=== PATIENT | male | born 1945 | race Caucasian/White ===

== ENCOUNTER 2016-09-04 10:24 | Day surgery (SDC) | payer MEDICARE, BC ==
[2016-08-31 15:05] VITALS: BMI 23.7
[~2016-09-04 10:24] MED LIST: DEXAMETHASONE SOD PHOSPHATE 10 MG/ML 1 ML VIAL IV ONE; HEPARIN SODIUM,PORCINE 5,000 UNIT/ML 1 ML VIAL SQ ONE; LIDOCAINE 1% 20 ML VIAL (10MG/ML) FOR IV START INTRADERMA PRN; MIDAZOLAM 2 MG/2 ML VIAL IV PRN; ONDANSETRON 4 MG/2 ML VIAL IVP ONE; SCOPOLAMINE 1.5MG/72HR PATCH TRANSDERM ONE; ceFAZolin 2 GM in SODIUM CHLORIDE 0.9% 100 ML IVPB ONE
[2016-09-04] MEDS: LACTATED RINGERS 1,000 ML IV SCH ×2 (10:44→11:05)
[2016-09-04 10:54] VITALS: TEMP 98
--- NOTE | 2016-09-04 11:26 | P.GSHP ---
History of Present Illness H&P Date: 09/04/16 Chief Complaint: Bilateral inguinal hernia This is a 70-year-old male who presents today for laparoscopic robotic system repair of bilateral inguinal hernias. 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 Right carotid endarterectomy, left knee arthroscopy, sinus surgery, clint shoulder rotator cuff. heel spur rt foot Past Anesthesia/Blood Transfusion Reactions: Motion Sickness Additional Past Anesthesia/Blood Transfusion Reaction / Comment(s): . Past Psychological History: Anxiety Additional Psychological History / Comment(s): . Smoking Status: Former smoker Past Alcohol Use History: Rare Additional Past Alcohol Use History / Comment(s): STARTED SMOKING AT AGE 19 QUIT SMOKING AT AGE 21 Past Drug Use History: None Reported - Past Family History Brother(s) Family Medical History: Cancer Additional Family Medical History / Comment(s): prostate Mother Family Medical History: No Reported History Father Family Medical History: No Reported History Additional Family Medical History / Comment(s): Father of possible an internal bleed. Medications and Allergies Home Medications Medication Instructions Recorded Confirmed Type Atorvastatin [Lipitor] 40 mg PO HS 10/18/14 08/31/16 History Lisinopril [Prinivil] 20 mg PO [facility] 10/18/14 08/31/16 History Escitalopram [Lexapro] 10 mg PO HS 12/13/14 08/31/16 History Aspirin [Adult Low Dose Aspirin EC] 162 mg PO HS 08/31/16 08/31/16 History Allergies Allergy/AdvReac Type Severity Reaction Status Date / Time influenza virus vaccine, AdvReac "very ill Verified 08/31/16 14:52 specific after injection" sulfamethoxazole AdvReac Rash/Hives Verified 08/31/16 14:52 [From Bactrim] trimethoprim [From Bactrim] AdvReac Rash/Hives Verified 08/31/16 14:52 Surgical - Exam Vital Signs Temp Pulse Resp BP Pulse Ox 98 F 87 16 156/89 96 09/04/16 10:53 09/04/16 10:53 09/04/16 10:53 09/04/16 10:53 09/04/16 10:53 - General well developed, no distress - Eyes PERRL - ENT normal pinna - Neck no masses - Respiratory normal expansion - Cardiovascular Rhythm: regular - Abdomen Abdomen: soft, non tender Hernia: inguinal (Bilateral inguinal hernias with left side being greater than right side) Assessment and Plan Plan: Bilateral inguinal hernia. We'll perform laparoscopic robotic-assisted repair.
[2016-09-04] MEDS ORDERED: GLYCOPYRROLATE 0.2 MG/ML 2 ML VIAL ONE (11:34)
[2016-09-04] MEDS ORDERED: HYDROmorphone (PF) 1 MG/ML ONE (11:34)
[2016-09-04] MEDS ORDERED: SUCCINYLCHOLINE CHLORIDE 100 MG/5 ML SYR IV ONE (11:34)
[2016-09-04] MEDS ORDERED: ROCURONIUM BROMIDE 10 MG/ML 10 ML VIAL IV ONE (11:34)
[2016-09-04] MEDS ORDERED: MIDAZOLAM 2 MG/2 ML VIAL ONE (11:34)
[2016-09-04] MEDS ORDERED: ePHEDrine 50 MG/ML 1 ML AMP ONE (11:34)
[2016-09-04] MEDS ORDERED: LIDOCAINE 1% INJ 10MG/ML (20 ML MDV) ONE (11:34)
[2016-09-04] MEDS ORDERED: PROPOFOL 10 MG/ML 20 ML VIAL IV ONE (11:34)
[2016-09-04] MEDS ORDERED: fentaNYL (PF) 50 MCG/ML 2 ML AMP ONE (11:34)
[2016-09-04] MEDS ORDERED: NEOSTIGMINE 1 MG/ML 10 ML VIAL ONE (11:34)
[2016-09-04] MEDS ORDERED: BUPIVACAIN-EPI 0.25%-1:200,000 30 ML VIAL SQ ONE (11:59)
--- NOTE | 2016-09-04 12:51 | P.OP ---
Date of Procedure: 09/04/16 Preoperative Diagnosis: Bilateral inguinal hernia Postoperative Diagnosis: Bilateral hernia Procedure(s) Performed: Laparoscopic robotic-assisted repair of bilateral hernia Anesthesia: JERICHO Surgeon: Billy Mullen Estimated Blood Loss (ml): 5 Pathology: none sent Condition: stable Disposition: PACU Description of Procedure: he patient's placed on the operating table in the supine position. The patient received general anesthesia. The patient's abdomen was prepped and draped in usual sterile fashion. The skin was anesthetized 1% local Xylocaine at the incision sites. Using an 11 blade a skin incision was made at the umbilicus. The fascia was grasped with a Kaleb and then the peritoneal cavity was entered with the Veress needle. Position of the Veress needle was confirmed with a positive drop test. After adequate insufflation a 5 mm trocar was placed into the peritoneal cavity. The Laparoscope was placed the peritoneal cavity. And a robotic 8 mm trocar was placed in the right lateral position and then another 8 mm robotic trochars placed in the left lateral position. The original 5 mm trocar was exchanged for a 12 mm trocar. The patient was placed in reverse Trendelenburg and then the patient was docked to the robot. Next the peritoneum over top of the the right hernia was incised and then using blunt and sharp dissection and electrocautery the hernia sac was dissected free from the floor of the inguinal canal. The hernia sac was completely reduced into the peritoneal cavity. And then using the Pro supervisor cell maintenance mesh the hernia was repaired. The peritoneum was then sutured with 20V lock suture. Next the peritoneum over top of the the left hernia was incised and then using blunt and sharp dissection and electrocautery the hernia sac was dissected free from the floor of the inguinal canal. The hernia sac was completely reduced into the peritoneal cavity. And then using the Pro supervisor cell maintenance mesh the hernia was repaired. The peritoneum was then sutured with 20V lock suture The patient was then undocked the robot. The needle was withdrawn from the peritoneal cavity. The umbilical trocar site was closed with 0 Ethibond suture. The skin was closed interrupted 3-0 Monocryl suture. Dermabond dressing was applied. Patient was sent to recovery in stable condition.
[2016-09-04] MEDS: HYDROmorphone 1 MG/ML 1 ML SYRINGE IVP PRN ×2 (13:18→13:48)
[2016-09-04] MEDS ORDERED: KETOROLAC 30 MG/ML 1 ML VIAL IVP ONE (13:23)
[2016-09-04] MEDS ORDERED: LACTATED RINGERS 1,000 ML IV ONE (15:40)
[2016-09-04] MEDS ORDERED: HYDROcodone/APAP 7.5-325MG 1 EACH TAB PO ONE (18:02)
[2016-09-04 19:34] VITALS: PULSE 96
[2016-09-04 19:35] VITALS: BP 114/76; RESP 20
== END 2016-09-04 19:30 | disposition home or self-care (01) ==
LOC: OR 10:24
PROVIDERS: ATTEND Surgery
DX: K40.20 Bilateral inguinal hernia, without obstruction or gangrene, not specified as recurrent (principal); Z86.73 Personal history of transient ischemic attack (TIA), and cerebral infarction without residual deficits; K21.9 Gastro-esophageal reflux disease without esophagitis; I10 Essential (primary) hypertension; E78.5 Hyperlipidemia, unspecified; Z87.891 Personal history of nicotine dependence; F41.9 Anxiety disorder, unspecified; Z79.82 Long term (current) use of aspirin; Z79.899 Other long term (current) drug therapy; Z88.2 Allergy status to sulfonamides; Z88.7 Allergy status to serum and vaccine
CPT/HCPCS: 49650; C1781; J2250; J1644; J1100; J2710; J0690; J2405; J2001; J3010; J1885; J1170; J0330; J2704

== ENCOUNTER 2016-09-23 17:09 | Emergency (ER) | payer MEDICARE, BC ==
[2016-09-23 17:16] VITALS: TEMP 97.4
[2016-09-23] MEDS ORDERED: RX INFO: IV CONTRAST WAS GIVEN 1 EACH MISC MISCELLANE PRN (17:49)
[2016-09-23] MEDS ORDERED: SODIUM CHLORIDE 0.9% 500 ML IV ONE (17:49)
--- NOTE | 2016-09-23 17:49 | ED ---
General Adult HPI - General Chief complaint: Recheck/Abnormal Lab/Rx Stated complaint: post op pain Source: patient Mode of arrival: ambulatory Limitations: no limitations - History of Present Illness Initial comments: Patient is a 70-year-old male who presents for evaluation for right lower pelvic pain after having bilateral robot assisted hernia repair on 09/04/2016. Past medical history as below. Patients surgeon is Dr. Mullen. Patient was actually evaluated by his surgeon this past Saturday and provided follow-up instructions if his pain worsens. Patient describes the pain as a dull/ burning type of ache. It fluctuates in intensity. It is worse with movement. Better with rest. No radiation of pain. He had a normal bowel movement yesterday. He does state though that he had some straining and also sneezed which may have exacerbated his pain. He did have some burning with urination. A urine sample was obtained by his primary care physician but he received no phone call to know if it was a urinary tract infection. He states that there is some fullness by his right testicle. Tolerating diet. He denies fever, chills , headache, changes of vision, URI symptoms, shortness of breath, cough, chest pain, nausea, vomiting, diarrhea - Related Data Home Medications Medication Instructions Recorded Confirmed Atorvastatin [Lipitor] 40 mg PO HS 10/18/14 09/23/16 Lisinopril [Prinivil] 20 mg PO QAM 10/18/14 09/23/16 Escitalopram [Lexapro] 10 mg PO HS 12/13/14 09/23/16 Aspirin [Adult Low Dose Aspirin EC] 162 mg PO HS 08/31/16 09/23/16 HYDROcodone/APAP 7.5-325MG [[place] 1 tab PO Q4H PRN 09/23/16 09/23/16 7.5] Ibuprofen [Motrin] 400 mg PO Q6HR PRN 09/23/16 09/23/16 Allergies Allergy/AdvReac Type Severity Reaction Status Date / Time influenza virus vaccine, AdvReac "very ill Verified 09/23/16 18:07 specific after injection" sulfamethoxazole AdvReac Rash/Hives Verified 09/23/16 18:07 [From Bactrim] trimethoprim [From Bactrim] AdvReac Rash/Hives Verified 09/23/16 18:07 Review of Systems ROS Statement: Those systems with pertinent positive or pertinent negative responses have been documented in the HPI. ROS Other: All systems not noted in ROS Statement are negative. 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 Right carotid endarterectomy, left knee arthroscopy, sinus surgery, clint shoulder rotator cuff. heel spur rt foot Past Anesthesia/Blood Transfusion Reactions: Motion Sickness Additional Past Anesthesia/Blood Transfusion Reaction / Comment(s): . Past Psychological History: Anxiety Additional Psychological History / Comment(s): . Smoking Status: Former smoker Past Alcohol Use History: Rare Additional Past Alcohol Use History / Comment(s): STARTED SMOKING AT AGE 19 QUIT SMOKING AT AGE 21 Past Drug Use History: None Reported - Past Family History Brother(s) Family Medical History: Cancer Additional Family Medical History / Comment(s): prostate Mother Family Medical History: No Reported History Father Family Medical History: No Reported History Additional Family Medical History / Comment(s): Father of possible an internal bleed. General Exam Limitations: no limitations General appearance: alert, in no apparent distress, other (Appears comfortable resting in the stretcher) Head exam: Present: atraumatic, normocephalic, normal inspection Eye exam: Present: normal appearance, PERRL, EOMI. Absent: scleral icterus, conjunctival injection, periorbital swelling ENT exam: Present: normal exam, mucous membranes moist Neck exam: Present: normal inspection. Absent: tenderness, meningismus, lymphadenopathy Respiratory exam: Present: normal lung sounds bilaterally. Absent: respiratory distress, wheezes, rales, rhonchi, stridor Cardiovascular Exam: Present: regular rate, normal rhythm, normal heart sounds. Absent: systolic murmur, diastolic murmur, rubs, gallop, clicks GI/Abdominal exam: Present: soft, normal bowel sounds, other (Abdomen is soft. Nontender. No high-pitched bowel sounds. No peritoneal signs. Surgical incisions appear C/D/I without surrounding signs of cellulitis/wound infection.) . Absent: distended, tenderness, guarding, rebound, rigid exam: Present: scrotal swelling, circumcision, other (Pain with palpation in the right inguinal area. There is a fullness to the right side of the scrotum. Tenderness to palpation of the right testicle. Positive cremasteric reflex bilaterally. No urethral discharge. The right testicle appears more elevated compared to the left.). Absent: testicular tenderness, urethral discharge, vertical testicular lie External exam: Absent: erythema, lesions Extremities exam: Present: normal inspection, full ROM, normal capillary refill. Absent: tenderness, pedal edema, joint swelling, calf tenderness Back exam: Present: normal inspection Neurological exam: Present: alert, oriented X3, CN II-XII intact Psychiatric exam: Present: normal affect, normal mood Skin exam: Present: warm, dry, intact, normal color. Absent: rash Course Vital Signs 09/23/16 09/23/16 17:12 21:45 Temperature 97.4 F L Pulse Rate 74 62 Respiratory 17 16 Rate Blood Pressure 127/74 118/63 O2 Sat by Pulse 98 97 Oximetry Medical Decision Making - Medical Decision Making Patient presents for evaluation for pain to the right inguinal area radiating down to the right testicle. There is some fullness to the right scrotum. Tender to the touch. Minimal pain with palpation of the testicles b/l. Normal lie. Will order basic labs, UA, CT abd/pelvis with IV contrast. Pt deferred pain medications at this time. 1944: Laboratory studies as below. Largely unremarkable. Patient continues to be in some pain. Again refusing pain medications. He went for CT. Awaiting for the final read. I again reexamined the patient. His right testicle is now tender to the touch. More tender with palpation of the right inguinal area. He has a positive cremasteric reflex. No concern for testicular torsion at this time but will order an US of the scrotum.. -I discussed the case with radiology to confirm that there is no suspicion for herniation of bowel into the scrotum. He feels that this is more consistent with postoperative air versus bowel. 2154: Reviewed ultrasound. Patient has a hydrocele on the right and a small varicocele on the left. Good blood flow to the testicles bilaterally. Placed a page to Dr. Mullen to give update as he recently hard surgical procedure. Staff left message. Discussed with the patient. We'll need follow-up with urology. They stated that they're going to be driving to [place] tomorrow. Discussed that there is still able to go to [place] but recommended close observation. He has pain medications at home which she can take. Recommended follow-up with urology in the next 1-2 days. Discussed signs and symptoms on when to return to the emergency department for further evaluation. Especially if his pain worsens or if he if he notices any changes in the characteristic of his pain. Comfortable going home. Will follow-up with urology/primary care physician. - Lab Data Result diagrams: 09/23/16 18:20 09/23/16 18:20 Lab Results 09/23/16 09/23/16 09/23/16 Range/Units 18:20 18:20 18:20 WBC 6.6 (3.8-10.6) k/uL RBC 4.81 (4.30-5.90) m/uL Hgb 14.5 (13.0-17.5) gm/dL Hct 43.3 (39.0-53.0) % MCV 90.2 (80.0-100.0) fL MCH 30.2 (25.0-35.0) pg MCHC 33.4 (31.0-37.0) g/dL RDW 12.6 (11.5-15.5) % Plt Count 243 (150-450) k/uL Neutrophils % 65 % Lymphocytes % 21 % Monocytes % 7 % Eosinophils % 2 % Basophils % 1 % Neutrophils # 4.3 (1.3-7.7) k/uL Lymphocytes # 1.4 (1.0-4.8) k/uL Monocytes # 0.5 (0-1.0) k/uL Eosinophils # 0.1 (0-0.7) k/uL Basophils # 0.1 (0-0.2) k/uL Sodium 141 (137-145) mmol/L Potassium 4.2 (3.5-5.1) mmol/L Chloride 106 (98-107) mmol/L Carbon Dioxide 23 (22-30) mmol/L Anion Gap 12 mmol/L BUN 15 (9-20) mg/dL Creatinine 1.00 (0.66-1.25) mg/dL Est GFR (MDRD) Af Amer >60 (>60 ml/min/1.73 sqM) Est GFR (MDRD) Non-Af >60 (>60 ml/min/1.73 sqM) Glucose 89 (74-99) mg/dL Plasma Lactic Acid Hans 0.8 (0.7-2.0) mmol/L Calcium 9.9 (8.4-10.2) mg/dL Total Bilirubin 1.8 H (0.2-1.3) mg/dL AST 32 (17-59) U/L ALT 46 (21-72) U/L Alkaline Phosphatase 65 (38-126) U/L Total Protein 7.1 (6.3-8.2) g/dL Albumin 4.6 (3.5-5.0) g/dL Urine Color Urine Appearance (Clear) Urine pH (5.0-8.0) Ur Specific [place] (1.001-1.035) Urine Protein (Negative) Urine Glucose (UA) (Negative) Urine Ketones (Negative) Urine Blood (Negative) Urine Nitrate (Negative) Urine Bilirubin (Negative) Urine Urobilinogen (<2.0) mg/dL Ur Leukocyte Esterase (Negative) 09/23/16 Range/Units 18:55 WBC (3.8-10.6) k/uL RBC (4.30-5.90) m/uL Hgb (13.0-17.5) gm/dL Hct (39.0-53.0) % MCV (80.0-100.0) fL MCH (25.0-35.0) pg MCHC (31.0-37.0) g/dL RDW (11.5-15.5) % Plt Count (150-450) k/uL Neutrophils % % Lymphocytes % % Monocytes % % Eosinophils % % Basophils % % Neutrophils # (1.3-7.7) k/uL Lymphocytes # (1.0-4.8) k/uL Monocytes # (0-1.0) k/uL Eosinophils # (0-0.7) k/uL Basophils # (0-0.2) k/uL Sodium (137-145) mmol/L Potassium (3.5-5.1) mmol/L Chloride (98-107) mmol/L Carbon Dioxide (22-30) mmol/L Anion Gap mmol/L BUN (9-20) mg/dL Creatinine (0.66-1.25) mg/dL Est GFR (MDRD) Af Amer (>60 ml/min/1.73 sqM) Est GFR (MDRD) Non-Af (>60 ml/min/1.73 sqM) Glucose (74-99) mg/dL Plasma Lactic Acid Hans (0.7-2.0) mmol/L Calcium (8.4-10.2) mg/dL Total Bilirubin (0.2-1.3) mg/dL AST (17-59) U/L ALT (21-72) U/L Alkaline Phosphatase (38-126) U/L Total Protein (6.3-8.2) g/dL Albumin (3.5-5.0) g/dL Urine Color Light Yellow Urine Appearance Clear (Clear) Urine pH 5.5 (5.0-8.0) Ur Specific [place] 1.004 (1.001-1.035) Urine Protein Negative (Negative) Urine Glucose (UA) Negative (Negative) Urine Ketones Trace H (Negative) Urine Blood Negative (Negative) Urine Nitrate Negative (Negative) Urine Bilirubin Negative (Negative) Urine Urobilinogen <2.0 (<2.0) mg/dL Ur Leukocyte Esterase Negative (Negative) Disposition Clinical Impression: Varicocele, Hydrocele Disposition: HOME SELF-CARE Condition: Good Instructions: Hydrocele (ED), Varicocele (ED) Referrals: Ron Zamarripa DO [Primary Care Provider] - 1-2 days Kapil Rodrigues MD [STAFF PHYSICIAN] - 1-2 days
[2016-09-23 18:44] LABS: Basophils # (A) 0.1 k/uL (0-0.2); Basophils % (A) 1 %; CH 31.3; CHCM 34.8; Eosinophils # (A) 0.1 k/uL (0-0.7); Eosinophils % (A) 2 %; HCT 43.3 % (39.0-53.0); HDW 2.61; HGB 14.5 gm/dL (13.0-17.5); Luc # (Auto) 0.23; Luc % (Auto) 4; Lymphocytes # (A) 1.4 k/uL (1.0-4.8); Lymphocytes % (A) 21 %; MCH 30.2 pg (25.0-35.0); MCHC 33.4 g/dL (31.0-37.0); MCV 90.2 fL (80.0-100.0); Mean Platelet Volume 6.5; Monocytes # (A) 0.5 k/uL (0-1.0); Monocytes % (A) 7 %; Neutrophils # (A) 4.3 k/uL (1.3-7.7); Neutrophils % (A) 65 %; RBC 4.81 m/uL (4.30-5.90); RDW 12.6 % (11.5-15.5); WBC 6.6 k/uL (3.8-10.6); WBC (Perox) 6.49
[2016-09-23 18:53] LABS: ALT 46 U/L (21-72); AST 32 U/L (17-59); Alkaline Phosphatase 65 U/L (38-126); Anion Gap 12 mmol/L; Blood Urea Nitrogen 15 mg/dL (9-20); Calcium 9.9 mg/dL (8.4-10.2); Carbon Dioxide 23 mmol/L (22-30); Chloride 106 mmol/L (98-107); Glucose 89 mg/dL (74-99); Non-African American GFR(MDRD) >60 (>60 ml/min/1.73 sqM); Potassium 4.2 mmol/L (3.5-5.1); Sodium 141 mmol/L (137-145); Total Bilirubin 1.8 mg/dL (0.2-1.3); Total Protein 7.1 g/dL (6.3-8.2)
[2016-09-23 19:20] LABS: Appearance,Urine Clear (Clear); Bilirubin,Urine Negative (Negative); Glucose,Urine (UA) Negative (Negative); Ketones,Urine Trace (Negative); Leukocyte Esterase,Urine Negative (Negative); Nitrite,Urine Negative (Negative); PH, Urine 5.5 (5.0-8.0); Protein,Urine Negative (Negative); Specific Gravity,Urine 1.004 (1.001-1.035); UA Billing (MACRO vs. MICRO) CHEM; Urobilinogen,Urine <2.0 mg/dL (<2.0)
--- NOTE | 2016-09-23 19:47 | CT ---
EXAMINATION TYPE: CT abdomen pelvis w con DATE OF EXAM: 09/23/2016 7:26 PM COMPARISON: September 12, 2015 HISTORY: Patient complains of RLQ pain x1 week post bilateral pelvic hernia repair [address] DLP: 670.4 mGycm CONTRAST: CT scan of the abdomen and pelvis is performed without Oral Contrast and with IV Contrast, patient in jected with 100 mL of Omnipaque 300. FINDINGS: LUNG BASES-: No visible nodule. No infiltrate. LIVER/GB: No calcified gallstones. No space occupying hepatic lesion. Biliary tree is of normal ca liber. PANCREAS: No inflammation. No distinct mass. SPLEEN: No splenic enlargement. No lesion seen. ADRENALS: No nodule. No thickening. KIDNEYS/BLADDER: No hydronephrosis. 2 cm lower pole cyst right kidney. 9 mm nonobstructing calculu s mid pole left kidney. Urinary bladder grossly unremarkable. BOWEL: Visualization of the appendix. Postoperative changes within the bilateral inguinal regions wit h stranding seen and a tiny amount of fluid identified bilaterally measuring 2.3 cm maximal dimension right inguinal region and 1.8 cm maximal dimension on the left. Amount of air is seen within the ing uinal canals bilaterally. Normal bowel caliber. Thinning of the distal esophagus with hiatal herni a noted. GENITAL ORGANS: No gross abnormality. LYMPH NODES: No greater than 1cm abdominal or pelvic lymph nodes are appreciated. AORTA: No significant abnormality. OSSEOUS STRUCTURES: No significant abnormality is seen. OTHER: No significant additional abnormality is seen. IMPRESSION: 1. Small amounts of postoperative fluid and stranding within the bilateral inguinal regions and lower abdomen compatible with recent herniorrhaphy. No definite infected collections identified. 2. Findings which may reflect esophagitis with small hiatal hernia.
--- NOTE | 2016-09-23 21:09 | US ---
EXAMINATION TYPE: US scrotum with doppler. Grayscale and color Doppler Duplex imaging performed of t he scrotum. DATE OF EXAM: 09/23/2016 8:42 PM COMPARISON: NONE CLINICAL HISTORY: Pain. rt teste pain EXAM MEASUREMENTS: TESTICLES: Right Testicle: 3.8 x 2.9 x 2.1 cm Left Testicle: 3.5 x 2.5 x 1.9 cm EPIDIDYMIS HEAD: Right Epididymis: 0.8 x 1.0 x 0.7 cm Left Epididymis: 0.9 x 1.0 x 0.8 cm TECHNOLOGIST IMPRESSION: Doppler performed to assess for testicular vascularity; good bilateral color flow and waveforms are s een. There is no evidence of testicular torsion. Presence of hydroceles: right Presence of varicoceles: left- Valsalva performed. IMPRESSION: Small right-sided hydrocele. Otherwise unremarkable study.
[2016-09-23 21:46] VITALS: BP 118/63; PULSE 62; RESP 16
== END 2016-09-23 22:06 | disposition home or self-care (01) ==
LOC: EC 17:09
DX: N43.3 Hydrocele, unspecified (principal); I86.1 Scrotal varices; R30.0 Dysuria; I10 Essential (primary) hypertension; M19.90 Unspecified osteoarthritis, unspecified site; F41.9 Anxiety disorder, unspecified; Z87.891 Personal history of nicotine dependence; Z86.73 Personal history of transient ischemic attack (TIA), and cerebral infarction without residual deficits; Z79.82 Long term (current) use of aspirin; Z79.899 Other long term (current) drug therapy; Z88.1 Allergy status to other antibiotic agents; Z88.2 Allergy status to sulfonamides; Z88.7 Allergy status to serum and vaccine
CPT/HCPCS: 36415; 80053; 83605; 85025; 81003; 93975; 76870; 74177; 99284; Q9967

== ENCOUNTER 2016-11-29 06:59 | Day surgery (SDC) | payer MEDICARE, BC ==
[2016-11-27 09:45] VITALS: BMI 23.7
[~2016-11-29 06:59] MED LIST changes: -DEXAMETHASONE SOD PHOSPHATE 10 MG/ML 1 ML VIAL IV ONE; -HEPARIN SODIUM,PORCINE 5,000 UNIT/ML 1 ML VIAL SQ ONE; +LACTATED RINGERS 1,000 ML IV SCH; -LIDOCAINE 1% 20 ML VIAL (10MG/ML) FOR IV START INTRADERMA PRN; -MIDAZOLAM 2 MG/2 ML VIAL IV PRN; -ONDANSETRON 4 MG/2 ML VIAL IVP ONE; -SCOPOLAMINE 1.5MG/72HR PATCH TRANSDERM ONE; -ceFAZolin 2 GM in SODIUM CHLORIDE 0.9% 100 ML IVPB ONE
[2016-11-29 07:16] VITALS: TEMP 98
[2016-11-29] MEDS ORDERED: LACTATED RINGERS 1,000 ML IV ONE (07:18)
[2016-11-29] MEDS ORDERED: PROPOFOL 10 MG/ML 20 ML VIAL IV ONE (07:56)
[2016-11-29] MEDS ORDERED: fentaNYL (PF) 50 MCG/ML 2 ML AMP ONE (07:56)
[2016-11-29] MEDS ORDERED: MIDAZOLAM 2 MG/2 ML VIAL ONE (07:56)
--- NOTE | 2016-11-29 08:04 | P.GSHP ---
History of Present Illness H&P Date: 11/29/16 Chief Complaint: Constipation, abdominal pain This is a 70-year-old male from Dr. Ron Pedersen. Patient rents today for colonoscopy. He's had issues constipation and abdominal pain is a dull pain is crampy and mainly left lower quadrant. 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 RECENT ABD PAIN AND PROBLEMS WITH HAVING BOWEL MOVEMENTS POST HERNIA SURGERY History of Any Multi-Drug Resistant Organisms: None Reported Past Surgical History: Appendectomy, Cholecystectomy, Heart Catheterization, Hernia Repair, Orthopedic Surgery Additional Past Surgical History / Comment(s): Laparoscopic migue fundoplasty extensive lysis of adhesions. Right carotid endarterectomy, left knee arthroscopy, sinus surgery, clint shoulder rotator cuff. heel spur rt foot Past Anesthesia/Blood Transfusion Reactions: Motion Sickness Additional Past Anesthesia/Blood Transfusion Reaction / Comment(s): . Past Psychological History: Anxiety Additional Psychological History / Comment(s): . Smoking Status: Former smoker Past Alcohol Use History: Rare Additional Past Alcohol Use History / Comment(s): STARTED SMOKING AT AGE 19 QUIT SMOKING AT AGE 21 Past Drug Use History: None Reported - Past Family History Brother(s) Family Medical History: Cancer Additional Family Medical History / Comment(s): prostate Mother Family Medical History: No Reported History Father Family Medical History: No Reported History Additional Family Medical History / Comment(s): Father of possible an internal bleed. Medications and Allergies Home Medications Medication Instructions Recorded Confirmed Type Atorvastatin [Lipitor] 40 mg PO HS 10/18/14 11/27/16 History Lisinopril [Prinivil] 20 mg PO QAM 10/18/14 11/27/16 History Escitalopram [Lexapro] 10 mg PO HS 12/13/14 11/27/16 History Aspirin [Adult Low Dose Aspirin EC] 162 mg PO HS 08/31/16 11/27/16 History HYDROcodone/APAP 7.5-325MG [[place] 1 tab PO Q4H PRN 09/23/16 11/27/16 History 7.5] Allergies Allergy/AdvReac Type Severity Reaction Status Date / Time influenza virus vaccine, AdvReac "very ill Verified 11/27/16 09:40 specific after injection" sulfamethoxazole AdvReac Rash/Hives Verified 11/27/16 09:40 [From Bactrim] trimethoprim [From Bactrim] AdvReac Rash/Hives Verified 11/27/16 09:40 Surgical - Exam Vital Signs Temp Pulse Resp BP Pulse Ox 98.0 F 81 18 119/79 95 11/29/16 07:14 11/29/16 07:14 11/29/16 07:14 11/29/16 07:14 11/29/16 07:14 - General well developed, no distress - Eyes PERRL - ENT normal pinna - Neck no masses - Respiratory normal expansion - Cardiovascular Rhythm: regular - Abdomen Abdomen: soft, non tender Assessment and Plan Plan: Constipation, left lower quadrant pain. We will perform colonoscopy.
--- NOTE | 2016-11-29 08:24 | P.OP ---
Date of Procedure: 11/29/16 Preoperative Diagnosis: Constipation Left lower quadrant pain Postoperative Diagnosis: Left colon polyp Mild diverticulosis Procedure(s) Performed: Colonoscopy Anesthesia: MAC Surgeon: Billy Mullen Pathology: other (Left colon polyp) Condition: stable Disposition: PACU Description of Procedure: The patient's placed on the endoscopy table in the lateral position. He received IV sedation. Digital rectal exam was performed which revealed no abnormalities. The prostate was symmetrical without nodules. The flexible colonoscope was then placed patient anus and passed throughout the entire colon. The ileocecal valve was visualized. The cecum, ascending and transverse colon appeared normal. In the descending and sigmoid colon is mild diverticulosis. In the left colon there was a polyp seen this was removed with the forcep. Scope was then brought back the rectum and this appeared normal. Scope was withdrawn for patient.
[2016-11-29 08:42] VITALS: BP 101/69; PULSE 71; RESP 18
== END 2016-11-29 08:59 | disposition home or self-care (01) ==
LOC: ORWHC2ENDO 06:59
PROVIDERS: ATTEND Surgery
DX: K63.5 Polyp of colon (principal); K57.30 Diverticulosis of large intestine without perforation or abscess without bleeding; Z87.891 Personal history of nicotine dependence; I10 Essential (primary) hypertension; E78.5 Hyperlipidemia, unspecified; Z86.73 Personal history of transient ischemic attack (TIA), and cerebral infarction without residual deficits; F32.9 Major depressive disorder, single episode, unspecified; M19.90 Unspecified osteoarthritis, unspecified site; F41.9 Anxiety disorder, unspecified; Z79.82 Long term (current) use of aspirin; Z79.899 Other long term (current) drug therapy; Z88.2 Allergy status to sulfonamides; Z88.7 Allergy status to serum and vaccine
CPT/HCPCS: 45380; J2250; J3010; J2704; 88305

== ENCOUNTER 2017-09-07 14:56 | Emergency (ER) | payer MEDICARE, BC ==
[2017-09-07 15:09] VITALS: BP 138/77; PULSE 76; RESP 20; TEMP 98.1
[2017-09-07] MEDS ORDERED: DIPH,PERTUS(ACELL)TETVAC-LF 0.5 ML VIAL IM ONE (15:18)
--- NOTE | 2017-09-07 15:47 | ED ---
Wound/Laceration HPI - General Chief Complaint: Wound/Laceration Stated Complaint: Finger laceration Time Seen by Provider: 09/07/17 15:11 Source: patient Mode of arrival: ambulatory Limitations: no limitations - History of Present Illness Initial Comments: 71-year-old male patient presents to the emergency department today for evaluation of laceration to the palmar surface of the left little finger. Patient states that approximate hour ago he was working on some metal when he cut his finger on a jagged edge. He states he did clean the finger however was having difficulty getting the bleeding to stop. He is unsure when his last tetanus vaccine was updated. He denies any numbness or tingling to the finger. Denies any difficulty with range of motion. States he takes a daily aspirin. Patient denies any headache, neck pain, back pain, chest pain, shortness of breath, dizziness, weakness, abdominal pain, nausea, vomiting, or difficulties with bowel movements or urination. - Related Data Home Medications Medication Instructions Recorded Confirmed Atorvastatin [Lipitor] 40 mg PO HS 10/18/14 11/27/16 Lisinopril [Prinivil] 20 mg PO QAM 10/18/14 11/27/16 Escitalopram [Lexapro] 10 mg PO HS 12/13/14 11/27/16 Aspirin [Adult Low Dose Aspirin EC] 162 mg PO HS 08/31/16 11/27/16 HYDROcodone/APAP 7.5-325MG [Hawley 1 tab PO Q4H PRN 09/23/16 11/27/16 7.5] Allergies Allergy/AdvReac Type Severity Reaction Status Date / Time influenza virus vaccine, AdvReac "very ill Verified 09/07/17 15:09 specific after injection" sulfamethoxazole AdvReac Rash/Hives Verified 09/07/17 15:09 [From Bactrim] trimethoprim [From Bactrim] AdvReac Rash/Hives Verified 09/07/17 15:09 Review of Systems ROS Statement: Those systems with pertinent positive or pertinent negative responses have been documented in the HPI. ROS Other: All systems not noted in ROS Statement are negative. 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 RECENT ABD PAIN AND PROBLEMS WITH HAVING BOWEL MOVEMENTS POST HERNIA SURGERY History of Any Multi-Drug Resistant Organisms: None Reported Past Surgical History: Appendectomy, Cholecystectomy, Heart Catheterization, Hernia Repair, Orthopedic Surgery Additional Past Surgical History / Comment(s): Laparoscopic migue fundoplasty extensive lysis of adhesions. Right carotid endarterectomy, left knee arthroscopy, sinus surgery, clint shoulder rotator cuff. heel spur rt foot Past Anesthesia/Blood Transfusion Reactions: Motion Sickness Additional Past Anesthesia/Blood Transfusion Reaction / Comment(s): . Past Psychological History: Anxiety Smoking Status: Former smoker Past Alcohol Use History: Rare Past Drug Use History: None Reported - Past Family History Brother(s) Family Medical History: Cancer Additional Family Medical History / Comment(s): prostate Mother Family Medical History: No Reported History Father Family Medical History: No Reported History Additional Family Medical History / Comment(s): Father of possible an internal bleed. General Exam Limitations: no limitations General appearance: alert, in no apparent distress, other (This is a well- developed, well-nourished adult male patient in no acute distress. Vital signs upon presentation were temperature 98.1F, pulse 76, respirations 20, blood pressure 138/77, pulse ox 99% on room air.) Respiratory exam: Present: normal lung sounds bilaterally. Absent: respiratory distress, wheezes, rales, rhonchi, stridor Cardiovascular Exam: Present: regular rate, normal rhythm, normal heart sounds. Absent: systolic murmur, diastolic murmur, rubs, gallop, clicks Extremities exam: Present: full ROM, normal capillary refill, other (2 cm laceration to the palmar surface of the distal left little finger, full range of motion, good strength against resistance. Bleeding controlled.). Absent: normal inspection, tenderness, pedal edema, joint swelling, calf tenderness Neurological exam: Present: alert, oriented X3, CN II-XII intact Psychiatric exam: Present: normal affect, normal mood Skin exam: Present: warm, dry, intact, normal color. Absent: rash Course Vital Signs 09/07/17 15:07 Temperature 98.1 F Pulse Rate 76 Respiratory 20 Rate Blood Pressure 138/77 O2 Sat by Pulse 99 Oximetry Procedures - Laceration Laceration #1 Consent Obtained: verbal consent Time Out Performed: Yes Indication: laceration Site: hand (Left Little finger) Size (cm): 2 Description: linear Depth: simple, single layer Anesthetic Used: lidocaine 1% Anesthesia Technique: local infiltration Amount (mls): 2 Pre-repair: irrigated extensively Type of Sutures: nylon Size of Sutures: 5-0 Number of Sutures: 5 Technique: simple, interrupted Patient Tolerated Procedure: well, no complications Medical Decision Making - Medical Decision Making 71-year-old male patient presents to the emergency department today for evaluation of laceration to the left little finger. Physical examination revealed a 2 cm laceration to the palmar surface of the distal little finger on the left hand. Patient was soaked in iodine solution. Wound was irrigated extensively, repaired as documented. Patient was given wound care instructions. Instructed to return in 7 days for suture removal. He is instructed to return here immediately for any new, worsening, or concerning symptoms. He verbalized understanding and agree with this plan. Disposition Clinical Impression: Laceration of left little finger Disposition: HOME SELF-CARE Condition: Good Instructions: Care For Your Stitches (ED), Finger Laceration (ED) Additional Instructions: Keep wound clean and dry. Do not submerge in water. Wash twice daily with warm water and antibacterial soap. Return here in 7 days to have her stitches removed. Monitor for signs or symptoms of infection including but not limited to redness, swelling, drainage of pus, fever, or chills. Follow up with her primary care physician for any further needs. Return here immediately for any new, worsening, or concerning symptoms. Referrals: Ron Zamarripa DO [Primary Care Provider] - 1-2 days Time of Disposition: 15:47
== END 2017-09-07 15:58 | disposition home or self-care (01) ==
LOC: EC 14:56
DX: S61.217A Laceration without foreign body of left little finger without damage to nail, initial encounter (principal); I10 Essential (primary) hypertension; F41.9 Anxiety disorder, unspecified; Z23 Encounter for immunization; Z86.73 Personal history of transient ischemic attack (TIA), and cerebral infarction without residual deficits; Z87.891 Personal history of nicotine dependence; Z98.890 Other specified postprocedural states; Z79.82 Long term (current) use of aspirin; Z79.899 Other long term (current) drug therapy; Z88.1 Allergy status to other antibiotic agents; Z88.2 Allergy status to sulfonamides; Z88.7 Allergy status to serum and vaccine; W26.8XXA Contact with other sharp object(s), not elsewhere classified, initial encounter; Y93.89 Activity, other specified; Y92.009 Unspecified place in unspecified non-institutional (private) residence as the place of occurrence of the external cause
CPT/HCPCS: 12001; 90471; 90715; 99282

== ENCOUNTER → 2017-11-12 | Outpatient (CLI) | payer MEDICARE, BC ==
[2017-11-12 18:49] LABS: Blood Urea Nitrogen 16 mg/dL (9-20)
--- NOTE | 2017-11-13 03:13 | CT ---
EXAMINATION TYPE: CT abdomen pelvis wo/w con DATE OF EXAM: 11/12/2017 COMPARISON: 09/23/2016 and 09/12/2015 HISTORY: 71-year-old male lower anterior abdominal pain, weight loss TECHNIQUE: Contiguous axial scanning of the abdomen and pelvis following administration of 100 ml Iso arianne 300 IV contrast. Delayed images through the kidneys and coronal/sagittal reconstructions perform ed. CT DLP: 1288.0 mGycm Automated exposure control for dose reduction was used. FINDINGS: Heart is normal size without pericardial effusion. Dependent atelectasis in the posterior lung bases without pleural effusion. Small hiatal hernia and some surgical changes at the GE junction, possible slipped Pastor wrap. No focal liver lesion or biliary ductal dilatation. Portal venous system is patent. Cholecystectomy c lips are present. Adrenal glands, spleen, and pancreas show no gross abnormality. Redemonstrated 1.6 cm cortical cyst lower pole right kidney, approximately 4 punctate 1 to 2 mm calcu li right kidney, and a larger 7 mm nonobstructive calculus left kidney. There is symmetric uptake and excretion of contrast from both kidneys. Mild to moderate atherosclerotic changes in the abdominal aorta and iliac arteries. There is a rightw ron directed saccular dilatation of the infrarenal abdominal aorta measuring up to 2.3 cm and a secon d fusiform dilatation of the distal abdominal aorta measuring 2.8 cm. This measured 2.5 cm on 09/12/19 16. No dilated small bowel, free fluid, or free air. Scattered nonenlarged and borderline sized mesenteric lymph nodes are present measuring up to 1 cm sh ort axis, coronal image 30. These seem to have been present on 09/23/2016 suggesting a chronic postinf lammatory etiology. Moderate stool burden. Appendix not discretely visualized. There is some strandy curvilinear density along the bilateral lower quadrants deep to the abdominal w all musculature suggesting prior hernia repair. There is a residual small fat-containing left indirec t inguinal hernia, refer to axial image 79 through 87. Some nodularity along the superior aspect of t he left-sided surgical material measures 1.2 cm and is less pronounced as compared to 09/23/2016 sugge sting some chronic nodular scarring. No abnormal fluid collection in the pelvis or pelvic lymphadenopathy. Prostate gland is enlarged abdifatah uring 5.3 cm with posterior compression to the bladder base. Mild circumferential bladder wall thicke julian likely chronic bladder wall hypertrophy. Bones: Degenerative spurring at the left SI joint and both hips. Bone island posterior left acetabulu m unchanged. Degenerative disc disease L5-S1 and facet arthropathy lower lumbar spine. IMPRESSION: 1. POSTSURGICAL CHANGES OF PRIOR BILATERAL INGUINAL HERNIA REPAIRS. THERE SEEMS TO BE A SMALL RESIDU AL FAT-CONTAINING INDIRECT INGUINAL HERNIA ON THE LEFT. 2. NODULARITY ALONG THE SUPERIOR MARGIN OF THE SURGICAL MATERIAL ALONG THE LEFT LOWER QUADRANT IS LES S PRONOUNCED COMPARED TO 09/23/2016 AND IS SUSPECTED TO REPRESENT CHRONIC NODULAR SCARRING. 3. SMALL HIATAL HERNIA AND SOME SURGICAL MATERIAL AT THE GE JUNCTION. POSSIBLE SLIPPED PASTOR WRAP. C ORRELATE WITH PATIENT'S SYMPTOMS. 4. BILATERAL NEPHROLITHIASIS, LARGEST MEASURING 7 MM ON THE LEFT. 5. A COUPLE DILATATION OF THE INFRARENAL ABDOMINAL AORTA. ALONG THE DISTAL ABDOMINAL AORTA, THERE IS FUSIFORM ECTASIA OF 2.8 CM, INCREASED FROM 2.5 CM ON 09/12/2015. NO DARLENE AAA. 6. PROSTATOMEGALY (5.3 CM WIDE) IMPRESSING ON TO THE POSTERIOR BLADDER BASE SUGGESTING BPH. CORRELATE WITH PATIENT'S SYMPTOMS.
== END | disposition home or self-care (01) ==
LOC: RADCTMAIN 18:12
PROVIDERS: ATTEND Family Medicine
DX: K44.9 Diaphragmatic hernia without obstruction or gangrene (principal); N20.0 Calculus of kidney; I77.811 Abdominal aortic ectasia; N40.0 Benign prostatic hyperplasia without lower urinary tract symptoms; Z98.890 Other specified postprocedural states
CPT/HCPCS: 82565; 84520; 74178; 36415; Q9967

== ENCOUNTER 2017-12-31 06:29 | Inpatient (IN) | payer MEDICARE, BC ==
[2017-12-31] MEDS ORDERED: SODIUM CHLORIDE 0.9% 1,000 ML IV STA (07:18)
[2017-12-31] MEDS ORDERED: methylPREDNISolone SOD SUCCI 125 MG/2 ML VIAL IV STA (07:18)
[2017-12-31] MEDS ORDERED: IPRATROPIUM-ALBUTEROL 3 ML NEB INHALATION STA (07:18)
--- NOTE | 2017-12-31 07:22 | ED ---
General Adult HPI - General Chief complaint: Shortness of Breath Stated complaint: Dyspnea Time Seen by Provider: 12/31/17 07:02 Source: patient, family, RN notes reviewed Mode of arrival: wheelchair Limitations: no limitations - History of Present Illness Initial comments: Patient is a pleasant 72-year-old male presenting to the emergency Department with complaints of cough and difficulty in breathing. Symptoms started a couple of weeks ago. Patient did see his doctor 1 week ago and was given antibiotics and he believes steroids. Patient did finish these however feels better. Patient had a temperature of 99.9 this morning. Patient has had cough. Patient has some discomfort right lateral lower chest that he is attributed to cough. Patient states that just started this morning and seems to be improving. Patient does not feel he needs pain medication for. No history of chronic lung problems. Patient does have a history of smoking for only for years approximately 50 years ago. - Related Data Home Medications Medication Instructions Recorded Confirmed Atorvastatin [Lipitor] 40 mg PO HS 10/18/14 12/31/17 Lisinopril [Prinivil] 20 mg PO QAM 10/18/14 12/31/17 Aspirin [Adult Low Dose Aspirin EC] 162 mg PO HS 08/31/16 12/31/17 Sennosides [Senna] 8.6 mg PO DAILY PRN 12/31/17 12/31/17 Allergies Allergy/AdvReac Type Severity Reaction Status Date / Time influenza virus vaccine, AdvReac "very ill Verified 12/31/17 07:40 specific after injection" sulfamethoxazole AdvReac Rash/Hives Verified 12/31/17 07:40 [From Bactrim] trimethoprim [From Bactrim] AdvReac Rash/Hives Verified 12/31/17 07:40 Review of Systems ROS Statement: Those systems with pertinent positive or pertinent negative responses have been documented in the HPI. ROS Other: All systems not noted in ROS Statement are negative. 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 RECENT ABD PAIN AND PROBLEMS WITH HAVING BOWEL MOVEMENTS POST HERNIA SURGERY History of Any Multi-Drug Resistant Organisms: None Reported Past Surgical History: Appendectomy, Cholecystectomy, Heart Catheterization, Hernia Repair, Orthopedic Surgery Additional Past Surgical History / Comment(s): Laparoscopic migue fundoplasty extensive lysis of adhesions. Right carotid endarterectomy, left knee arthroscopy, sinus surgery, clint shoulder rotator cuff. heel spur rt foot Past Anesthesia/Blood Transfusion Reactions: Motion Sickness Additional Past Anesthesia/Blood Transfusion Reaction / Comment(s): . Past Psychological History: Anxiety Smoking Status: Former smoker Past Alcohol Use History: Rare Past Drug Use History: None Reported - Past Family History Brother(s) Family Medical History: Cancer Additional Family Medical History / Comment(s): prostate Mother Family Medical History: No Reported History Father Family Medical History: No Reported History Additional Family Medical History / Comment(s): Father of possible an internal bleed. General Exam Limitations: no limitations General appearance: alert, in no apparent distress Head exam: Present: atraumatic Eye exam: Present: normal appearance, PERRL ENT exam: Present: normal oropharynx Neck exam: Present: normal inspection Respiratory exam: Present: wheezes, rhonchi, chest wall tenderness (Mild tenderness right lateral lower ribs) Cardiovascular Exam: Present: normal rhythm, tachycardia Expanded Peripheral pulses: 2+: Posterior Tibialis (R), Posterior Tibialis (L) GI/Abdominal exam: Present: soft. Absent: tenderness Extremities exam: Present: normal inspection. Absent: pedal edema, calf tenderness Back exam: Present: normal inspection Neurological exam: Present: alert Psychiatric exam: Present: normal affect, normal mood Skin exam: Present: normal color Course Vital Signs 12/31/17 12/31/17 12/31/17 06:33 07:57 08:09 Temperature 98.0 F Pulse Rate 116 H 79 81 Respiratory 25 H Rate Blood Pressure 135/83 O2 Sat by Pulse 96 Oximetry 12/31/17 08:12 Temperature 98.6 F Pulse Rate 89 Respiratory 20 Rate Blood Pressure 123/69 O2 Sat by Pulse 97 Oximetry - Reevaluation(s) Reevaluation #1: 12/31/17 08:22 Patient meet sepsis criteria diagnosed at 8:22 AM. Blood culture has been ordered. Lactic acid has been added. IV antibiotics will be started. EKG Findings - EKG Comments: EKG Findings:: Sinus tachycardia 101. W[place] 126. QRS 88. QT 358. QTC 464. Normal axis. Normal QRS. No acute ST change. Medical Decision Making - Medical Decision Making Patient reevaluated and is somewhat improved. Patient and updated on results and plan. Dr. Zamarripa has been paged for admission. - Lab Data Result diagrams: 12/31/17 06:53 12/31/17 06:53 Lab Results 12/31/17 12/31/17 12/31/17 Range/Units 06:53 06:53 06:53 WBC 19.5 H (3.8-10.6) k/uL RBC 4.93 (4.30-5.90) m/uL Hgb 15.0 (13.0-17.5) gm/dL Hct 44.3 (39.0-53.0) % MCV 89.7 (80.0-100.0) fL MCH 30.4 (25.0-35.0) pg MCHC 33.9 (31.0-37.0) g/dL RDW 12.8 (11.5-15.5) % Plt Count 297 (150-450) k/uL Neutrophils % 86 % Lymphocytes % 4 % Monocytes % 7 % Eosinophils % 1 % Basophils % 0 % Neutrophils # 16.9 H (1.3-7.7) k/uL Lymphocytes # 0.8 L (1.0-4.8) k/uL Monocytes # 1.4 H (0-1.0) k/uL Eosinophils # 0.2 (0-0.7) k/uL Basophils # 0.1 (0-0.2) k/uL PT (9.0-12.0) sec INR (<1.2) APTT (22.0-30.0) sec D-Dimer (<0.60) mg/L FEU Sodium 139 (137-145) mmol/L Potassium 4.4 (3.5-5.1) mmol/L Chloride 105 (98-107) mmol/L Carbon Dioxide 21 L (22-30) mmol/L Anion Gap 13 mmol/L BUN 23 H (9-20) mg/dL Creatinine 0.91 (0.66-1.25) mg/dL Est GFR (CKD-EPI)AfAm >90 (>60 ml/min/1.73 sqM) Est GFR (CKD-EPI)NonAf 85 (>60 ml/min/1.73 sqM) Glucose 121 H (74-99) mg/dL Calcium 9.7 (8.4-10.2) mg/dL Total Bilirubin 1.3 (0.2-1.3) mg/dL AST 42 (17-59) U/L ALT 70 (21-72) U/L Alkaline Phosphatase 76 (38-126) U/L Total Creatine Kinase 122 (55-170) U/L CK-MB (CK-2) 2.5 H* (0.0-2.4) ng/mL CK-MB (CK-2) Rel Index 2.0 Troponin I <0.012 (0.000-0.034) ng/mL Total Protein 6.5 (6.3-8.2) g/dL Albumin 4.2 (3.5-5.0) g/dL 12/31/17 Range/Units 06:53 WBC (3.8-10.6) k/uL RBC (4.30-5.90) m/uL Hgb (13.0-17.5) gm/dL Hct (39.0-53.0) % MCV (80.0-100.0) fL MCH (25.0-35.0) pg MCHC (31.0-37.0) g/dL RDW (11.5-15.5) % Plt Count (150-450) k/uL Neutrophils % % Lymphocytes % % Monocytes % % Eosinophils % % Basophils % % Neutrophils # (1.3-7.7) k/uL Lymphocytes # (1.0-4.8) k/uL Monocytes # (0-1.0) k/uL Eosinophils # (0-0.7) k/uL Basophils # (0-0.2) k/uL PT 10.1 (9.0-12.0) sec INR 1.0 (<1.2) APTT 21.6 L (22.0-30.0) sec D-Dimer 0.47 (<0.60) mg/L FEU Sodium (137-145) mmol/L Potassium (3.5-5.1) mmol/L Chloride (98-107) mmol/L Carbon Dioxide (22-30) mmol/L Anion Gap mmol/L BUN (9-20) mg/dL Creatinine (0.66-1.25) mg/dL Est GFR (CKD-EPI)AfAm (>60 ml/min/1.73 sqM) Est GFR (CKD-EPI)NonAf (>60 ml/min/1.73 sqM) Glucose (74-99) mg/dL Calcium (8.4-10.2) mg/dL Total Bilirubin (0.2-1.3) mg/dL AST (17-59) U/L ALT (21-72) U/L Alkaline Phosphatase (38-126) U/L Total Creatine Kinase (55-170) U/L CK-MB (CK-2) (0.0-2.4) ng/mL CK-MB (CK-2) Rel Index Troponin I (0.000-0.034) ng/mL Total Protein (6.3-8.2) g/dL Albumin (3.5-5.0) g/dL - Radiology Data Radiology results: image reviewed (Chest x-ray shows developing left periHilar/ infrahilar pneumonia.) Critical Care Time Critical Care Time: Yes Total Critical Care Time: 32 Disposition Clinical Impression: Pneumonia, Sepsis Disposition: ADMITTED IP TO THIS [facility] Condition: Serious Is patient prescribed a controlled substance at d/c from ED?: No Referrals: Ron Zamarripa DO [Primary Care Provider] - 1-2 days Decision Time: 08:22
[2017-12-31 07:32] LABS: Basophils # (A) 0.1 k/uL (0-0.2); Basophils % (A) 0 %; Eosinophils # (A) 0.2 k/uL (0-0.7); Eosinophils % (A) 1 %; HCT 44.3 % (39.0-53.0); Lymphocytes # (A) 0.8 k/uL (1.0-4.8); Lymphocytes % (A) 4 %; MCH 30.4 pg (25.0-35.0); MCHC 33.9 g/dL (31.0-37.0); MCV 89.7 fL (80.0-100.0); Mean Platelet Volume 6.6; Monocytes # (A) 1.4 k/uL (0-1.0); Monocytes % (A) 7 %; Neutrophils # (A) 16.9 k/uL (1.3-7.7); Neutrophils % (A) 86 %; Platelet Count 297 k/uL (150-450); RBC 4.93 m/uL (4.30-5.90); RDW 12.8 % (11.5-15.5); WBC 19.5 k/uL (3.8-10.6)
[2017-12-31 07:42] LABS: ALT 70 U/L (21-72); AST 42 U/L (17-59); Albumin 4.2 g/dL (3.5-5.0); Alkaline Phosphatase 76 U/L (38-126); Anion Gap 13 mmol/L; Blood Urea Nitrogen 23 mg/dL (9-20); Calcium 9.7 mg/dL (8.4-10.2); Carbon Dioxide 21 mmol/L (22-30); Chloride 105 mmol/L (98-107); Glucose 121 mg/dL (74-99); Potassium 4.4 mmol/L (3.5-5.1); Sodium 139 mmol/L (137-145); Total Bilirubin 1.3 mg/dL (0.2-1.3); Total Protein 6.5 g/dL (6.3-8.2)
--- NOTE | 2017-12-31 07:49 | XR ---
EXAMINATION TYPE: XR chest 2V DATE OF EXAM: 12/31/2017 COMPARISON: 01/10/2015 INDICATION: Difficulty breathing short of breath cough TECHNIQUE: Frontal and lateral views of the chest are obtained. FINDINGS: The heart size is normal. The pulmonary vasculature is normal. There is a left perihilar consolidation. Some subtle air bronchograms are present. Correlate for deve loping pneumonia. Remainder the lungs are clear.. IMPRESSION: 1. Developing left perihilar and infrahilar pneumonia. Follow-up is recommended.
[2017-12-31 07:51] LABS: D-Dimer 0.47 mg/L FEU (<0.60); Prothrombin Time 10.1 sec (9.0-12.0)
[2017-12-31 07:53] LABS: Creatine Kinase 122 U/L (55-170)
[2017-12-31 07:54] LABS: Partial Thromboplastin Time 21.6 sec (22.0-30.0)
[2017-12-31 08:06] LABS: Troponin I <0.012 ng/mL (0.000-0.034)
[2017-12-31 08:08] LABS: Creatine Kinase MB 2.5 ng/mL (0.0-2.4)
[2017-12-31] MEDS ORDERED: cefTRIAXone IN SWFI 1,000 MG/10 ML SYRINGE IVP STA (08:23)
[2017-12-31] MEDS ORDERED: IPRATROPIUM-ALBUTEROL 3 ML NEB INHALATION PRN (08:23)
[2017-12-31] MEDS ORDERED: AZITHROMYCIN 500 MG in SODIUM CHLORIDE 0.9% 250 ML IVPB STA (08:23)
[2017-12-31] MEDS ORDERED: PNEUMONIA PROTOCOL UTILIZED 1 EACH MISC PO PRN (08:23)
[2017-12-31] MEDS: SODIUM CHLORIDE 0.9% 1,000 ML IV SCH ×2 (09:48→17:33)
[2017-12-31] MEDS: IPRATROPIUM-ALBUTEROL 3 ML NEB INHALATION SCH ×3 (12:17→19:44)
[2017-12-31] MEDS ORDERED: SENNOSIDES 8.6 MG TAB PO PRN (14:52)
[2017-12-31] MEDS: ASPIRIN 81 MG PO SCH (20:18)
[2017-12-31] MEDS: ATORVASTATIN 40 MG TAB PO SCH (20:18)
[2018-01-01] MEDS: SODIUM CHLORIDE 0.9% 1,000 ML IV SCH ×3 (05:11→23:49)
[2018-01-01] MEDS: LISINOPRIL 20 MG TAB PO SCH (08:02)
[2018-01-01] MEDS: cefTRIAXone IN SWFI 1,000 MG/10 ML SYRINGE IVP SCH (08:03)
[2018-01-01] MEDS: AZITHROMYCIN 500 MG TAB PO SCH (08:03)
--- NOTE | 2018-01-01 08:33 | XR ---
EXAMINATION TYPE: XR chest 2V DATE OF EXAM: 01/01/2018 COMPARISON: 12/31/2017 HISTORY: Difficulty breathing TECHNIQUE: Frontal and lateral views of the chest are obtained. FINDINGS: There is improvement in degree of the left perihilar airspace disease in comparison to the prior. Trace platelike subsegmental left basilar atelectasis is noted. Remainder the lungs are clear . No pleural effusion or pneumothorax. Cardiomediastinal silhouette is within normal limits. Osseous structures are intact. IMPRESSION: Near resolution of the previously seen left perihilar opacity. Trace left basilar atelec tasis remains.
[2018-01-01] MEDS: IPRATROPIUM-ALBUTEROL 3 ML NEB INHALATION SCH ×4 (08:36→20:17)
[2018-01-01] MEDS: guaiFENesin-Coden 100-10MG/5ML 10 ML CUP PO PRN ×2 (09:51→21:19)
[2018-01-01] MEDS: guaiFENesin 600 MG TABLET.ER PO SCH ×2 (09:52→21:12)
[2018-01-01] MEDS: methylPREDNISolone SOD SUCCI 125 MG/2 ML VIAL IV SCH ×3 (09:52→23:45)
[2018-01-01 10:53] LABS: Basophils % (A) 0 %; Eosinophils # (A) 0.1 k/uL (0-0.7); Eosinophils % (A) 1 %; HCT 37.8 % (39.0-53.0); HGB 12.7 gm/dL (13.0-17.5); Lymphocytes % (A) 8 %; MCHC 33.7 g/dL (31.0-37.0); MCV 89.1 fL (80.0-100.0); Mean Platelet Volume 6.9; Monocytes # (A) 0.8 k/uL (0-1.0); Monocytes % (A) 6 %; Neutrophils # (A) 10.8 k/uL (1.3-7.7); Neutrophils % (A) 84 %; Platelet Count 276 k/uL (150-450); RBC 4.24 m/uL (4.30-5.90); RDW 13.2 % (11.5-15.5); WBC 12.9 k/uL (3.8-10.6)
[2018-01-01 11:03] LABS: ALT 49 U/L (21-72); AST 27 U/L (17-59); Albumin 3.3 g/dL (3.5-5.0); Alkaline Phosphatase 53 U/L (38-126); Anion Gap 9 mmol/L; Blood Urea Nitrogen 18 mg/dL (9-20); Calcium 8.9 mg/dL (8.4-10.2); Carbon Dioxide 24 mmol/L (22-30); Chloride 108 mmol/L (98-107); Glucose 144 mg/dL (74-99); Potassium 3.7 mmol/L (3.5-5.1); Sodium 141 mmol/L (137-145); Total Bilirubin 0.6 mg/dL (0.2-1.3); Total Protein 5.1 g/dL (6.3-8.2)
[2018-01-01 12:07] LABS: Glucose,Whole Blood 124 mg/dL (75-99)
[2018-01-01] MEDS: INSULIN ASPART 100 UNIT/ML 1 ML 10 ML VIAL SQ SCH ×3 (13:41→22:30)
--- NOTE | 2018-01-01 14:16 | P.CNPUL ---
History of Present Illness Consult date: 01/01/18 Requesting physician: Ron Zamarripa Reason for consult: dyspnea, cough, chest pain, pneumonia, abnormal CXR/CT Chief complaint: Dyspnea, chest congestion, coughing, fever, chills History of present illness: Marcos is a 72-year-old white male patient of Dr. Zamarripa who presented to the emergency department on 12/31/2017 complaints of worsening dyspnea, fever, chills, coughing and right-sided chest wall pain. A week ago on Saturday patient went to see Dr. Zamarripa in the office for her complaints of nasal congestion, clear nasal drainage, coughing, and anterior chest wall discomfort from persistent coughing spells. Patient was treated with antibiotics, presumably Zithromax, and a steroid taper, and was starting to feel better on Saturday and Saturday. However on Saturday he noted increased chest congestion, on Saturday he started having lightheadedness, is coughing spells intensified, he felt more winded with any exertion, started experiencing fever and chills. He is having persistent nasal congestion, his cough is mostly nonproductive. Patient is a remote smoker, he quit 50 years ago, smoked while in the [employer] for a period of about 3-4 years, less than a pack a day. 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 No other chronic lung problems, does not see a med asst, does not wear oxygen, and is not on any inhalers on a regular basis. Patient had a fever of 99.9F on presentation, chest x-ray completed in the emergency department showed developing left perihilar and infrahilar pneumonia. Patient was initiated on empiric antibiotics in the form of Zithromax and Rocephin, he was started on IV steroids, and nebulized treatments and we're seeing the patient in consultation to the community- acquired pneumonia. Review of Systems All systems: negative Constitutional: Denies chills, Denies fever Eyes: denies blurred vision, denies pain Ears, nose, mouth and throat: Reports nasal congestion, Reports nasal discharge , Reports post-nasal drip, Reports sinus pressure, Denies headache, Denies sore throat Cardiovascular: Reports dyspnea on exertion, Denies chest pain, Denies shortness of breath Respiratory: Reports dyspnea, Reports pain, Denies cough Gastrointestinal: Denies abdominal pain, Denies diarrhea, Denies nausea, Denies vomiting Musculoskeletal: Denies myalgias Integumentary: Denies pruritus, Denies rash Neurological: Denies numbness, Denies weakness Psychiatric: Denies anxiety, Denies depression Endocrine: Denies fatigue, Denies weight change Past Medical History Past Medical History: CVA/TIA, GERD/Reflux, Hyperlipidemia, Hypertension, Osteoarthritis (OA), Prostate Disorder Additional Past Medical History / Comment(s): 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 History of Any Multi-Drug Resistant Organisms: None Reported Past Surgical History: Appendectomy, Cholecystectomy, Heart Catheterization, Hernia Repair, Orthopedic Surgery Additional Past Surgical History / Comment(s): Laparoscopic pastor fundoplasty with extensive lysis of adhesions, bilateral inguinal hernia repairs, right carotid endarterectomy, left knee arthroscopy, sinus surgery, clint shoulder rotator cuff repairs, heel spur rt foot, EGD, colonoscopies/polypectomy, cystoscopy. Past Anesthesia/Blood Transfusion Reactions: Motion Sickness Additional Past Anesthesia/Blood Transfusion Reaction / Comment(s): . Smoking Status: Former smoker - Past Family History Brother(s) Family Medical History: Cancer Additional Family Medical History / Comment(s): prostate Mother Family Medical History: No Reported History Additional Family Medical History / Comment(s): Mother was healthy and lived to be 89yrs old. Father Family Medical History: Myocardial Infarction ([place]) Additional Family Medical History / Comment(s): Father had a [place] at the age of 60yrs and lived to be 80yrs old. Medications and Allergies Home Medications Medication Instructions Recorded Confirmed Type Atorvastatin [Lipitor] 40 mg PO HS 10/18/14 12/31/17 History Lisinopril [Prinivil] 20 mg PO QAM 10/18/14 12/31/17 History Aspirin [Adult Low Dose Aspirin EC] 162 mg PO HS 08/31/16 12/31/17 History Sennosides [Senna] 8.6 mg PO DAILY PRN 12/31/17 12/31/17 History Allergies Allergy/AdvReac Type Severity Reaction Status Date / Time influenza virus vaccine, AdvReac "very ill Verified 12/31/17 07:40 specific after injection" sulfamethoxazole AdvReac Rash/Hives Verified 12/31/17 07:40 [From Bactrim] trimethoprim [From Bactrim] AdvReac Rash/Hives Verified 12/31/17 07:40 Physical Exam Vitals: Vital Signs Temp Pulse Pulse Resp BP Pulse Ox 01/01/18 08:36 78 01/01/18 06:14 96.8 F L 78 16 114/56 98 12/31/17 23:00 97.0 F L 68 16 113/53 97 12/31/17 20:00 88 12/31/17 19:45 90 12/31/17 16:23 92 12/31/17 16:06 90 97 12/31/17 14:24 98.4 F 85 20 107/64 94 L 12/31/17 12:32 88 12/31/17 12:21 82 94 L Intake and Output 12/31/17 01/01/18 01/01/18 22:59 06:59 14:59 Other: # Voids 1 1 GENERAL EXAM: Alert, pleasant, 72-year-old white male, resting in bed, comfortable in no apparent distress. Patient is mildly short of breath with conversation, and is having intermittent dry coughing spells HEAD: Normocephalic/atraumatic. EYES: Normal reaction of pupils, equal size. Conjunctiva pink, sclera white. NOSE: Clear with pink turbinates. THROAT: No erythema or exudates. NECK: No masses, no JVD, no thyroid enlargement, no adenopathy. CHEST: No chest wall deformity. Symmetrical expansion. LUNGS: Lung sounds are diminished, with inspiratory crackles over left lower lobe CVS: Regular rate and rhythm, normal S1 and S2, no gallops, no murmurs, no rubs ABDOMEN: Soft, nontender. No hepatosplenomegaly, normal bowel sounds, no guarding or rigidity. EXTREMITIES: No clubbing, no edema, no cyanosis, 2+ pulses and upper and lower extremities. MUSCULOSKELETAL: Muscle strength and tone normal. SPINE: No scoliosis or deformity SKIN: No rashes CENTRAL NERVOUS SYSTEM: Alert and oriented -3. No focal deficits, tone is normal in all 4 extremities. PSYCHIATRIC: Alert and oriented -3. Appropriate affect. Intact judgment and insight. Results - Laboratory Findings CBC and BMP: 01/01/18 10:37 01/01/18 10:37 PT/INR, D-dimer PT 10.1 sec (9.0-12.0) 12/31/17 06:53 INR 1.0 (<1.2) 12/31/17 06:53 D-Dimer 0.47 mg/L FEU (<0.60) 12/31/17 06:53 Abnormal lab findings: Abnormal Labs 12/31/17 12/31/1718 06:53 06:53 06:53 WBC 19.5 H Neutrophils # 16.9 H Lymphocytes # 0.8 L Monocytes # 1.4 H APTT Carbon Dioxide 21 L BUN 23 H Glucose 121 H CK-MB (CK-2) 2.5 H* 12/31/17 06:53 WBC Neutrophils # Lymphocytes # Monocytes # APTT 21.6 L Carbon Dioxide BUN Glucose CK-MB (CK-2) - Diagnostic Findings Chest x-ray: report reviewed, image reviewed Additional studies: EKG reviewed Assessment and Plan Plan: Assessment: #1. Acute community acquired pneumonia, with failed outpatient treatment and the initial chest x-ray showed left perihilar and infrahilar consolidation, and there has been an overnight improvement of the left perihilar opacity. #2. Dyspnea, fever, coughing, right lower chest wall pain and leukocytosis due to the above #3. Remote smoking history, patient quit 50 years ago, and only smoked for 3-4 years while in the [employer] #4. Hypertension #5. History of CVA, with no residual deficits #6. GERD/reflux #7. Osteoarthritis #8. History of laparoscopic lysis of adhesions of extensive intra-abdominal adhesions, laparoscopic Pastor fundoplication Plan: Continue current antibiotic coverage, obtain sputum culture. Continue with IV steroids, nebulized bronchodilators, and cough syrup. Today's chest x-ray was reviewed and shows near resolution of the previously seen left perihilar opacity , and trace left basilar atelectasis. We will continue to follow I performed a history & physical examination of the patient and discussed their management with my nurse practitioner, Leticia Dumas. I reviewed the nurse practitioner's note and agree with the documented findings and plan of care. Lung sounds are diminished, with rales at the left posterior base. The findings and the impression was discussed with the patient. I attest to the documentation by the nurse practitioner. Time with Patient: Greater than 30
[2018-01-01 15:47] VITALS: BMI 23.7
[2018-01-01] MEDS: HEPARIN SODIUM,PORCINE 5,000 UNIT/ML 1 ML VIAL SQ SCH ×2 (15:48→22:33)
[2018-01-01 17:06] LABS: Glucose,Whole Blood 171 mg/dL (75-99)
[2018-01-01 17:35] LABS: Hemoglobin A1C 6.1 % (4.0-6.0)
[2018-01-01] MEDS: ATORVASTATIN 40 MG TAB PO SCH (21:11)
[2018-01-01] MEDS: ASPIRIN 81 MG PO SCH (21:12)
[2018-01-01 21:54] LABS: Glucose,Whole Blood 186 mg/dL (75-99)
[2018-01-02 07:20] LABS: Glucose,Whole Blood 135 mg/dL (75-99)
[2018-01-02] MEDS: cefTRIAXone IN SWFI 1,000 MG/10 ML SYRINGE IVP SCH (07:40)
[2018-01-02] MEDS: INSULIN ASPART 100 UNIT/ML 1 ML 10 ML VIAL SQ SCH ×4 (07:40→22:05)
[2018-01-02] MEDS: PANTOPRAZOLE 40 MG TABLET PO SCH (07:41)
[2018-01-02] MEDS: methylPREDNISolone SOD SUCCI 125 MG/2 ML VIAL IV SCH ×3 (07:41→23:44)
[2018-01-02] MEDS: HEPARIN SODIUM,PORCINE 5,000 UNIT/ML 1 ML VIAL SQ SCH ×2 (07:41→16:45)
[2018-01-02] MEDS: LISINOPRIL 20 MG TAB PO SCH (07:42)
[2018-01-02] MEDS: AZITHROMYCIN 500 MG TAB PO SCH (07:42)
[2018-01-02] MEDS: guaiFENesin 600 MG TABLET.ER PO SCH ×2 (07:42→21:02)
[2018-01-02] MEDS: IPRATROPIUM-ALBUTEROL 3 ML NEB INHALATION SCH ×4 (09:03→21:14)
[2018-01-02] MEDS: SYMBICORT 160-4.5 MCG INHALER INHALATION SCH ×2 (09:03→21:14)
[2018-01-02 09:34] LABS: Basophils % (A) 0 %; Eosinophils % (A) 0 %; HCT 40.1 % (39.0-53.0); HGB 13.5 gm/dL (13.0-17.5); Lymphocytes # (A) 0.5 k/uL (1.0-4.8); Lymphocytes % (A) 3 %; MCH 30.6 pg (25.0-35.0); MCHC 33.8 g/dL (31.0-37.0); MCV 90.7 fL (80.0-100.0); Mean Platelet Volume 6.6; Monocytes # (A) 0.5 k/uL (0-1.0); Monocytes % (A) 2 %; Neutrophils # (A) 20.5 k/uL (1.3-7.7); Neutrophils % (A) 95 %; Platelet Count 305 k/uL (150-450); RBC 4.42 m/uL (4.30-5.90); WBC 21.6 k/uL (3.8-10.6)
--- NOTE | 2018-01-02 09:34 | P.HPIM ---
History of Present Illness H&P Date: 01/01/18 Chief Complaint: Shortness of breath, cough 72-year-old male who presented to the emergency room with a chief complaint of shortness of breath and cough. The patient states he was seen by his primary care physician last week and was prescribed antibiotics and a steroid pack. The patient states he initially started feeling better, but last 12/27/2017, his symptoms started to get worse. He states he began having increased shortness of breath and persistent coughing. He denies sputum production. The patient denies chest pain or pressure. He does report a low- grade fever at home. Denies nausea or vomiting. Denies lightheadedness or dizziness. The patient has a history of CVA, GERD, hyperlipidemia, hypertension, osteoarthritis, and anxiety. He is a former cigarette smoker. The patient reports he started smoking in 1965 and quit in 1970. The patient has a surgical history of laparoscopic Mgiue fundoplication, bilateral inguinal hernia repairs, right carotid endarterectomy, and sinus surgery. Chest x-ray 12/31/2017: Developing left perihilar and infrahilar pneumonia Chest x-ray 01/01/2018: Near resolution of previously seen left perihilar pasty. Trace left basilar atelectasis remains. Laboratory data: WBC 19.5. Hemoglobin 15.0. Platelet count 297. Sodium 139. Potassium 4.4. BUN 23. Creatinine 0.91. Glucose 121. Lactic acid 1.1. D-dimer 0.47. Troponin: Negative 1 The patient was admitted to the hospital under the care of Dr. Zamarripa. 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 History of Any Multi-Drug Resistant Organisms: None Reported Past Surgical History: Appendectomy, Cholecystectomy, Heart Catheterization, Hernia Repair, Orthopedic Surgery Additional Past Surgical History / Comment(s): Laparoscopic migue fundoplasty with extensive lysis of adhesions, bilateral inguinal hernia repairs, right carotid endarterectomy, left knee arthroscopy, sinus surgery, clint shoulder rotator cuff repairs, heel spur rt foot, EGD, colonoscopies/polypectomy, cystoscopy. Past Anesthesia/Blood Transfusion Reactions: Motion Sickness Additional Past Anesthesia/Blood Transfusion Reaction / Comment(s): . Smoking Status: Former smoker - Past Family History Brother(s) Family Medical History: Cancer Additional Family Medical History / Comment(s): prostate Mother Family Medical History: No Reported History Additional Family Medical History / Comment(s): Mother was healthy and lived to be 89yrs old. Father Family Medical History: Myocardial Infarction ([place]) Additional Family Medical History / Comment(s): Father had a [place] at the age of 60yrs and lived to be 80yrs old. Medications and Allergies Home Medications Medication Instructions Recorded Confirmed Type Atorvastatin [Lipitor] 40 mg PO HS 10/18/14 12/31/17 History Lisinopril [Prinivil] 20 mg PO QAM 10/18/14 12/31/17 History Aspirin [Adult Low Dose Aspirin EC] 162 mg PO HS 08/31/16 12/31/17 History Sennosides [Senna] 8.6 mg PO DAILY PRN 12/31/17 12/31/17 History Allergies Allergy/AdvReac Type Severity Reaction Status Date / Time influenza virus vaccine, AdvReac "very ill Verified 12/31/17 07:40 specific after injection" sulfamethoxazole AdvReac Rash/Hives Verified 12/31/17 07:40 [From Bactrim] trimethoprim [From Bactrim] AdvReac Rash/Hives Verified 12/31/17 07:40 Physical Exam Vitals: Vital Signs Temp Pulse Pulse Resp BP Pulse Ox 01/01/18 08:36 78 01/01/18 06:14 96.8 F L 78 16 114/56 98 12/31/17 23:00 97.0 F L 68 16 113/53 97 12/31/17 20:00 88 12/31/17 19:45 90 12/31/17 16:23 92 12/31/17 16:06 90 97 12/31/17 14:24 98.4 F 85 20 107/64 94 L 12/31/17 12:32 88 12/31/17 12:21 82 94 L Intake and Output 12/31/17 01/01/18 01/01/18 22:59 06:59 14:59 Other: # Voids 1 1 GENERAL: This is a 72-year-old male in no apparent distress at the time of examination. Pleasant and cooperative. HEENT: Head is atraumatic, normocephalic. Pupils are equal, round, and reactive to light. Sclerae anicteric. Conjunctivae are clear. Mucus membranes of the mouth are moist. Neck is supple. RESPIRATORY: Lungs diminished throughout with mild expiratory wheezing noted. Frequent dry hacking cough noted during examination. No use of accessory muscles. Patient maintaining oxygen saturation greater than 92%. No chest wall tenderness is noted on palpation or with deep breathing. CARDIOVASCULAR: Regular rate and rhythm. S1 and S2 noted. No systolic or diastolic murmur auscultated. No JVD noted. No S3 or S4 noted. GASTROINTESTINAL: No distention noted. Abdomen soft and round. Normal active bowel sounds auscultated x 4 quadrants. No pain or tenderness noted upon palpation. INTEGUMENTARY: No cyanosis. No jaundice. No rashes noted. No cellulitis noted. EXTREMITIES: 2+ peripheral pulses. No evidence of peripheral edema. No calf tenderness noted. NEUROLOGIC: Cranial nerves II-XII intact. PSYCHIATRIC: Awake, alert, and oriented X 3. Appropriate affect. Intact judgement and insight. Results CBC & Chem 7: 01/01/18 10:37 01/01/18 10:37 Labs: Abnormal Lab Results - Last 24 Hours (Table) 01/01/18 01/01/18 Range/Units 10:37 10:37 WBC 12.9 H (3.8-10.6) k/uL RBC 4.24 L (4.30-5.90) m/uL Hgb 12.7 L (13.0-17.5) gm/dL Hct 37.8 L (39.0-53.0) % Neutrophils # 10.8 H (1.3-7.7) k/uL Chloride 108 H (98-107) mmol/L Glucose 144 H (74-99) mg/dL Total Protein 5.1 L (6.3-8.2) g/dL Albumin 3.3 L (3.5-5.0) g/dL Microbiology - Last 24 Hours (Table) 12/31/17 06:53 Blood Culture - Preliminary Blood No Growth after 24 hours Thrombosis Risk Factor Assmnt - Choose All That Apply Any of the Below Risk Factors Present?: Yes Each Factor Represents 1 point: Sepsis (< 1month), Serious lung disease incl. pneumonia (< 1month) Other Risk Factors: Yes Each Risk Factor Represents 2 Points: Age 61-74 years Other congenital or acquired thrombophilia - If yes, enter type in comment: No Thrombosis Risk Factor Assessment Total Risk Factor Score: 4 Thrombosis Risk Factor Assessment Level: Moderate Risk Assessment and Plan Plan: ASSESSMENT: Left lobe pneumonia, community acquired, present on admission, sputum culture pending Hypertension Hyperlipidemia History of CVA Osteoarthritis History of bilateral carotid endarterectomy Anxiety, unspecified Remote history of nicotine dependence PLAN: Consult pulmonary, Dr. Rock, to evaluate patient Continue antibiotics: Ceftriaxone and azithromycin Begin steroids: Solu-Medrol 60 mg IV every 8 hours Novolog sliding scale ACHS per steroid protocol Obtain sputum sample Incentive spirometer 10 times an hour while awake Robitussin with codeine for cough Home meds as appropriate Monitor labs GI prophylaxis: Protonix 40 mg PO Daily DVT prophylaxis: Heparin 5000 units subcu every 8 hours Monitor vital signs and address as appropriate Discharge planning: Patient to return home when stable Further recommendations pending patient's course Nurse practitioner note has been reviewed by physician. Signing provider agrees with the documented findings, assessment, and plan of care.
[2018-01-02 09:43] LABS: ALT 48 U/L (21-72); AST 34 U/L (17-59); Albumin 3.8 g/dL (3.5-5.0); Alkaline Phosphatase 57 U/L (38-126); Anion Gap 15 mmol/L; Blood Urea Nitrogen 18 mg/dL (9-20); Calcium 9.3 mg/dL (8.4-10.2); Carbon Dioxide 20 mmol/L (22-30); Chloride 107 mmol/L (98-107); Glucose 155 mg/dL (74-99); Potassium 4.6 mmol/L (3.5-5.1); Sodium 142 mmol/L (137-145); Total Bilirubin 0.8 mg/dL (0.2-1.3); Total Protein 5.8 g/dL (6.3-8.2)
[2018-01-02] MEDS: PSYLLIUM HUSK 100% 6 GM PACKET PO SCH (10:17)
[2018-01-02] MEDS: DOCUSATE 100 MG CAP PO SCH ×2 (10:17→21:02)
[2018-01-02] MEDS: SODIUM CHLORIDE 0.9% 1,000 ML IV SCH ×2 (10:18→21:07)
--- NOTE | 2018-01-02 10:56 | P.PN ---
Subjective Progress Note Date: 01/02/18 72-year-old male who presented to the emergency room with a chief complaint of shortness of breath and cough. The patient states he was seen by his primary care physician last week and was prescribed antibiotics and a steroid pack. The patient states he initially started feeling better, but last 12/27/2017, his symptoms started to get worse. He states he began having increased shortness of breath and persistent coughing. He denies sputum production. The patient denies chest pain or pressure. He does report a low- grade fever at home. Denies nausea or vomiting. Denies lightheadedness or dizziness. The patient has a history of CVA, GERD, hyperlipidemia, hypertension, osteoarthritis, and anxiety. He is a former cigarette smoker. The patient reports he started smoking in 1965 and quit in 1970. The patient has a surgical history of laparoscopic Pastor fundoplication, bilateral inguinal hernia repairs, right carotid endarterectomy, and sinus surgery. Chest x-ray 12/31/2017: Developing left perihilar and infrahilar pneumonia Chest x-ray 01/01/2018: Near resolution of previously seen left perihilar pasty. Trace left basilar atelectasis remains. Laboratory data: WBC 19.5. Hemoglobin 15.0. Platelet count 297. Sodium 139. Potassium 4.4. BUN 23. Creatinine 0.91. Glucose 121. Lactic acid 1.1. D-dimer 0.47. Troponin: Negative 1 The patient was admitted to the hospital under the care of Dr. Zamarripa. 01/02/2018 Patient seen and examined at the bedside in rounds Dr. Zamarripa. Patient is awake and alert. Patient states his shortness of breath has improved. He is currently on room air with oxygen saturations greater than 92%. He is afebrile. Blood pressure is stable with a last reading of 124/57. Patient continues to have frequent dry nonproductive cough, although significantly improved from yesterday. He has been receiving Robitussin with codeine. Pulmonary was consulted and evaluated patient yesterday. He remains on steroids 60 mg IV every 8 hours and nebulizer treatments. Patient is requesting stool softeners and states he has not had a bowel movement since Saturday and usually takes Metamucil daily at home. Patient denies any further concerns or complaints. Objective - Vital Signs Vital signs: Vital Signs Temp 96.5 F L 01/02/18 06:00 Pulse 78 01/02/18 09:14 Resp 20 01/02/18 06:00 BP 124/57 01/02/18 06:00 Pulse Ox 95 01/02/18 09:26 Intake & Output 01/01/18 01/02/18 01/02/18 18:59 06:59 18:59 Intake Total 800 2401 Balance 800 2401 Weight 79.379 kg Intake: IV 800 Sodium Chloride 0.9% 1, 800 000 ml @ 100 mls/hr IV . Q10H STA Rx#:[id number] Oral 2401 Other: # Voids 3 2 # Bowel Movements 0 - Constitutional Constitutional Comment(s): 72-year-old male General appearance: Present: cooperative, no acute distress - EENT Eyes: Present: EOMI, PERRLA ENT: Present: hearing grossly normal - Neck Neck: Present: normal ROM. Absent: rigidity, stridor - Respiratory Respiratory: bilateral: diminished, negative: rales, rhonchi, wheezing - Cardiovascular Rhythm: regular Heart sounds: normal: S1, S2 - Gastrointestinal General gastrointestinal: Present: normal bowel sounds, soft - Integumentary Integumentary: Present: normal. Absent: cellulitis, cyanotic, jaundiced - Neurologic Neurologic: Present: CNII-XII intact - Musculoskeletal Musculoskeletal: Present: strength equal bilaterally - Psychiatric Psychiatric: Present: A&O x's 3, appropriate affect, intact judgment & insight - Labs CBC & Chem 7: 01/02/18 09:08 01/02/18 09:08 Labs: Abnormal Lab Results - Last 24 Hours (Table) 01/01/18 01/01/18 01/01/18 Range/Units 10:37 10:37 10:37 WBC 12.9 H (3.8-10.6) k/uL RBC 4.24 L (4.30-5.90) m/uL Hgb 12.7 L (13.0-17.5) gm/dL Hct 37.8 L (39.0-53.0) % Neutrophils # 10.8 H (1.3-7.7) k/uL Lymphocytes # (1.0-4.8) k/uL Chloride 108 H (98-107) mmol/L Carbon Dioxide (22-30) mmol/L Glucose 144 H (74-99) mg/dL POC Glucose (mg/dL) (75-99) mg/dL Hemoglobin A1c 6.1 H (4.0-6.0) % Total Protein 5.1 L (6.3-8.2) g/dL Albumin 3.3 L (3.5-5.0) g/dL 01/01/18 01/01/18 01/01/18 Range/Units 11:54 16:50 21:39 WBC (3.8-10.6) k/uL RBC (4.30-5.90) m/uL Hgb (13.0-17.5) gm/dL Hct (39.0-53.0) % Neutrophils # (1.3-7.7) k/uL Lymphocytes # (1.0-4.8) k/uL Chloride (98-107) mmol/L Carbon Dioxide (22-30) mmol/L Glucose (74-99) mg/dL POC Glucose (mg/dL) 124 H 171 H 186 H (75-99) mg/dL Hemoglobin A1c (4.0-6.0) % Total Protein (6.3-8.2) g/dL Albumin (3.5-5.0) g/dL 01/02/18 01/02/18 01/02/18 Range/Units 07:17 09:08 09:08 WBC 21.6 H (3.8-10.6) k/uL RBC (4.30-5.90) m/uL Hgb (13.0-17.5) gm/dL Hct (39.0-53.0) % Neutrophils # 20.5 H (1.3-7.7) k/uL Lymphocytes # 0.5 L (1.0-4.8) k/uL Chloride (98-107) mmol/L Carbon Dioxide 20 L (22-30) mmol/L Glucose 155 H (74-99) mg/dL POC Glucose (mg/dL) 135 H (75-99) mg/dL Hemoglobin A1c (4.0-6.0) % Total Protein 5.8 L (6.3-8.2) g/dL Albumin (3.5-5.0) g/dL Microbiology - Last 24 Hours (Table) 12/31/17 06:53 Blood Culture - Preliminary Blood No Growth after 48 hours Assessment and Plan Plan: ASSESSMENT: Left lobe pneumonia, community acquired, present on admission, sputum culture pending Hypertension Hyperlipidemia History of CVA Osteoarthritis History of bilateral carotid endarterectomy Anxiety, unspecified Remote history of nicotine dependence PLAN: Pulmonary on consult. Appreciate recommendations and input Continue antibiotics: Ceftriaxone and azithromycin Continue IV steroids Novolog sliding scale ACHS per steroid protocol Obtain sputum sample Incentive spirometer 10 times an hour while awake Robitussin with codeine for cough Home meds as appropriate Monitor labs GI prophylaxis: Protonix 40 mg PO Daily DVT prophylaxis: Heparin 5000 units subcu every 8 hours Monitor vital signs and address as appropriate Discharge planning: Patient to return home when stable Further recommendations pending patient's course Nurse practitioner note has been reviewed by physician. Signing provider agrees with the documented findings, assessment, and plan of care.
--- NOTE | 2018-01-02 11:10 | P.PN ---
Subjective Progress Note Date: 01/02/18 Principal diagnosis: Acute community acquired pneumonia, with failed outpatient treatment Marcos is a 72-year-old white male patient of Dr. Zamarripa who presented to the emergency department on 12/31/2017 complaints of worsening dyspnea, fever, chills, coughing and right-sided chest wall pain. A week ago on Saturday patient went to see Dr. Zamarripa in the office for her complaints of nasal congestion, clear nasal drainage, coughing, and anterior chest wall discomfort from persistent coughing spells. Patient was treated with antibiotics, presumably Zithromax, and a steroid taper, and was starting to feel better on Saturday and Saturday. However on Saturday he noted increased chest congestion, on Saturday he started having lightheadedness, is coughing spells intensified, he felt more winded with any exertion, started experiencing fever and chills. He is having persistent nasal congestion, his cough is mostly nonproductive. Patient is a remote smoker, he quit 50 years ago, smoked while in the [employer] for a period of about 3-4 years, less than a pack a day. 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 No other chronic lung problems, does not see a packing machine inspector, does not wear oxygen, and is not on any inhalers on a regular basis. Patient had a fever of 99.9F on presentation, chest x-ray completed in the emergency department showed developing left perihilar and infrahilar pneumonia. Patient was initiated on empiric antibiotics in the form of Zithromax and Rocephin, he was started on IV steroids, and nebulized treatments and we're seeing the patient in consultation to the community- acquired pneumonia. On 01/02/2018 patient seen again in follow-up. Reports some improvement with dyspnea, however still having coughing spells. The right lower chest discomfort has improved, but patient is having anterior lower chest wall discomfort exacerbated by his coughing spells. Room air pulse ox is 95%, patient has been afebrile. Has not been able to produce any sputum for culture , blood cultures remain negative, patient is on empiric antibiotics with Rocephin and Zithromax. Today's labs were reviewed, and a CBC is up to 21.6, possibly related to IV steroids, CO2 is 20, renal profile is within normal limits, electrolytes are normal. Lung sounds reveal better air in entry bilaterally, with a few scattered rales the left lower base. Objective - Vital Signs Vital signs: Vital Signs Temp 96.5 F L 01/02/18 06:00 Pulse 78 01/02/18 09:14 Resp 20 01/02/18 06:00 BP 124/57 01/02/18 06:00 Pulse Ox 95 01/02/18 09:26 Intake & Output 01/01/18 01/02/18 01/02/18 18:59 06:59 18:59 Intake Total 800 2401 Balance 800 2401 Weight 79.379 kg Intake: IV 800 Sodium Chloride 0.9% 1, 800 000 ml @ 100 mls/hr IV . Q10H STA Rx#:[id number] Oral 2401 Other: # Voids 3 2 # Bowel Movements 0 - Exam GENERAL EXAM: Alert, pleasant, 72-year-old white male, resting in bed, comfortable in no apparent distress. Patient is mildly short of breath with conversation, and is having intermittent dry coughing spells HEAD: Normocephalic/atraumatic. EYES: Normal reaction of pupils, equal size. Conjunctiva pink, sclera white. NOSE: Clear with pink turbinates. THROAT: No erythema or exudates. NECK: No masses, no JVD, no thyroid enlargement, no adenopathy. CHEST: No chest wall deformity. Symmetrical expansion. LUNGS: Lung sounds are diminished, with inspiratory crackles over left lower lobe CVS: Regular rate and rhythm, normal S1 and S2, no gallops, no murmurs, no rubs ABDOMEN: Soft, nontender. No hepatosplenomegaly, normal bowel sounds, no guarding or rigidity. EXTREMITIES: No clubbing, no edema, no cyanosis, 2+ pulses and upper and lower extremities. MUSCULOSKELETAL: Muscle strength and tone normal. SPINE: No scoliosis or deformity SKIN: No rashes CENTRAL NERVOUS SYSTEM: Alert and oriented -3. No focal deficits, tone is normal in all 4 extremities. PSYCHIATRIC: Alert and oriented -3. Appropriate affect. Intact judgment and insight. - Labs CBC & Chem 7: 01/02/18 09:08 01/02/18 09:08 Labs: Abnormal Lab Results - Last 24 Hours (Table) 01/01/18 01/01/18 01/01/18 Range/Units 10:37 11:54 16:50 WBC (3.8-10.6) k/uL Neutrophils # (1.3-7.7) k/uL Lymphocytes # (1.0-4.8) k/uL Carbon Dioxide (22-30) mmol/L Glucose (74-99) mg/dL POC Glucose (mg/dL) 124 H 171 H (75-99) mg/dL Hemoglobin A1c 6.1 H (4.0-6.0) % Total Protein (6.3-8.2) g/dL 01/01/18 01/02/18 01/02/18 Range/Units 21:39 07:17 09:08 WBC 21.6 H (3.8-10.6) k/uL Neutrophils # 20.5 H (1.3-7.7) k/uL Lymphocytes # 0.5 L (1.0-4.8) k/uL Carbon Dioxide (22-30) mmol/L Glucose (74-99) mg/dL POC Glucose (mg/dL) 186 H 135 H (75-99) mg/dL Hemoglobin A1c (4.0-6.0) % Total Protein (6.3-8.2) g/dL 01/02/18 Range/Units 09:08 WBC (3.8-10.6) k/uL Neutrophils # (1.3-7.7) k/uL Lymphocytes # (1.0-4.8) k/uL Carbon Dioxide 20 L (22-30) mmol/L Glucose 155 H (74-99) mg/dL POC Glucose (mg/dL) (75-99) mg/dL Hemoglobin A1c (4.0-6.0) % Total Protein 5.8 L (6.3-8.2) g/dL Microbiology - Last 24 Hours (Table) 12/31/17 06:53 Blood Culture - Preliminary Blood No Growth after 48 hours Assessment and Plan Plan: Assessment: #1. Acute community acquired pneumonia, with failed outpatient treatment and the initial chest x-ray showed left perihilar and infrahilar consolidation, and there has been an overnight improvement of the left perihilar opacity. #2. Dyspnea, fever, coughing, right lower chest wall pain and leukocytosis due to the above #3. Remote smoking history, patient quit 50 years ago, and only smoked for 3-4 years while in the [employer] #4. Hypertension #5. History of CVA, with no residual deficits #6. GERD/reflux #7. Osteoarthritis #8. History of laparoscopic lysis of adhesions of extensive intra-abdominal adhesions, laparoscopic Pastor fundoplication Plan: Continue current antibiotic coverage, with Rocephin and Zithromax, continue IV steroids, nebulized bronchodilators. Slight improvement in patient's condition , we'll continue to follow. I performed a history & physical examination of the patient and discussed their management with my nurse practitioner, Leticia Dumas. I reviewed the nurse practitioner's note and agree with the documented findings and plan of care. Lung sounds are diminished, with rales at the left posterior base. The findings and the impression was discussed with the patient. I attest to the documentation by the nurse practitioner. Time with Patient: Less than 30
[2018-01-02 11:36] LABS: Glucose,Whole Blood 138 mg/dL (75-99)
[2018-01-02 16:33] LABS: Glucose,Whole Blood 141 mg/dL (75-99)
[2018-01-02] MEDS: ASPIRIN 81 MG PO SCH (21:03)
[2018-01-02] MEDS: ATORVASTATIN 40 MG TAB PO SCH (21:03)
[2018-01-02] MEDS: guaiFENesin-Coden 100-10MG/5ML 10 ML CUP PO PRN (21:06)
[2018-01-02 21:17] LABS: Glucose,Whole Blood 171 mg/dL (75-99)
[2018-01-03] MEDS: LACTATED RINGERS 1,000 ML IV SCH ×2 (00:14→23:23)
[2018-01-03] MEDS: HEPARIN SODIUM,PORCINE 5,000 UNIT/ML 1 ML VIAL SQ SCH ×4 (00:15→23:27)
[2018-01-03] MEDS: SODIUM CHLORIDE 0.9% 1,000 ML IV SCH ×2 (05:37→17:39)
[2018-01-03 07:23] LABS: Glucose,Whole Blood 128 mg/dL (75-99)
[2018-01-03] MEDS: INSULIN ASPART 100 UNIT/ML 1 ML 10 ML VIAL SQ SCH ×4 (07:30→20:39)
[2018-01-03] MEDS: DOCUSATE 100 MG CAP PO SCH ×2 (07:38→20:30)
[2018-01-03] MEDS: PANTOPRAZOLE 40 MG TABLET PO SCH (07:38)
[2018-01-03] MEDS: PSYLLIUM HUSK 100% 6 GM PACKET PO SCH ×2 (07:39→21:20)
[2018-01-03] MEDS: cefTRIAXone IN SWFI 1,000 MG/10 ML SYRINGE IVP SCH (07:39)
[2018-01-03] MEDS: methylPREDNISolone SOD SUCCI 125 MG/2 ML VIAL IV SCH ×3 (07:39→23:22)
[2018-01-03] MEDS: guaiFENesin 600 MG TABLET.ER PO SCH ×2 (07:39→20:30)
[2018-01-03] MEDS: LISINOPRIL 20 MG TAB PO SCH (07:40)
[2018-01-03] MEDS: AZITHROMYCIN 500 MG TAB PO SCH (07:40)
[2018-01-03] MEDS: SYMBICORT 160-4.5 MCG INHALER INHALATION SCH ×2 (08:15→20:04)
[2018-01-03] MEDS: IPRATROPIUM-ALBUTEROL 3 ML NEB INHALATION SCH ×4 (08:15→20:04)
[2018-01-03 08:38] LABS: Basophils % (A) 0 %; Eosinophils % (A) 0 %; HCT 39.7 % (39.0-53.0); HGB 13.4 gm/dL (13.0-17.5); Lymphocytes # (A) 0.7 k/uL (1.0-4.8); Lymphocytes % (A) 3 %; MCH 30.7 pg (25.0-35.0); MCHC 33.8 g/dL (31.0-37.0); MCV 90.7 fL (80.0-100.0); Mean Platelet Volume 6.5; Monocytes # (A) 0.5 k/uL (0-1.0); Monocytes % (A) 3 %; Neutrophils # (A) 19.3 k/uL (1.3-7.7); Neutrophils % (A) 94 %; Platelet Count 289 k/uL (150-450); RBC 4.38 m/uL (4.30-5.90); RDW 13.4 % (11.5-15.5); WBC 20.6 k/uL (3.8-10.6)
[2018-01-03 08:56] LABS: ALT 51 U/L (21-72); AST 28 U/L (17-59); Albumin 3.6 g/dL (3.5-5.0); Alkaline Phosphatase 58 U/L (38-126); Anion Gap 13 mmol/L; Blood Urea Nitrogen 22 mg/dL (9-20); Calcium 9.8 mg/dL (8.4-10.2); Carbon Dioxide 24 mmol/L (22-30); Chloride 105 mmol/L (98-107); Glucose 129 mg/dL (74-99); Potassium 4.4 mmol/L (3.5-5.1); Sodium 142 mmol/L (137-145); Total Bilirubin 0.6 mg/dL (0.2-1.3); Total Protein 5.7 g/dL (6.3-8.2)
--- NOTE | 2018-01-03 10:43 | P.PN ---
Subjective Progress Note Date: 01/03/18 Principal diagnosis: Acute community acquired pneumonia, with failed outpatient treatment Marcos is a 72-year-old white male patient of Dr. Zamarripa who presented to the emergency department on 12/31/2017 complaints of worsening dyspnea, fever, chills, coughing and right-sided chest wall pain. A week ago on Saturday patient went to see Dr. Zamarripa in the office for her complaints of nasal congestion, clear nasal drainage, coughing, and anterior chest wall discomfort from persistent coughing spells. Patient was treated with antibiotics, presumably Zithromax, and a steroid taper, and was starting to feel better on Saturday and Saturday. However on Saturday he noted increased chest congestion, on Saturday he started having lightheadedness, is coughing spells intensified, he felt more winded with any exertion, started experiencing fever and chills. He is having persistent nasal congestion, his cough is mostly nonproductive. Patient is a remote smoker, he quit 50 years ago, smoked while in the [employer] for a period of about 3-4 years, less than a pack a day. 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 No other chronic lung problems, does not see a inspector hairspring truing, does not wear oxygen, and is not on any inhalers on a regular basis. Patient had a fever of 99.9F on presentation, chest x-ray completed in the emergency department showed developing left perihilar and infrahilar pneumonia. Patient was initiated on empiric antibiotics in the form of Zithromax and Rocephin, he was started on IV steroids, and nebulized treatments and we're seeing the patient in consultation to the community- acquired pneumonia. On 01/02/2018 patient seen again in follow-up. Reports some improvement with dyspnea, however still having coughing spells. The right lower chest discomfort has improved, but patient is having anterior lower chest wall discomfort exacerbated by his coughing spells. Room air pulse ox is 95%, patient has been afebrile. Has not been able to produce any sputum for culture , blood cultures remain negative, patient is on empiric antibiotics with Rocephin and Zithromax. Today's labs were reviewed, and a CBC is up to 21.6, possibly related to IV steroids, CO2 is 20, renal profile is within normal limits, electrolytes are normal. Lung sounds reveal better air in entry bilaterally, with a few scattered rales the left lower base. On 01/02/2018 patient seen in follow-up. His condition is essentially the same , still has persistent cough and exertional dyspnea, with some slight improvement. No fever or chills, blood cultures are negative. Afebrile, on room air, pulse ox is 96%. Lung sounds are diminished, and deep breathing exacerbates patient's coughing spells. Cough is nonproductive. Patient is scheduled to undergo a bronchoscopy with BAL today at 12:[address] Esquivel Objective - Vital Signs Vital signs: Vital Signs Temp 97.4 F L 01/03/18 06:00 Pulse 89 01/03/18 08:25 Resp 20 01/03/18 06:00 BP 113/72 01/03/18 06:00 Pulse Ox 96 01/03/18 06:00 Intake & Output 01/02/18 01/03/18 01/03/18 18:59 06:59 18:59 Intake Total 600 200 Balance 600 200 Intake: Oral 600 200 Other: # Voids 2 1 # Bowel Movements 0 - Exam GENERAL EXAM: Alert, pleasant, 72-year-old white male, resting in bed, comfortable in no apparent distress. Patient is mildly short of breath with conversation, and is having intermittent dry coughing spells HEAD: Normocephalic/atraumatic. EYES: Normal reaction of pupils, equal size. Conjunctiva pink, sclera white. NOSE: Clear with pink turbinates. THROAT: No erythema or exudates. NECK: No masses, no JVD, no thyroid enlargement, no adenopathy. CHEST: No chest wall deformity. Symmetrical expansion. LUNGS: Lung sounds are diminished, with inspiratory crackles over left lower lobe CVS: Regular rate and rhythm, normal S1 and S2, no gallops, no murmurs, no rubs ABDOMEN: Soft, nontender. No hepatosplenomegaly, normal bowel sounds, no guarding or rigidity. EXTREMITIES: No clubbing, no edema, no cyanosis, 2+ pulses and upper and lower extremities. MUSCULOSKELETAL: Muscle strength and tone normal. SPINE: No scoliosis or deformity SKIN: No rashes CENTRAL NERVOUS SYSTEM: Alert and oriented -3. No focal deficits, tone is normal in all 4 extremities. PSYCHIATRIC: Alert and oriented -3. Appropriate affect. Intact judgment and insight. - Labs CBC & Chem 7: 01/03/18 08:07 01/03/18 08:07 Labs: Abnormal Lab Results - Last 24 Hours (Table) 01/02/18 01/02/18 01/02/18 Range/Units 11:24 16:30 21:13 WBC (3.8-10.6) k/uL Neutrophils # (1.3-7.7) k/uL Lymphocytes # (1.0-4.8) k/uL BUN (9-20) mg/dL Glucose (74-99) mg/dL POC Glucose (mg/dL) 138 H 141 H 171 H (75-99) mg/dL Total Protein (6.3-8.2) g/dL 01/03/18 01/03/18 01/03/18 Range/Units 07:20 08:07 08:07 WBC 20.6 H (3.8-10.6) k/uL Neutrophils # 19.3 H (1.3-7.7) k/uL Lymphocytes # 0.7 L (1.0-4.8) k/uL BUN 22 H (9-20) mg/dL Glucose 129 H (74-99) mg/dL POC Glucose (mg/dL) 128 H (75-99) mg/dL Total Protein 5.7 L (6.3-8.2) g/dL Microbiology - Last 24 Hours (Table) 12/31/17 06:53 Blood Culture - Preliminary Blood No Growth after 72 hours Assessment and Plan Plan: Assessment: #1. Acute community acquired pneumonia, with failed outpatient treatment and the initial chest x-ray showed left perihilar and infrahilar consolidation #2. Dyspnea, fever, coughing, right lower chest wall pain and leukocytosis due to the above #3. Remote smoking history, patient quit 50 years ago, and only smoked for 3-4 years while in the [employer] #4. Hypertension #5. History of CVA, with no residual deficits #6. GERD/reflux #7. Osteoarthritis #8. History of laparoscopic lysis of adhesions of extensive intra-abdominal adhesions, laparoscopic Pastor fundoplication Plan: Continue current antibiotic coverage, we'll proceed with bronchoscopy with BAL today by Dr. Esquivel at 12:30 pm. Continue medical treatment. I performed a history & physical examination of the patient and discussed their management with my nurse practitioner, Leticia Dumas. I reviewed the nurse practitioner's note and agree with the documented findings and plan of care. Lung sounds are diminished, with rales at the left posterior base. The findings and the impression was discussed with the patient. I attest to the documentation by the nurse practitioner. Time with Patient: Less than 30
[2018-01-03 11:34] LABS: Glucose,Whole Blood 149 mg/dL (75-99)
--- NOTE | 2018-01-03 12:30 | P.PN ---
Subjective Progress Note Date: 01/03/18 72-year-old male who presented to the emergency room with a chief complaint of shortness of breath and cough. The patient states he was seen by his primary care physician last week and was prescribed antibiotics and a steroid pack. The patient states he initially started feeling better, but last 12/27/2017, his symptoms started to get worse. He states he began having increased shortness of breath and persistent coughing. He denies sputum production. The patient denies chest pain or pressure. He does report a low- grade fever at home. Denies nausea or vomiting. Denies lightheadedness or dizziness. The patient has a history of CVA, GERD, hyperlipidemia, hypertension, osteoarthritis, and anxiety. He is a former cigarette smoker. The patient reports he started smoking in 1965 and quit in 1970. The patient has a surgical history of laparoscopic Pastor fundoplication, bilateral inguinal hernia repairs, right carotid endarterectomy, and sinus surgery. Chest x-ray 12/31/2017: Developing left perihilar and infrahilar pneumonia Chest x-ray 01/01/2018: Near resolution of previously seen left perihilar pasty. Trace left basilar atelectasis remains. Laboratory data: WBC 19.5. Hemoglobin 15.0. Platelet count 297. Sodium 139. Potassium 4.4. BUN 23. Creatinine 0.91. Glucose 121. Lactic acid 1.1. D-dimer 0.47. Troponin: Negative 1 The patient was admitted to the hospital under the care of Dr. Zamarripa. 01/02/2018 Patient seen and examined at the bedside in rounds Dr. Zamarripa. Patient is awake and alert. Patient states his shortness of breath has improved. He is currently on room air with oxygen saturations greater than 92%. He is afebrile. Blood pressure is stable with a last reading of 124/57. Patient continues to have frequent dry nonproductive cough, although significantly improved from yesterday. He has been receiving Robitussin with codeine. Pulmonary was consulted and evaluated patient yesterday. He remains on steroids 60 mg IV every 8 hours and nebulizer treatments. Patient is requesting stool softeners and states he has not had a bowel movement since Saturday and usually takes Metamucil daily at home. Patient denies any further concerns or complaints. 01/03/2018 Patient seen and examined at the bedside with Dr. Zamarripa. Patient is awake and alert. Patient states he did not sleep well last night. Patient extremely talkative this morning with rambling about various topics, which may be secondary to IV steroids. Patient states his breathing has improved some since yesterday. He continues to complain of frequent coughing. Blood cultures are negative at 72 hour srinivas. Patient is afebrile. He remains hemodynamically stable. Blood pressure 113/72. Patient is on room air with oxygen saturations greater than 92%. He is scheduled for bronchoscopy with BAL today with Dr. Rock Objective - Vital Signs Vital signs: Vital Signs Temp 97.4 F L 01/03/18 06:00 Pulse 90 01/03/18 11:56 Resp 20 01/03/18 06:00 BP 113/72 01/03/18 06:00 Pulse Ox 96 01/03/18 06:00 Intake & Output 01/02/18 01/03/18 01/03/18 18:59 06:59 18:59 Intake Total 600 200 Balance 600 200 Intake: Oral 600 200 Other: # Voids 2 1 # Bowel Movements 0 - Constitutional Constitutional Comment(s): 72-year-old male General appearance: Present: cooperative, no acute distress - EENT Eyes: Present: EOMI, PERRLA ENT: Present: hearing grossly normal - Neck Neck: Present: normal ROM - Respiratory Details: Frequent coughing noted. Nonproductive. Respiratory: bilateral: diminished - Cardiovascular Rhythm: regular Heart sounds: normal: S1, S2 Abnormal Heart Sounds: Absent: systolic murmur, diastolic murmur - Gastrointestinal General gastrointestinal: Present: normal bowel sounds, soft. Absent: distended , rigid - Integumentary Integumentary: Present: normal. Absent: cellulitis, cyanotic, flushed, jaundiced - Neurologic Neurologic: Present: CNII-XII intact - Musculoskeletal Musculoskeletal: Present: strength equal bilaterally - Psychiatric Psychiatric: Present: A&O x's 3 - Labs CBC & Chem 7: 01/03/18 08:07 01/03/18 08:07 Labs: Abnormal Lab Results - Last 24 Hours (Table) 01/02/18 01/02/18 01/03/18 Range/Units 16:30 21:13 07:20 WBC (3.8-10.6) k/uL Neutrophils # (1.3-7.7) k/uL Lymphocytes # (1.0-4.8) k/uL BUN (9-20) mg/dL Glucose (74-99) mg/dL POC Glucose (mg/dL) 141 H 171 H 128 H (75-99) mg/dL Total Protein (6.3-8.2) g/dL 01/03/18 01/03/18 01/03/18 Range/Units 08:07 08:07 11:31 WBC 20.6 H (3.8-10.6) k/uL Neutrophils # 19.3 H (1.3-7.7) k/uL Lymphocytes # 0.7 L (1.0-4.8) k/uL BUN 22 H (9-20) mg/dL Glucose 129 H (74-99) mg/dL POC Glucose (mg/dL) 149 H (75-99) mg/dL Total Protein 5.7 L (6.3-8.2) g/dL Microbiology - Last 24 Hours (Table) 12/31/17 06:53 Blood Culture - Preliminary Blood No Growth after 72 hours Assessment and Plan Plan: ASSESSMENT: Left lobe pneumonia, community acquired, present on admission, sputum culture pending Hypertension Hyperlipidemia History of CVA Osteoarthritis History of bilateral carotid endarterectomy Anxiety, unspecified Remote history of nicotine dependence PLAN: Pulmonary on consult. Appreciate recommendations and input Continue antibiotics: Ceftriaxone and azithromycin Continue IV steroids. Decrease to 40 mg every 8 hours secondary to insomnia and hyperactivity Novolog sliding scale ACHS per steroid protocol Incentive spirometer 10 times an hour while awake Robitussin with codeine for cough Home meds as appropriate Monitor labs GI prophylaxis: Protonix 40 mg PO Daily DVT prophylaxis: Heparin 5000 units subcu every 8 hours Monitor vital signs and address as appropriate Discharge planning: Patient to return home when stable Further recommendations pending patient's course Nurse practitioner note has been reviewed by physician. Signing provider agrees with the documented findings, assessment, and plan of care.
[2018-01-03] MEDS ORDERED: MIDAZOLAM 2 MG/2 ML VIAL ONE (12:44)
[2018-01-03] MEDS ORDERED: KETAMINE 10 MG/ML 20 ML VIAL ONE (12:44)
[2018-01-03] MEDS ORDERED: LIDOCAINE 1% INJ 10MG/ML (20 ML MDV) ONE (12:44)
[2018-01-03] MEDS ORDERED: PROPOFOL 10 MG/ML 20 ML VIAL IV ONE (12:44)
[2018-01-03] MEDS ORDERED: IV FLUID CONTINUATION 300 ML IV ONE (12:47)
[2018-01-03] MEDS ORDERED: LIDOCAINE 2% INJ 20 MG/ML INTRATRACH ONE (12:55)
[2018-01-03] MEDS: LEVOFLOXACIN 750MG-D5W PMX 750 MG in DEXTROSE/WATER 1 150ML.BAG IVPB SCH (13:52)
[2018-01-03] MEDS ORDERED: RX INFO: IV CONTRAST WAS GIVEN 1 EACH MISC MISCELLANE PRN (14:13)
[2018-01-03] MEDS: PIPERACILLIN-TAZOBACTAM 3.375 GM in DEXTROSE/WATER 1 50ML.BAG IVPB SCH ×2 (16:00→23:23)
[2018-01-03] MEDS ORDERED: methylPREDNISolone SOD SUCCI 40 MG/ML 1 ML VIAL IV SCH (16:00)
[2018-01-03 16:32] LABS: Appearance,BF Blood Tinged; Color,BF Colorless
--- NOTE | 2018-01-03 16:49 | CT ---
EXAMINATION TYPE: CT chest w con DATE OF EXAM: 01/03/2018 COMPARISON: NONE HISTORY: Cough CT DLP: 352.3 mGycm, Automated exposure control for dose reduction was used. CONTRAST: Performed injected with 100ml mL of Isovue M300. TECHNIQUE: Axial images were obtained at 5 mm thick sections. Reconstructed images are reviewed on [employer] computer in the coronal plane. FINDINGS: Portion of the thyroid visualized is normal. There is a 0.5 cm density within the right middle lobe may have a tiny calcification centrally. This most likely represents a small granuloma. Couple of small pneumatoceles are in the right middle lobe near the base. No enlarged mediastinal or hilar adenopathy is evident. A few shotty lymph nodes are present in the mediastinum. Tracheobronchial tree is visualized appears normal. The ascending aorta diameter at the level of the main pulmonary artery is 3.3 cm. The main pulmonary artery diameter at the bifurcation is 2.7 cm. Mild coronary artery calcification is present. Limited CT sections are obtained through the upper abdomen. Small hiatal hernia is present. The hepat ic flexure is anterior to the liver which can contribute to right upper quadrant pain. IMPRESSIONS: 1. 0.5 cm suspected granuloma right middle lobe. 2. No acute pulmonary process.
[2018-01-03 17:00] LABS: Glucose,Whole Blood 132 mg/dL (75-99)
--- NOTE | 2018-01-03 17:09 | PCN ---
PROCEDURE NOTE OPERATIVE REPORT: Bronchoscopy, random bronchial washings, brushings, and washings from the distal right mainstem bronchus and lingula. PREOPERATIVE DIAGNOSES: Left perihilar pneumonia and persistent cough. POSTOPERATIVE DIAGNOSES: Left perihilar pneumonia and persistent cough. ANESTHESIA: IV conscious sedation. PROCEDURE: The patient was placed in the supine position, he was prepared according to the bronchoscopy protocol. O2 was applied via nasal cannula. We monitored his O2 saturation continuously, blood pressure was monitored intermittently, and cardiac rhythm was continuously monitored. After adequate IV conscious sedation, I attempted to initiate my bronchoscopy via the nares, both nares were noted to be quite inflamed, and could not pass the bronchoscope through the left or the right naris. Then, a bite block was applied, and I was able to pass the bronchoscope down to the area of the oropharynx, visualized the vocal cords, and they were noted to be patent and normal. Lidocaine was applied over the vocal cords, and I was able to go down through the vocal cords to the trachea. Thorough examination was done on the right side, and there was significant purulent secretions noted in the trachea, significant purulent secretions noted in the right upper lobe, right middle lobe, right lower lobe and in the left mainstem bronchus and in the right mainstem bronchus. I was able to clear all the secretions from the different areas, these were suctioned. However, as I went down to evaluate the distal aspect of the left mainstem bronchus, and the lingula, there was a significantly inflamed mucosa, and was bleeding very easily. I could not adequately visualize the distal left mainstem bronchus or the lingula of the left upper lobe because the patient went on coughing continuously. Again, the mucosa was very friable, and was bleeding easily. However, I was able to take a separate sample from the left distal mainstem bronchus and from the lingula with a brush and with a lavage done in that area specifically. I could not visualize the area well to be able to do adequate biopsies. Procedure was well tolerated, no evidence of any immediate complications. The random washing was sent for cultures including routine cultures, fungal cultures and AFB as well as viral. The left sided specimen from the left mainstem bronchus and lingula was sent for cytology. Procedure again was tolerated. No evidence of any immediate complications. However, the patient is going to require repeat bronchoscopy down the line, I would strongly recommend having it done under general anesthesia. Could not fully visualize the area of the lingula and the left mainstem bronchus, I will be ordering a CT of the chest on this patient. MMODL / IJN: [id number] /
[2018-01-03 18:41] LABS: Nucleated Cells, Body Fluid 400 /uL; RBC, Body Fluid 2000 /uL
[2018-01-03 18:45] LABS: Mononuclear WBC,Body Fluid 7 %; Polynuclear WBC,Body Fluid 93 %; Total Cells Counted,Body Fluid 100
[2018-01-03 20:29] LABS: Glucose,Whole Blood 153 mg/dL (75-99)
[2018-01-03] MEDS: ASPIRIN 81 MG PO SCH (20:29)
[2018-01-03] MEDS: ATORVASTATIN 40 MG TAB PO SCH (20:29)
[2018-01-04] MEDS: SODIUM CHLORIDE 0.9% 1,000 ML IV SCH (06:10)
[2018-01-04 07:25] LABS: Glucose,Whole Blood 146 mg/dL (75-99)
[2018-01-04] MEDS: SYMBICORT 160-4.5 MCG INHALER INHALATION SCH ×2 (07:47→19:14)
[2018-01-04] MEDS: IPRATROPIUM-ALBUTEROL 3 ML NEB INHALATION SCH ×4 (07:47→19:13)
[2018-01-04] MEDS: methylPREDNISolone SOD SUCCI 125 MG/2 ML VIAL IV SCH ×3 (08:16→23:21)
[2018-01-04] MEDS: HEPARIN SODIUM,PORCINE 5,000 UNIT/ML 1 ML VIAL SQ SCH ×3 (08:16→23:21)
[2018-01-04] MEDS: INSULIN ASPART 100 UNIT/ML 1 ML 10 ML VIAL SQ SCH ×4 (08:16→21:11)
[2018-01-04] MEDS: PANTOPRAZOLE 40 MG TABLET PO SCH (08:16)
[2018-01-04] MEDS: DOCUSATE 100 MG CAP PO SCH ×2 (08:17→21:11)
[2018-01-04] MEDS: PSYLLIUM HUSK 100% 6 GM PACKET PO SCH (08:18)
[2018-01-04] MEDS: guaiFENesin 600 MG TABLET.ER PO SCH ×2 (08:18→21:11)
[2018-01-04] MEDS: PIPERACILLIN-TAZOBACTAM 3.375 GM in DEXTROSE/WATER 1 50ML.BAG IVPB SCH ×3 (09:16→23:21)
[2018-01-04] MEDS: guaiFENesin-Coden 100-10MG/5ML 10 ML CUP PO PRN ×2 (11:19→16:29)
[2018-01-04 12:36] LABS: Glucose,Whole Blood 133 mg/dL (75-99)
[2018-01-04] MEDS: LEVOFLOXACIN 750MG-D5W PMX 750 MG in DEXTROSE/WATER 1 150ML.BAG IVPB SCH (13:18)
--- NOTE | 2018-01-04 13:46 | P.PN ---
Subjective Progress Note Date: 01/04/18 Principal diagnosis: Acute community-acquired pneumonia, failed outpatient treatment Marcos is a 72-year-old white male patient of Dr. Zamarripa who presented to the emergency department on 12/31/2017 complaints of worsening dyspnea, fever, chills, coughing and right-sided chest wall pain. A week ago on Saturday patient went to see Dr. Zamarripa in the office for her complaints of nasal congestion, clear nasal drainage, coughing, and anterior chest wall discomfort from persistent coughing spells. Patient was treated with antibiotics, presumably Zithromax, and a steroid taper, and was starting to feel better on Saturday and Saturday. However on Saturday he noted increased chest congestion, on Saturday he started having lightheadedness, is coughing spells intensified, he felt more winded with any exertion, started experiencing fever and chills. He is having persistent nasal congestion, his cough is mostly nonproductive. Patient is a remote smoker, he quit 50 years ago, smoked while in the [employer] for a period of about 3-4 years, less than a pack a day. 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 No other chronic lung problems, does not see a high school librarian, does not wear oxygen, and is not on any inhalers on a regular basis. Patient had a fever of 99.9F on presentation, chest x-ray completed in the emergency department showed developing left perihilar and infrahilar pneumonia. Patient was initiated on empiric antibiotics in the form of Zithromax and Rocephin, he was started on IV steroids, and nebulized treatments and we're seeing the patient in consultation to the community- acquired pneumonia. On 01/02/2018 patient seen again in follow-up. Reports some improvement with dyspnea, however still having coughing spells. The right lower chest discomfort has improved, but patient is having anterior lower chest wall discomfort exacerbated by his coughing spells. Room air pulse ox is 95%, patient has been afebrile. Has not been able to produce any sputum for culture , blood cultures remain negative, patient is on empiric antibiotics with Rocephin and Zithromax. Today's labs were reviewed, and a CBC is up to 21.6, possibly related to IV steroids, CO2 is 20, renal profile is within normal limits, electrolytes are normal. Lung sounds reveal better air in entry bilaterally, with a few scattered rales the left lower base. On 01/03/2018 patient seen in follow-up. His condition is essentially the same , still has persistent cough and exertional dyspnea, with some slight improvement. No fever or chills, blood cultures are negative. Afebrile, on room air, pulse ox is 96%. Lung sounds are diminished, and deep breathing exacerbates patient's coughing spells. Cough is nonproductive. Patient is scheduled to undergo a bronchoscopy with BAL today at 12:[address] Esquivel. The patient is seen again today 01/04/2018 in follow-up on the regular medical floor. He is awake and alert in no acute distress. He did undergo bronchoscopy with BAL by Dr. Rock yesterday. Preliminary cultures are revealing no growth thus far. Computed tomography scan of the chest revealed a 0.5 cm suspected granuloma in the right middle lobe. Otherwise no acute pulmonary process. He is maintaining good O2 saturations in the mid 90s on room air. He is afebrile. Hemodynamically stable. Objective - Vital Signs Vital signs: Vital Signs Temp 97.5 F L 01/04/18 06:24 Pulse 88 01/04/18 12:03 Resp 20 01/04/18 06:24 BP 121/70 01/04/18 06:24 Pulse Ox 96 01/04/18 06:24 Intake & Output 01/03/18 01/04/18 01/04/18 18:59 06:59 18:59 Intake Total 200 Balance 200 Intake: IV 200 Other: Voiding Method Toilet # Voids 3 1 - Exam GENERAL EXAM: Alert, pleasant, 72-year-old white male, resting in bed, comfortable in no apparent distress. Patient is mildly short of breath with conversation, and is having intermittent dry coughing spells HEAD: Normocephalic/atraumatic. EYES: Normal reaction of pupils, equal size. Conjunctiva pink, sclera white. NOSE: Clear with pink turbinates. THROAT: No erythema or exudates. NECK: No masses, no JVD, no thyroid enlargement, no adenopathy. CHEST: No chest wall deformity. Symmetrical expansion. LUNGS: Lung sounds are diminished, CVS: Regular rate and rhythm, normal S1 and S2, no gallops, no murmurs, no rubs ABDOMEN: Soft, nontender. No hepatosplenomegaly, normal bowel sounds, no guarding or rigidity. EXTREMITIES: No clubbing, no edema, no cyanosis, 2+ pulses and upper and lower extremities. MUSCULOSKELETAL: Muscle strength and tone normal. SPINE: No scoliosis or deformity SKIN: No rashes CENTRAL NERVOUS SYSTEM: Alert and oriented -3. No focal deficits, tone is normal in all 4 extremities. PSYCHIATRIC: Alert and oriented -3. Appropriate affect. Intact judgment and insight. - Labs CBC & Chem 7: 01/03/18 08:07 01/03/18 08:07 Labs: Abnormal Lab Results - Last 24 Hours (Table) 01/03/18 01/03/18 01/04/18 Range/Units 16:57 20:28 07:20 POC Glucose (mg/dL) 132 H 153 H 146 H (75-99) mg/dL 01/04/18 Range/Units 12:29 POC Glucose (mg/dL) 133 H (75-99) mg/dL Microbiology - Last 24 Hours (Table) 12/31/17 06:53 Blood Culture - Preliminary Blood No Growth after 96 hours 01/03/18 13:05 Acid Fast Bacilli Smear - Final Bronchial Washings - Left Acid Fast Bacilli Culture - Preliminary 01/03/18 13:05 Gram Stain - Preliminary Bronchial Washings - Left Bronchial Washings Culture - Preliminary 01/03/18 13:05 Fungal Culture - Preliminary Bronchial Washings - Left Assessment and Plan Assessment: Assessment: #1. Acute community acquired pneumonia, with failed outpatient treatment and the initial chest x-ray showed left perihilar and infrahilar consolidation #2. Dyspnea, fever, coughing, right lower chest wall pain and leukocytosis due to the above. Recovered. #3. Remote smoking history, patient quit 50 years ago, and only smoked for 3-4 years while in the [employer] #4. Hypertension #5. History of CVA, with no residual deficits #6. GERD/reflux #7. Osteoarthritis #8. History of laparoscopic lysis of adhesions of extensive intra-abdominal adhesions, laparoscopic Pastor fundoplication Plan: The patient was seen and evaluated by Dr. Rock. Bronchoscopy performed yesterday. Cultures reveal no growth thus far. Computed tomography scan of the chest revealed a 0.5 cm granulated nodule with otherwise clear lungs. Upon discharge he'll complete course of antibiotics, complete prednisone taper, Symbicort and albuterol. I, the cosigning physician, performed a history & physical examination of the patient. Lungs sounds are clear. Maintaining good O2 saturations in the 90s on room air. I discussed the assessment and plan of care with my nurse practitioner, Brandi Mirza. I attest to the above note as dictated by her.
[2018-01-04 17:03] LABS: Glucose,Whole Blood 144 mg/dL (75-99)
--- NOTE | 2018-01-04 17:58 | PN ---
PROGRESS NOTE DATE OF SERVICE: 01/04/2018 I am covering for Dr. Zamarripa. This 72-year-old gentleman admitted with shortness of breath and cough, had possibly left lower pneumonia which is possibly community-acquired. The patient is on multiple antibiotics. The sputum cultures are pending at this time. Because of lack of improvement, Dr. Rock, performed bronchoscopy yesterday that showed friable mucosa and significant secretions. The patient also had a CT scan of the chest yesterday which showed a 0.5 cm granuloma of the right middle lobe and no acute pulmonary process noted. Patient closely monitored at this time. The patient is having continued cough. PAST MEDICAL HISTORY: Reviewed. REVIEW OF SYSTEM: CARDIOVASCULAR: No angina. RESPIRATORY: As mentioned earlier. GI: No nausea. : No dysuria. NERVOUS SYSTEM: No numbness or weakness. CURRENT MEDICATIONS: Reviewed and include: 1. DuoNeb q.i.d. and p.r.n. 2. Aspirin 162 mg q.h.s. 3. Lipitor 40 mg q.h.s. 4. Symbicort 160/4.5 two puffs b.i.d. 5. Colace 100 mg p.o. b.i.d. 6. Mucinex 600 mg p.o. b.i.d. 7. Robitussin. 8. Heparin 5000 subcu q.8h. 9. NovoLog. 10.Levaquin 750 q.24 hours. 11.Solu-Medrol 60 IV q.8h. 12.Protonix 40 mg daily. 13.Zosyn 3.375 IV q.8h. 14.Senokot 8.6 p.o. daily. PHYSICAL EXAM: Patient is alert, oriented x3. Pulse 90, blood pressure 101/60, respirations 16, temperature 98 degrees, pulse ox 91% on room air. HEENT: Conjunctivae normal. Oral mucosa moist. Neck is no jugular venous distention. No carotid bruit. No lymph node enlargement. CARDIOVASCULAR: S1, S2. No S3, no S4. RESPIRATORY: Breath sounds diminished in the bases. Bilateral scattered rhonchi and crackles. ABDOMEN: Soft, nontender. No mass palpable. LEGS: No edema, no swelling. NERVOUS SYSTEM: Higher function mentioned earlier. Moves all four limbs. No focal deficits. LYMPHATICS: No lymphadenopathy in the neck, axillae, groin. SKIN: No ulcer, rashes or bleeding. LAB STUDIES: At this time shows Accu-Cheks noted. ASSESSMENT: 1. Acute left lower pneumonia possibly community-acquired present on admission, status post bronchoscopy. 2. Hypertension. 3. Hyperlipidemia. 4. History of cerebrovascular accident. 5. Degenerative joint disease. 6. History of bilateral carotid endarterectomy. 7. Anxiety, unspecified. 8. Remote history of nicotine dependence. 9. Possible chronic obstructive pulmonary disease. RECOMMENDATIONS AND DISCUSSION: This 72-year-old gentleman who presented with multiple complex medical issues, will monitor the patient closely. Continue the current management and symptomatic treatment. Continue the bronchodilators. Otherwise, closely follow with Dr. Rock. Await culture report. Continue IV steroids. Guarded prognosis. Further recommendations to follow. MMODL / IJN: [id number] /
[2018-01-04 20:38] LABS: Glucose,Whole Blood 149 mg/dL (75-99)
[2018-01-04] MEDS: ATORVASTATIN 40 MG TAB PO SCH (21:11)
[2018-01-04] MEDS: ASPIRIN 81 MG PO SCH (21:11)
[2018-01-05] MEDS: guaiFENesin-Coden 100-10MG/5ML 10 ML CUP PO PRN ×3 (02:28→21:49)
[2018-01-05] MEDS: IPRATROPIUM-ALBUTEROL 3 ML NEB INHALATION SCH ×4 (07:16→19:46)
[2018-01-05] MEDS: SYMBICORT 160-4.5 MCG INHALER INHALATION SCH ×2 (07:16→19:46)
[2018-01-05 07:29] LABS: Glucose,Whole Blood 121 mg/dL (75-99)
[2018-01-05] MEDS: methylPREDNISolone SOD SUCCI 125 MG/2 ML VIAL IV SCH ×4 (08:12→23:37)
[2018-01-05] MEDS: PANTOPRAZOLE 40 MG TABLET PO SCH (08:12)
[2018-01-05] MEDS: DOCUSATE 100 MG CAP PO SCH ×2 (08:12→21:49)
[2018-01-05] MEDS: PIPERACILLIN-TAZOBACTAM 3.375 GM in DEXTROSE/WATER 1 50ML.BAG IVPB SCH ×2 (08:12→15:40)
[2018-01-05] MEDS: HEPARIN SODIUM,PORCINE 5,000 UNIT/ML 1 ML VIAL SQ SCH ×3 (08:12→23:35)
[2018-01-05] MEDS: PSYLLIUM HUSK 100% 6 GM PACKET PO SCH (08:13)
[2018-01-05] MEDS: guaiFENesin 600 MG TABLET.ER PO SCH ×2 (08:13→21:49)
[2018-01-05] MEDS: INSULIN ASPART 100 UNIT/ML 1 ML 10 ML VIAL SQ SCH ×4 (08:14→21:50)
[2018-01-05 11:53] LABS: Glucose,Whole Blood 148 mg/dL (75-99)
[2018-01-05] MEDS: LEVOFLOXACIN 750MG-D5W PMX 750 MG in DEXTROSE/WATER 1 150ML.BAG IVPB SCH (13:29)
--- NOTE | 2018-01-05 15:55 | P.PN ---
Subjective Progress Note Date: 01/05/18 Principal diagnosis: Acute community-acquired pneumonia and persistent cough Marcos is a 72-year-old white male patient of Dr. Zamarripa who presented to the emergency department on 12/31/2017 complaints of worsening dyspnea, fever, chills, coughing and right-sided chest wall pain. A week ago on Saturday patient went to see Dr. Zamarripa in the office for her complaints of nasal congestion, clear nasal drainage, coughing, and anterior chest wall discomfort from persistent coughing spells. Patient was treated with antibiotics, presumably Zithromax, and a steroid taper, and was starting to feel better on Saturday and Saturday. However on Saturday he noted increased chest congestion, on Saturday he started having lightheadedness, is coughing spells intensified, he felt more winded with any exertion, started experiencing fever and chills. He is having persistent nasal congestion, his cough is mostly nonproductive. Patient is a remote smoker, he quit 50 years ago, smoked while in the [employer] for a period of about 3-4 years, less than a pack a day. 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 in [place] several years ago. No other chronic lung problems, does not see a food aide, does not wear oxygen, and is not on any inhalers on a regular basis. Patient had a fever of 99.9F on presentation, chest x-ray completed in the emergency department showed developing left perihilar and infrahilar pneumonia. Patient was initiated on empiric antibiotics in the form of Zithromax and Rocephin, he was started on IV steroids, and nebulized treatments and we're seeing the patient in consultation to the community- acquired pneumonia. On 01/02/2018 patient seen again in follow-up. Reports some improvement with dyspnea, however still having coughing spells. The right lower chest discomfort has improved, but patient is having anterior lower chest wall discomfort exacerbated by his coughing spells. Room air pulse ox is 95%, patient has been afebrile. Has not been able to produce any sputum for culture , blood cultures remain negative, patient is on empiric antibiotics with Rocephin and Zithromax. Today's labs were reviewed, and a CBC is up to 21.6, possibly related to IV steroids, CO2 is 20, renal profile is within normal limits, electrolytes are normal. Lung sounds reveal better air in entry bilaterally, with a few scattered rales the left lower base. On 01/03/2018 patient seen in follow-up. His condition is essentially the same , still has persistent cough and exertional dyspnea, with some slight improvement. No fever or chills, blood cultures are negative. Afebrile, on room air, pulse ox is 96%. Lung sounds are diminished, and deep breathing exacerbates patient's coughing spells. Cough is nonproductive. Patient is scheduled to undergo a bronchoscopy with BAL today at 12:[address] Esquivel. The patient is seen again today 01/04/2018 in follow-up on the regular medical floor. He is awake and alert in no acute distress. He did undergo bronchoscopy with BAL by Dr. Rock yesterday. Preliminary cultures are revealing no growth thus far. Computed tomography scan of the chest revealed a 0.5 cm suspected granuloma in the right middle lobe. Otherwise no acute pulmonary process. He is maintaining good O2 saturations in the mid 90s on room air. He is afebrile. Hemodynamically stable. Reevaluated today on 01/05/2018, patient is feeling a bit better, bronchoalveolar lavage and brushings from the bronchoscopy are pending. Patient is again feeling better, breathing easier, but continues to have intermittent dry hacking cough. Treated with cough suppressants, remains on bronchodilators, and he remains on Solu-Medrol. The differential on the bronchoalveolar lavage fluid showed mostly 93% PMNs, suggestive of acute inflammatory process. Objective - Vital Signs Vital signs: Vital Signs Temp 98.0 F 01/05/18 15:00 Pulse 87 01/05/18 15:00 Resp 16 01/05/18 15:00 BP 126/65 01/05/18 15:00 Pulse Ox 94 L 01/05/18 15:00 Intake & Output 01/04/18 01/05/18 01/05/18 18:59 06:59 18:59 Other: Voiding Method Toilet # Voids 2 2 2 - Exam GENERAL EXAM: Alert, pleasant, 72-year-old white male, resting in bed, comfortable in no apparent distress. Patient is mildly short of breath with conversation, and is having intermittent dry coughing spells HEAD: Normocephalic/atraumatic. EYES: Normal reaction of pupils, equal size. Conjunctiva pink, sclera white. NOSE: Clear with pink turbinates. THROAT: No erythema or exudates. NECK: No masses, no JVD, no thyroid enlargement, no adenopathy. CHEST: No chest wall deformity. Symmetrical expansion. LUNGS: Lung sounds are diminished, CVS: Regular rate and rhythm, normal S1 and S2, no gallops, no murmurs, no rubs ABDOMEN: Soft, nontender. No hepatosplenomegaly, normal bowel sounds, no guarding or rigidity. EXTREMITIES: No clubbing, no edema, no cyanosis, 2+ pulses and upper and lower extremities. MUSCULOSKELETAL: Muscle strength and tone normal. SPINE: No scoliosis or deformity SKIN: No rashes CENTRAL NERVOUS SYSTEM: Alert and oriented -3. No focal deficits, tone is normal in all 4 extremities. PSYCHIATRIC: Alert and oriented -3. Appropriate affect. Intact judgment and insight. - Labs CBC & Chem 7: 01/03/18 08:07 01/03/18 08:07 Labs: Abnormal Lab Results - Last 24 Hours (Table) 01/04/18 01/04/18 01/05/18 Range/Units 17:00 20:36 07:27 POC Glucose (mg/dL) 144 H 149 H 121 H (75-99) mg/dL 01/05/18 Range/Units 11:49 POC Glucose (mg/dL) 148 H (75-99) mg/dL Microbiology - Last 24 Hours (Table) 01/03/18 13:05 Gram Stain - Final Bronchial Washings - Left Bronchial Washings Culture - Final 12/31/17 06:53 Blood Culture - Preliminary Blood No Growth after 120 hours Assessment and Plan Assessment: #1. Acute community acquired pneumonia, with failed outpatient treatment and the initial chest x-ray showed left perihilar and infrahilar consolidation #2. Dyspnea, fever, coughing, right lower chest wall pain and leukocytosis due to the above. Recovered. #3. Remote smoking history, patient quit 50 years ago, and only smoked for 3-4 years while in the [employer] #4. Hypertension #5. History of CVA, with no residual deficits #6. GERD/reflux #7. Osteoarthritis #8. History of laparoscopic lysis of adhesions of extensive intra-abdominal adhesions, laparoscopic Pastor fundoplication Recommendation: Continue antibiotics, increase the dose of Solu-Medrol, continue cough suppressant medications, review the results of the bronchoalveolar lavage and brushings consider discharge planning in the next 24- 48 hours. Follow-up on outpatient basis. Do not restart lisinopril. Time with Patient: Less than 30
--- NOTE | 2018-01-05 16:32 | PN ---
PROGRESS NOTE DATE OF SERVICE: 01/05/2018 I am covering for Dr. Zamarripa. This 72-year-old gentleman who was admitted with acute left lower pneumonia possibly community acquired, had a bronchoscopy. Patient still having cough. Cultures are pending at this time. Dr. Rock is following the patient closely. No fever, no chest pain. PHYSICAL EXAM: Alert and oriented x3. Pulse 87, blood pressure 126/64, respirations 16, temperature 98 degrees, pulse ox 94% on room air. HEENT: Conjunctivae normal. NECK: No jugular venous distention. CARDIOVASCULAR: S1, S2 muffled. RESPIRATION: Breath sounds diminished in the bases. A few scattered rhonchi. No crackles. ABDOMEN: Soft, nontender. No mass palpable. LEGS: No edema, no swelling. NERVOUS SYSTEM: Higher functions as mentioned earlier. Moves all four limbs. No focal deficits. LYMPHATICS: No lymphadenopathy in the neck, axillae, groin. LABS: At this time shows Accu-Cheks are noted. ASSESSMENT: 1. Acute left lobe pneumonia possibly community acquired, present on admission, status post bronchoscopy. 2. Hypertension. 3. Hyperlipidemia. 4. History of cerebrovascular accident. 5. Degenerative joint disease. 6. History of bilateral carotid endarterectomy. 7. Anxiety not otherwise specified. 8. Remote nicotine dependence. 9. Possible chronic obstructive pulmonary disease. RECOMMENDATIONS AND DISCUSSION: I recommend to continue current management, continue monitoring and continue with symptomatic treatment. Continue with bronchodilators. Continue with steroids. Continue with broad-spectrum IV antibiotics. Closely follow the bronchoscopy culture. Closely follow with Dr. Rock. Guarded prognosis because of multiple complex medical issues. Further recommendations to follow. MMODL / IJN: [id number] /
[2018-01-05 16:49] LABS: Glucose,Whole Blood 144 mg/dL (75-99)
[2018-01-05 17:37] LABS: Albumin 3.3 g/dL (3.5-5.0); Calcium 9.1 mg/dL (8.4-10.2); Potassium 3.9 mmol/L (3.5-5.1); Total Bilirubin 0.7 mg/dL (0.2-1.3); Total Protein 5.3 g/dL (6.3-8.2)
[2018-01-05 21:20] LABS: Glucose,Whole Blood 180 mg/dL (75-99)
[2018-01-05] MEDS: ASPIRIN 81 MG PO SCH (21:49)
[2018-01-05] MEDS: ATORVASTATIN 40 MG TAB PO SCH (21:49)
[2018-01-06] MEDS: PIPERACILLIN-TAZOBACTAM 3.375 GM in DEXTROSE/WATER 1 50ML.BAG IVPB SCH ×4 (00:27→23:49)
[2018-01-06] MEDS: methylPREDNISolone SOD SUCCI 125 MG/2 ML VIAL IV SCH ×4 (05:44→23:49)
[2018-01-06 07:12] LABS: Glucose,Whole Blood 144 mg/dL (75-99)
[2018-01-06] MEDS: SYMBICORT 160-4.5 MCG INHALER INHALATION SCH (07:41)
[2018-01-06] MEDS: IPRATROPIUM-ALBUTEROL 3 ML NEB INHALATION SCH ×4 (07:41→19:50)
[2018-01-06] MEDS: DOCUSATE 100 MG CAP PO SCH ×2 (07:51→20:38)
[2018-01-06] MEDS: INSULIN ASPART 100 UNIT/ML 1 ML 10 ML VIAL SQ SCH ×4 (07:51→21:51)
[2018-01-06] MEDS: PSYLLIUM HUSK 100% 6 GM PACKET PO SCH (07:51)
[2018-01-06] MEDS: guaiFENesin 600 MG TABLET.ER PO SCH ×2 (07:52→20:37)
[2018-01-06] MEDS: HEPARIN SODIUM,PORCINE 5,000 UNIT/ML 1 ML VIAL SQ SCH ×3 (07:52→23:11)
[2018-01-06] MEDS: PANTOPRAZOLE 40 MG TABLET PO SCH (07:52)
[2018-01-06 09:11] LABS: Basophils % (A) 0 %; Eosinophils % (A) 0 %; HCT 42.6 % (39.0-53.0); HGB 14.1 gm/dL (13.0-17.5); Lymphocytes # (A) 0.4 k/uL (1.0-4.8); Lymphocytes % (A) 3 %; MCH 30.4 pg (25.0-35.0); Mean Platelet Volume 6.6; Monocytes # (A) 0.4 k/uL (0-1.0); Monocytes % (A) 3 %; Neutrophils # (A) 13.9 k/uL (1.3-7.7); Neutrophils % (A) 94 %; Platelet Count 237 k/uL (150-450); RBC 4.63 m/uL (4.30-5.90); RDW 13.2 % (11.5-15.5); WBC 14.7 k/uL (3.8-10.6)
[2018-01-06 09:35] LABS: Glucose,Whole Blood 213 mg/dL (75-99)
--- NOTE | 2018-01-06 10:23 | P.PN ---
Subjective Progress Note Date: 01/06/18 72-year-old male who presented to the emergency room with a chief complaint of shortness of breath and cough. The patient states he was seen by his primary care physician last week and was prescribed antibiotics and a steroid pack. The patient states he initially started feeling better, but last 12/27/2017, his symptoms started to get worse. He states he began having increased shortness of breath and persistent coughing. He denies sputum production. The patient denies chest pain or pressure. He does report a low- grade fever at home. Denies nausea or vomiting. Denies lightheadedness or dizziness. The patient has a history of CVA, GERD, hyperlipidemia, hypertension, osteoarthritis, and anxiety. He is a former cigarette smoker. The patient reports he started smoking in 1965 and quit in 1970. The patient has a surgical history of laparoscopic Pastor fundoplication, bilateral inguinal hernia repairs, right carotid endarterectomy, and sinus surgery. Chest x-ray 12/31/2017: Developing left perihilar and infrahilar pneumonia Chest x-ray 01/01/2018: Near resolution of previously seen left perihilar pasty. Trace left basilar atelectasis remains. Laboratory data: WBC 19.5. Hemoglobin 15.0. Platelet count 297. Sodium 139. Potassium 4.4. BUN 23. Creatinine 0.91. Glucose 121. Lactic acid 1.1. D-dimer 0.47. Troponin: Negative 1 The patient was admitted to the hospital under the care of Dr. Zamarripa. 01/02/2018 Patient seen and examined at the bedside in rounds Dr. Zamarripa. Patient is awake and alert. Patient states his shortness of breath has improved. He is currently on room air with oxygen saturations greater than 92%. He is afebrile. Blood pressure is stable with a last reading of 124/57. Patient continues to have frequent dry nonproductive cough, although significantly improved from yesterday. He has been receiving Robitussin with codeine. Pulmonary was consulted and evaluated patient yesterday. He remains on steroids 60 mg IV every 8 hours and nebulizer treatments. Patient is requesting stool softeners and states he has not had a bowel movement since Saturday and usually takes Metamucil daily at home. Patient denies any further concerns or complaints. 01/03/2018 Patient seen and examined at the bedside with Dr. Zamarripa. Patient is awake and alert. Patient states he did not sleep well last night. Patient extremely talkative this morning with rambling about various topics, which may be secondary to IV steroids. Patient states his breathing has improved some since yesterday. He continues to complain of frequent coughing. Blood cultures are negative at 72 hour srinivas. Patient is afebrile. He remains hemodynamically stable. Blood pressure 113/72. Patient is on room air with oxygen saturations greater than 92%. He is scheduled for bronchoscopy with BAL today with Dr. Rock 01/06/2018 Patient seen and examined at the bedside on rounds with Dr. Zamarripa. patient continues to have intermittent hacking cough. Denies sputum production. Patient remains on IV steroids: 60mg every 6 hours. He underwent bronch with Dr. Rock on 01/03/2018. Cytology is pending. Cultures from bronch reveal normal respiratory michael. He remains on Levaquin and Zosyn. Vital signs remain stable. Objective - Vital Signs Vital signs: Vital Signs Temp 97.9 F 01/06/18 06:00 Pulse 98 01/06/18 09:41 Resp 20 01/06/18 06:00 BP 129/71 01/06/18 09:41 Pulse Ox 95 01/06/18 09:41 Intake & Output 01/05/18 01/06/18 01/06/18 18:59 06:59 18:59 Intake Total 200 Balance 200 Intake: Oral 200 Other: Voiding Method Toilet # Voids 2 1 - Constitutional General appearance: Present: cooperative, no acute distress - EENT Eyes: Present: EOMI, PERRLA - Neck Neck: Present: normal ROM. Absent: rigidity, stridor - Respiratory Respiratory: bilateral: rales (bilateral lower lobes), negative: rhonchi, wheezing - Cardiovascular Rhythm: regular Heart sounds: normal: S1, S2 Abnormal Heart Sounds: Absent: systolic murmur, diastolic murmur - Gastrointestinal General gastrointestinal: Present: normal bowel sounds - Integumentary Integumentary: Present: normal. Absent: cyanotic, flushed, jaundiced - Neurologic Neurologic: Present: CNII-XII intact - Musculoskeletal Musculoskeletal: Present: strength equal bilaterally - Psychiatric Psychiatric: Present: A&O x's 3, appropriate affect, intact judgment & insight - Labs CBC & Chem 7: 01/06/18 08:22 01/05/18 17:06 Labs: Abnormal Lab Results - Last 24 Hours (Table) 01/05/18 01/05/18 01/05/18 Range/Units 11:49 16:47 17:06 WBC (3.8-10.6) k/uL Neutrophils # (1.3-7.7) k/uL Lymphocytes # (1.0-4.8) k/uL BUN 21 H (9-20) mg/dL Glucose 124 H (74-99) mg/dL POC Glucose (mg/dL) 148 H 144 H (75-99) mg/dL ALT 79 H (21-72) U/L Total Protein 5.3 L (6.3-8.2) g/dL Albumin 3.3 L (3.5-5.0) g/dL 01/05/18 01/06/18 01/06/18 Range/Units 21:06 07:05 08:22 WBC 14.7 H (3.8-10.6) k/uL Neutrophils # 13.9 H (1.3-7.7) k/uL Lymphocytes # 0.4 L (1.0-4.8) k/uL BUN (9-20) mg/dL Glucose (74-99) mg/dL POC Glucose (mg/dL) 180 H 144 H (75-99) mg/dL ALT (21-72) U/L Total Protein (6.3-8.2) g/dL Albumin (3.5-5.0) g/dL 01/06/18 Range/Units 09:32 WBC (3.8-10.6) k/uL Neutrophils # (1.3-7.7) k/uL Lymphocytes # (1.0-4.8) k/uL BUN (9-20) mg/dL Glucose (74-99) mg/dL POC Glucose (mg/dL) 213 H (75-99) mg/dL ALT (21-72) U/L Total Protein (6.3-8.2) g/dL Albumin (3.5-5.0) g/dL Microbiology - Last 24 Hours (Table) 12/31/17 06:53 Blood Culture - Final Blood No Growth after 144 hours 01/03/18 13:05 Gram Stain - Final Bronchial Washings - Left Bronchial Washings Culture - Final Assessment and Plan Plan: ASSESSMENT: Left lobe pneumonia, community acquired, present on admission, s/p bronchoscopy Hypertension Hyperlipidemia History of CVA Osteoarthritis History of bilateral carotid endarterectomy Anxiety, unspecified Remote history of nicotine dependence PLAN: Pulmonary on consult. Appreciate recommendations and input Continue antibiotics: Levaquin and Zosyn Continue IV steroids. Wean per pulmonary Novolog sliding scale ACHS per steroid protocol Incentive spirometer 10 times an hour while awake Robitussin with codeine for cough Home meds as appropriate Monitor labs GI prophylaxis: Protonix 40 mg PO Daily DVT prophylaxis: Heparin 5000 units subcu every 8 hours Monitor vital signs and address as appropriate Discharge planning: Patient to return home when stable Further recommendations pending patient's course Nurse practitioner note has been reviewed by physician. Signing provider agrees with the documented findings, assessment, and plan of care.
[2018-01-06] MEDS: BENZONATATE 100 MG CAP PO SCH ×3 (11:24→20:38)
[2018-01-06 11:55] LABS: Glucose,Whole Blood 128 mg/dL (75-99)
--- NOTE | 2018-01-06 13:03 | P.PN ---
Subjective Progress Note Date: 01/06/18 Principal diagnosis: Acute community acquired pneumonia, with failed outpatient treatment Marcos is a 72-year-old white male patient of Dr. Zamarripa who presented to the emergency department on 12/31/2017 complaints of worsening dyspnea, fever, chills, coughing and right-sided chest wall pain. A week ago on Saturday patient went to see Dr. Zamarripa in the office for her complaints of nasal congestion, clear nasal drainage, coughing, and anterior chest wall discomfort from persistent coughing spells. Patient was treated with antibiotics, presumably Zithromax, and a steroid taper, and was starting to feel better on Saturday and Saturday. However on Saturday he noted increased chest congestion, on Saturday he started having lightheadedness, is coughing spells intensified, he felt more winded with any exertion, started experiencing fever and chills. He is having persistent nasal congestion, his cough is mostly nonproductive. Patient is a remote smoker, he quit 50 years ago, smoked while in the [employer] for a period of about 3-4 years, less than a pack a day. 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 No other chronic lung problems, does not see a inside plant supervisor, does not wear oxygen, and is not on any inhalers on a regular basis. Patient had a fever of 99.9F on presentation, chest x-ray completed in the emergency department showed developing left perihilar and infrahilar pneumonia. Patient was initiated on empiric antibiotics in the form of Zithromax and Rocephin, he was started on IV steroids, and nebulized treatments and we're seeing the patient in consultation to the community- acquired pneumonia. On 01/02/2018 patient seen again in follow-up. Reports some improvement with dyspnea, however still having coughing spells. The right lower chest discomfort has improved, but patient is having anterior lower chest wall discomfort exacerbated by his coughing spells. Room air pulse ox is 95%, patient has been afebrile. Has not been able to produce any sputum for culture , blood cultures remain negative, patient is on empiric antibiotics with Rocephin and Zithromax. Today's labs were reviewed, and a CBC is up to 21.6, possibly related to IV steroids, CO2 is 20, renal profile is within normal limits, electrolytes are normal. Lung sounds reveal better air in entry bilaterally, with a few scattered rales the left lower base. On 01/02/2018 patient seen in follow-up. His condition is essentially the same , still has persistent cough and exertional dyspnea, with some slight improvement. No fever or chills, blood cultures are negative. Afebrile, on room air, pulse ox is 96%. Lung sounds are diminished, and deep breathing exacerbates patient's coughing spells. Cough is nonproductive. Patient is scheduled to undergo a bronchoscopy with BAL today at 12:[address] Esquivel. On 01/06/2018 patient seen again in follow-up in medical surgical floor. He continues with persistent cough, although there is improvement. No respiratory distress, no worsening dyspnea, room air pulse ox is 95%, he is afebrile, vital signs are stable. Bronchial washing cultures remain negative to date. Cultures are negative. Patient is on empiric antibiotics in the form of Zosyn and Levaquin. Not able to bring up much sputum, he continues on Mucinex, he is on promethazine cough syrup for persistent coughing spells. We will add Tessalon, continue with high intensity IV steroids, and we'll switch Symbicort 2 Pulmicort and Perforomist. Objective - Vital Signs Vital signs: Vital Signs Temp 97.9 F 01/06/18 06:00 Pulse 92 01/06/18 11:56 Resp 20 01/06/18 06:00 BP 129/71 01/06/18 09:41 Pulse Ox 95 01/06/18 09:41 Intake & Output 01/05/18 01/06/18 01/06/18 18:59 06:59 18:59 Intake Total 200 360 Balance 200 360 Intake: Oral 200 360 Other: Voiding Method Toilet # Voids 2 1 - Exam GENERAL EXAM: Alert, pleasant, 72-year-old white male, resting in bed, comfortable in no apparent distress. Patient is mildly short of breath with conversation, and is having intermittent dry coughing spells HEAD: Normocephalic/atraumatic. EYES: Normal reaction of pupils, equal size. Conjunctiva pink, sclera white. NOSE: Clear with pink turbinates. THROAT: No erythema or exudates. NECK: No masses, no JVD, no thyroid enlargement, no adenopathy. CHEST: No chest wall deformity. Symmetrical expansion. LUNGS: Lung sounds are diminished, with inspiratory crackles bilateral bases CVS: Regular rate and rhythm, normal S1 and S2, no gallops, no murmurs, no rubs ABDOMEN: Soft, nontender. No hepatosplenomegaly, normal bowel sounds, no guarding or rigidity. EXTREMITIES: No clubbing, no edema, no cyanosis, 2+ pulses and upper and lower extremities. MUSCULOSKELETAL: Muscle strength and tone normal. SPINE: No scoliosis or deformity SKIN: No rashes CENTRAL NERVOUS SYSTEM: Alert and oriented -3. No focal deficits, tone is normal in all 4 extremities. PSYCHIATRIC: Alert and oriented -3. Appropriate affect. Intact judgment and insight. - Labs CBC & Chem 7: 01/06/18 08:22 01/05/18 17:06 Labs: Abnormal Lab Results - Last 24 Hours (Table) 01/05/18 01/05/18 01/05/18 Range/Units 16:47 17:06 21:06 WBC (3.8-10.6) k/uL Neutrophils # (1.3-7.7) k/uL Lymphocytes # (1.0-4.8) k/uL BUN 21 H (9-20) mg/dL Glucose 124 H (74-99) mg/dL POC Glucose (mg/dL) 144 H 180 H (75-99) mg/dL ALT 79 H (21-72) U/L Total Protein 5.3 L (6.3-8.2) g/dL Albumin 3.3 L (3.5-5.0) g/dL 01/06/18 01/06/18 01/06/18 Range/Units 07:05 08:22 09:32 WBC 14.7 H (3.8-10.6) k/uL Neutrophils # 13.9 H (1.3-7.7) k/uL Lymphocytes # 0.4 L (1.0-4.8) k/uL BUN (9-20) mg/dL Glucose (74-99) mg/dL POC Glucose (mg/dL) 144 H 213 H (75-99) mg/dL ALT (21-72) U/L Total Protein (6.3-8.2) g/dL Albumin (3.5-5.0) g/dL 01/06/18 Range/Units 11:51 WBC (3.8-10.6) k/uL Neutrophils # (1.3-7.7) k/uL Lymphocytes # (1.0-4.8) k/uL BUN (9-20) mg/dL Glucose (74-99) mg/dL POC Glucose (mg/dL) 128 H (75-99) mg/dL ALT (21-72) U/L Total Protein (6.3-8.2) g/dL Albumin (3.5-5.0) g/dL Microbiology - Last 24 Hours (Table) 12/31/17 06:53 Blood Culture - Final Blood No Growth after 144 hours 01/03/18 13:05 Gram Stain - Final Bronchial Washings - Left Bronchial Washings Culture - Final Assessment and Plan Plan: Assessment: #1. Acute community acquired pneumonia, with failed outpatient treatment and the initial chest x-ray showed left perihilar and infrahilar consolidation, patient is status post bronchoscopy with BAL 01/03/2018, bronchial wash cultures are pending #2. Dyspnea, fever, coughing, right lower chest wall pain and leukocytosis due to the above #3. Remote smoking history, patient quit 50 years ago, and only smoked for 3-4 years while in the [employer] #4. Hypertension #5. History of CVA, with no residual deficits #6. GERD/reflux #7. Osteoarthritis #8. History of laparoscopic lysis of adhesions of extensive intra-abdominal adhesions, laparoscopic Pastor fundoplication Plan: Continue current antibiotic coverage, will await the results of the final bronchial wash cultures. Continues with persistent cough, we will add Tessalon Perles, continue with promethazine and Mucinex. We'll switch Symbicort to nebulized Pulmicort and Perforomist. Continue same dose IV Solu-Medrol, patient is making slow improvement. Increase activity as tolerated, we'll continue to follow. I performed a history & physical examination of the patient and discussed their management with my nurse practitioner, Leticia Dumas. I reviewed the nurse practitioner's note and agree with the documented findings and plan of care. Lung sounds are diminished, with rales at the left posterior base. The findings and the impression was discussed with the patient. I attest to the documentation by the nurse practitioner. Time with Patient: Less than 30
[2018-01-06] MEDS: LEVOFLOXACIN 750 MG TAB PO SCH (14:06)
[2018-01-06 17:14] LABS: Glucose,Whole Blood 154 mg/dL (75-99)
[2018-01-06] MEDS: FORMOTEROL FUMARATE 20 MCG/2 ML NEBU INHALATION SCH (19:48)
[2018-01-06] MEDS: BUDESONIDE 1 MG/2 ML NEBU INHALATION SCH (19:48)
[2018-01-06] MEDS: ASPIRIN 81 MG PO SCH (20:37)
[2018-01-06] MEDS: ATORVASTATIN 40 MG TAB PO SCH (20:38)
[2018-01-06 21:29] LABS: Glucose,Whole Blood 217 mg/dL (75-99)
[2018-01-06] MEDS: guaiFENesin-Coden 100-10MG/5ML 10 ML CUP PO PRN (23:57)
[2018-01-07] MEDS: methylPREDNISolone SOD SUCCI 125 MG/2 ML VIAL IV SCH (06:04)
[2018-01-07] MEDS: FORMOTEROL FUMARATE 20 MCG/2 ML NEBU INHALATION SCH ×2 (07:11→19:16)
[2018-01-07] MEDS: BUDESONIDE 1 MG/2 ML NEBU INHALATION SCH ×2 (07:11→19:16)
[2018-01-07] MEDS: IPRATROPIUM-ALBUTEROL 3 ML NEB INHALATION SCH ×4 (07:11→19:16)
[2018-01-07 07:16] LABS: Glucose,Whole Blood 143 mg/dL (75-99)
[2018-01-07] MEDS: INSULIN ASPART 100 UNIT/ML 1 ML 10 ML VIAL SQ SCH ×4 (07:52→21:08)
[2018-01-07] MEDS: PIPERACILLIN-TAZOBACTAM 3.375 GM in DEXTROSE/WATER 1 50ML.BAG IVPB SCH ×3 (07:52→23:04)
[2018-01-07] MEDS: DOCUSATE 100 MG CAP PO SCH ×2 (07:53→21:08)
[2018-01-07] MEDS: BENZONATATE 100 MG CAP PO SCH ×3 (07:53→21:08)
[2018-01-07] MEDS: HEPARIN SODIUM,PORCINE 5,000 UNIT/ML 1 ML VIAL SQ SCH ×3 (07:53→21:14)
[2018-01-07] MEDS: guaiFENesin 600 MG TABLET.ER PO SCH ×2 (07:53→21:08)
[2018-01-07] MEDS: PANTOPRAZOLE 40 MG TABLET PO SCH (07:53)
[2018-01-07] MEDS: PSYLLIUM HUSK 100% 6 GM PACKET PO SCH (08:21)
--- NOTE | 2018-01-07 10:26 | P.PN ---
Subjective Progress Note Date: 01/07/18 72-year-old male who presented to the emergency room with a chief complaint of shortness of breath and cough. The patient states he was seen by his primary care physician last week and was prescribed antibiotics and a steroid pack. The patient states he initially started feeling better, but last 12/27/2017, his symptoms started to get worse. He states he began having increased shortness of breath and persistent coughing. He denies sputum production. The patient denies chest pain or pressure. He does report a low- grade fever at home. Denies nausea or vomiting. Denies lightheadedness or dizziness. The patient has a history of CVA, GERD, hyperlipidemia, hypertension, osteoarthritis, and anxiety. He is a former cigarette smoker. The patient reports he started smoking in 1965 and quit in 1970. The patient has a surgical history of laparoscopic Pastor fundoplication, bilateral inguinal hernia repairs, right carotid endarterectomy, and sinus surgery. Chest x-ray 12/31/2017: Developing left perihilar and infrahilar pneumonia Chest x-ray 01/01/2018: Near resolution of previously seen left perihilar pasty. Trace left basilar atelectasis remains. Laboratory data: WBC 19.5. Hemoglobin 15.0. Platelet count 297. Sodium 139. Potassium 4.4. BUN 23. Creatinine 0.91. Glucose 121. Lactic acid 1.1. D-dimer 0.47. Troponin: Negative 1 The patient was admitted to the hospital under the care of Dr. Zamarripa. 01/02/2018 Patient seen and examined at the bedside in rounds Dr. Zamarripa. Patient is awake and alert. Patient states his shortness of breath has improved. He is currently on room air with oxygen saturations greater than 92%. He is afebrile. Blood pressure is stable with a last reading of 124/57. Patient continues to have frequent dry nonproductive cough, although significantly improved from yesterday. He has been receiving Robitussin with codeine. Pulmonary was consulted and evaluated patient yesterday. He remains on steroids 60 mg IV every 8 hours and nebulizer treatments. Patient is requesting stool softeners and states he has not had a bowel movement since Saturday and usually takes Metamucil daily at home. Patient denies any further concerns or complaints. 01/03/2018 Patient seen and examined at the bedside with Dr. Zamarripa. Patient is awake and alert. Patient states he did not sleep well last night. Patient extremely talkative this morning with rambling about various topics, which may be secondary to IV steroids. Patient states his breathing has improved some since yesterday. He continues to complain of frequent coughing. Blood cultures are negative at 72 hour srinivas. Patient is afebrile. He remains hemodynamically stable. Blood pressure 113/72. Patient is on room air with oxygen saturations greater than 92%. He is scheduled for bronchoscopy with BAL today with Dr. Rock 01/06/2018 Patient seen and examined at the bedside on rounds with Dr. Zamarripa. patient continues to have intermittent hacking cough. Denies sputum production. Patient remains on IV steroids: 60mg every 6 hours. He underwent bronch with Dr. Rock on 01/03/2018. Cytology is pending. Cultures from bronch reveal normal respiratory michael. He remains on Levaquin and Zosyn. Vital signs remain stable. 01/07/2018 Patient seen and examined on rounds with Dr. Zamarripa. Patient is awake and alert sitting up in bed. Patient continues to have frequent dry hacking cough. Patient denies any sputum production. He remains on IV steroids per pulmonary: 60 mg every 6 hours. Cytology from bronchoscopy remains in progress. He remains on antibiotics. His vital signs have been stable. Patient states his appetite is good and he has been tolerating PO intake without nausea or vomiting. Patient states he has been up ambulating in the hallways. Objective - Vital Signs Vital signs: Vital Signs Temp 97.6 F 01/07/18 05:50 Pulse 88 01/07/18 07:29 Resp 18 01/07/18 05:50 BP 126/65 01/07/18 05:50 Pulse Ox 93 L 01/07/18 05:50 Intake & Output 01/06/18 01/07/18 01/07/18 18:59 06:59 18:59 Intake Total 960 1400 360 Balance 960 1400 360 Weight 79.379 kg 79.379 kg Intake: Oral 960 1400 360 Other: Voiding Method Toilet Toilet # Voids 2 2 # Bowel Movements 0 - Constitutional General appearance: Present: cooperative, no acute distress - EENT Eyes: Present: EOMI, PERRLA ENT: Present: hearing grossly normal - Neck Neck: Present: normal ROM - Respiratory Details: Dry hacking cough noted during examination Respiratory: bilateral: CTA, diminished, negative: rales, wheezing - Cardiovascular Rhythm: regular Heart sounds: normal: S1, S2 Abnormal Heart Sounds: Absent: systolic murmur, diastolic murmur - Gastrointestinal General gastrointestinal: Present: normal bowel sounds, soft. Absent: distended , rigid - Integumentary Integumentary: Present: normal. Absent: cellulitis, cyanotic, flushed, jaundiced - Neurologic Neurologic: Present: CNII-XII intact - Musculoskeletal Musculoskeletal: Present: strength equal bilaterally - Psychiatric Psychiatric: Present: A&O x's 3, appropriate affect, intact judgment & insight - Labs CBC & Chem 7: 01/06/18 08:22 01/05/18 17:06 Labs: Abnormal Lab Results - Last 24 Hours (Table) 01/03/18 01/06/18 01/06/18 Range/Units 13:05 11:51 17:11 POC Glucose (mg/dL) 128 H 154 H (75-99) mg/dL Viral Test See Below H 01/06/18 01/07/18 Range/Units 21:26 07:11 POC Glucose (mg/dL) 217 H 143 H (75-99) mg/dL Viral Test Microbiology - Last 24 Hours (Table) 12/31/17 06:53 Blood Culture - Final Blood No Growth after 144 hours Assessment and Plan Plan: ASSESSMENT: Left lobe pneumonia, community acquired, present on admission, s/p bronchoscopy Hypertension Hyperlipidemia History of CVA Osteoarthritis History of bilateral carotid endarterectomy Anxiety, unspecified Remote history of nicotine dependence PLAN: Pulmonary on consult. Appreciate recommendations and input Continue antibiotics: Levaquin and Zosyn Continue IV steroids. Wean per pulmonary Novolog sliding scale ACHS per steroid protocol Incentive spirometer 10 times an hour while awake Home meds as appropriate Monitor labs GI prophylaxis: Protonix 40 mg PO Daily DVT prophylaxis: Heparin 5000 units subcu every 8 hours Monitor vital signs and address as appropriate Discharge planning: Patient to return home when stable Further recommendations pending patient's course Nurse practitioner note has been reviewed by physician. Signing provider agrees with the documented findings, assessment, and plan of care.
[2018-01-07 11:38] LABS: Glucose,Whole Blood 182 mg/dL (75-99)
[2018-01-07] MEDS ORDERED: methylPREDNISolone SOD SUCCI 125 MG/2 ML VIAL IV SCH (12:00)
--- NOTE | 2018-01-07 12:26 | P.PN ---
Subjective Progress Note Date: 01/07/18 Principal diagnosis: Acute community acquired pneumonia, with failed outpatient treatment Marcos is a 72-year-old white male patient of Dr. Zamarripa who presented to the emergency department on 12/31/2017 complaints of worsening dyspnea, fever, chills, coughing and right-sided chest wall pain. A week ago on Saturday patient went to see Dr. Zamarripa in the office for her complaints of nasal congestion, clear nasal drainage, coughing, and anterior chest wall discomfort from persistent coughing spells. Patient was treated with antibiotics, presumably Zithromax, and a steroid taper, and was starting to feel better on Saturday and Saturday. However on Saturday he noted increased chest congestion, on Saturday he started having lightheadedness, is coughing spells intensified, he felt more winded with any exertion, started experiencing fever and chills. He is having persistent nasal congestion, his cough is mostly nonproductive. Patient is a remote smoker, he quit 50 years ago, smoked while in the [employer] for a period of about 3-4 years, less than a pack a day. 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 in [place] several years ago. No other chronic lung problems, does not see a dielectric press operator, does not wear oxygen, and is not on any inhalers on a regular basis. Patient had a fever of 99.9F on presentation, chest x-ray completed in the emergency department showed developing left perihilar and infrahilar pneumonia. Patient was initiated on empiric antibiotics in the form of Zithromax and Rocephin, he was started on IV steroids, and nebulized treatments and we're seeing the patient in consultation to the community- acquired pneumonia. On 01/02/2018 patient seen again in follow-up. Reports some improvement with dyspnea, however still having coughing spells. The right lower chest discomfort has improved, but patient is having anterior lower chest wall discomfort exacerbated by his coughing spells. Room air pulse ox is 95%, patient has been afebrile. Has not been able to produce any sputum for culture , blood cultures remain negative, patient is on empiric antibiotics with Rocephin and Zithromax. Today's labs were reviewed, and a CBC is up to 21.6, possibly related to IV steroids, CO2 is 20, renal profile is within normal limits, electrolytes are normal. Lung sounds reveal better air in entry bilaterally, with a few scattered rales the left lower base. On 01/02/2018 patient seen in follow-up. His condition is essentially the same , still has persistent cough and exertional dyspnea, with some slight improvement. No fever or chills, blood cultures are negative. Afebrile, on room air, pulse ox is 96%. Lung sounds are diminished, and deep breathing exacerbates patient's coughing spells. Cough is nonproductive. Patient is scheduled to undergo a bronchoscopy with BAL today at 12:[address] Esquivel. On 01/06/2018 patient seen again in follow-up in medical surgical floor. He continues with persistent cough, although there is improvement. No respiratory distress, no worsening dyspnea, room air pulse ox is 95%, he is afebrile, vital signs are stable. Bronchial washing cultures remain negative to date. Cultures are negative. Patient is on empiric antibiotics in the form of Zosyn and Levaquin. Not able to bring up much sputum, he continues on Mucinex, he is on promethazine cough syrup for persistent coughing spells. We will add Tessalon, continue with high intensity IV steroids, and we'll switch Symbicort 2 Pulmicort and Perforomist. On 01/07/2018 patient seen in follow-up. Less short of breath, coughing less. Room air pulse ox is 93%, patient is afebrile, hemodynamically stable, lung sounds reveal equal air entry bilaterally, with a few scattered rhonchi. Patient is on empiric antibiotics in the form of Zosyn and Levaquin, microbiology remains negative, bronchial wash cytology remain negative. Patient has been treated with high-dose steroids, inhaled bronchodilators, cough syrup, and he is making improvement. He denies any sputum production. Vitals have been stable, he has been ambulating and tolerating ambulation well. Objective - Vital Signs Vital signs: Vital Signs Temp 97.6 F 01/07/18 05:50 Pulse 80 01/07/18 11:15 Resp 18 01/07/18 05:50 BP 126/65 01/07/18 05:50 Pulse Ox 93 L 01/07/18 05:50 Intake & Output 01/06/18 01/07/18 01/07/18 18:59 06:59 18:59 Intake Total 960 1400 360 Balance 960 1400 360 Weight 79.379 kg 79.379 kg Intake: Oral 960 1400 360 Other: Voiding Method Toilet Toilet # Voids 2 2 # Bowel Movements 0 - Exam GENERAL EXAM: Alert, pleasant, 72-year-old white male, resting in bed, comfortable in no apparent distress. Patient is mildly short of breath with conversation, and is having intermittent dry coughing spells HEAD: Normocephalic/atraumatic. EYES: Normal reaction of pupils, equal size. Conjunctiva pink, sclera white. NOSE: Clear with pink turbinates. THROAT: No erythema or exudates. NECK: No masses, no JVD, no thyroid enlargement, no adenopathy. CHEST: No chest wall deformity. Symmetrical expansion. LUNGS: Lung sounds are diminished, a few scattered rhonchi bilaterally CVS: Regular rate and rhythm, normal S1 and S2, no gallops, no murmurs, no rubs ABDOMEN: Soft, nontender. No hepatosplenomegaly, normal bowel sounds, no guarding or rigidity. EXTREMITIES: No clubbing, no edema, no cyanosis, 2+ pulses and upper and lower extremities. MUSCULOSKELETAL: Muscle strength and tone normal. SPINE: No scoliosis or deformity SKIN: No rashes CENTRAL NERVOUS SYSTEM: Alert and oriented -3. No focal deficits, tone is normal in all 4 extremities. PSYCHIATRIC: Alert and oriented -3. Appropriate affect. Intact judgment and insight. - Labs CBC & Chem 7: 01/06/18 08:22 01/05/18 17:06 Labs: Abnormal Lab Results - Last 24 Hours (Table) 01/03/18 01/06/18 01/06/18 Range/Units 13:05 17:11 21:26 POC Glucose (mg/dL) 154 H 217 H (75-99) mg/dL Viral Test See Below H 01/07/18 01/07/18 Range/Units 07:11 11:35 POC Glucose (mg/dL) 143 H 182 H (75-99) mg/dL Viral Test Microbiology - Last 24 Hours (Table) 12/31/17 06:53 Blood Culture - Final Blood No Growth after 144 hours Assessment and Plan Plan: Assessment: #1. Acute community acquired pneumonia, with failed outpatient treatment and the initial chest x-ray showed left perihilar and infrahilar consolidation, patient is status post bronchoscopy with BAL 01/03/2018, bronchial wash cultures are pending #2. Dyspnea, fever, coughing, right lower chest wall pain and leukocytosis due to the above #3. Remote smoking history, patient quit 50 years ago, and only smoked for 3-4 years while in the [employer] #4. Hypertension #5. History of CVA, with no residual deficits #6. GERD/reflux #7. Osteoarthritis #8. History of laparoscopic lysis of adhesions of extensive intra-abdominal adhesions, laparoscopic Pastor fundoplication Plan: Vital signs are stable, patient is improving, tolerating ambulation, still has frequent dry nonproductive cough, he has been on promethazine and Tessalon Perles, and the cough has improved. Bronchial wash cultures and cytology remain negative to date. Patient has received 5 days of Levaquin 750 mg, and 5 days of Zosyn. From pulmonary standpoint patient is stable for discharge today on prednisone taper starting at 60 mg daily, and oral Levaquin 750 mg for 5 more days. Follow-up with Dr. Esquivel in the office in one week I performed a history & physical examination of the patient and discussed their management with my nurse practitioner, Leticia Dumas. I reviewed the nurse practitioner's note and agree with the documented findings and plan of care. Lung sounds are diminished, a few scattered rhonchi. The findings and the impression was discussed with the patient. I attest to the documentation by the nurse practitioner. Time with Patient: Less than 30
[2018-01-07] MEDS: LEVOFLOXACIN 750 MG TAB PO SCH (12:27)
[2018-01-07] MEDS: methylPREDNISolone SOD SUCCI 40 MG/ML 1 ML VIAL IV SCH ×2 (15:59→23:05)
[2018-01-07 17:05] LABS: Glucose,Whole Blood 147 mg/dL (75-99)
[2018-01-07 19:17] VITALS: RESP 18
[2018-01-07 20:28] LABS: Glucose,Whole Blood 165 mg/dL (75-99)
[2018-01-07] MEDS: ATORVASTATIN 40 MG TAB PO SCH (21:08)
[2018-01-07] MEDS: ASPIRIN 81 MG PO SCH (21:08)
[2018-01-07] MEDS: guaiFENesin-Coden 100-10MG/5ML 10 ML CUP PO PRN (21:08)
[2018-01-08 06:27] VITALS: BP 121/71; TEMP 98
[2018-01-08 07:07] LABS: Glucose,Whole Blood 126 mg/dL (75-99)
[2018-01-08] MEDS: INSULIN ASPART 100 UNIT/ML 1 ML 10 ML VIAL SQ SCH ×2 (07:11→11:49)
[2018-01-08] MEDS: HEPARIN SODIUM,PORCINE 5,000 UNIT/ML 1 ML VIAL SQ SCH (07:11)
[2018-01-08] MEDS: PSYLLIUM HUSK 100% 6 GM PACKET PO SCH (07:34)
[2018-01-08] MEDS: PANTOPRAZOLE 40 MG TABLET PO SCH (07:35)
[2018-01-08] MEDS: PIPERACILLIN-TAZOBACTAM 3.375 GM in DEXTROSE/WATER 1 50ML.BAG IVPB SCH (07:35)
[2018-01-08] MEDS: DOCUSATE 100 MG CAP PO SCH (07:35)
[2018-01-08] MEDS: BENZONATATE 100 MG CAP PO SCH (07:35)
[2018-01-08] MEDS: guaiFENesin 600 MG TABLET.ER PO SCH (07:35)
[2018-01-08] MEDS: methylPREDNISolone SOD SUCCI 40 MG/ML 1 ML VIAL IV SCH (07:35)
[2018-01-08] MEDS: IPRATROPIUM-ALBUTEROL 3 ML NEB INHALATION SCH (07:54)
[2018-01-08] MEDS: BUDESONIDE 1 MG/2 ML NEBU INHALATION SCH (07:54)
[2018-01-08] MEDS: FORMOTEROL FUMARATE 20 MCG/2 ML NEBU INHALATION SCH (07:54)
[2018-01-08 08:31] VITALS: PULSE 68
--- NOTE | 2018-01-08 10:07 | P.DS ---
Providers Date of admission: 12/31/17 08:23 Expected date of discharge: 01/08/18 Attending physician: Ron Zamarripa Consults: 01/01/18 08:51 Consult Physician Routine Consulting Provider: Jose Rock Consult Reason/Comments: sob, cough, pneumonia Do you want consulting provider notified?: Yes Primary care physician: Ron [facility] Course: 72-year-old male who presented to the emergency room with a chief complaint of shortness of breath and cough. The patient states he was seen by his primary care physician last week and was prescribed antibiotics and a steroid pack. The patient states he initially started feeling better, but last 12/27/2017, his symptoms started to get worse. He states he began having increased shortness of breath and persistent coughing. He denies sputum production. The patient denies chest pain or pressure. He does report a low- grade fever at home. Denies nausea or vomiting. Denies lightheadedness or dizziness. The patient has a history of CVA, GERD, hyperlipidemia, hypertension, osteoarthritis, and anxiety. He is a former cigarette smoker. The patient reports he started smoking in 1965 and quit in 1970. The patient has a surgical history of laparoscopic Pastor fundoplication, bilateral inguinal hernia repairs, right carotid endarterectomy, and sinus surgery. Chest x-ray 12/31/2017: Developing left perihilar and infrahilar pneumonia Chest x-ray 01/01/2018: Near resolution of previously seen left perihilar pasty. Trace left basilar atelectasis remains. Laboratory data: WBC 19.5. Hemoglobin 15.0. Platelet count 297. Sodium 139. Potassium 4.4. BUN 23. Creatinine 0.91. Glucose 121. Lactic acid 1.1. D-dimer 0.47. Troponin: Negative 1 The patient was placed on antibiotics, steroids, and cough medication. He continued to have dry hacking cough during hospitalization. He underwent bronch with Dr. Rock on 01/03/2018. Cytology was negative for malignancy. Cultures from bronch reveal normal respiratory michael. The patient continued to make improvements, but very slowly. His IV steroids were finally weaned and the patient tolerated it well. His cough as improved as well. The patient was deemed stable for discharge per Dr. Zamarripa. He was also cleared for discharge from a pulmonary standpoint. Prescriptions were sent to the patient's preferred pharmacy for Levaquin and a prednisone taper per pulmonary. Additional prescriptions were sent to the patient's preferred pharmacy for Mucinex and Tessalon Perles. The patient is stable at the time of discharge. He is to follow up on an outpatient basis with Dr. Zamarripa and pulmonary. DISCHARGE DIAGNOSIS: Left lobe pneumonia, community acquired, present on admission, s/p bronchoscopy , pathology negative for malignancy, improved at the time of discharge Hypertension Hyperlipidemia History of CVA Osteoarthritis History of bilateral carotid endarterectomy Anxiety, unspecified Remote history of nicotine dependence Nurse practitioner note has been reviewed by physician. Signing provider agrees with the documented findings, assessment, and plan of care. Patient Condition at Discharge: Stable Plan - Discharge Summary Discharge Rx Participant: No New Discharge Prescriptions: New Levofloxacin [Levaquin] 750 mg PO DAILY 5 Days #5 tab predniSONE 10 mg PO DAILY 24 Days #69 tab Continue Atorvastatin [Lipitor] 40 mg PO HS Aspirin [Adult Low Dose Aspirin EC] 162 mg PO HS Sennosides [Senna] 8.6 mg PO DAILY PRN PRN Reason: Constipation Discontinued Lisinopril [Prinivil] 20 mg PO QAM Discharge Medication List Atorvastatin [Lipitor] 40 mg PO HS 10/18/14 [History] Aspirin [Adult Low Dose Aspirin EC] 162 mg PO HS 08/31/16 [History] Sennosides [Senna] 8.6 mg PO DAILY PRN 12/31/17 [History] Levofloxacin [Levaquin] 750 mg PO DAILY 5 Days #5 tab 01/07/18 [Rx] predniSONE 10 mg PO DAILY 24 Days #69 tab 01/07/18 [Rx] Follow up Appointment(s)/Referral(s): Jose Rock MD [STAFF PHYSICIAN] - 01/16/18 8:30 am Ron Zamarripa DO [Primary Care Provider] - 01/15/18 (Office unavailable at this time, please call for appointment.) Patient Instructions/Handouts: Pneumonia (DC) Activity/Diet/Wound Care/Special Instructions: Low fat diet. Activity as tolerated. Discharge Disposition: HOME SELF-CARE
[2018-01-08 11:31] LABS: Glucose,Whole Blood 138 mg/dL (75-99)
--- NOTE | 2018-01-08 11:32 | P.PN ---
Subjective Progress Note Date: 01/08/18 Principal diagnosis: Acute community acquired pneumonia, with failed outpatient treatment Marcos is a 72-year-old white male patient of Dr. Zamarripa who presented to the emergency department on 12/31/2017 complaints of worsening dyspnea, fever, chills, coughing and right-sided chest wall pain. A week ago on Saturday patient went to see Dr. Zamarripa in the office for her complaints of nasal congestion, clear nasal drainage, coughing, and anterior chest wall discomfort from persistent coughing spells. Patient was treated with antibiotics, presumably Zithromax, and a steroid taper, and was starting to feel better on Saturday and Saturday. However on Saturday he noted increased chest congestion, on Saturday he started having lightheadedness, is coughing spells intensified, he felt more winded with any exertion, started experiencing fever and chills. He is having persistent nasal congestion, his cough is mostly nonproductive. Patient is a remote smoker, he quit 50 years ago, smoked while in the [employer] for a period of about 3-4 years, less than a pack a day. 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 No other chronic lung problems, does not see a admiralty lawyer, does not wear oxygen, and is not on any inhalers on a regular basis. Patient had a fever of 99.9F on presentation, chest x-ray completed in the emergency department showed developing left perihilar and infrahilar pneumonia. Patient was initiated on empiric antibiotics in the form of Zithromax and Rocephin, he was started on IV steroids, and nebulized treatments and we're seeing the patient in consultation to the community- acquired pneumonia. On 01/02/2018 patient seen again in follow-up. Reports some improvement with dyspnea, however still having coughing spells. The right lower chest discomfort has improved, but patient is having anterior lower chest wall discomfort exacerbated by his coughing spells. Room air pulse ox is 95%, patient has been afebrile. Has not been able to produce any sputum for culture , blood cultures remain negative, patient is on empiric antibiotics with Rocephin and Zithromax. Today's labs were reviewed, and a CBC is up to 21.6, possibly related to IV steroids, CO2 is 20, renal profile is within normal limits, electrolytes are normal. Lung sounds reveal better air in entry bilaterally, with a few scattered rales the left lower base. On 01/02/2018 patient seen in follow-up. His condition is essentially the same , still has persistent cough and exertional dyspnea, with some slight improvement. No fever or chills, blood cultures are negative. Afebrile, on room air, pulse ox is 96%. Lung sounds are diminished, and deep breathing exacerbates patient's coughing spells. Cough is nonproductive. Patient is scheduled to undergo a bronchoscopy with BAL today at 12:[address] Esquivel. On 01/06/2018 patient seen again in follow-up in medical surgical floor. He continues with persistent cough, although there is improvement. No respiratory distress, no worsening dyspnea, room air pulse ox is 95%, he is afebrile, vital signs are stable. Bronchial washing cultures remain negative to date. Cultures are negative. Patient is on empiric antibiotics in the form of Zosyn and Levaquin. Not able to bring up much sputum, he continues on Mucinex, he is on promethazine cough syrup for persistent coughing spells. We will add Tessalon, continue with high intensity IV steroids, and we'll switch Symbicort 2 Pulmicort and Perforomist. On 01/07/2018 patient seen in follow-up. Less short of breath, coughing less. Room air pulse ox is 93%, patient is afebrile, hemodynamically stable, lung sounds reveal equal air entry bilaterally, with a few scattered rhonchi. Patient is on empiric antibiotics in the form of Zosyn and Levaquin, microbiology remains negative, bronchial wash cytology remain negative. Patient has been treated with high-dose steroids, inhaled bronchodilators, cough syrup, and he is making improvement. He denies any sputum production. Vitals have been stable, he has been ambulating and tolerating ambulation well. On 01/08/2018 patient seen again in follow-up. Continues to improve, less short of breath, less coughing. Bronchial washing cultures are negative to date. Patient has been treated with empiric antibiotics in the form of Zosyn and Levaquin, IV steroids, and nebulized bronchodilators. Still has some residual chest tightness, but has improved since admission. Has been ambulating and tolerating well. Bronchial wash cytology has been negative for malignancy. Patient is stable for discharge home today on outpatient course of Levaquin, prednisone taper. Objective - Vital Signs Vital signs: Vital Signs Temp 98.0 F 01/08/18 06:10 Pulse 68 01/08/18 08:28 Resp 18 01/08/18 06:10 BP 121/71 01/08/18 06:10 Pulse Ox 96 01/08/18 06:10 Intake & Output 01/07/18 01/08/18 01/08/18 18:59 06:59 18:59 Intake Total 1080 1450 Balance 1080 1450 Weight 79.379 kg Intake: Oral 1080 1450 Other: Voiding Method Toilet Toilet # Voids 2 2 # Bowel Movements 1 - Exam GENERAL EXAM: Alert, pleasant, 72-year-old white male, resting in bed, comfortable in no apparent distress. Patient is mildly short of breath with conversation, and is having intermittent dry coughing spells HEAD: Normocephalic/atraumatic. EYES: Normal reaction of pupils, equal size. Conjunctiva pink, sclera white. NOSE: Clear with pink turbinates. THROAT: No erythema or exudates. NECK: No masses, no JVD, no thyroid enlargement, no adenopathy. CHEST: No chest wall deformity. Symmetrical expansion. LUNGS: Lung sounds are diminished, a few scattered rhonchi bilaterally CVS: Regular rate and rhythm, normal S1 and S2, no gallops, no murmurs, no rubs ABDOMEN: Soft, nontender. No hepatosplenomegaly, normal bowel sounds, no guarding or rigidity. EXTREMITIES: No clubbing, no edema, no cyanosis, 2+ pulses and upper and lower extremities. MUSCULOSKELETAL: Muscle strength and tone normal. SPINE: No scoliosis or deformity SKIN: No rashes CENTRAL NERVOUS SYSTEM: Alert and oriented -3. No focal deficits, tone is normal in all 4 extremities. PSYCHIATRIC: Alert and oriented -3. Appropriate affect. Intact judgment and insight. - Labs CBC & Chem 7: 01/06/18 08:22 01/05/18 17:06 Labs: Abnormal Lab Results - Last 24 Hours (Table) 01/07/18 01/07/18 01/07/18 Range/Units 11:35 17:00 20:26 POC Glucose (mg/dL) 182 H 147 H 165 H (75-99) mg/dL 01/08/18 Range/Units 06:56 POC Glucose (mg/dL) 126 H (75-99) mg/dL Assessment and Plan Plan: Assessment: #1. Acute community acquired pneumonia, with failed outpatient treatment and the initial chest x-ray showed left perihilar and infrahilar consolidation, patient is status post bronchoscopy with BAL 01/03/2018, bronchial wash cultures are negative to date, and the cytology was negative for malignancy #2. Dyspnea, fever, coughing, right lower chest wall pain and leukocytosis due to the above #3. Remote smoking history, patient quit 50 years ago, and only smoked for 3-4 years while in the [employer] #4. Hypertension #5. History of CVA, with no residual deficits #6. GERD/reflux #7. Osteoarthritis #8. History of laparoscopic lysis of adhesions of extensive intra-abdominal adhesions, laparoscopic Pastor fundoplication Plan: Patient continues to improve, although still has some wheezing, overall has been stable. From pulmonary standpoint patient is stable for discharge home today, 5 more days of Levaquin 750 mg daily, prednisone taper starting at 60 mg daily, Tessalon Perles, and Mucinex. Follow-up in the office by Dr. Esquivel in 7 days. I performed a history & physical examination of the patient and discussed their management with my nurse practitioner, Leticia Dumas. I reviewed the nurse practitioner's note and agree with the documented findings and plan of care. Lung sounds are diminished, a few scattered wheezes. The findings and the impression was discussed with the patient. I attest to the documentation by the nurse practitioner. Time with Patient: Less than 30
[2018-01-08] MEDS: LEVOFLOXACIN 750 MG TAB PO SCH (11:49)
--- NOTE | 2018-01-09 12:07 | CDI ---
Last Revision, June 2017 Documentation Clarification Form Date: 01/09/18 From: Sonya Taco Dione Nina, Recycle Coordinator Hours-8:30 am & 5 pm Carla Admit Date: 12/31/2017 8:23:00 AM Patient Name: Marcos Guo Visit Number: [id number] Discharge Date: 01/08/18 ATTENTION: The Clinical Documentation Specialists (CDI) and [facility] Coding Staff appreciate your assistance in clarifying documentation. Please respond to the clarification below the line at the bottom and electronically sign. The CDI & [facility] Coding staff will review the response and follow-up if needed. Please note: Queries are made part of the Legal Health Record. If you have any questions, please contact the author of this message via ITS. Dr. Ron Zamarripa ED note Patient meet sepsis criteria at 8:22 am. History/Risk Factors: pneumonia WBC/Left Shift: 19.5/16.9 Lactic acid: 1.1 Blood cultures: No growth Vitals signs on admission: Temp-98.0, P-116, P-25, BP-135/83 then 123/69 Antibiotics: IV Zithromax 500 mg, IV Rocephin 1000 IVP on 01/04 switched to IV Zosyn Q 8HR IV Bolus: yes In your professional opinion, please clarify if these findings signify one of the following conditions, whether the condition is POA, and cause, if known: Sepsis ruled in Sepsis ruled out Other, please specify Unable to determine Present on Admission: Yes No Identify the (suspected) organism Please continue to document in your progress notes and discharge summary in order to capture severity of illness and risk of mortality. Include clinical findings that support your diagnosis. SEPSIS RULED OUT MTDD
== END 2018-01-08 12:07 | disposition home or self-care (01) | DRG 168 ==
LOC: EC 06:29 → 4MS4W 08:23
PROVIDERS: ADMIT Family Medicine; ATTEND Family Medicine
PROC: 0B9D8ZZ Drainage of Right Middle Lung Lobe, Via Natural or Artificial Opening Endoscopic (ICD-10-PCS; 2018-01-03)
PROC: 0B9H8ZX Drainage of Lung Lingula, Via Natural or Artificial Opening Endoscopic, Diagnostic (ICD-10-PCS; 2018-01-03)
PROC: 0B9L8ZX Drainage of Left Lung, Via Natural or Artificial Opening Endoscopic, Diagnostic (ICD-10-PCS; 2018-01-03)
PROC: 0B918ZZ Drainage of Trachea, Via Natural or Artificial Opening Endoscopic (ICD-10-PCS; 2018-01-03)
PROC: 0B938ZZ Drainage of Right Main Bronchus, Via Natural or Artificial Opening Endoscopic (ICD-10-PCS; 2018-01-03)
PROC: 0B978ZZ Drainage of Left Main Bronchus, Via Natural or Artificial Opening Endoscopic (ICD-10-PCS; 2018-01-03)
PROC: 0BDH8ZX Extraction of Lung Lingula, Via Natural or Artificial Opening Endoscopic, Diagnostic (ICD-10-PCS; 2018-01-03)
PROC: 0BD78ZX Extraction of Left Main Bronchus, Via Natural or Artificial Opening Endoscopic, Diagnostic (ICD-10-PCS; 2018-01-03)
PROC: 0B9F8ZZ Drainage of Right Lower Lung Lobe, Via Natural or Artificial Opening Endoscopic (ICD-10-PCS; principal; 2018-01-03 12:30)
PROC: 0B9C8ZZ Drainage of Right Upper Lung Lobe, Via Natural or Artificial Opening Endoscopic (ICD-10-PCS; 2018-01-03 12:30)
DX: J18.9 Pneumonia, unspecified organism (principal); I10 Essential (primary) hypertension; E78.5 Hyperlipidemia, unspecified; M19.91 Primary osteoarthritis, unspecified site; K21.9 Gastro-esophageal reflux disease without esophagitis; N40.0 Benign prostatic hyperplasia without lower urinary tract symptoms; H93.13 Tinnitus, bilateral; F41.9 Anxiety disorder, unspecified; Z79.82 Long term (current) use of aspirin; Z79.899 Other long term (current) drug therapy; Z87.39 Personal history of other diseases of the musculoskeletal system and connective tissue; Z90.49 Acquired absence of other specified parts of digestive tract; Z87.891 Personal history of nicotine dependence; Z86.73 Personal history of transient ischemic attack (TIA), and cerebral infarction without residual deficits; Z87.442 Personal history of urinary calculi; Z77.090 Contact with and (suspected) exposure to asbestos; Z86.79 Personal history of other diseases of the circulatory system; Z88.1 Allergy status to other antibiotic agents; Z88.2 Allergy status to sulfonamides; Z88.7 Allergy status to serum and vaccine; Z82.49 Family history of ischemic heart disease and other diseases of the circulatory system
CPT/HCPCS: 31623; 31624; 36415; 71046; 71260; 80053; 82550; 82553; 83036; 83605; 84484; 85025; 85379; 85610; 85730; 87040; 87070; 87102; 87116; 87205; 87206; 87252; 87496; 87498; 87502; 87529; 87634; 87798; 88104; 88108; 88305; 89050; 93005; 94640; 94760; 96361; 96374; 96375; 99291

== ENCOUNTER 2018-01-28 09:31 | Emergency (ER) | payer MEDICARE, BC ==
[2018-01-28 09:41] VITALS: TEMP 98.3
[2018-01-28] MEDS ORDERED: SODIUM CHLORIDE 0.9% 1,000 ML IV STA (10:22)
--- NOTE | 2018-01-28 10:25 | ED ---
SOB HPI - General Chief Complaint: Shortness of Breath Stated Complaint: ANNE Time Seen by Provider: 01/28/18 09:31 Source: patient, EMS, RN notes reviewed, old records reviewed Mode of arrival: EMS Limitations: no limitations - History of Present Illness Initial Comments: This a 72-year-old male was brought in by EMS for complaints of shortness of breath and weakness he states this started 2 or 3 days ago after finishing steroids and he was on he complains also weakness he also states she's been having runny stool 3 or 4 episodes a day for the past several days. Also some lower abdominal pain. He does admit he has a history of diverticulosis. He does state he was on antibiotics for about a month total. He did have a bronchial lavage apparently. He did complain of chest heaviness but no other modifying factors at this time. MD Complaint: shortness of breath - Related Data Home Medications Medication Instructions Recorded Confirmed Atorvastatin [Lipitor] 40 mg PO HS 10/18/14 01/28/18 Aspirin [Adult Low Dose Aspirin EC] 162 mg PO HS 08/31/16 01/28/18 Sennosides [Senna] 8.6 mg PO DAILY PRN 12/31/17 01/28/18 Albuterol Inhaler [Ventolin Hfa 1 - 2 puff INHALATION RT-Q6H PRN 01/28/18 Inhaler] Fluticasone/Vilanterol [Breo 1 puff INHALATION RT-DAILY 01/28/18 01/28/18 Ellipta 200-25 Mcg INH] Previous Rx's Medication Instructions Recorded Benzonatate [Tessalon Perles] 200 mg PO TID #90 cap 01/08/18 guaiFENesin [Mucinex] 600 mg PO Q12HR #60 tab 01/08/18 Allergies Allergy/AdvReac Type Severity Reaction Status Date / Time influenza virus vaccine, AdvReac "very ill Verified 01/28/18 10:06 specific after injection" sulfamethoxazole AdvReac Rash/Hives Verified 01/28/18 10:06 [From Bactrim] trimethoprim [From Bactrim] AdvReac Rash/Hives Verified 01/28/18 10:06 Review of Systems ROS Statement: Those systems with pertinent positive or pertinent negative responses have been documented in the HPI. ROS Other: All systems not noted in ROS Statement are negative. 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 History of Any Multi-Drug Resistant Organisms: None Reported Past Surgical History: Appendectomy, Cholecystectomy, Heart Catheterization, Hernia Repair, Orthopedic Surgery Additional Past Surgical History / Comment(s): Laparoscopic migue fundoplasty with extensive lysis of adhesions, bilateral inguinal hernia repairs, right carotid endarterectomy, left knee arthroscopy, sinus surgery, clint shoulder rotator cuff repairs, heel spur rt foot, EGD, colonoscopies/polypectomy, cystoscopy. Past Anesthesia/Blood Transfusion Reactions: Motion Sickness Additional Past Anesthesia/Blood Transfusion Reaction / Comment(s): . Past Psychological History: Anxiety Smoking Status: Former smoker Past Alcohol Use History: Rare Past Drug Use History: None Reported - Past Family History Brother(s) Family Medical History: Cancer Additional Family Medical History / Comment(s): prostate Mother Family Medical History: No Reported History Additional Family Medical History / Comment(s): Mother was healthy and lived to be 89yrs old. Father Family Medical History: Myocardial Infarction ([place]) Additional Family Medical History / Comment(s): Father had a [place] at the age of 60yrs and lived to be 80yrs old. General Exam - General Exam Comments Initial Comments: This is a well-developed well-nourished awake alert oriented 3 male Limitations: no limitations General appearance: alert, in no apparent distress Head exam: Present: atraumatic, normocephalic, normal inspection Eye exam: Present: normal appearance, PERRL, EOMI. Absent: scleral icterus, conjunctival injection, periorbital swelling ENT exam: Present: normal exam, mucous membranes moist Neck exam: Present: normal inspection. Absent: tenderness, meningismus, lymphadenopathy Respiratory exam: Present: normal lung sounds bilaterally. Absent: respiratory distress, wheezes, rales, rhonchi, stridor Cardiovascular Exam: Present: regular rate, normal rhythm, normal heart sounds. Absent: systolic murmur, diastolic murmur, rubs, gallop, clicks GI/Abdominal exam: Present: soft, tenderness (Left lower quadrant tenderness palpation no guarding rebound masses or bruits), normal bowel sounds. Absent: distended, guarding, rebound, rigid Extremities exam: Present: normal inspection, full ROM, normal capillary refill. Absent: tenderness, pedal edema, joint swelling, calf tenderness Back exam: Present: normal inspection Neurological exam: Present: alert, oriented X3, CN II-XII intact Psychiatric exam: Present: normal affect, normal mood Skin exam: Present: warm, dry, intact, normal color. Absent: rash Course Vital Signs 01/28/18 01/28/18 09:38 10:21 Temperature 98.3 F Pulse Rate 99 Respiratory 18 16 Rate Blood Pressure 147/78 O2 Sat by Pulse 97 Oximetry Medical Decision Making - Lab Data Result diagrams: 01/28/18 09:00 01/28/18 09:00 Lab Results 01/28/18 01/28/18 01/28/18 Range/Units 09:00 09:00 09:00 WBC 7.9 (3.8-10.6) k/uL RBC 4.77 (4.30-5.90) m/uL Hgb 14.2 (13.0-17.5) gm/dL Hct 43.5 (39.0-53.0) % MCV 91.2 (80.0-100.0) fL MCH 29.8 (25.0-35.0) pg MCHC 32.7 (31.0-37.0) g/dL RDW 13.7 (11.5-15.5) % Plt Count 207 (150-450) k/uL Neutrophils % 81 % Lymphocytes % 6 % Monocytes % 9 % Eosinophils % 1 % Basophils % 0 % Neutrophils # 6.4 (1.3-7.7) k/uL Lymphocytes # 0.5 L (1.0-4.8) k/uL Monocytes # 0.7 (0-1.0) k/uL Eosinophils # 0.1 (0-0.7) k/uL Basophils # 0.0 (0-0.2) k/uL PT 9.5 (9.0-12.0) sec INR 0.9 (<1.2) APTT 20.6 L (22.0-30.0) sec Sodium 136 L (137-145) mmol/L Potassium 4.3 (3.5-5.1) mmol/L Chloride 100 (98-107) mmol/L Carbon Dioxide 27 (22-30) mmol/L Anion Gap 9 mmol/L BUN 18 (9-20) mg/dL Creatinine 0.88 (0.66-1.25) mg/dL Est GFR (CKD-EPI)AfAm >90 (>60 ml/min/1.73 sqM) Est GFR (CKD-EPI)NonAf 87 (>60 ml/min/1.73 sqM) Glucose 168 H (74-99) mg/dL Calcium 9.0 (8.4-10.2) mg/dL Magnesium 1.6 (1.6-2.3) mg/dL Total Bilirubin 1.2 (0.2-1.3) mg/dL AST 38 (17-59) U/L ALT 62 (21-72) U/L Alkaline Phosphatase 62 (38-126) U/L Total Protein 5.7 L (6.3-8.2) g/dL Albumin 3.6 (3.5-5.0) g/dL Amylase 112 H (30-110) U/L Lipase 95 (23-300) U/L - EKG Data -: EKG Interpreted by Tx EKG shows normal: sinus rhythm (Sinus rhythm of 86. Interval 120 QRS duration 84 QT since QTC 362/433 and will P axis) Disposition Referrals: Ron Zamarripa DO [Primary Care Provider] - 1-2 days
[2018-01-28 10:49] LABS: Basophils % (A) 0 %; Eosinophils # (A) 0.1 k/uL (0-0.7); Eosinophils % (A) 1 %; HCT 43.5 % (39.0-53.0); HGB 14.2 gm/dL (13.0-17.5); Lymphocytes # (A) 0.5 k/uL (1.0-4.8); Lymphocytes % (A) 6 %; MCH 29.8 pg (25.0-35.0); MCHC 32.7 g/dL (31.0-37.0); MCV 91.2 fL (80.0-100.0); Mean Platelet Volume 6.7; Monocytes # (A) 0.7 k/uL (0-1.0); Monocytes % (A) 9 %; Neutrophils # (A) 6.4 k/uL (1.3-7.7); Neutrophils % (A) 81 %; Platelet Count 207 k/uL (150-450); RBC 4.77 m/uL (4.30-5.90); RDW 13.7 % (11.5-15.5); WBC 7.9 k/uL (3.8-10.6)
[2018-01-28 10:50] LABS: ALT 62 U/L (21-72); AST 38 U/L (17-59); Albumin 3.6 g/dL (3.5-5.0); Alkaline Phosphatase 62 U/L (38-126); Amylase 112 U/L (30-110); Anion Gap 9 mmol/L; Blood Urea Nitrogen 18 mg/dL (9-20); Carbon Dioxide 27 mmol/L (22-30); Chloride 100 mmol/L (98-107); Glucose 168 mg/dL (74-99); Lipase 95 U/L (23-300); Magnesium 1.6 mg/dL (1.6-2.3); Potassium 4.3 mmol/L (3.5-5.1); Sodium 136 mmol/L (137-145); Total Bilirubin 1.2 mg/dL (0.2-1.3); Total Protein 5.7 g/dL (6.3-8.2)
--- NOTE | 2018-01-28 10:50 | XR ---
EXAMINATION TYPE: XR chest 2V DATE OF EXAM: 01/28/2018 COMPARISON: 01/16/2018 TECHNIQUE: PA and lateral views submitted. HISTORY: Shortness of breath FINDINGS: The lungs are clear and there is no pneumothorax, pleural effusion, or focal pneumonia. Biapical pl eural thickening. Hyperinflation suggests COPD. Surgical clips in the abdomen. Hypertrophic change of the spine. Atherosclerotic change aorta. IMPRESSION: 1. Correlate for COPD.
--- NOTE | 2018-01-28 10:51 | XR ---
EXAMINATION TYPE: XR abdomen 2V DATE OF EXAM: 01/28/2018 COMPARISON: NONE HISTORY: Diarrhea and abdominal pain TECHNIQUE: One view abdominal series FINDINGS: The osseous structures are intact. The bowel gas pattern is nonspecific. Occasional air-fluid level in the right upper quadrant noted. Can be associated with a localized ileus or enteritis. Surgical cl ips in the gallbladder fossa. There is a calcification measuring 6 mm overlying the left kidney. Calc ifications the pelvis are likely vascular and there is arthritic changes involving the hips and degen erative change of the spine. IMPRESSION: 1. Nonspecific abdomen. See above. 2. Probable left renal calculus.
[2018-01-28 11:00] LABS: INR 0.9 (<1.2); Prothrombin Time 9.5 sec (9.0-12.0)
[2018-01-28 11:06] LABS: Creatine Kinase 77 U/L (55-170)
[2018-01-28 11:18] LABS: Troponin I <0.012 ng/mL (0.000-0.034)
[2018-01-28 11:20] LABS: Partial Thromboplastin Time 20.6 sec (22.0-30.0)
[2018-01-28 11:22] LABS: Creatine Kinase MB 2.9 ng/mL (0.0-2.4)
[2018-01-28 11:39] VITALS: BP 128/77; PULSE 78; RESP 18
[2018-01-28 11:56] LABS: Appearance,Urine Clear (Clear); Bilirubin,Urine Negative (Negative); Blood,Urine Trace (Negative); Color,Urine Light Yellow; Glucose,Urine (UA) Negative (Negative); Ketones,Urine Negative (Negative); Leukocyte Esterase,Urine Negative (Negative); Mucus,Urine Rare /hpf; Nitrite,Urine Negative (Negative); Protein,Urine Negative (Negative); RBC,Urine 2 /hpf (0-5); Specific Gravity,Urine 1.007 (1.001-1.035); Urobilinogen,Urine <2.0 mg/dL (<2.0); WBC,Urine 1 /hpf (0-5)
[2018-01-28] MEDS ORDERED: methylPREDNISolone SOD SUCCI 125 MG/2 ML VIAL IV STA (13:12)
--- NOTE | 2018-01-28 14:19 | CT ---
EXAMINATION TYPE: CT abdomen pelvis wo con DATE OF EXAM: 01/28/2018 COMPARISON: 11/12/2017 HISTORY: Pelvic pain CT DLP: 1085 mGycm Automated exposure control for dose reduction was used. TECHNIQUE: Helical acquisition of images was performed from the lung bases through the pelvis. FINDINGS: LUNG BASES: Subsegmental consolidation at both lung bases suggestive of atelectasis. There is basilar bronchiectasis subpleural interstitial lung disease. LIVER/GB: Previous gallbladder surgery noted. PANCREAS: No significant abnormality is seen. SPLEEN: No significant abnormality is seen. ADRENALS: No significant abnormality is seen. KIDNEYS: There are 4 less than 5 mm right renal calculi but no evidence of obstruction. There is a hy perdense renal lesion which does not meet the criteria of a simple cyst measuring 2.2 cm stable in si ze from the prior exam. There is an upper pole 5 mm left renal calculus with no hydronephrosis. URINARY BLADDER: Concentric wall thickening suggest cystitis. Correlate clinically.. ADENOPATHY: None visualized. OSSEOUS STRUCTURES: No significant abnormality is seen. BOWEL: Nonspecific abdomen. OTHER: Atherosclerotic change aorta noted. There again is a bilobed area of focal aortic dilation wit h a maximal dimension measuring 2.8 cm. Prostate gland is enlarged. IMPRESSION: 1. Bilateral nonobstructing renal calculi. Bladder wall is thickened correlate for cystitis. 2. Indeterminate 2.2 cm right renal lesion stable from the prior exam but hyperdense. Could represent a hemorrhagic cyst. Correlate with short-term follow-up MRI recommended to exclude other etiologies including solid neoplasm. Was not present on the CT scan 2010. 3. Persistent focal areas of dilation involving the abdominal aorta which appears stable measuring 2. 4 and 2.8 cm in greatest dimension.
== END 2018-01-28 15:14 | disposition home or self-care (01) ==
LOC: EC 09:31
DX: J44.1 Chronic obstructive pulmonary disease with (acute) exacerbation (principal); N20.0 Calculus of kidney; I10 Essential (primary) hypertension; E78.5 Hyperlipidemia, unspecified; Z86.73 Personal history of transient ischemic attack (TIA), and cerebral infarction without residual deficits; Z90.49 Acquired absence of other specified parts of digestive tract; Z95.5 Presence of coronary angioplasty implant and graft; Z88.1 Allergy status to other antibiotic agents; Z88.2 Allergy status to sulfonamides; Z88.7 Allergy status to serum and vaccine; Z79.51 Long term (current) use of inhaled steroids; Z79.82 Long term (current) use of aspirin; Z79.899 Other long term (current) drug therapy; Z87.891 Personal history of nicotine dependence
CPT/HCPCS: 36415; 71046; 74019; 74176; 80053; 81001; 82150; 82550; 82553; 83690; 83735; 83880; 84484; 85025; 85610; 85730; 93005; 96374; 99285

== ENCOUNTER → 2018-02-22 | Outpatient (CLI) | payer MEDICARE, BC ==
--- NOTE | 2018-02-22 08:59 | MR ---
EXAMINATION TYPE: MR abdomen wo con DATE OF EXAM: 02/22/2018 COMPARISON: Previous CT scan of the abdomen and pelvis dated 01/28/2018 HISTORY: Renal cyst seen on CT Standard multiplanar, multisequence MRI departmental protocol Multiplanar, multisequence images of the were acquired. Diffusion weighted imaging was performed. FINDINGS: No pleural fluid is identified. There is colonic interposition on the right. The liver is normal in size without biliary dilatation. The spleen is unremarkable. The gallbladder h as been removed. Both adrenal glands are unremarkable. There is a 1.5 cm lesion arising from the lower pole of the right kidney. This is not meet the requir ements of a simple cyst and is low in signal on both T1 and T2-weighted imaging. The right kidney is unremarkable. The patient's known renal calculi are not visualized. The pancreas appears somewhat atrophic. Large and small bowel loops are unremarkable. IMPRESSION: 1.5 cm lesion involving the lower pole of the right kidney does not meet the requirements of a simple cyst. Complex cyst or neoplasm would have to BE considered.
== END | disposition home or self-care (01) ==
LOC: RADMRIMAIN 08:02
PROVIDERS: ATTEND Family Medicine
DX: N28.89 Other specified disorders of kidney and ureter (principal)
CPT/HCPCS: 74181

== ENCOUNTER → 2018-03-18 | Outpatient (CLI) | payer MEDICARE, BC ==
[2018-03-18 14:16] LABS: Blood Urea Nitrogen 11 mg/dL (9-20)
[2018-03-18 14:25] VITALS: BP 106/80; PULSE 69; RESP 16
--- NOTE | 2018-03-19 08:53 | CT ---
EXAMINATION TYPE: CT abdomen wo/w con DATE OF EXAM: 03/18/2018 COMPARISON: Prior CT January 28, 2018 and older studies. HISTORY: Renal mass, cyst acquired CT DLP: 1838 mGycm, Automated Exposure Control for Dose Reduction was Utilized. CONTRAST: CT scan of the abdomen and pelvis is performed with oral and without and with IV Contrast, patient in jected with 100 ml mL of Isovue 300. Imaging is extended through the pelvis though was not ordered. FINDINGS: LUNG BASES: Dependent atelectasis in both bases is present. Coronary artery calcification is seen whi ch is noted marker for coronary artery disease. LIVER/GB: Cholecystectomy clips are redemonstrated. PANCREAS: No significant abnormality is seen. SPLEEN: No significant abnormality is seen. ADRENALS: No significant abnormality is seen. KIDNEYS: Some areas of cortical scarring with lobulation throughout the right kidney are redemonstrat ed. The 4-7 small renal calculi measuring 3 mm or smaller in size on recent CT are less well seen on postcontrast study today there is redemonstration of stable dominant calculus upper pole level left k idney axial image 36 measuring 7 mm on long axis there is no worrisome solid or cystic mass in the le ft kidney. Corresponding to recent CT there is partially exophytic low dense lesion right kidney axia l image 49 with Hounsfield units averaging 37 on today's post contrast images. Hounsfield units avera ge [address] Best there is no suspicious enhancement seen. Findings are consistent with a proteinaceous cyst. Lesion has been present back through 2014 but is larger in size from that study. BOWEL: Oral contrast does not reach colonic level. There is no suspicious small or large bowel dilata tion. Small bowel feces sign is seen in distal ileal loops. Mild wall thickening of left and distal h usp of transverse colon is identified cannot exclude colitis at this level. PROSTATE/SEMINAL VESICLES: Prostate gland remains mildly enlarged bulging on bladder base consistent with underlying BPH, correlate clinically. Some scattered pelvic phleboliths are seen. Bladder wall i s mildly thickened presumed product of mild obstruction related to enlarged prostate gland. LYMPH NODES: No greater than 1cm abdominal or pelvic lymph nodes are appreciated. OSSEOUS STRUCTURES: No significant abnormality is seen. OTHER: There is atherosclerotic and ectatic abdominal aorta with prominent focal noncalcified plaque axial image 55 obstructing just under 50% of lumen. Aorta is measured up to 2.8 cm transversely axial image 55. IMPRESSION: Lesion of concern on recent CT does not show enhancement is felt to reflect a proteinaceo us cyst within the right kidney.
== END ==
LOC: RADCTMAIN 13:29
PROVIDERS: ATTEND Urology
DX: N28.89 Other specified disorders of kidney and ureter (principal); N28.1 Cyst of kidney, acquired
CPT/HCPCS: 82565; 84520; 74178; 36415; Q9967; 74170

== ENCOUNTER → 2018-04-01 | Outpatient (CLI) | payer OTHER ==
--- NOTE | 2018-04-01 10:13 | CT ---
EXAMINATION TYPE: CT brain wo con DATE OF EXAM: 04/01/2018 COMPARISON: None HISTORY: Concussion Syndrome CT DLP: 1147 mGycm Automated exposure control for dose reduction was used. FINDINGS: Artifact at the skull base limits its assessment. There is prominence the tip of the basilar artery. Would recommend an MRA of the [place] to exclude an aneurysm. Ventricular systems consistent with the patient's age. No midline shift or mass effect. Faint patchy low-attenuation the white matter is nonspecific but most typical remote microvascular ischemia. No acute hemorrhage. Calvarium intact. Changes of chronic sinusitis. IMPRESSION: FAINT NONSPECIFIC WHITE MATTER CHANGES MOST TYPICAL REMOTE ISCHEMIA. NO ACUTE HEMORRHAGE. PROMINENCE OF THE BASILAR TIP RECOMMEND MRA [place] EXCLUDE SMALL ANEURYSM. REPORT CALLED TO PATIENT'S PHYSICIAN.
== END | disposition home or self-care (01) ==
LOC: RADCTMAIN 09:37
PROVIDERS: ATTEND Family Medicine
DX: F07.81 Postconcussional syndrome (principal); R90.82 White matter disease, unspecified
CPT/HCPCS: 70450

== ENCOUNTER 2018-04-22 06:56 | Day surgery (SDC) | payer MEDICARE, BC ==
[2018-04-21 11:06] VITALS: BMI 22.4
[2018-04-22 07:14] VITALS: TEMP 98
[2018-04-22] MEDS ORDERED: PROPOFOL 10 MG/ML 20 ML VIAL IV ONE (07:44)
[2018-04-22] MEDS ORDERED: LIDOCAINE 1% INJ 10MG/ML (20 ML MDV) ONE (07:44)
--- NOTE | 2018-04-22 07:55 | P.GSHP ---
History of Present Illness H&P Date: 04/22/18 Chief Complaint: Right left lower quadrant abdominal pain, change in bowel habits with diarr This a 72-year-old male presents today for colonoscopy. Patient's had complaints of abdominal pain. Patient states he has had pain in the right left lower quadrant. Pain is worse in the left side. He is also had issues with intermittent diarrhea and some constipation. 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 History of Any Multi-Drug Resistant Organisms: None Reported Past Surgical History: Appendectomy, Cholecystectomy, Heart Catheterization, Hernia Repair, Orthopedic Surgery Additional Past Surgical History / Comment(s): Laparoscopic migue fundoplasty with extensive lysis of adhesions, bilateral inguinal hernia repairs, right carotid endarterectomy, left knee arthroscopy, sinus surgery, clint shoulder rotator cuff repairs, heel spur rt foot, EGD, colonoscopies/polypectomy, cystoscopy. Past Anesthesia/Blood Transfusion Reactions: Motion Sickness Additional Past Anesthesia/Blood Transfusion Reaction / Comment(s): . Smoking Status: Former smoker - Past Family History Brother(s) Family Medical History: Cancer Additional Family Medical History / Comment(s): prostate Mother Family Medical History: No Reported History Additional Family Medical History / Comment(s): Mother was healthy and lived to be 89yrs old. Father Family Medical History: Myocardial Infarction ([place]) Additional Family Medical History / Comment(s): Father had a [place] at the age of 60yrs and lived to be 80yrs old. Medications and Allergies Home Medications Medication Instructions Recorded Confirmed Type Atorvastatin [Lipitor] 40 mg PO HS 10/18/14 04/22/18 History Aspirin [Adult Low Dose Aspirin EC] 162 mg PO HS 08/31/16 04/22/18 History Albuterol Inhaler [Ventolin Hfa 1 - 2 puff INHALATION RT-Q6H PRN 01/28/18 History Inhaler] Escitalopram [Lexapro] 10 mg PO HS 04/21/18 04/22/18 History Lisinopril [Prinivil] 20 mg PO HS 04/21/18 04/22/18 History Allergies Allergy/AdvReac Type Severity Reaction Status Date / Time influenza virus vaccine, AdvReac "very ill Verified 04/21/18 10:56 specific after injection" sulfamethoxazole AdvReac Rash/Hives Verified 04/21/18 10:56 [From Bactrim] trimethoprim [From Bactrim] AdvReac Rash/Hives Verified 04/21/18 10:56 Surgical - Exam Vital Signs Temp Pulse Resp BP Pulse Ox 98.0 F 90 14 161/87 95 04/22/18 07:13 04/22/18 07:13 04/22/18 07:13 04/22/18 07:13 04/22/18 07:13 - General well developed, no distress - Eyes PERRL - ENT normal pinna - Neck no masses - Respiratory normal expansion - Cardiovascular Rhythm: regular - Abdomen Mild left lower quadrant tenderness Abdomen: non tender Assessment and Plan Assessment: Abdominal pain Diarrhea We'll perform colonoscopy to evaluate for colitis.
[2018-04-22 08:13] VITALS: RESP 16
--- NOTE | 2018-04-22 08:16 | P.OP ---
Date of Procedure: 04/22/18 Preoperative Diagnosis: Colitis Postoperative Diagnosis: Mild diverticular changes No evidence of significant colitis Sigmoid colon pathology pending Procedure(s) Performed: Colonoscopy Anesthesia: MAC Surgeon: Billy Mullen Pathology: other (Sigmoid colon) Condition: stable Disposition: PACU Description of Procedure: The patient's placed on the endoscopy table in the lateral position. He received IV sedation. Digital rectal exam was performed which revealed no abnormalities. The flexible colonoscope was then placed patient anus and passed throughout the entire colon. The ileocecal valve was visualized. The cecum, ascending and transverse colon appeared normal. In the descending and; was a few scattered diverticula. The sigmoid colon appeared normal. Due to the patient's plaints of abdominal pain a random biopsy sigmoid colon was performed. This was performed with a cold forcep. The scope was then withdrawn the rectum and this appeared normal. Scope was withdrawn for patient.
[2018-04-22 08:28] VITALS: BP 116/74; PULSE 75
== END 2018-04-22 08:49 | disposition home or self-care (01) ==
LOC: ORWHC2ENDO 06:56
PROVIDERS: ATTEND Surgery
DX: K52.9 Noninfective gastroenteritis and colitis, unspecified (principal); K57.30 Diverticulosis of large intestine without perforation or abscess without bleeding; K21.9 Gastro-esophageal reflux disease without esophagitis; E78.5 Hyperlipidemia, unspecified; I10 Essential (primary) hypertension; J44.9 Chronic obstructive pulmonary disease, unspecified; M19.90 Unspecified osteoarthritis, unspecified site; Z86.73 Personal history of transient ischemic attack (TIA), and cerebral infarction without residual deficits; Z90.49 Acquired absence of other specified parts of digestive tract; Z87.891 Personal history of nicotine dependence; Z82.49 Family history of ischemic heart disease and other diseases of the circulatory system; Z79.82 Long term (current) use of aspirin; Z79.899 Other long term (current) drug therapy; Z88.2 Allergy status to sulfonamides; Z88.7 Allergy status to serum and vaccine; Z87.01 Personal history of pneumonia (recurrent)
CPT/HCPCS: 45380; J2001; J2704; 88305

== ENCOUNTER → 2018-05-06 | Outpatient (CLI) | payer OTHER ==
--- NOTE | 2018-05-06 11:13 | MR ---
EXAMINATION TYPE: MR angio head wo con DATE OF EXAM: 05/06/2018 COMPARISON: CT brain 04/01/2018 HISTORY: Cerebral aneurysm, nonruptured TECHNIQUE: Time of flight images focusing on the [place] were performed without contrast. Th ree-dimensional post processing performed on an alternate workstation. FINDINGS: There is no evident aneurysm. No vascular malformation. No filling defect to suggest embolu s or dissection. In specific, basilar tip shows a normal appearance. Vertebrobasilar system, internal carotid arteries are patent. IMPRESSION: Normal [place] MRA
== END ==
LOC: RADMRIMAIN 09:04
PROVIDERS: ATTEND Family Medicine
DX: I67.1 Cerebral aneurysm, nonruptured (principal)
CPT/HCPCS: 70544

== ENCOUNTER → 2018-08-14 | Outpatient (CLI) | payer MEDICARE, BC ==
[2018-08-14 14:36] LABS: Blood Urea Nitrogen 17 mg/dL (9-20)
[2018-08-14 15:38] VITALS: BP 115/75; PULSE 66; RESP 16
--- NOTE | 2018-08-14 16:23 | CT ---
EXAMINATION TYPE: CT chest wo/w con DATE OF EXAM: 08/14/2018 COMPARISON: 01/03/2018 HISTORY: 72-year-old male COPD, asbestos exposure, pain in chest TECHNIQUE: Contiguous axial scanning of the chest before and after the administration of 100 mL of Is ovue 300. Coronal/sagittal reconstructions performed. CT DLP: 727mGycm. Automatic exposure control utilized for a dose reduction. FINDINGS: Heart upper limits of normal in size with trace anterior basilar pericardial fluid. Mild coronary ves clem calcifications are present. Aorta normal caliber with mild atherosclerotic arch calcifications and conventional arch vessel branc mary anatomy. Scattered nonenlarged mediastinal lymph nodes are present. No thoracic lymphadenopathy by CT size cri teria. Evaluation of the lungs shows mild dependent atelectasis without consolidation or pleural effusion. N o pleural-based calcifications identified. There is a 4 mm centrally calcified granuloma in the anter ior right midlung, calcified granuloma right upper lobe axial image 22, 3 mm subpleural pulmonary nod ule lateral right upper lung, axial image 24 that is stable, suggesting a benign etiology. Small hiatal hernia with some postsurgical changes at the GE junction. Multiple cortical defects invo lving the right kidney suggesting prior vascular or infectious insult. 9 mm nonobstructive left renal calculus and punctate 2 mm nonobstructive right renal calculi. Bones: No osseous destructive process. IMPRESSION: 1. No acute pulmonary process. Mild dependent atelectasis. Prior granulomatous disease. No specific C T findings of asbestosis at this time. No pleural plaques identified. 2. Postsurgical changes at the GE junction. There is a small hiatal hernia present. If history of abdoulaye or fundoplication, findings suggest recurrent hernia. 3. Nonobstructive bilateral renal calculi measuring up to 9 mm on the left.
== END | disposition home or self-care (01) ==
LOC: RADCTMAIN 13:42
PROVIDERS: ATTEND Family Medicine
DX: J98.11 Atelectasis (principal); K44.9 Diaphragmatic hernia without obstruction or gangrene; J44.1 Chronic obstructive pulmonary disease with (acute) exacerbation; Z77.090 Contact with and (suspected) exposure to asbestos
CPT/HCPCS: 82565; 84520; 71270; 36415; Q9967

== ENCOUNTER 2019-01-13 11:16 | Inpatient (IN) | payer MEDICARE, BC ==
[2019-01-13] MEDS ORDERED: KETOROLAC 30 MG/ML 1 ML VIAL IVP STA (12:15)
[2019-01-13] MEDS ORDERED: SODIUM CHLORIDE 0.9% 1,000 ML IV STA (12:15)
--- NOTE | 2019-01-13 12:35 | ED ---
General Adult HPI - General Chief complaint: Back Pain/Injury Stated complaint: Back pain Time Seen by Provider: 01/13/19 11:45 Source: patient Mode of arrival: ambulatory - History of Present Illness Initial comments: Patient is a 73-year-old male presenting to the emergency Department with complaints of lower left abdominal pain 2 weeks. Patient admits to history of diverticulosis. Patient states his pain started about 2 weeks ago and he's been having small bouts of constipation along with watery diarrhea. Patient states the pain has been so severe that he has vomited from the pain and feels like he might pass out. Patient denies any nausea/vomiting right now. Denies fever, chills, chest pain, shortness of breath. Patient does admit to occasional night sweats. Patient is also complaining of right sided CVA tenderness 3 days. Patient states the skin is very tender to the touch and describes the pain as burning. Patient admits to history of shingles and this pain is similar. Patient denies any rash at this time. - Related Data Home Medications Medication Instructions Recorded Confirmed Atorvastatin [Lipitor] 40 mg PO HS 10/18/14 01/13/19 Aspirin [Adult Low Dose Aspirin EC] 162 mg PO HS 08/31/16 01/13/19 Albuterol Inhaler [Ventolin Hfa 1 - 2 puff INHALATION RT-Q6H PRN 01/28/18 01/13/19 Inhaler] Lisinopril [Prinivil] 20 mg PO HS 04/21/18 01/13/19 Previous Rx's Medication Instructions Recorded valACYclovir HCL [Valtrex] 1,000 mg PO Q8HR 7 Days #21 tab 01/13/19 Allergies Allergy/AdvReac Type Severity Reaction Status Date / Time influenza virus vaccine, AdvReac "very ill Verified 01/13/19 12:09 specific after injection" sulfamethoxazole AdvReac Rash/Hives Verified 01/13/19 12:09 [From Bactrim] trimethoprim [From Bactrim] AdvReac Rash/Hives Verified 01/13/19 12:09 Review of Systems ROS Statement: Those systems with pertinent positive or pertinent negative responses have been documented in the HPI. ROS Other: All systems not noted in ROS Statement are negative. 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 History of Any Multi-Drug Resistant Organisms: None Reported Past Surgical History: Appendectomy, Cholecystectomy, Heart Catheterization, Hernia Repair, Orthopedic Surgery Additional Past Surgical History / Comment(s): Laparoscopic migue fundoplasty with extensive lysis of adhesions, bilateral inguinal hernia repairs, right carotid endarterectomy, left knee arthroscopy, sinus surgery, clint shoulder rotator cuff repairs, heel spur rt foot, EGD, colonoscopies/polypectomy, cystoscopy. Past Anesthesia/Blood Transfusion Reactions: Motion Sickness Additional Past Anesthesia/Blood Transfusion Reaction / Comment(s): . Past Psychological History: Anxiety Smoking Status: Former smoker - Past Family History Brother(s) Family Medical History: Cancer Additional Family Medical History / Comment(s): prostate Mother Family Medical History: No Reported History Additional Family Medical History / Comment(s): Mother was healthy and lived to be 89yrs old. Father Family Medical History: Myocardial Infarction ([place]) Additional Family Medical History / Comment(s): Father had a [place] at the age of 60yrs and lived to be 80yrs old. General Exam - General Exam Comments Initial Comments: GENERAL: Well-appearing, well-nourished and in no acute distress. HEAD: Atraumatic, normocephalic. EYES: Pupils equal round and reactive to light, extraocular movements intact, sclera anicteric, conjunctiva are normal. ENT: TMs normal, nares patent, oropharynx clear without exudates. Moist mucous membranes. NECK: Normal range of motion, supple without lymphadenopathy or JVD. LUNGS: Breath sounds clear to auscultation bilaterally and equal. No wheezes rales or rhonchi. HEART: Regular rate and rhythm without murmurs, rubs or gallops. ABDOMEN: Severe lower left quadrant pain with palpation along with less severe generalized abdominal tenderness. Soft, normoactive bowel sounds. No guarding, no rebound. No masses appreciated. : Deferred EXTREMITIES: Normal range of motion, no pitting or edema. No clubbing or cyanosis. NEUROLOGICAL: Cranial nerves II through XII grossly intact. Normal speech, normal gait. PSYCH: Normal mood, normal affect. SKIN: Patient has hyperesthesia along the right CV area. There is 1 single pustule present. No other erythema or rash. Course Vital Signs 01/13/19 01/13/19 01/13/19 11:38 17:57 18:28 Temperature 98.7 F 98.7 F Pulse Rate 81 76 76 Respiratory 18 18 18 Rate Blood Pressure 140/100 124/76 124/76 O2 Sat by Pulse 96 97 97 Oximetry Medical Decision Making - Medical Decision Making Patient is a 73-year-old male presenting to the ER with complaints of lower left quadrant pain 2 weeks. Admits to having intermittent constipation with diarrhea along with a severe left-sided lower quadrant pain. Patient states this pain is so severe at times he thinks he might pass out. CBC, CMP, UA are within normal limits. CT abdomen shows a possible colonic mass in the descending colon. Patient states his last colonoscopy was last year with Dr. Mullen and showed no acute abnormalities. Case was discussed with . Patient will be admitted for colonoscopy. Patient is okay with this plan. Patient is also complaining of right sided hyperesthesia in the CVA area. Patient describes the pain as burning. There is no rash right now. Patient has had shingles in the past and this feels very similar. Patient will be started on valacyclovir for possible shingles. - Lab Data Result diagrams: 01/13/19 13:56 01/13/19 13:56 Lab Results 01/13/19 01/13/19 01/13/19 Range/Units 13:56 13:56 13:56 WBC 8.3 (3.8-10.6) k/uL RBC 5.09 (4.30-5.90) m/uL Hgb 15.0 (13.0-17.5) gm/dL Hct 46.2 (39.0-53.0) % MCV 90.7 (80.0-100.0) fL MCH 29.5 (25.0-35.0) pg MCHC 32.6 (31.0-37.0) g/dL RDW 13.3 (11.5-15.5) % Plt Count 269 (150-450) k/uL Neutrophils % 75 % Lymphocytes % 15 % Monocytes % 6 % Eosinophils % 1 % Basophils % 1 % Neutrophils # 6.3 (1.3-7.7) k/uL Lymphocytes # 1.3 (1.0-4.8) k/uL Monocytes # 0.5 (0-1.0) k/uL Eosinophils # 0.1 (0-0.7) k/uL Basophils # 0.1 (0-0.2) k/uL Sodium 141 (137-145) mmol/L Potassium 4.3 (3.5-5.1) mmol/L Chloride 104 (98-107) mmol/L Carbon Dioxide 29 (22-30) mmol/L Anion Gap 8 mmol/L BUN 14 (9-20) mg/dL Creatinine 1.01 (0.66-1.25) mg/dL Est GFR (CKD-EPI)AfAm 86 (>60 ml/min/1.73 sqM) Est GFR (CKD-EPI)NonAf 74 (>60 ml/min/1.73 sqM) Glucose 102 H (74-99) mg/dL Calcium 9.9 (8.4-10.2) mg/dL Total Bilirubin 2.1 H (0.2-1.3) mg/dL AST 36 (17-59) U/L ALT 39 (21-72) U/L Alkaline Phosphatase 66 (38-126) U/L Total Protein 7.0 (6.3-8.2) g/dL Albumin 4.6 (3.5-5.0) g/dL Urine Color Yellow Urine Appearance Clear (Clear) Urine pH 5.5 (5.0-8.0) Ur Specific [place] 1.011 (1.001-1.035) Urine Protein Negative (Negative) Urine Glucose (UA) Negative (Negative) Urine Ketones Negative (Negative) Urine Blood Trace H (Negative) Urine Nitrite Negative (Negative) Urine Bilirubin Negative (Negative) Urine Urobilinogen <2.0 (<2.0) mg/dL Ur Leukocyte Esterase Negative (Negative) Urine RBC 2 (0-5) /hpf Urine WBC 1 (0-5) /hpf Ur Squamous Epith Cells <1 (0-4) /hpf Urine Mucus Rare H (None) /hpf Disposition Clinical Impression: Left lower quadrant pain, Colonic mass Disposition: ADMITTED IP TO THIS [facility] Condition: Stable Is patient prescribed a controlled substance at d/c from ED?: No
[2019-01-13 14:20] LABS: Basophils # (A) 0.1 k/uL (0-0.2); Basophils % (A) 1 %; Eosinophils # (A) 0.1 k/uL (0-0.7); Eosinophils % (A) 1 %; HCT 46.2 % (39.0-53.0); Lymphocytes # (A) 1.3 k/uL (1.0-4.8); Lymphocytes % (A) 15 %; MCH 29.5 pg (25.0-35.0); MCHC 32.6 g/dL (31.0-37.0); MCV 90.7 fL (80.0-100.0); Mean Platelet Volume 7.2; Monocytes # (A) 0.5 k/uL (0-1.0); Monocytes % (A) 6 %; Neutrophils # (A) 6.3 k/uL (1.3-7.7); Neutrophils % (A) 75 %; Platelet Count 269 k/uL (150-450); RBC 5.09 m/uL (4.30-5.90); RDW 13.3 % (11.5-15.5); WBC 8.3 k/uL (3.8-10.6)
[2019-01-13 14:29] LABS: Albumin 4.6 g/dL (3.5-5.0); Calcium 9.9 mg/dL (8.4-10.2); Potassium 4.3 mmol/L (3.5-5.1); Total Bilirubin 2.1 mg/dL (0.2-1.3)
[2019-01-13 14:36] LABS: Appearance,Urine Clear (Clear); Bilirubin,Urine Negative (Negative); Blood,Urine Trace (Negative); Color,Urine Yellow; Glucose,Urine (UA) Negative (Negative); Ketones,Urine Negative (Negative); Leukocyte Esterase,Urine Negative (Negative); Mucus,Urine Rare /hpf; Nitrite,Urine Negative (Negative); PH, Urine 5.5 (5.0-8.0); Protein,Urine Negative (Negative); RBC,Urine 2 /hpf (0-5); Specific Gravity,Urine 1.011 (1.001-1.035); Squamous Epithelial Cell,Urine <1 /hpf (0-4); Urobilinogen,Urine <2.0 mg/dL (<2.0)
--- NOTE | 2019-01-13 15:53 | CT ---
EXAMINATION TYPE: CT abdomen pelvis w con DATE OF EXAM: 01/13/2019 COMPARISON: HISTORY: LLQ pain CT DLP: 803.9 mGycm Automated exposure control for dose reduction was used. TECHNIQUE: Helical acquisition of images from the lung bases through the pelvis have been completed. CONTRAST: Performed without Oral Contrast and with IV Contrast, patient injected with 50 mL of Isovue 370. FINDINGS: At the gastroesophageal junction there is postop change from a thickening of the distal eso phagus may be due to small hiatal hernia or postop change. LUNG BASES: Posterior costophrenic angle on the left shows a 5 mm nodule, axial image 5, this may bee n present on prior exam. AORTA: Infrarenal abdominal aortic aneurysm at 3.2 cm has increased slightly in the interval. LIVER/GB: The liver shows nodular contour and possibly due to cirrhosis. Gallbladder is absent. PANCREAS: No significant abnormality is seen. SPLEEN: No significant abnormality is seen. ADRENALS: No significant abnormality is seen. KIDNEYS: Bilateral renal calculi are again noted, the larger on the left measures approximately 7 mm, immediately adjacent there is an additional punctate calcification in the upper pole, punctate upper pole calcifications are present on the right at the upper and middle poles. No hydronephrosis. Lower pole the right kidney shows a soft tissue mass measuring approximately 2 cm which does not meet crit eria for simple cyst and shows a similar appearance to previous exam. REPRODUCTIVE ORGANS: Prostate is enlarged and shows associated calcification. BOWEL: Colonic interposition noted anterior to the liver. There are small bowel loops with some wall thickening in fluid-filled appearance. No evident obstruction. On axial image 66, coronal image 44 t he descending colon shows questionable annular lesion, there is abnormal thickening of the mucosa radha pected. FREE AIR: No Free Air visible. ASCITES: None visible. PELVIC ADENOPATHY: None visualized. RETROPERITONEAL ADENOPATHY: No Retroperitoneal Adenopathy visible. URINARY BLADDER: Thickened wall likely is due to chronic bladder outlet obstruction. OSSEOUS STRUCTURES: No significant abnormality is seen. IMPRESSION: POSSIBLE COLONIC MASS DESCRIBED, IF BOWEL SURVEILLANCE HAS NOT BEEN PERFORMED, IT SHOULD BE CONSID ERED. BILATERAL NEPHROLITHIASIS. POSTOP CHANGES. CORRELATE FOR CIRRHOSIS. Postop changes as described . Correlate for possible enteritis. Aortic aneurysm. Prostatic enlargement. Indeterminate pulmonary n odule left lower lobe of indeterminate right renal mass inferior pole.
[2019-01-13] MEDS ORDERED: ONDANSETRON 4 MG/2 ML VIAL IVP PRN (17:04)
[2019-01-13] MEDS ORDERED: HYDROcodone/APAP 5-325MG 1 EACH TAB PO PRN (17:04)
[2019-01-13] MEDS ORDERED: oxyCODONE-APAP 5-325MG 1 EACH TAB PO PRN (17:04)
[2019-01-13] MEDS ORDERED: ACETAMINOPHEN TAB 325 MG TAB PO PRN (17:04)
[2019-01-13] MEDS ORDERED: NALOXONE 0.4 MG/ML 1 ML VIAL IV PRN (17:04)
[2019-01-13] MEDS ORDERED: ALBUTEROL NEBULIZED 2.5 MG/3 ML INHALATION PRN (20:55)
[2019-01-13] MEDS: SODIUM CHLORIDE 0.9% 1,000 ML IV SCH (21:25)
[2019-01-13] MEDS: ATORVASTATIN 40 MG TAB PO SCH (21:26)
[2019-01-13] MEDS: LISINOPRIL 20 MG TAB PO SCH (21:26)
[2019-01-13] MEDS: valACYclovir 500 MG TAB PO SCH (21:27)
--- NOTE | 2019-01-13 22:28 | HP ---
HISTORY AND PHYSICAL I am covering for Dr. Zamarripa. DATE OF SERVICE: 01/13/2019 CHIEF COMPLAINT: Abdominal pain. HISTORY OF PRESENT ILLNESS: This 73-year-old gentleman with a past medical history of multiple medical problems, including GERD, hypertension, hyperlipidemia, history of DJD, history of pneumonia, history of CVA, history of cholecystectomy, cardiac catheterization, history of anxiety, being followed by Dr. Zamarripa in the outpatient setting, had abdominal pain for the last 2 weeks. About a few days ago the patient had severe abdominal pain and some constipation, but the patient did not seek any medical advice. But after a bowel movement the patient also had diarrhea. Patient has had on and off pain. The pain is mostly in the left side, but currently the patient also is complaining of some hypersensitivity on the right side, which the patient thinks are early signs of an outbreak of shingles. The patient came to [facility] and was admitted for evaluation and treatment. A CT scan of the abdomen showed a possible colonic mass, questionable annular lesion, and abnormal thickening of the mucosa was suspected. The patient was admitted for further evaluation and treatment. Bilateral nephrolithiasis also noted. There is no history of any fever, rigor or chills. No history of headache, loss of consciousness, seizures. The patient did have a colonoscopy about a year ago. PAST MEDICAL HISTORY: 1. History of CVA, TIA. 2. GERD. 3. Hypertension. 4. Hyperlipidemia. 5. History of DJD. 6. History of pneumonia. 7. History of appendectomy. 8. Cholecystectomy. HOME MEDICATIONS: 1. Prinivil 20 mg at bedtime. 2. Lipitor 40 mg at bedtime. 3. Aspirin 160 mg daily. 4. Ventolin 1-2 puffs q.6 p.r.n. 5. Valtrex 1000 mg q.8. ALLERGIES: 1. INFLUENZA VACCINE. 2. BACTRIM. FAMILY HISTORY: No history of heart disease or strokes in the family. SOCIAL HISTORY: Previous history of smoking. Occasional alcohol intake. REVIEW OF SYSTEMS: ENT: No diminished hearing. No diminished vision. CARDIOVASCULAR SYSTEM: No angina, palpitations. RESPIRATORY SYSTEM: No cough, hemoptysis. GI: As mentioned earlier. : No dysuria or retention. NERVOUS SYSTEM: No numbness, weakness. ALLERGY/IMMUNOLOGY: No asthma, hayfever. MUSCULOSKELETAL: As mentioned earlier. HEMATOLOGY/ONCOLOGY: No history of anemia. ENDOCRINE: No history of diabetes, hypothyroidism. CONSTITUTIONAL: As mentioned earlier. DERMATOLOGY: Negative. RHEUMATOLOGY: Negative. PSYCHIATRY: As mentioned earlier. PHYSICAL EXAMINATION: Patient is alert and oriented x3. Pulse is 67, blood pressure 139/86, respiration 18, temperature 98.6, pulse ox 97% on room air. HEENT: Conjunctivae normal. Oral mucosa moist. NECK: No jugular venous distention. No carotid bruit. No lymph node enlargement. CARDIOVASCULAR SYSTEM: S1, S2 muffled. No S3. No S4. RESPIRATORY SYSTEM: Breath sounds diminished at the bases. No rhonchi. No crackles. ABDOMEN: Soft. Mild diffuse discomfort on palpation left side is numb. Otherwise, no guarding or rigidity. No mass palpable. EXAMINATION OF THE BACK: Some minimal rash present. Otherwise, no obvious vesicles or bullae noted. LEGS: No edema. No swelling. NERVOUS SYSTEM: Higher functions as mentioned earlier. Moves all 4 limbs. No focal motor or sensory deficit. LYMPHATICS: No lymph node palpable in neck, axillae or groin. SKIN: As mentioned earlier. JOINTS: No active deforming arthropathy. LABS: CBC within normal limits. UA noted. Otherwise, glucose 102. Total bilirubin is 2.1. ASSESSMENT: 1. Abdominal pain with possible sigmoid lesion. Rule out annular mass lesion or colitis. 2. Right-sided abdominal wall pain mostly. Rule out early herpes zoster. 3. History of gastroesophageal reflux disease. 4. History of cerebrovascular accident, transient ischemic attack. 5. Hypertension. 6. Hyperlipidemia. 7. Degenerative joint disease. 8. History of pneumonia. 9. History of prostate disorder. 10.History of gout. 11.History of nephrolithiasis. 12.History of cardiac arrest. 13.History of anxiety. RECOMMENDATIONS AND DISCUSSION: In this 73-year-old gentleman who presented with multiple complex medical issues, we will monitor the patient closely, continue the current management, continue with symptomatic treatment. Otherwise, we will keep the patient on clear liquids and obtain a surgical evaluation with Dr. Mullen. Otherwise, I would resume the home medications. DVT prophylaxis. See orders for further details. Further recommendations to follow. Discussed with the family, who understands and agrees. MMODL / IJN: [id number] / [facility] SYSTEMPerry
[2019-01-14] MEDS: SODIUM CHLORIDE 0.9% 1,000 ML IV SCH ×3 (05:08→23:31)
[2019-01-14] MEDS: valACYclovir 500 MG TAB PO SCH ×3 (06:59→21:14)
[2019-01-14 10:15] LABS: Basophils % (A) 1 %; Eosinophils # (A) 0.2 k/uL (0-0.7); Eosinophils % (A) 3 %; HCT 39.2 % (39.0-53.0); HGB 13.1 gm/dL (13.0-17.5); Lymphocytes # (A) 0.9 k/uL (1.0-4.8); Lymphocytes % (A) 16 %; MCH 29.7 pg (25.0-35.0); MCHC 33.3 g/dL (31.0-37.0); MCV 89.2 fL (80.0-100.0); Mean Platelet Volume 8.1; Monocytes # (A) 0.4 k/uL (0-1.0); Monocytes % (A) 7 %; Neutrophils # (A) 4.1 k/uL (1.3-7.7); Neutrophils % (A) 72 %; Platelet Count 214 k/uL (150-450); RBC 4.39 m/uL (4.30-5.90); RDW 13.5 % (11.5-15.5); WBC 5.7 k/uL (3.8-10.6)
[2019-01-14 10:43] LABS: African American GFR (CKD) >90 (>60 ml/min/1.73 sqM); Anion Gap 5 mmol/L; Blood Urea Nitrogen 14 mg/dL (9-20); Calcium 8.6 mg/dL (8.4-10.2); Carbon Dioxide 23 mmol/L (22-30); Chloride 109 mmol/L (98-107); Glucose 185 mg/dL (74-99); Potassium 4.1 mmol/L (3.5-5.1); Sodium 137 mmol/L (137-145)
[2019-01-14] MEDS ORDERED: PEG 3350-NA SULF,BICARB,CL/KCL 4,000 ML BOTTLE PO ONE (15:24)
--- NOTE | 2019-01-14 17:41 | P.GSCN ---
History of Present Illness Consult date: 01/14/19 Reason for Consult: Possible colonic mass History of present illness: This is a 73-year-old male who's had a several month history of crampy abdominal pain. Patient presented to the emergency room due to his complaints of pain. His CAT scan performed showed evidence of possible inflammatory changes or colonic mass of the descending colon. He also appears to have enteritis on CAT scan. 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 History of Any Multi-Drug Resistant Organisms: None Reported Past Surgical History: Appendectomy, Cholecystectomy, Heart Catheterization, Hernia Repair, Orthopedic Surgery Additional Past Surgical History / Comment(s): Laparoscopic migue fundoplasty with extensive lysis of adhesions, bilateral inguinal hernia repairs, right carotid endarterectomy, left knee arthroscopy, sinus surgery, clint shoulder rotator cuff repairs, heel spur rt foot, EGD, colonoscopies/polypectomy, cystoscopy. Past Anesthesia/Blood Transfusion Reactions: Motion Sickness Additional Past Anesthesia/Blood Transfusion Reaction / Comm: . Past Psychological History: Anxiety Additional Psychological History / Comment(s): Pt resides with his spouse of 52 yrs. He is independent. Smoking Status: Never smoker Past Alcohol Use History: Rare Additional Past Alcohol Use History / Comment(s): STARTED SMOKING IN 1965 AND QUIT IN 1970 Past Drug Use History: None Reported - Past Family History Brother(s) Family Medical History: Cancer Additional Family Medical History / Comment(s): prostate Mother Family Medical History: No Reported History Additional Family Medical History / Comment(s): Mother was healthy and lived to be 89yrs old. Father Family Medical History: Myocardial Infarction ([place]) Additional Family Medical History / Comment(s): Father had a [place] at the age of 60yrs and lived to be 80yrs old. Medications and Allergies Home Medications Medication Instructions Recorded Confirmed Type Atorvastatin [Lipitor] 40 mg PO HS 10/18/14 01/13/19 History Aspirin [Adult Low Dose Aspirin EC] 162 mg PO HS 08/31/16 01/13/19 History Albuterol Inhaler [Ventolin Hfa 1 - 2 puff INHALATION RT-Q6H PRN 01/28/18 01/13/19 History Inhaler] Lisinopril [Prinivil] 20 mg PO HS 04/21/18 01/13/19 History valACYclovir HCL [Valtrex] 1,000 mg PO Q8HR 7 Days #21 tab 01/13/19 Rx Allergies Allergy/AdvReac Type Severity Reaction Status Date / Time influenza virus vaccine, AdvReac "very ill Verified 01/13/19 12:09 specific after injection" sulfamethoxazole AdvReac Rash/Hives Verified 01/13/19 12:09 [From Bactrim] trimethoprim [From Bactrim] AdvReac Rash/Hives Verified 01/13/19 12:09 Surgical - Exam Vital Signs Temp Pulse Resp BP Pulse Ox 98.7 F 81 18 140/100 96 01/13/19 11:38 01/13/19 11:38 01/13/19 11:38 01/13/19 11:38 01/13/19 11:38 - General well developed, well nourished, no distress - Eyes PERRL - ENT normal pinna - Neck no masses - Respiratory normal expansion - Cardiovascular Rhythm: regular - Abdomen Abdomen: soft Results - Labs 01/14/19 09:57 01/14/19 09:57 Abnormal Lab Results - Last 24 Hours (Table) 01/14/19 01/14/19 Range/Units 09:57 09:57 Lymphocytes # 0.9 L (1.0-4.8) k/uL Chloride 109 H (98-107) mmol/L Glucose 185 H (74-99) mg/dL Diabetes panel 01/14/19 Range/Units 09:57 Sodium 137 (137-145) mmol/L Potassium 4.1 (3.5-5.1) mmol/L Chloride 109 H (98-107) mmol/L Carbon Dioxide 23 (22-30) mmol/L BUN 14 (9-20) mg/dL Creatinine 0.82 (0.66-1.25) mg/dL Glucose 185 H (74-99) mg/dL Calcium 8.6 (8.4-10.2) mg/dL Calcium panel 01/14/19 Range/Units 09:57 Calcium 8.6 (8.4-10.2) mg/dL Pituitary panel 01/14/19 Range/Units 09:57 Sodium 137 (137-145) mmol/L Potassium 4.1 (3.5-5.1) mmol/L Chloride 109 H (98-107) mmol/L Carbon Dioxide 23 (22-30) mmol/L BUN 14 (9-20) mg/dL Creatinine 0.82 (0.66-1.25) mg/dL Glucose 185 H (74-99) mg/dL Calcium 8.6 (8.4-10.2) mg/dL Adrenal panel 01/14/19 Range/Units 09:57 Sodium 137 (137-145) mmol/L Potassium 4.1 (3.5-5.1) mmol/L Chloride 109 H (98-107) mmol/L Carbon Dioxide 23 (22-30) mmol/L BUN 14 (9-20) mg/dL Creatinine 0.82 (0.66-1.25) mg/dL Glucose 185 H (74-99) mg/dL Calcium 8.6 (8.4-10.2) mg/dL - Imaging CT scan - abdomen: report reviewed (There is evidence of some wall thickening of the small bowel loops. In the descending colon there is questionable annular lesion. With some mucosal thickening., There is bilateral nephrolithiasis and possible cirrhosis.) Assessment and Plan Assessment: Possible colonic mass. Patient will undergo colonoscopy to evaluate this., Possible enteritis
--- NOTE | 2019-01-14 17:58 | PN ---
PROGRESS NOTE DATE OF SERVICE: 01/14/2019. I am covering for Dr. Zamarripa. This 73-year-old gentleman admitted with abdominal pain, possible sigmoid lesions slated to undergo colonoscopy tomorrow by Dr. Mullen. No chest pain. No palpitations. No fever. PHYSICAL EXAM: Alert and oriented times three. Pulse 63, blood pressure 116/69, respiration 18, temperature 98.1, pulse ox 97% on room air. HEENT: Conjunctivae normal. NECK: No jugular venous distention. CARDIOVASCULAR: S1, S2 muffled. RESPIRATORY: Breath sounds diminished in the bases. No rhonchi. No crackles. ABDOMEN: Soft. Mild diffuse discomfort. No guarding. No rigidity. No mass palpable. LEGS: No edema. No swelling. CENTRAL NERVOUS SYSTEM: No focal deficits. LABS: WBC 5.7, sodium 137, potassium 4.1. ASSESSMENT: 1. Abdominal pain with possible sigmoid lesion, rule out annular mass lesion or stricture or colitis. 2. Right-sided abdominal pain, abdominal wall pain mostly, rule out early herpes zoster. 3. History of gastroesophageal reflux disease. 4. History of cerebrovascular accident, transient ischemic attack. 5. Hypertension. 6. Hyperlipidemia. 7. History of degenerative joint disease. 8. History of pneumonia. 9. History of prostate disorder. 10.History of gout. 11.History of nephrolithiasis. 12.History of cardiac arrest. 13.History of anxiety. RECOMMENDATIONS AND DISCUSSION: Continue current medications, continue to monitoring, management and symptomatic treatments. Otherwise, at this time, surgical evaluation. Possible colonoscopy. Guarded prognosis. Further recommendations to follow. MMODL / IJN: [id number] /
[2019-01-14] MEDS: LISINOPRIL 20 MG TAB PO SCH (21:14)
[2019-01-14] MEDS: ATORVASTATIN 40 MG TAB PO SCH (21:14)
[2019-01-15] MEDS: valACYclovir 500 MG TAB PO SCH ×3 (07:18→20:56)
[2019-01-15] MEDS: SODIUM CHLORIDE 0.9% 1,000 ML IV SCH ×2 (10:37→20:01)
[2019-01-15] MEDS ORDERED: IV FLUID CONTINUATION 1,000 ML IV ONE (12:21)
--- NOTE | 2019-01-15 12:47 | P.OP ---
Date of Procedure: 01/15/19 Preoperative Diagnosis: Questionable colonic mass Postoperative Diagnosis: Tortuous bowel No evidence of left-sided colon tumor Mild diverticulosis Procedure(s) Performed: Colonoscopy Anesthesia: MAC Surgeon: Billy Mullen Pathology: none sent Condition: stable Disposition: PACU Description of Procedure: PROCEDURE: The patient was placed on the endoscopy table in the lateral position. Digital rectal examination was performed which revealed no abnormalities. The prostate was symmetrical without nodules. Flexible colonoscope was then placed in the patient's anus and passed throughout the entire colon. The ileocecal valve was visualized. The colon was very tortuous. The cecum, ascending, transverse, descending and sigmoid colon were normal. The rectum was normal as well. There was no evidence of any descending colon mass. There was a few scattered diverticuli within the colon. He was known to diverticulitis. The scope was withdrawn for patient.
--- NOTE | 2019-01-15 14:26 | XR ---
EXAMINATION TYPE: XR abdomen complete w decub DATE OF EXAM: 01/15/2019 COMPARISON: 01/28/2013 HISTORY: 73-year-old male pain after colonoscopy TECHNIQUE: Supine, upright, and left side down lateral decubitus views of the abdomen are obtained. FINDINGS: Prominent colonic gas is present throughout. Some scattered small air-fluid levels suggests liquid wi thin the colon. No specific findings of pneumoperitoneum. No dilated small bowel. Multiple pelvic tab lets. Cholecystectomy clips. 7 mm left mid abdominal calcification. Chilaiditi syndrome. IMPRESSION: Prominent air throughout the colon in keeping with patient's recent colonoscopy. No specific findings of pneumoperitoneum. Suspect a 7 mm nonobstructive left renal calculus.
--- NOTE | 2019-01-15 15:00 | XR ---
EXAMINATION TYPE: XR chest 2V DATE OF EXAM: 01/15/2019 COMPARISON: 11/20/2018 TECHNIQUE: PA and lateral views submitted. HISTORY: Pain FINDINGS: The lungs are clear and there is no pneumothorax, pleural effusion, or focal pneumonia. Linear espinoza ges involving the left lung are noted. There is biapical pleural thickening with no overt failure. Hy perinflation suggests COPD. IMPRESSION: 1. No acute process.
[2019-01-15] MEDS: HEPARIN SODIUM,PORCINE 5,000 UNIT/ML 1 ML VIAL SQ SCH ×2 (15:06→20:56)
--- NOTE | 2019-01-15 17:47 | PN ---
PROGRESS NOTE I am covering for Dr. Zamarripa. DATE OF SERVICE: 01/15/2019 This 73-year-old gentleman, admitted with abdominal pain, possible sigmoid lesion, was suspected to have an annular mass lesion. Patient underwent a colonoscopy by Dr. Mullen after prep and the colonoscopy showed mild tortuous bowel, no evidence of left- sided colonic tumor, and mild diverticulosis. Otherwise there is no history of fever, rigors or chills. The patient is complaining of some abdominal pain. Patient also complains of throat pain post procedure. Past medical history reviewed. REVIEW OF SYSTEMS: CARDIOVASCULAR SYSTEM: As mentioned earlier. RESPIRATORY SYSTEM: As mentioned earlier. GI: As mentioned earlier. : No dysuria or retention. NERVOUS SYSTEM: No numbness, weakness. CURRENT MEDICATIONS: Reviewed. They include: 1. Tylenol 650 q.6 p.r.n. 2. [place] 5 mg q.4 p.r.n. 3. Ventolin 2.5 q.6. 4. Lipitor 40 mg at bedtime. 5. Heparin 5000 units subcutaneously b.i.d. 6. Zestril 20 mg at bedtime. 7. Narcan 0.2 q.2 p.r.n. 8. Zofran 4 mg q.8. 9. Percocet 5 mg q.4. 10.Valtrex 1000 mg p.o. t.i.d. PHYSICAL EXAMINATION: Patient is alert, oriented x3. Pulse 60, blood pressure 123/66, respiration 18, temperature 97.5, pulse ox 98% on room air. HEENT: Conjunctivae normal. Oral mucosa moist. NECK: No jugular venous distention. No carotid bruit. No lymph node enlargement. CARDIOVASCULAR SYSTEM: S1, S2 muffled. No S3. No S4. RESPIRATORY SYSTEM: Breath sounds diminished at the bases. Bilateral scattered rhonchi and crackles. Expiratory wheezing also present. ABDOMEN: Soft. Mild diffuse discomfort on palpation, especially on the left side. Otherwise, no guarding, no rigidity, no mass palpable. No rebound tenderness. Bowel sounds present. No ascites. LEGS: No edema. No swelling. NERVOUS SYSTEM: Higher functions as mentioned earlier. Moves all 4 limbs. No focal motor or sensory deficit. LYMPHATICS: No lymph node palpable in neck, axillae or groin. SKIN: No ulcer, rash, bleeding. JOINTS: No active deforming arthropathy. LABS: WBC 5.7, hemoglobin 13.1. Sodium 137, potassium 4.4. ASSESSMENT: 1. Abdominal pain with possible sigmoid lesion. No evidence of mass lesion or stricture in the colonoscopy. 2. Diverticulosis. 3. Left-sided abdominal pain. 4. Right-sided abdominal pain, possibly herpes zoster. 5. History of gastroesophageal reflux disease. 6. History of cerebrovascular accident, transient ischemic attack. 7. Hypertension. 8. Hyperlipidemia. 9. History of degenerative joint disease. 10.History of pneumonia. 11.History of prostate disorder. 12.History of gout. 13.History of nephrolithiasis. 14.History of cardiac arrest. 15.History of anxiety. RECOMMENDATIONS AND DISCUSSION: I recommend to continue current medications, continue with the monitoring, symptomatic treatment. Otherwise at this time I recommend acute abdominal series as well as a chest x-ray. Closely monitor. Symptomatic treatment will be provided. Guarded prognosis because of multiple complex medical issues. Further recommendations to follow. MMODL / IJN: [id number] /
[2019-01-15] MEDS: LISINOPRIL 20 MG TAB PO SCH (20:56)
[2019-01-15] MEDS: ATORVASTATIN 40 MG TAB PO SCH (20:56)
[2019-01-16 06:45] VITALS: BP 121/62; PULSE 92; RESP 16; TEMP 97.6
[2019-01-16] MEDS: valACYclovir 500 MG TAB PO SCH (06:53)
[2019-01-16] MEDS: HEPARIN SODIUM,PORCINE 5,000 UNIT/ML 1 ML VIAL SQ SCH (06:54)
[2019-01-16] MEDS ORDERED: LIDOCAINE 1% INJ 10MG/ML (20 ML MDV) ONE (12:21)
[2019-01-16] MEDS ORDERED: PROPOFOL 10 MG/ML 20 ML VIAL IV ONE (12:21)
[2019-01-16] MEDS ORDERED: GLUCAGON 1 MG/ML VIAL ONE (12:21)
--- NOTE | 2019-01-16 12:36 | P.PN ---
Progress Note - Text Progress Note Date: 01/16/19 The patient still has complaints of some left-sided abdominal pain. He states is better than yesterday. On exam his vital signs are stable. His abdomen is soft. There is some mild left-sided tenderness. Chronic abdominal pain. Patient was noted to have some mild enteritis on his CAT scan. We will consult GI for evaluation of possible enteritis.
--- NOTE | 2019-01-17 01:23 | DS ---
DISCHARGE SUMMARY FINAL DIAGNOSES: 1. Abdominal pain with possibly irritable bowel syndrome status post colonoscopy showing only diverticulosis. 2. Left-sided abdominal pain. 3. Right-sided abdominal pain possibly herpes zoster. 4. History of gastroesophageal reflux disease. 5. Cerebrovascular accident, transient ischemic attack. 6. Hypertension. 7. Hyperlipidemia. 8. History of degenerative joint disease. 9. History of pneumonia. 10.History of prostate disorder. 11.History of gout. 12.History of nephrolithiasis. 13.History of cardiac arrest. 14.History of anxiety. DISCHARGE DISPOSITION: The patient will be discharged in stable condition with guarded prognosis. HISTORY: This 73-year-old gentleman with a past medical history of multiple medical problems being followed by Dr. Zamarripa in the outpatient setting was admitted with abdominal pain. Initially sigmoid stricture was suspected but colonoscopy showed only diverticulosis. Dr. Mullen saw the patient and recommended gastroenterology evaluation. Otherwise, patient improved significant. Patient being discharged in stable condition with guarded prognosis. On exam, vitals are stable. Cardiovascular: S1, S2. Abdomen soft, nontender. No mass. No guarding. No rigidity. LEGS: No edema. No swelling. Central nervous system: No focal deficits. DISCHARGE ADVICE AND MEDICATIONS: 1. Discharge diet is cardiac diet. 2. Followup with Dr. Zamarripa in 2 weeks. 3. Follow up with Dr. Nguyen as advised. 4. Follow up with Surgery, Dr. Mullen as advised. DISCHARGE MEDICATIONS: 1. Ecotrin 160 mg q.h.s. 2. Lipitor 40 mg q.h.s. 3. Prinivil 20 mg q.h.s. 4. Ventolin 1-2 puffs q.6h p.r.n. 5. Colace 100 mg b.i.d. p.r.n. 6. Protonix 40 mg p.o. daily. 7. Tylenol p.r.n. 8. Valtrex 500 mg p.o. daily for 7 days, 1000 mg daily t.i.d. for 7 days. Once again the patient is being discharged in stable condition with guarded prognosis. MMODL / IJN: [id number] /
== END 2019-01-16 12:43 | disposition home or self-care (01) | DRG 392 ==
LOC: EC 11:16 → 4MS4W 17:04
PROVIDERS: ADMIT Hospitalist; ATTEND Hospitalist
PROC: 0DJD8ZZ Inspection of Lower Intestinal Tract, Via Natural or Artificial Opening Endoscopic (ICD-10-PCS; principal; 2019-01-15 11:00)
DX: K58.2 Mixed irritable bowel syndrome (principal); K57.30 Diverticulosis of large intestine without perforation or abscess without bleeding; I10 Essential (primary) hypertension; K21.9 Gastro-esophageal reflux disease without esophagitis; E78.5 Hyperlipidemia, unspecified; N20.0 Calculus of kidney; G89.29 Other chronic pain; M19.042 Primary osteoarthritis, left hand; M19.041 Primary osteoarthritis, right hand; N40.0 Benign prostatic hyperplasia without lower urinary tract symptoms; H93.13 Tinnitus, bilateral; Z79.82 Long term (current) use of aspirin; Z79.899 Other long term (current) drug therapy; Z86.74 Personal history of sudden cardiac arrest; Z86.73 Personal history of transient ischemic attack (TIA), and cerebral infarction without residual deficits; Z87.01 Personal history of pneumonia (recurrent); Z87.39 Personal history of other diseases of the musculoskeletal system and connective tissue; Z87.442 Personal history of urinary calculi; Z87.891 Personal history of nicotine dependence; Z90.49 Acquired absence of other specified parts of digestive tract; Z86.79 Personal history of other diseases of the circulatory system; Z86.19 Personal history of other infectious and parasitic diseases; Z86.010 Personal history of colon polyps; Z98.890 Other specified postprocedural states; Z86.59 Personal history of other mental and behavioral disorders; Z88.2 Allergy status to sulfonamides; Z88.7 Allergy status to serum and vaccine; Z80.42 Family history of malignant neoplasm of prostate; Z82.49 Family history of ischemic heart disease and other diseases of the circulatory system
CPT/HCPCS: 36415; 45378; 71046; 74021; 74177; 80048; 80053; 81001; 85025; 85652; 86140; 96361; 96374; 99284

== ENCOUNTER 2019-05-08 20:52 | Emergency (ER) | payer MEDICARE, BC ==
[2019-05-08 21:09] VITALS: BP 147/74; PULSE 94; RESP 20; TEMP 98.3
[2019-05-08] MEDS ORDERED: MORPHINE SULFATE 4 MG/ML SYRINGE IM STA (21:28)
--- NOTE | 2019-05-08 21:54 | XR ---
EXAMINATION TYPE: XR hand complete RT DATE OF EXAM: 05/08/2019 COMPARISON: NONE HISTORY: Pain TECHNIQUE: 3 views FINDINGS: there is soft tissue swelling on the dorsum of the hand. I see no fracture nor dislocation. Carpal b ones are intact. There are no erosions. There is mild spurring of the IP joints. There is spurring at the first carpometacarpal joint. IMPRESSION: Mild osteoarthritis. No fracture. Mild soft tissue swelling.
--- NOTE | 2019-05-08 22:20 | ED ---
General Adult HPI - General Chief complaint: Skin/Abscess/Foreign Body Stated complaint: Swollen hand, hand injury Time Seen by Provider: 05/08/19 21:17 Source: patient, RN notes reviewed, old records reviewed Mode of arrival: ambulatory Limitations: no limitations - History of Present Illness Initial comments: 73-year-old male patient presents with chief complaint of pain in dorsal aspect of right hand. Patient was to his working out in the yard by pushes when he felt himself get poked in the dorsal aspect of his hand. Patient does not know what it was, believes was a stick. Denies any gross thorns. Denies seeing any bugs or insects or spiders. Reports that he did bleed in the dorsal aspect of his right hand for a short period of time. Patient reports that he initially felt fine. Approximately 3 years ago patient began to develop pain and swelling of the dorsum of the hand. PAtient presents 6 hours after initial injury. Denies any other complaints at this time. Systemic: Pt denies fatigue, fever/chills, rash. Pt denies weakness, night sweats, weight loss. Neuro: Pt denies headache, visual disturbances, syncope or pre-syncope. HEENT: Pt denies ocular discharge or irritation, otalgia, rhinorrhea, pharyngitis or notable lymphadenopathy. Cardiopulmonary: Pt denies chest pain, SOB, heart palpitations, dyspnea on exertion. Abdominal/GI: Pt denies abdominal pain, n/v/d. : Pt denies dysuria, burning w/ urination, frequency/urgency. Denies new onset urinary or bowel incontinence. MSK: Pt denies myalgia, loss of strength or function in extremities. Neuro: Pt denies new onset weakness, paresthesias. - Related Data Home Medications Medication Instructions Recorded Confirmed Atorvastatin [Lipitor] 40 mg PO HS 10/18/14 01/13/19 Aspirin [Adult Low Dose Aspirin EC] 162 mg PO HS 08/31/16 01/13/19 Albuterol Inhaler [Ventolin Hfa 1 - 2 puff INHALATION RT-Q6H PRN 01/28/18 01/13/19 Inhaler] Lisinopril [Prinivil] 20 mg PO HS 04/21/18 01/13/19 Previous Rx's Medication Instructions Recorded valACYclovir HCL [Valtrex] 1,000 mg PO Q8HR 7 Days #21 tab 01/13/19 Acetaminophen Tab [Tylenol] 650 mg PO Q6HR PRN tab 01/16/19 Docusate [Colace] 100 mg PO BID #30 capsule 01/16/19 Pantoprazole Sodium [Protonix] 40 mg PO DAILY #30 tablet. 01/16/19 Hydrocodone/Acetaminophen [[place] 1 each PO Q6HR PRN 3 Days #12 tab 05/08/19 5-325] Allergies Allergy/AdvReac Type Severity Reaction Status Date / Time influenza virus vaccine, AdvReac "very ill Verified 05/08/19 21:09 specific after injection" sulfamethoxazole AdvReac Rash/Hives Verified 05/08/19 21:09 [From Bactrim] trimethoprim [From Bactrim] AdvReac Rash/Hives Verified 05/08/19 21:09 Review of Systems ROS Statement: Those systems with pertinent positive or pertinent negative responses have been documented in the HPI. ROS Other: All systems not noted in ROS Statement are negative. 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 History of Any Multi-Drug Resistant Organisms: None Reported Past Surgical History: Appendectomy, Cholecystectomy, Heart Catheterization, Hernia Repair, Orthopedic Surgery Additional Past Surgical History / Comment(s): Laparoscopic migue fundoplasty with extensive lysis of adhesions, bilateral inguinal hernia repairs, right carotid endarterectomy, left knee arthroscopy, sinus surgery, clint shoulder rotator cuff repairs, heel spur rt foot, EGD, colonoscopies/polypectomy, cystoscopy. Past Anesthesia/Blood Transfusion Reactions: Motion Sickness Additional Past Anesthesia/Blood Transfusion Reaction / Comment(s): . Past Psychological History: Anxiety Smoking Status: Never smoker Past Alcohol Use History: Rare Past Drug Use History: None Reported - Past Family History Brother(s) Family Medical History: Cancer Additional Family Medical History / Comment(s): prostate Mother Family Medical History: No Reported History Additional Family Medical History / Comment(s): Mother was healthy and lived to be 89yrs old. Father Family Medical History: Myocardial Infarction ([place]) Additional Family Medical History / Comment(s): Father had a [place] at the age of 60yrs and lived to be 80yrs old. General Exam - General Exam Comments Initial Comments: Constitutional: NAD, AOX3, Pt has pleasant affect. HEENT: NC/AT, trachea midline, neck supple, no lymphadenopathy. Posterior pharynx non erythematous, without exudates. External ears appear normal, without discharge. Mucous membranes moist. Eyes PERRLA, EOM intact. There is no scleral icterus. No pallor noted. Cardiopulmonary: RRR, no murmurs, rubs or gallops, no JVD noted. Lungs CTAB in anterior and posterior ríos. No peripheral edema. Abdominal exam: Abdomen soft and non-distended. Abdomen non-tender to palpation in all 4 quadrants. Bowel sounds active in LLQ. No hepatosplenomegaly. No ecchymosis Neuro: CN II-XII grossly intact. No nuchal rigidity. No raccon eyes, no regan sign, no hemotympanum. No cervical spinal tenderness. MSK: Dorsal aspect of right hand mild amount of erythema, soft tissue swelling. Range of motion of finger is limited slightly secondary to pain. Neurov ascularly intact. Radial pulse +2, Playful less than 2 seconds. Dorsal aspect of hand tender palpation. No posterior calf tenderness bilaterally, homans sign negative bilaterally. Posterior tibialis and radial pulse +2 bilaterally. Sensation intact in upper and lower extremities. Full active ROM in upper and lower extremities, 5/5 stregnth. Limitations: no limitations Course Vital Signs 05/08/19 21:07 Temperature 98.3 F Pulse Rate 94 Respiratory 20 Rate Blood Pressure 147/74 O2 Sat by Pulse 96 Oximetry Medical Decision Making - Medical Decision Making 73-year-old male patient presents with chief complaint of pain in dorsal aspect of right hand. Patient was to his working out in the yard by pushes when he felt himself get poked in the dorsal aspect of his hand. Patient does not know what it was, believes was a stick. Denies any gross thorns. Denies seeing any bugs or insects or spiders. Reports that he did bleed in the dorsal aspect of his right hand for a short period of time. Patient reports that he initially felt fine. Approximately 3 years ago patient began to develop pain and swelling of the dorsum of the hand. PAtient presents 6 hours after initial injury. Denies any other complaints at this time. Pt VSS, afebrile. Physical exam displayed: Dorsal aspect of right hand mild amount of erythema, soft tissue swelling. Range of motion of finger is limited slightly secondary to pain. Neurovascularly intact. Radial pulse +2, Playful less than 2 seconds. Dorsal aspect of hand tender palpation. Case discussed and patient seen by attending physician Dr. Samuel. Point of care ultrasound and plain films displayed mild ulcer arthritis, mild soft tissue swelling. Patient experiencing an acute inflammatory response. Patient will be discharged with analgesia. Will be advised to use ibuprofen as well. Patient will follow up with primary care provider and orthopedic consult if symptoms persist. Given strict return precautions. Disposition Clinical Impression: Hand pain Disposition: HOME SELF-CARE Condition: Stable Instructions (If sedation given, give patient instructions): Musculoskeletal Pain (ED) Additional Instructions: Patient to adhere to previously discussed treatment plan and will take medicatio n(s) as directed. Patient to follow up with PCP in 1-2 days. Patient to return to ED if symptoms do not improve. He pain medication as needed. Use ibuprofen as needed for inflammation as well. Follow-up with primary care provider tomorrow. Follow up with orthopedic consult if symptoms persist. Return to ER if condition worsens in any way. Prescriptions: Hydrocodone/Acetaminophen [[place] 5-325] 1 each PO Q6HR PRN 3 Days #12 tab PRN Reason: Pain Is patient prescribed a controlled substance at d/c from ED?: Yes When asked, does pt state using other controlled substances?: No If prescribed controlled substance>3 days was MAPS reviewed?: Prescribed <3 Days If opioid is for acute pain is fill amount 7 days or less?: Yes If Rx opioid, was Start Talking consent form obtained?: Yes Referrals: Ron Zamarripa DO [Primary Care Provider] - 1-2 days
--- NOTE | 2019-05-08 22:20 | ED ---
Disposition Clinical Impression: Hand pain Disposition: HOME SELF-CARE Condition: Stable Instructions (If sedation given, give patient instructions): Musculoskeletal Pain (ED) Additional Instructions: Patient to adhere to previously discussed treatment plan and will take medication(s) as directed. Patient to follow up with PCP in 1-2 days. Patient to return to ED if symptoms do not improve. He pain medication as needed. Use ibuprofen as needed for inflammation as well. Follow-up with primary care provider tomorrow. Follow up with orthopedic consult if symptoms persist. Return to ER if condition worsens in any way. Prescriptions: Hydrocodone/Acetaminophen [[place] 5-325] 1 each PO Q6HR PRN 3 Days #12 tab PRN Reason: Pain Is patient prescribed a controlled substance at d/c from ED?: Yes When asked, does pt state using other controlled substances?: No If prescribed controlled substance>3 days was MAPS reviewed?: Prescribed <3 Days If opioid is for acute pain is fill amount 7 days or less?: Yes If Rx opioid, was Start Talking consent form obtained?: Yes Referrals: Ron Zamarripa DO [Primary Care Provider] - 1-2 days Jeffrey Dorantes DO [Medical Doctor] - 1-2 days
== END 2019-05-08 22:30 | disposition home or self-care (01) ==
LOC: EC 20:52
DX: M79.641 Pain in right hand (principal); M79.89 Other specified soft tissue disorders; E78.5 Hyperlipidemia, unspecified; F41.9 Anxiety disorder, unspecified; I10 Essential (primary) hypertension; K21.9 Gastro-esophageal reflux disease without esophagitis; Z79.82 Long term (current) use of aspirin; Z79.899 Other long term (current) drug therapy; Z88.1 Allergy status to other antibiotic agents; Z88.2 Allergy status to sulfonamides; Z88.7 Allergy status to serum and vaccine; Z86.73 Personal history of transient ischemic attack (TIA), and cerebral infarction without residual deficits
CPT/HCPCS: 73130; 99284; 96372; J2270

== ENCOUNTER 2019-05-10 20:29 | Inpatient (IN) | payer MEDICARE, BC ==
[2019-05-10] MEDS ORDERED: SODIUM CHLORIDE 0.9% 1,000 ML IV STA (21:23)
[2019-05-10] MEDS ORDERED: VANCOMYCIN IV PER PHARMACY 1 EACH MISC MISCELLANE PRN (21:23)
[2019-05-10] MEDS ORDERED: VANCOMYCIN 1,500 MG in SODIUM CHLORIDE 0.9% 250 ML IVPB STA (21:27)
--- NOTE | 2019-05-10 21:50 | ED ---
Extremity Problem HPI - General Chief complaint: Extremity Problem,Nontraumatic Stated complaint: Swollen hand Time Seen by Provider: 05/10/19 20:58 Source: patient, RN notes reviewed, old records reviewed Mode of arrival: ambulatory Limitations: no limitations - History of Present Illness Initial comments: This is a 73-year-old male the ER for evaluation. Patient resents today for recheck of right hand injury right hand swelling right hand pain. Patient was recently or stung by something about a few days ago seen here in the ER and discharged home with supportive care. Patient returns today with increased swelling redness and erythema hand joints, difficulty with bending and flexing pain. And redness swelling approximately up the arm. No specific fevers. No other complaints MD Complaint: extremity pain, extremity swelling, other (Hand pain right hand pain) -: days(s) Location: right, other (Hand) History of Same: Yes (Getting worse) Radiation: proximal Severity scale (1-10): 6 Quality: aching Consistency: constant Improves with: nothing Worsens with: nothing Associated Symptoms: denies other symptoms - Related Data Home Medications Medication Instructions Recorded Confirmed Atorvastatin [Lipitor] 40 mg PO HS 10/18/14 05/10/19 Aspirin [Adult Low Dose Aspirin EC] 162 mg PO HS 08/31/16 05/10/19 Lisinopril [Prinivil] 20 mg PO HS 04/21/18 05/10/19 Hydrocodone/Acetaminophen [[place] 1 tab PO Q6HR PRN 05/10/19 05/10/19 5-325] Allergies Allergy/AdvReac Type Severity Reaction Status Date / Time influenza virus vaccine, AdvReac "very ill Verified 05/10/19 21:40 specific after injection" sulfamethoxazole AdvReac Rash/Hives Verified 05/10/19 21:40 [From Bactrim] trimethoprim [From Bactrim] AdvReac Rash/Hives Verified 05/10/19 21:40 Review of Systems ROS Statement: Those systems with pertinent positive or pertinent negative responses have been documented in the HPI. ROS Other: All systems not noted in ROS Statement are negative. 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 History of Any Multi-Drug Resistant Organisms: None Reported Past Surgical History: Appendectomy, Cholecystectomy, Heart Catheterization, Hernia Repair, Orthopedic Surgery Additional Past Surgical History / Comment(s): Laparoscopic migue fundoplasty w ith extensive lysis of adhesions, bilateral inguinal hernia repairs, right carotid endarterectomy, left knee arthroscopy, sinus surgery, clint shoulder rotator cuff repairs, heel spur rt foot, EGD, colonoscopies/polypectomy, cystoscopy. Past Anesthesia/Blood Transfusion Reactions: Motion Sickness Additional Past Anesthesia/Blood Transfusion Reaction / Comment(s): . Past Psychological History: Anxiety Smoking Status: Never smoker Past Alcohol Use History: Rare Past Drug Use History: None Reported - Past Family History Brother(s) Family Medical History: Cancer Additional Family Medical History / Comment(s): prostate Mother Family Medical History: No Reported History Additional Family Medical History / Comment(s): Mother was healthy and lived to be 89yrs old. Father Family Medical History: Myocardial Infarction ([place]) Additional Family Medical History / Comment(s): Father had a ME at the age of 60yrs and lived to be 80yrs old. General Exam Limitations: no limitations General appearance: alert, in no apparent distress Head exam: Present: atraumatic, normocephalic, normal inspection Eye exam: Present: normal appearance, PERRL, EOMI. Absent: scleral icterus, conjunctival injection, periorbital swelling ENT exam: Present: normal exam, mucous membranes moist Neck exam: Present: normal inspection. Absent: tenderness, meningismus, lymphadenopathy Respiratory exam: Present: normal lung sounds bilaterally. Absent: respiratory distress, wheezes, rales, rhonchi, stridor Cardiovascular Exam: Present: regular rate, normal rhythm, normal heart sounds. Absent: systolic murmur, diastolic murmur, rubs, gallop, clicks GI/Abdominal exam: Present: soft, normal bowel sounds. Absent: distended, tenderness, guarding, rebound, rigid Extremities exam: Present: normal capillary refill. Absent: normal inspection (Significant erythema redness and edema of right hand), full ROM (Decreased closing right fist), tenderness, pedal edema, joint swelling, calf tenderness Right General: Present: other (Bite injury noted to) Hand Wrist exam: Present: tenderness, swelling, erythema, other Back exam: Present: normal inspection Neurological exam: Present: alert, oriented X3, CN II-XII intact Psychiatric exam: Present: normal affect, normal mood Skin exam: Present: warm, dry, intact, normal color. Absent: rash Course Vital Signs 05/10/19 20:45 Temperature 98.1 F Pulse Rate 81 Respiratory 20 Rate Blood Pressure 129/80 O2 Sat by Pulse 97 Oximetry - Reevaluation(s) Reevaluation #1: 05/10/19 21:48 Medical records reviewed as well as prior ER visit Reevaluation #2: 05/10/19 21:49 Patient has good pain control currently Medical Decision Making - Medical Decision Making 73 male to the ED co R hand and wrist pain swelling and edema, cellulitis is felt outpatient treatment Disposition Clinical Impression: Cellulitis of right hand Disposition: ADMITTED IP TO THIS HOSP Condition: Fair Is patient prescribed a controlled substance at d/c from ED?: No Referrals: Ron Zamarripa DO [Primary Care Provider] - 1-2 days
[2019-05-10 22:23] LABS: INR 0.9 (<1.2); Partial Thromboplastin Time 23.4 sec (22.0-30.0); Prothrombin Time 9.8 sec (9.0-12.0)
[2019-05-10 22:26] LABS: ALT 51 U/L (21-72); AST 37 U/L (17-59); African American GFR (CKD) 82 (>60 ml/min/1.73 sqM); Albumin 4.8 g/dL (3.5-5.0); Alkaline Phosphatase 72 U/L (38-126); Anion Gap 8 mmol/L; Blood Urea Nitrogen 14 mg/dL (9-20); C Reactive Protein <5.0 mg/L (<10.0); Calcium 9.9 mg/dL (8.4-10.2); Carbon Dioxide 30 mmol/L (22-30); Chloride 102 mmol/L (98-107); Creatine Kinase 159 U/L (55-170); Glucose 78 mg/dL (74-99); Non-African American GFR(CKD) 71 (>60 ml/min/1.73 sqM); Phosphorus 3.5 mg/dL (2.5-4.5); Potassium 3.9 mmol/L (3.5-5.1); Sodium 140 mmol/L (137-145); Total Bilirubin 1.9 mg/dL (0.2-1.3); Total Protein 7.5 g/dL (6.3-8.2)
[2019-05-10 22:31] LABS: Basophils # (A) 0.1 k/uL (0-0.2); Basophils % (A) 1 %; Eosinophils # (A) 0.2 k/uL (0-0.7); Eosinophils % (A) 2 %; HCT 45.9 % (39.0-53.0); HGB 14.9 gm/dL (13.0-17.5); Lymphocytes # (A) 1.4 k/uL (1.0-4.8); Lymphocytes % (A) 15 %; MCH 29.8 pg (25.0-35.0); MCHC 32.4 g/dL (31.0-37.0); MCV 91.9 fL (80.0-100.0); Mean Platelet Volume 6.6; Monocytes # (A) 0.7 k/uL (0-1.0); Monocytes % (A) 8 %; Neutrophils # (A) 6.9 k/uL (1.3-7.7); Neutrophils % (A) 72 %; Platelet Count 269 k/uL (150-450); RBC 4.99 m/uL (4.30-5.90); RDW 12.7 % (11.5-15.5); WBC 9.6 k/uL (3.8-10.6)
[2019-05-11] MEDS: LISINOPRIL 20 MG TAB PO SCH ×2 (00:01→21:12)
[2019-05-11] MEDS: HYDROcodone/APAP 5-325MG 1 EACH TAB PO PRN ×2 (00:01→09:03)
[2019-05-11] MEDS: ASPIRIN 81 MG PO SCH ×2 (00:01→21:12)
[2019-05-11] MEDS: ATORVASTATIN 40 MG TAB PO SCH ×2 (00:01→21:12)
[2019-05-11] MEDS: VANCOMYCIN 1,500 MG in SODIUM CHLORIDE 0.9% 250 ML IVPB SCH ×2 (10:57→23:28)
--- NOTE | 2019-05-11 13:41 | P.HPIM ---
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 Patient had been trimming roses, obtained a poke and within 6 hours developed significant redness and edema of the right affected hand dorsal side. Patient was sent home from the ER on [place], antihistamines. Edema, redness, pain, numbness worsened, patient returned to the ER.IV fluids, Rocephin , [place] initiated. Patient reports significant improvement. Afebrile, normal WBC. CBC, CMP unremarkable. Denies chest pain, palpitations or increasing shortness of breath. Ambulating, tolerating exertion well. Denies lightheadedness, dizziness or focal deficits. Review of Systems ROS Statement: Those systems with pertinent positive or pertinent negative responses have been documented in the HPI. ROS Other: All systems not noted in ROS Statement are negative. 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 History of Any Multi-Drug Resistant Organisms: None Reported Past Surgical History: Appendectomy, Cholecystectomy, Heart Catheterization, Hernia Repair, Orthopedic Surgery Additional Past Surgical History / Comment(s): Laparoscopic migue fundoplasty with extensive lysis of adhesions, bilateral inguinal hernia repairs, right carotid endarterectomy, left knee arthroscopy, sinus surgery, clint shoulder rotator cuff repairs, heel spur rt foot, EGD, colonoscopies/polypectomy, cystoscopy. Past Anesthesia/Blood Transfusion Reactions: Motion Sickness Additional Past Anesthesia/Blood Transfusion Reaction / Comment(s): . Past Psychological History: Anxiety Additional Psychological History / Comment(s): Pt resides with his spouse of 52 yrs. He is independent. Smoking Status: Never smoker Past Alcohol Use History: Rare Additional Past Alcohol Use History / Comment(s): STARTED SMOKING IN 1965 AND QUIT IN 1970 Past Drug Use History: None Reported - Past Family History Brother(s) Family Medical History: Cancer Additional Family Medical History / Comment(s): prostate Mother Family Medical History: No Reported History Additional Family Medical History / Comment(s): Mother was healthy and lived to be 89yrs old. Father Family Medical History: Myocardial Infarction (NE) Additional Family Medical History / Comment(s): Father had a NE at the age of 60yrs and lived to be 80yrs old. Medications and Allergies Home Medications Medication Instructions Recorded Confirmed Type Atorvastatin [Lipitor] 40 mg PO HS 10/18/14 05/10/19 History Aspirin [Adult Low Dose Aspirin EC] 162 mg PO HS 08/31/16 05/10/19 History Lisinopril [Prinivil] 20 mg PO HS 04/21/18 05/10/19 History Hydrocodone/Acetaminophen [[place] 1 tab PO Q6HR PRN 05/10/19 05/10/19 History 5-325] Allergies Allergy/AdvReac Type Severity Reaction Status Date / Time influenza virus vaccine, AdvReac "very ill Verified 05/10/19 21:40 specific after injection" sulfamethoxazole AdvReac Rash/Hives Verified 05/10/19 21:40 [From Bactrim] trimethoprim [From Bactrim] AdvReac Rash/Hives Verified 05/10/19 21:40 Physical Exam Vitals: Vital Signs Temp Pulse Pulse Resp BP BP BP 05/11/19 08:23 05/11/19 07:00 97.5 F L 57 L 16 101/57 05/10/19 23:35 97.8 F 65 16 115/69 05/10/19 22:56 64 18 110/68 05/10/19 20:45 98.1 F 81 20 129/80 Pulse Ox 05/11/19 08:23 94 L 05/11/19 07:00 97 05/10/19 23:35 97 05/10/19 22:56 96 05/10/19 20:45 97 Intake and Output 05/10/19 05/11/19 05/11/19 22:59 06:59 14:59 Intake Total 118 Balance 118 Intake: Oral 118 Other: Voiding Method Toilet Toilet Weight 79.379 kg PHYSICAL EXAM: VITAL SIGNS: As above GENERAL: Sitting up, no acute distress. HEENT: Conjunctivae normal. eyes normal. Oral mucosa moist NECK: No JVD. No thyroid enlargement. No LNs.Trachea midline. CARDIOVASCULAR: S1, S2 regular. No murmur RESPIRATION: Breath sounds diminished in the bases. No rhonchi or crackles. No bronchial breathing. ABDOMEN: Soft, nontender . No guarding. no masses palpable. No ascites, No hepatosplenomegaly.Bowel sounds heard. LEGS: No edema. no swelling PSYCHIATRY: Alert and oriented X3, mood and affect normal. NERVOUS SYSTEM: Cranial N 2-12 grossly normal. Moves all 4 limbs. Diffuse weakness No focal deficits. Strength and sensation grossly intact.. Skin: Right dorsal hand edema, pink, warm extending through the fingertips, positive radial pulse. One tiny scabbed circular area mid dorsal, dry without drainage. Lymphatic system. No LN neck axilla. Results CBC & Chem 7: 05/10/19 21:45 05/10/19 21:45 Labs: Abnormal Lab Results - Last 24 Hours (Table) 05/10/19 Range/Units 21:45 Total Bilirubin 1.9 H (0.2-1.3) mg/dL Thrombosis Risk Factor Assmnt - Choose All That Apply Any of the Below Risk Factors Present?: Yes Each Factor Represents 1 point: Abnormal pulmonary function (COPD) Other Risk Factors: Yes Each Risk Factor Represents 2 Points: Age 61-74 years Other congenital or acquired thrombophilia - If yes, enter type in comment: No Thrombosis Risk Factor Assessment Total Risk Factor Score: 3 Thrombosis Risk Factor Assessment Level: Moderate Risk Assessment and Plan Assessment: Acute right hand cellulitis -COPD, stable -History of CVA, TIA with no residual -Hyperlipidemia -Hypertension -Osteoarthritis -Anxiety Plan: Continue on current medication regime ,monitoring and symptomatic treatment. Maintain antibiotics of IV Rocephin. DC [place], Tylenol/ice for pain control ordered. Nursing instructed to srinivas affected extremity-we'll continue to monitor. Home meds have been reviewed and resumed. The impression and plan of care has been dictated as directed. : I performed a history and examination of this patient, discussed the same with the dictator. I agree with the dictator's note ,documented as a scribe. Any additional findings or plans will be noted.
[2019-05-11] MEDS: PANTOPRAZOLE 40 MG/10 ML VIAL IVP SCH (15:20)
[2019-05-11] MEDS: ACETAMINOPHEN TAB 325 MG TAB PO PRN (17:47)
[2019-05-12] MEDS: ACETAMINOPHEN TAB 325 MG TAB PO PRN ×2 (02:41→18:28)
[2019-05-12 06:53] LABS: African American GFR (CKD) >90 (>60 ml/min/1.73 sqM); Non-African American GFR(CKD) 86 (>60 ml/min/1.73 sqM)
[2019-05-12] MEDS: PANTOPRAZOLE 40 MG/10 ML VIAL IVP SCH (07:31)
[2019-05-12] MEDS: POLYETHYLENE GLYCOL 3350 17 GM POWD.PACK PO SCH (10:51)
[2019-05-12] MEDS: VANCOMYCIN 1,500 MG in SODIUM CHLORIDE 0.9% 250 ML IVPB SCH ×2 (10:51→22:18)
[2019-05-12] MEDS: ASPIRIN 81 MG PO SCH (21:27)
[2019-05-12] MEDS: ATORVASTATIN 40 MG TAB PO SCH (21:28)
[2019-05-12] MEDS: LISINOPRIL 20 MG TAB PO SCH (21:28)
[2019-05-13] MEDS ORDERED: ACETAMINOPHEN TAB 325 MG TAB ONE (04:30)
[2019-05-13] MEDS: POLYETHYLENE GLYCOL 3350 17 GM POWD.PACK PO SCH (08:06)
[2019-05-13] MEDS: PANTOPRAZOLE 40 MG TABLET PO SCH (08:06)
[2019-05-13 08:21] LABS: African American GFR (CKD) >90 (>60 ml/min/1.73 sqM); Anion Gap 6 mmol/L; Blood Urea Nitrogen 13 mg/dL (9-20); Calcium 9.5 mg/dL (8.4-10.2); Carbon Dioxide 28 mmol/L (22-30); Chloride 106 mmol/L (98-107); Glucose 100 mg/dL (74-99); Non-African American GFR(CKD) 84 (>60 ml/min/1.73 sqM); Potassium 4.2 mmol/L (3.5-5.1); Sodium 140 mmol/L (137-145)
[2019-05-13 08:31] LABS: Basophils # (A) 0.1 k/uL (0-0.2); Basophils % (A) 1 %; Eosinophils # (A) 0.2 k/uL (0-0.7); Eosinophils % (A) 3 %; HCT 39.9 % (39.0-53.0); HGB 13.6 gm/dL (13.0-17.5); Lymphocytes # (A) 1.1 k/uL (1.0-4.8); Lymphocytes % (A) 18 %; MCHC 34.2 g/dL (31.0-37.0); MCV 90.9 fL (80.0-100.0); Mean Platelet Volume 6.2; Monocytes # (A) 0.4 k/uL (0-1.0); Monocytes % (A) 7 %; Neutrophils # (A) 3.9 k/uL (1.3-7.7); Neutrophils % (A) 67 %; Platelet Count 236 k/uL (150-450); RBC 4.39 m/uL (4.30-5.90); RDW 12.5 % (11.5-15.5); WBC 5.9 k/uL (3.8-10.6)
[2019-05-13] MEDS ORDERED: VANCOMYCIN TROUGH DUE 1 EACH MISC MISCELLANE ONE (10:00)
--- NOTE | 2019-05-13 10:18 | P.PN ---
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 Patient had been trimming roses, obtained a poke and within 6 hours developed significant redness and edema of the right affected hand dorsal side. Patient was sent home from the ER on [place], antihistamines. Edema, redness, pain, numbness worsened, patient returned to the ER.IV fluids, Rocephin , [place] initiated. Patient reports significant improvement. Afebrile, normal WBC. CBC, CMP unremarkable. Denies chest pain, palpitations or increasing shortness of breath. Ambulating, tolerating exertion well. Denies lightheadedness, dizziness or focal deficits. 05/12/2019 significant clinical improvement on Rocephin/vancomycin IV. Creatinine 0.87. Decreased swelling, redness. Afebrile. Denies nausea, vomiting. No abdominal pain. Denies chest pain, palpitations or shortness of breath. Denies lightheadedness, dizziness or focal deficits Objective - Vital Signs Vital signs: Vital Signs Temp 98.2 F 05/12/19 07:00 Pulse 62 05/12/19 07:00 Resp 18 05/12/19 07:00 BP 130/74 05/12/19 07:00 Pulse Ox 97 05/12/19 07:00 Intake & Output 05/11/19 05/12/19 05/12/19 18:59 06:59 18:59 Intake Total 518 1250 200 Balance 518 1250 200 Intake: Intake, IV Titration 1250 Amount Sodium Chloride 0.9% 1, 1000 000 ml @ 100 mls/hr IV . Q10H STA Rx#:[id number] Vancomycin 1,500 mg In 250 Sodium Chloride 0.9% 250 ml @ 125 mls/hr IVPB Q12H MARKY Rx#:[id number] Oral 518 200 Other: Voiding Method Toilet # Voids 2 - Exam VITAL SIGNS: As above GENERAL: Sitting up in chair, no acute distress. HEENT: Conjunctivae normal. eyes normal. Oral mucosa moist NECK: No JVD. No thyroid enlargement. No LNs.Trachea midline. CARDIOVASCULAR: S1, S2 regular. No murmur RESPIRATION: Breath sounds diminished in the bases. No rhonchi or crackles. No bronchial breathing. ABDOMEN: Soft, nontender . No guarding. no masses palpable. No ascites, No hepatosplenomegaly.Bowel sounds heard. LEGS: No edema. no swelling PSYCHIATRY: Alert and oriented X3, mood and affect normal. NERVOUS SYSTEM: Cranial N 2-12 grossly normal. Moves all 4 limbs. Diffuse weakness No focal deficits. Strength and sensation grossly intact.. Skin: Right dorsal hand edema, pinkness improving, positive radial pulse. One tiny scabbed circular area mid dorsal, dry without drainage. Lymphatic system. No LN neck axilla. - Labs CBC & Chem 7: 05/13/19 06:45 05/13/19 06:45 Labs: Microbiology - Last 24 Hours (Table) 05/10/19 21:45 Blood Culture - Preliminary Blood No Growth after 24 hours Assessment and Plan Assessment: Acute right hand cellulitis -COPD, stable -History of CVA, TIA with no residual -Hyperlipidemia -Hypertension -Osteoarthritis -Anxiety Plan: Continue on current medication regime ,monitoring and symptomatic tr eatment. Maintain antibiotics of IV Rocephin/vancomycin for another 24 hours. Close monitoring of renal function. DC planning in progress for the next 24-48 hours. The impression and plan of care has been dictated as directed. : I performed a history and examination of this patient, discussed the same with the dictator. I agree with the dictator's note ,documented as a scribe. Any a dditional findings or plans will be noted.
[2019-05-13] MEDS: VANCOMYCIN 1,500 MG in SODIUM CHLORIDE 0.9% 250 ML IVPB SCH (10:50)
--- NOTE | 2019-05-13 18:06 | P.PN ---
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 Patient had been trimming roses, obtained a poke and within 6 hours developed significant redness and edema of the right affected hand dorsal side. Patient was sent home from the ER on [place], antihistamines. Edema, redness, pain, numbness worsened, patient returned to the ER.IV fluids, Rocephin , [place] initiated. Patient reports significant improvement. Afebrile, normal WBC. CBC, CMP unremarkable. Denies chest pain, palpitations or increasing shortness of breath. Ambulating, tolerating exertion well. Denies lightheadedness, dizziness or focal deficits. 05/12/2019 significant clinical improvement on Rocephin/vancomycin IV. Creatinine 0.87. Decreased swelling, redness. Afebrile. Denies nausea, vomiting. No abdominal pain. Denies chest pain, palpitations or shortness of breath. Denies lightheadedness, dizziness or focal deficits 05/13/2019 maintained on IV antibiotics, significant clinical improvement. Afebrile. Preliminary blood cultures reporting no growth at 48 hours.VSS. Objective - Vital Signs Vital signs: Vital Signs Temp 98.2 F 05/13/19 15:00 Pulse 60 05/13/19 15:00 Resp 18 05/13/19 15:00 BP 115/64 05/13/19 15:00 Pulse Ox 94 L 05/13/19 15:00 Intake & Output 05/12/19 05/13/19 05/13/19 18:59 06:59 18:59 Intake Total 800 200 Balance 800 200 Intake: Oral 800 200 Other: Voiding Method Toilet # Voids 3 1 3 - Exam VITAL SIGNS: As above GENERAL: Sitting up in chair, no acute distress. HEENT: Conjunctivae normal. eyes normal. Oral mucosa moist NECK: No JVD. No thyroid enlargement. No LNs.Trachea midline. CARDIOVASCULAR: S1, S2 regular. No murmur RESPIRATION: Breath sounds diminished in the bases. No rhonchi or crackles. No bronchial breathing. ABDOMEN: Soft, nontender . No guarding. no masses palpable. No ascites, No hepatosplenomegaly.Bowel sounds heard. LEGS: No edema. no swelling PSYCHIATRY: Alert and oriented X3, mood and affect normal. NERVOUS SYSTEM: Cranial N 2-12 grossly normal. Moves all 4 limbs. Diffuse weakness No focal deficits. Strength and sensation grossly intact.. Skin: Right dorsal hand continued decreasing edema, pinkness, positive radial pulse. - Labs CBC & Chem 7: 05/13/19 06:45 05/13/19 06:45 Labs: Abnormal Lab Results - Last 24 Hours (Table) 05/13/19 Range/Units 06:45 Glucose 100 H (74-99) mg/dL Microbiology - Last 24 Hours (Table) 05/10/19 21:45 Blood Culture - Preliminary Blood No Growth after 48 hours Assessment and Plan Assessment: Acute right hand cellulitis -COPD, stable -History of CVA, TIA with no residual -Hyperlipidemia -Hypertension -Osteoarthritis -Anxiety Plan: Continue on current medication regime ,monitoring and symptomatic treatment. Maintain IV antibiotics. Discharge planning in progress for [place] w. The impression and plan of care has been dictated as directed. : I performed a history and examination of this patient, discussed the same with the dictator. I agree with the dictator's note ,documented as a scribe. Any additional findings or plans will be noted.
[2019-05-13] MEDS: ASPIRIN 81 MG PO SCH (21:02)
[2019-05-13] MEDS: ATORVASTATIN 40 MG TAB PO SCH (21:02)
[2019-05-13] MEDS: LISINOPRIL 20 MG TAB PO SCH (21:02)
[2019-05-13] MEDS: VANCOMYCIN 1,250 MG in SODIUM CHLORIDE 0.9% 250 ML IVPB SCH (23:47)
[2019-05-14 07:21] VITALS: RESP 16
[2019-05-14 08:16] LABS: Basophils # (A) 0.1 k/uL (0-0.2); Basophils % (A) 1 %; Eosinophils # (A) 0.2 k/uL (0-0.7); Eosinophils % (A) 3 %; HCT 42.2 % (39.0-53.0); HGB 13.7 gm/dL (13.0-17.5); Lymphocytes # (A) 1.1 k/uL (1.0-4.8); Lymphocytes % (A) 18 %; MCH 29.6 pg (25.0-35.0); MCHC 32.3 g/dL (31.0-37.0); MCV 91.7 fL (80.0-100.0); Mean Platelet Volume 6.6; Monocytes # (A) 0.4 k/uL (0-1.0); Monocytes % (A) 7 %; Neutrophils # (A) 4.2 k/uL (1.3-7.7); Neutrophils % (A) 68 %; Platelet Count 239 k/uL (150-450); RBC 4.61 m/uL (4.30-5.90); RDW 12.7 % (11.5-15.5); WBC 6.2 k/uL (3.8-10.6)
[2019-05-14 08:30] LABS: African American GFR (CKD) >90 (>60 ml/min/1.73 sqM); Anion Gap 9 mmol/L; Blood Urea Nitrogen 13 mg/dL (9-20); Calcium 9.4 mg/dL (8.4-10.2); Carbon Dioxide 26 mmol/L (22-30); Chloride 106 mmol/L (98-107); Glucose 138 mg/dL (74-99); Non-African American GFR(CKD) 80 (>60 ml/min/1.73 sqM); Potassium 4.4 mmol/L (3.5-5.1); Sodium 141 mmol/L (137-145)
[2019-05-14] MEDS: POLYETHYLENE GLYCOL 3350 17 GM POWD.PACK PO SCH (10:46)
[2019-05-14] MEDS: PANTOPRAZOLE 40 MG TABLET PO SCH (10:46)
[2019-05-14] MEDS: VANCOMYCIN 1,250 MG in SODIUM CHLORIDE 0.9% 250 ML IVPB SCH (13:06)
[2019-05-14 14:17] VITALS: BP 135/81; PULSE 65; TEMP 98.2
--- NOTE | 2019-05-14 14:47 | P.DS ---
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 Patient had been trimming roses, obtained a poke and within 6 hours developed significant redness and edema of the right affected hand dorsal side. Patient was sent home from the ER on [place], antihistamines. Edema, redness, pain, numbness worsened, patient returned to the ER.IV fluids, Rocephin , [place] initiated. Patient reports significant improvement. Afebrile, normal WBC. CBC, CMP unremarkable. Denies chest pain, palpitations or increasing shortness of breath. Ambulating, tolerating exertion well. Denies lightheadedness, dizziness or focal deficits. 05/12/2019 significant clinical improvement on Rocephin/vancomycin IV. Creatinine 0.87. Decreased swelling, redness. Afebrile. Denies nausea, vomiting. No abdominal pain. Denies chest pain, palpitations or shortness of breath. Denies lightheadedness, dizziness or focal deficits 05/13/2019 maintained on IV antibiotics, significant clinical improvement. Afebrile. Preliminary blood cultures reporting no growth at 48 hours.VSS. Maintained on vancomycin and Rocephin with significant clinical improvement. Minimal pinkness, edema,positive fine motor,radial pulse.Afebrile, blood cultures reporting no growth at 72 hours. Patient is being discharged home in a stable condition with guarded prognosis. - Exam GENERAL: Alert and oriented 3, no acute distress. CARDIOVASCULAR: S1, S2 regular. No murmur RESPIRATION: Breath sounds diminished in the bases. No rhonchi or crackles. No wheezing. ABDOMEN: Soft, nontender . No guarding. no masses palpable. Bowel sounds heard. NERVOUS SYSTEM: No focal deficits. The impression and plan of care has been dictated as directed. : I performed a history and examination of this patient, discussed the same with the dictator. I agree with the dictator's note ,documented as a scribe. Any additional findings or plans will be noted. Patient Condition at Discharge: Stable Plan - Discharge Summary Discharge Rx Participant: No New Discharge Prescriptions: New Cephalexin [Keflex] 500 mg PO Q8H #21 cap Polyethylene Glycol 3350 [Miralax] 17 gm PO DAILY powd.pack Pantoprazole [Protonix] 40 mg PO DAILY #10 tablet. Acetaminophen Tab [Tylenol] 650 mg PO Q6HR PRN tab PRN Reason: Fever and/ or Mild Pain Continue Atorvastatin [Lipitor] 40 mg PO HS Aspirin [Adult Low Dose Aspirin EC] 162 mg PO HS Lisinopril [Prinivil] 20 mg PO HS Discontinued Hydrocodone/Acetaminophen [[place] 5-325] 1 tab PO Q6HR PRN PRN Reason: Pain Discharge Medication List Atorvastatin [Lipitor] 40 mg PO HS 10/18/14 [History] Aspirin [Adult Low Dose Aspirin EC] 162 mg PO HS 08/31/16 [History] Lisinopril [Prinivil] 20 mg PO HS 04/21/18 [History] Acetaminophen Tab [Tylenol] 650 mg PO Q6HR PRN tab 05/14/19 [Rx] Cephalexin [Keflex] 500 mg PO Q8H #21 cap 05/14/19 [Rx] Pantoprazole [Protonix] 40 mg PO DAILY #10 tablet. 05/14/19 [Rx] Polyethylene Glycol 3350 [Miralax] 17 gm PO DAILY powd.pack 05/14/19 [Rx] Follow up Appointment(s)/Referral(s): Ron Zamarripa DO [Primary Care Provider] - 05/18/19 1:00 pm Patient Instructions/Handouts: Cellulitis (DC) Activity/Diet/Wound Care/Special Instructions: DC after patient receives a.m. IV Vancomycin
== END 2019-05-14 15:34 | disposition home or self-care (01) | DRG 603 ==
LOC: EC 20:29 → 4SSUR 21:50 → OBSVTOIN 05-12 10:38
PROVIDERS: ADMIT Family Medicine; ATTEND Family Medicine
DX: L03.113 Cellulitis of right upper limb (principal); J44.9 Chronic obstructive pulmonary disease, unspecified; E78.5 Hyperlipidemia, unspecified; F41.9 Anxiety disorder, unspecified; I10 Essential (primary) hypertension; K21.9 Gastro-esophageal reflux disease without esophagitis; M19.042 Primary osteoarthritis, left hand; M19.041 Primary osteoarthritis, right hand; H93.13 Tinnitus, bilateral; N40.0 Benign prostatic hyperplasia without lower urinary tract symptoms; Z79.82 Long term (current) use of aspirin; Z79.899 Other long term (current) drug therapy; Z86.73 Personal history of transient ischemic attack (TIA), and cerebral infarction without residual deficits; Z87.891 Personal history of nicotine dependence; Z88.1 Allergy status to other antibiotic agents; Z88.2 Allergy status to sulfonamides; Z88.7 Allergy status to serum and vaccine; Z90.49 Acquired absence of other specified parts of digestive tract; Z86.010 Personal history of colon polyps; Z87.01 Personal history of pneumonia (recurrent); Z87.442 Personal history of urinary calculi; Z82.49 Family history of ischemic heart disease and other diseases of the circulatory system; Z80.42 Family history of malignant neoplasm of prostate
CPT/HCPCS: 36415; 80048; 80053; 80202; 82550; 82565; 83605; 83735; 84100; 85025; 85610; 85730; 86140; 87040; 93005; 94760; 96365; 99285

== ENCOUNTER 2019-05-28 18:50 | Observation (INO) | payer MEDICARE, BC ==
[2019-05-28] MEDS ORDERED: NITROGLYCERIN OINT 1 INCH/GM PACKET TOPICAL STA (19:25)
[2019-05-28] MEDS ORDERED: ASPIRIN 81 MG PO STA (19:25)
--- NOTE | 2019-05-28 19:36 | ED ---
General Adult HPI - General Chief complaint: Shortness of Breath Stated complaint: trouble breathing Time Seen by Provider: 05/28/19 18:50 Source: patient, RN notes reviewed Mode of arrival: ambulatory Limitations: no limitations - History of Present Illness Initial comments: This is a 73-year-old male who presents emergency Department with left-sided c hest pain. Patient states it started last evening has been pretty constant since per patient also states he has been very short of breath with the chest pain. Patient denies any diaphoretic episodes. Patient denies any radiation of the pain. Patient denies any nausea with the pain. Patient states he had a catheterization over 10 years ago but has had no reasonable back to cardiology since. Patient states she does have high blood pressure high cholesterol and has a family history with the father had a heart attack. Patient denies smoking. Patient denies any history of diabetes. Patient denies any palpitations. Patient denies any recent fever chills or cough. Patient denies lightheadedness dizziness or near syncopal episode. Patient denies any recent trips or travel. Patient denies any leg swelling or calf tenderness. Patient denies any abdominal pain. - Related Data Home Medications Medication Instructions Recorded Confirmed Atorvastatin [Lipitor] 40 mg PO HS 10/18/14 05/28/19 Aspirin [Adult Low Dose Aspirin EC] 162 mg PO HS 08/31/16 05/28/19 Lisinopril [Prinivil] 20 mg PO HS 04/21/18 05/28/19 Allergies Allergy/AdvReac Type Severity Reaction Status Date / Time influenza virus vaccine, AdvReac "very ill Verified 05/28/19 19:25 specific after injection" sulfamethoxazole AdvReac Rash/Hives Verified 05/28/19 19:25 [From Bactrim] trimethoprim [From Bactrim] AdvReac Rash/Hives Verified 05/28/19 19:25 Review of Systems ROS Statement: Those systems with pertinent positive or pertinent negative responses have been documented in the HPI. ROS Other: All systems not noted in ROS Statement are negative. 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 History of Any Multi-Drug Resistant Organisms: None Reported Past Surgical History: Appendectomy, Cholecystectomy, Heart Catheterization, Hernia Repair, Orthopedic Surgery Additional Past Surgical History / Comment(s): Laparoscopic migue fundoplasty with extensive lysis of adhesions, bilateral inguinal hernia repairs, right carotid endarterectomy, left knee arthroscopy, sinus surgery, clint shoulder rotator cuff repairs, heel spur rt foot, EGD, colonoscopies/polypectomy, cystoscopy. Past Anesthesia/Blood Transfusion Reactions: Motion Sickness Additional Past Anesthesia/Blood Transfusion Reaction / Comment(s): . Past Psychological History: Anxiety Smoking Status: Never smoker Past Alcohol Use History: Rare Past Drug Use History: None Reported - Past Family History Brother(s) Family Medical History: Cancer Additional Family Medical History / Comment(s): prostate Mother Family Medical History: No Reported History Additional Family Medical History / Comment(s): Mother was healthy and lived to be 89yrs old. Father Family Medical History: Myocardial Infarction (ME) Additional Family Medical History / Comment(s): Father had a ME at the age of 60yrs and lived to be 80yrs old. General Exam - General Exam Comments Initial Comments: GENERAL: Patient is well-developed and well-nourished. Patient is nontoxic and well- hydrated and is in mild distress. ENT: Neck is soft and supple. No significant lymphadenopathy is noted. Oropharynx is clear. Moist mucous membranes. Neck has full range of motion without eliciting any pain. EYES: The sclera were anicteric and conjunctiva were pink and moist. Extraocular movements were intact and pupils were equal round and reactive to light. Eyelids were unremarkable. PULMONARY: Unlabored respirations. Good breath sounds bilaterally. No audible rales rhonchi or wheezing was noted. CARDIOVASCULAR: There is a regular rate and rhythm without any murmurs gallops or rubs. ABDOMEN: Soft and nontender with normal bowel sounds. No palpable organomegaly was noted. There is no palpable pulsatile mass. SKIN: Skin is clear with no lesions or rashes and otherwise unremarkable. NEUROLOGIC: Patient is alert and oriented x3. Cranial nerves II through XII are grossly intact. Motor and sensory are also intact. Normal speech, volume and content. Symmetrical smile. MUSCULOSKELETAL: Normal extremities with adequate strength and full range of motion. No lower extremity swelling or edema. No calf tenderness. LYMPHATICS: No significant lymphadenopathy is noted PSYCHIATRIC: Normal psychiatric evaluation. Limitations: no limitations Course Vital Signs 05/28/19 05/28/19 18:51 19:55 Temperature 98 F Pulse Rate 94 79 Respiratory 22 18 Rate Blood Pressure 150/84 136/78 O2 Sat by Pulse 96 94 L Oximetry Medical Decision Making - Medical Decision Making EKG shows normal sinus rhythm at 70 bpm [place] interval is 136 QRS is under QT interval 418 QTC is 451. Patient's EKG shows no ST segment elevation or depression. Chest x-ray shows no acute normalities. Patient states the Nitropaste seem to improve his chest pain but he still has a little residual chest pain. I spoke with Dr. Zamarripa he agreed to admit the patient admitted the patient I consult to cardiology - Lab Data Result diagrams: 05/28/19 19:45 05/28/19 19:45 Lab Results 05/28/19 05/28/19 05/28/19 Range/Units 19:45 19:45 19:45 WBC 7.3 (3.8-10.6) k/uL RBC 4.39 (4.30-5.90) m/uL Hgb 13.7 (13.0-17.5) gm/dL Hct 39.3 (39.0-53.0) % MCV 89.6 (80.0-100.0) fL MCH 31.3 (25.0-35.0) pg MCHC 34.9 (31.0-37.0) g/dL RDW 12.5 (11.5-15.5) % Plt Count 243 (150-450) k/uL Neutrophils % 76 % Lymphocytes % 12 % Monocytes % 7 % Eosinophils % 1 % Basophils % 1 % Neutrophils # 5.5 (1.3-7.7) k/uL Lymphocytes # 0.9 L (1.0-4.8) k/uL Monocytes # 0.5 (0-1.0) k/uL Eosinophils # 0.1 (0-0.7) k/uL Basophils # 0.1 (0-0.2) k/uL PT 10.8 (9.0-12.0) sec INR 1.0 (<1.2) APTT 23.4 (22.0-30.0) sec Sodium 138 (137-145) mmol/L Potassium 3.9 (3.5-5.1) mmol/L Chloride 106 (98-107) mmol/L Carbon Dioxide 24 (22-30) mmol/L Anion Gap 8 mmol/L BUN 15 (9-20) mg/dL Creatinine 0.95 (0.66-1.25) mg/dL Est GFR (CKD-EPI)AfAm >90 (>60 ml/min/1.73 sqM) Est GFR (CKD-EPI)NonAf 80 (>60 ml/min/1.73 sqM) Glucose 110 H (74-99) mg/dL Calcium 9.5 (8.4-10.2) mg/dL Magnesium 1.8 (1.6-2.3) mg/dL Total Bilirubin 1.9 H (0.2-1.3) mg/dL AST 44 (17-59) U/L ALT 59 (21-72) U/L Alkaline Phosphatase 63 (38-126) U/L Troponin I (0.000-0.034) ng/mL Total Protein 6.4 (6.3-8.2) g/dL Albumin 4.1 (3.5-5.0) g/dL 05/28/19 Range/Units 19:45 WBC (3.8-10.6) k/uL RBC (4.30-5.90) m/uL Hgb (13.0-17.5) gm/dL Hct (39.0-53.0) % MCV (80.0-100.0) fL MCH (25.0-35.0) pg MCHC (31.0-37.0) g/dL RDW (11.5-15.5) % Plt Count (150-450) k/uL Neutrophils % % Lymphocytes % % Monocytes % % Eosinophils % % Basophils % % Neutrophils # (1.3-7.7) k/uL Lymphocytes # (1.0-4.8) k/uL Monocytes # (0-1.0) k/uL Eosinophils # (0-0.7) k/uL Basophils # (0-0.2) k/uL PT (9.0-12.0) sec INR (<1.2) APTT (22.0-30.0) sec Sodium (137-145) mmol/L Potassium (3.5-5.1) mmol/L Chloride (98-107) mmol/L Carbon Dioxide (22-30) mmol/L Anion Gap mmol/L BUN (9-20) mg/dL Creatinine (0.66-1.25) mg/dL Est GFR (CKD-EPI)AfAm (>60 ml/min/1.73 sqM) Est GFR (CKD-EPI)NonAf (>60 ml/min/1.73 sqM) Glucose (74-99) mg/dL Calcium (8.4-10.2) mg/dL Magnesium (1.6-2.3) mg/dL Total Bilirubin (0.2-1.3) mg/dL AST (17-59) U/L ALT (21-72) U/L Alkaline Phosphatase (38-126) U/L Troponin I <0.012 (0.000-0.034) ng/mL Total Protein (6.3-8.2) g/dL Albumin (3.5-5.0) g/dL Disposition Clinical Impression: Chest pain Disposition: ADMITTED IP TO THIS HOSP Referrals: Ron Zamarripa DO [Primary Care Provider] - 1-2 days Time of Disposition: 20:46
[2019-05-28 20:01] LABS: Basophils # (A) 0.1 k/uL (0-0.2); Basophils % (A) 1 %; Eosinophils # (A) 0.1 k/uL (0-0.7); Eosinophils % (A) 1 %; HCT 39.3 % (39.0-53.0); HGB 13.7 gm/dL (13.0-17.5); Lymphocytes # (A) 0.9 k/uL (1.0-4.8); Lymphocytes % (A) 12 %; MCH 31.3 pg (25.0-35.0); MCHC 34.9 g/dL (31.0-37.0); MCV 89.6 fL (80.0-100.0); Mean Platelet Volume 6.1; Monocytes # (A) 0.5 k/uL (0-1.0); Monocytes % (A) 7 %; Neutrophils # (A) 5.5 k/uL (1.3-7.7); Neutrophils % (A) 76 %; Platelet Count 243 k/uL (150-450); RBC 4.39 m/uL (4.30-5.90); RDW 12.5 % (11.5-15.5); WBC 7.3 k/uL (3.8-10.6)
[2019-05-28 20:10] LABS: Partial Thromboplastin Time 23.4 sec (22.0-30.0); Prothrombin Time 10.8 sec (9.0-12.0)
[2019-05-28 20:15] LABS: ALT 59 U/L (21-72); AST 44 U/L (17-59); African American GFR (CKD) >90 (>60 ml/min/1.73 sqM); Albumin 4.1 g/dL (3.5-5.0); Alkaline Phosphatase 63 U/L (38-126); Anion Gap 8 mmol/L; Blood Urea Nitrogen 15 mg/dL (9-20); Calcium 9.5 mg/dL (8.4-10.2); Carbon Dioxide 24 mmol/L (22-30); Chloride 106 mmol/L (98-107); Glucose 110 mg/dL (74-99); Magnesium 1.8 mg/dL (1.6-2.3); Non-African American GFR(CKD) 80 (>60 ml/min/1.73 sqM); Potassium 3.9 mmol/L (3.5-5.1); Sodium 138 mmol/L (137-145); Total Bilirubin 1.9 mg/dL (0.2-1.3); Total Protein 6.4 g/dL (6.3-8.2)
[2019-05-28] MEDS ORDERED: NITROGLYCERIN SL TABS 0.4 MG TAB SUBLINGUAL PRN (20:46)
[2019-05-28] MEDS ORDERED: LORazepam 2 MG/ML INJ IV STA (20:47)
[2019-05-28 22:01] VITALS: BMI 22.4
[2019-05-28] MEDS: NITROGLYCERIN OINT 1 INCH/GM PACKET TOPICAL SCH (23:36)
[2019-05-29] MEDS: NITROGLYCERIN OINT 1 INCH/GM PACKET TOPICAL SCH (03:22)
[2019-05-29 07:45] LABS: Cholesterol 109 mg/dL (<200); HDL Cholesterol 46 mg/dL (40-60); LDL Cholesterol,Calculated 48 mg/dL (0-99); Triglycerides 74 mg/dL (<150)
[2019-05-29] MEDS ORDERED: SODIUM CHLORIDE 0.9% 1,000 ML IV SCH (08:30)
--- NOTE | 2019-05-29 08:33 | XR ---
EXAMINATION TYPE: XR chest 2V DATE OF EXAM: 05/28/2019 COMPARISON: 01/15/2019 INDICATION: Chest pain TECHNIQUE: Frontal and lateral views of the chest are obtained. FINDINGS: The heart size is normal. The pulmonary vasculature is normal. The lungs are clear. IMPRESSION: 1. No acute pulmonary process.
[2019-05-29] MEDS ORDERED: ASPIRIN 325 MG TAB PO SCH (09:00)
[2019-05-29] MEDS ORDERED: ASPIRIN 81 MG PO SCH (09:00)
--- NOTE | 2019-05-29 09:54 | P.CRDCN ---
History of Present Illness History of present illness: This is a pleasant 73-year-old male past medical history significant for dyslipidemia, hypertension and anxiety. He follows in the office with Dr. Palma. We have been asked to see him in consultation secondary to chest discomfort. He states for the previous 3 days he has been feeling a discomfort in the left anterior chest wall intermittently associated with shortness of br eath. The discomfort is described as a tight sensation with no radiation to the arm, back, neck or jaw. The discomfort is not associated with exertion or activity. It is not associated with deep inspiration or cough. No real specific aggravating or alleviating factors. His primary care physician states he suffers from extreme anxiety and thinks this may be related to that. He was scheduled to undergo an outpatient stress test a couple of weeks ago however had to cancel secondary to an infection in his hand. He is seen and examined resting comfortably in bed in no acute distress. He denies active chest discomfort at this time. Breathing is stable. The patient states he feels like he has pneumonia. He has been coughing a dry cough with no fever or chills at home. EKG reveals sinus mechanism with no acute ST or T wave abnormalities noted. Chest x-ray is negative for an acute cardiopulmonary process. Laboratory data reviewed, CBC unremarkable, d-dimer 0.51, sodium 138, potassium 3.9, creatinine 0.95, magnesium 1.8, bilirubin 1.9, cardiac enzymes negative 3, LDL 48. Current daily cardiac medications include lisinopril 20 mg daily, atorvastatin 40 mg daily and aspirin 81 mg daily. At the time of my exam: CONSTITUTIONAL: Denies fever. Denies chills. EYES: Denies blurred vision. Denies vision changes. Denies eye pain. EARS, NOSE, MOUTH & THROAT: Denies headache. Denies sore throat. Denies ear pain. CARDIOVASCULAR: Denies chest pain. Denies shortness of breath. Denies orthopnea. Denies PND. Denies palpitations. RESPIRATORY: Denies cough. GASTROINTESTINAL: Denies abdominal pain. Denies diarrhea. Denies constipation. Denies nausea. Denies vomiting. MUSCULOSKELETAL: Denies myalgias. INTEGUMENTARY: Denies pruitis. Denies rash. NEUROLOGIC: Denies numbness. Denies tingling. Denies weakness. PSYCHIATRIC: Denies anxiety. Denies depression. ENDOCRINE: Denies fatigue. Denies weight change. Denies polydipsia. Denies polyurina. GENITOURINARY: Denies burning, hematuria or urgency with micturation. HEMATOLOGIC: Denies history of anemia. Denies bleeding. Blood pressure 102/55 heart rate 69 afebrile maintaining oxygen saturation on room air GENERAL: This is a 73-year-old male in no apparent distress at the time of my examination. HEENT: Head is atraumatic, normocephalic. Pupils are equal, round. Sclerae anicteric. Conjunctivae are clear. Mucous membranes of the mouth are moist. Neck is supple. There is no jugular venous distention. No carotid bruit is heard. LUNGS: Clear to auscultation no wheezes, rales or rhonchi. No chest wall tenderness is noted on palpation or with deep breathing. HEART: Regular rate and rhythm without murmurs, rubs or gallops. S1 and S2 heard. ABDOMEN: Soft, nontender. Bowel sounds are heard. No organomegaly noted. EXTREMITIES: No evidence of peripheral edema and no calf tenderness noted. VASCULAR: Radial and dorsalis pedis pulses palpated, no evidence of clubbing. NEUROLOGIC: Patient is awake, alert and oriented x3. ASSESSMENT Chest pain, atypical. An acute coronary event has been ruled out. Hypertension Dyslipidemia History of anxiety PLAN An acute coronary event has been ruled out. No EKG evidence of ischemia and negative cardiac enzymes. Discontinue nitropaste. Resume atorvastatin and lisinopril as previously ordered. Obtain 2-D echocardiogram and Doppler study to assess cardiac structure and function. Recommend proceeding with Cardiolite stress test to assess for stress-induced reversible ischemia. If diagnostic testing is normal he may be discharged from a cardiac perspective. Follow with Dr. Palma upon discharge. Thank you kindly for this consultation. Nurse Practitioner note has been reviewed, I agree with a documented findings and plan of care. Patient was seen and examined. 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 History of Any Multi-Drug Resistant Organisms: None Reported Past Surgical History: Appendectomy, Cholecystectomy, Heart Catheterization, Hernia Repair, Orthopedic Surgery Additional Past Surgical History / Comment(s): Laparoscopic migue fundoplasty with extensive lysis of adhesions, bilateral inguinal hernia repairs, right carotid endarterectomy, left knee arthroscopy, sinus surgery, clint shoulder rotator cuff repairs, heel spur rt foot, EGD, colonoscopies/polypectomy, cystoscopy. Past Anesthesia/Blood Transfusion Reactions: No Reported Reaction Additional Past Anesthesia/Blood Transfusion Reaction / Comment(s): . Past Psychological History: Anxiety Additional Psychological History / Comment(s): Pt resides with his spouse of 52 yrs. He is independent. Smoking Status: Former smoker Past Alcohol Use History: Rare Additional Past Alcohol Use History / Comment(s): STARTED SMOKING IN 1965 AND QUIT IN 1970 Past Drug Use History: None Reported - Past Family History Brother(s) Family Medical History: Cancer Additional Family Medical History / Comment(s): prostate Mother Family Medical History: No Reported History Additional Family Medical History / Comment(s): Mother was healthy and lived to be 89yrs old. Father Family Medical History: Myocardial Infarction (NE) Additional Family Medical History / Comment(s): Father had a NE at the age of 60yrs and lived to be 80yrs old. Medications and Allergies Home Medications Medication Instructions Recorded Confirmed Type Atorvastatin [Lipitor] 40 mg PO HS 10/18/14 05/28/19 History Aspirin [Adult Low Dose Aspirin EC] 162 mg PO HS 08/31/16 05/28/19 History Lisinopril [Prinivil] 20 mg PO HS 04/21/18 05/28/19 History Allergies Allergy/AdvReac Type Severity Reaction Status Date / Time influenza virus vaccine, AdvReac "very ill Verified 05/28/19 19:25 specific after injection" sulfamethoxazole AdvReac Rash/Hives Verified 05/28/19 19:25 [From Bactrim] trimethoprim [From Bactrim] AdvReac Rash/Hives Verified 05/28/19 19:25 Physical Exam Vitals: Vital Signs Temp Pulse Pulse Pulse Resp BP BP 05/29/19 07:11 97.8 F 69 18 102/55 05/29/19 04:00 61 15 05/29/19 03:54 98.1 F 61 15 102/60 05/29/19 00:00 77 15 05/28/19 23:23 98.0 F 77 15 98/56 05/28/19 22:00 61 05/28/19 21:27 98.0 F 61 15 124/66 05/28/19 21:00 98.0 F 64 18 110/75 05/28/19 19:55 79 18 136/78 05/28/19 18:51 98 F 94 22 150/84 Pulse Ox 05/29/19 07:11 98 05/29/19 04:00 05/29/19 03:54 97 05/29/19 00:00 05/28/19 23:23 98 05/28/19 22:00 05/28/19 21:27 96 05/28/19 21:00 98 05/28/19 19:55 94 L 05/28/19 18:51 96 Intake and Output 05/28/19 05/29/19 05/29/19 22:59 06:59 14:59 Other: # Voids 1 Weight 77.111 kg Results 05/28/19 19:45 05/28/19 19:45 Cardiac Enzymes 05/28/19 05/28/19 05/29/19 Range/Units 19:45 19:45 01:31 AST 44 (17-59) U/L Troponin I <0.012 <0.012 (0.000-0.034) ng/mL Coagulation 05/28/19 Range/Units 19:45 PT 10.8 (9.0-12.0) sec APTT 23.4 (22.0-30.0) sec CBC 05/28/19 Range/Units 19:45 WBC 7.3 (3.8-10.6) k/uL RBC 4.39 (4.30-5.90) m/uL Hgb 13.7 (13.0-17.5) gm/dL Hct 39.3 (39.0-53.0) % Plt Count 243 (150-450) k/uL Comprehensive Metabolic Panel 05/28/19 Range/Units 19:45 Sodium 138 (137-145) mmol/L Potassium 3.9 (3.5-5.1) mmol/L Chloride 106 (98-107) mmol/L Carbon Dioxide 24 (22-30) mmol/L BUN 15 (9-20) mg/dL Creatinine 0.95 (0.66-1.25) mg/dL Glucose 110 H (74-99) mg/dL Calcium 9.5 (8.4-10.2) mg/dL AST 44 (17-59) U/L ALT 59 (21-72) U/L Alkaline Phosphatase 63 (38-126) U/L Total Protein 6.4 (6.3-8.2) g/dL Albumin 4.1 (3.5-5.0) g/dL Current Medications Generic Name Dose Route Start Last Admin Trade Name Freq PRN Reason Stop Dose Admin Aspirin 325 mg 05/29/19 09:00 05/29/19 03:57 Aspirin PO 325 mg DAILY MARKY Administration Nitroglycerin 0.4 mg 05/28/19 20:46 Nitrostat SUBLINGUAL Q5M PRN Chest Pain Nitroglycerin 1 inch 05/29/19 00:00 05/29/19 03:22 Nitro-Bid Oint TOPICAL Not Given Q6HR MARKY Intake and Output 05/28/19 05/29/19 05/29/19 22:59 06:59 14:59 Other: # Voids 1 Weight 77.111 kg 05/28/19 19:45 05/28/19 19:45
--- NOTE | 2019-05-29 10:52 | ECHOF ---
Referral Reason:cp, sob MEASUREMENTS -------- HEIGHT: 182.9 cm WEIGHT: 77.1 kg BP: RVIDd: 4.1 cm (< 3.3) IVSd: 0.9 cm (0.6 - 1.1) LVIDd: 4.4 cm (3.9 - 5.3) LVPWd: 1.1 cm (0.6 - 1.1) IVSs: 1.1 cm LVIDs: 3.4 cm LVPWs: 1.1 cm LA Diam: 3.0 cm (2.7 - 3.8) LAESV Index (A-L): 24.47 ml/m Ao Diam: 3.1 cm (2.0 - 3.7) AV Cusp: 2.0 cm (1.5 - 2.6) LA Diam: 4.1 cm (2.7 - 3.8) MV EXCURSION: 28.894 mm (> 18.000) MV EF SLOPE: 118 mm/s (70 - 150) EPSS: 0.5 cm MV E Jimbo: 0.68 m/s MV DecT: 196 ms MV A Jimbo: 0.80 m/s MV E/A Ratio: 0.86 RAP: 5.00 mmHg RVSP: 16.07 mmHg FINDINGS -------- Sinus rhythm. This was a technically good study. LV size, wall thickness and systolic function are normal, with an EF greater than 55%. The left felix tricular size is normal. The right ventricle is mild to moderately enlarged. The left atrial size is normal. Normal LA size by volume 22+/-6 ml/m2. The right atrial size is normal. There is mild aortic valve sclerosis. There is no evidence of aortic regurgitation. Mild mitral annular calcification present. Mild mitral regurgitation is present. Mild tricuspid regurgitation present. Right ventricular systolic pressure is normal at < 35 mmHg. There is no evidence of pulmonary hypertension. There is no pulmonic regurgitation present. The aortic root size is normal. There is no pericardial effusion. CONCLUSIONS -------- 1. Sinus rhythm. 2. This was a technically good study. 3. LV size, wall thickness and systolic function are normal, with an EF greater than 55%. 4. The left ventricular size is normal. 5. The right ventricle is mild to moderately enlarged. 6. The left atrial size is normal. 7. Normal LA size by volume 22+/-6 ml/m2. 8. The right atrial size is normal. 9. There is mild aortic valve sclerosis. 10. Mild mitral annular calcification present. 11. Mild mitral regurgitation is present. 12. Mild tricuspid regurgitation present. 13. Right ventricular systolic pressure is normal at < 35 mmHg. 14. There is no evidence of pulmonary hypertension. 15. There is no pulmonic regurgitation present. 16. The aortic root size is normal. 17. There is no pericardial effusion. WEB DEVELOPMENT DIRECTOR: Eliane Cuevas RDCS
--- NOTE | 2019-05-29 11:59 | NM ---
EXAMINATION TYPE: NM stress cardiolite complete DATE OF EXAM: 05/29/2019 COMPARISON: NONE HISTORY: Chest pain TECHNIQUE: After the intravenous administration of 10.23 mCi Tc 99m Sestamibi - Rest images obtained 55 minutes post injection. The patient exercised using a TYRELL protocol and 1 minute prior to peak exercise was injected with 25.7 mCi Tc 99m Sestamibi - Stress images obtained 15 minutes post inject ion. FINDINGS: Targeted heart rate was achieved during performance of the study. Review of stress and rest SPECT maryana ges demonstrates no distinct perfusion abnormality. Gated analysis shows normal wall motion with an estimated left ventricular ejection fraction of 68 %. TID is within normal limits calculated at 0.85 IMPRESSION: No scintigraphic evidence for reversible ischemia
--- NOTE | 2019-05-29 12:25 | EST ---
EXERCISE STRESS AGE: 73 SEX: M HT: 73" WT: 170 PROTOCOL: Cardiolite Marck Stress Test STAGE: 2 DURATION OF EXERCISE: 5:00 HEART RATE REST: 67 BLOOD PRESSURE REST: 128/72 MAXIMUM HEART RATE ACHIEVED: 133 MAXIMUM BLOOD PRESSURE: 183/75 85% MPHR: 126 100% MPHR: 148 METS: 7.0 INDICATIONS: Chest pain. CLINICAL INFORMATION: Baseline EKG revealed normal sinus rhythm without significant ST changes, patient walked for 5 minutes, achieved a maximal heart rate of 133 beats per minute, developed fatigue and shortness of breath but did not have any angina or arrhythmia. EKG did not reveal any ST-segment changes to indicate ischemia. By EKG criteria, this a negative stress test with limited exercise capacity. The nuclear scan results, which are more pertinent, will be reported by the radiologist. ZEUS / MIRACLEN: [id number] /
[2019-05-29 12:54] VITALS: RESP 17
[2019-05-29 15:46] VITALS: BP 117/68; PULSE 67; TEMP 98.6
--- NOTE | 2019-05-29 16:06 | P.HPIM ---
History of Present Illness H&P Date: 05/29/19 Chief Complaint: Chest pain History and physical AND Discharge Summary This is a 73-year-old gentleman with history of hypertension, hyperlipidemia, anxiety presented to the ER with left-sided chest tightness accompanied by short ness of breath 3 days no radiation. Denies increase with exertion or deep inspiration. Denies fever or chills. Denies nausea vomiting or diarrhea. Denies abdominal pain .Denies cough. Recently admitted with right hand cellulitis, missed his outpatient stress test. EKG reporting sinus rhythm, chest x-ray reporting nonacute. Cardiac enzymes negative 3. Unremarkable CBC. Electrolytes within normal limits. Bilirubin 1.9, d-dimer 0.51, creatinine 0.95. LDL 48.NPO, currently denies chest pain, palpitations or shortness of breath. Denies lightheadedness, dizziness or focal deficits. Review of Systems ROS Statement: Those systems with pertinent positive or pertinent negative responses have been documented in the HPI. ROS Other: All systems not noted in ROS Statement are negative. 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 History of Any Multi-Drug Resistant Organisms: None Reported Past Surgical History: Appendectomy, Cholecystectomy, Heart Catheterization, Hernia Repair, Orthopedic Surgery Additional Past Surgical History / Comment(s): Laparoscopic migue fundoplasty with extensive lysis of adhesions, bilateral inguinal hernia repairs, right ca rotid endarterectomy, left knee arthroscopy, sinus surgery, clint shoulder rotator cuff repairs, heel spur rt foot, EGD, colonoscopies/polypectomy, cystoscopy. Past Anesthesia/Blood Transfusion Reactions: No Reported Reaction Additional Past Anesthesia/Blood Transfusion Reaction / Comment(s): . Past Psychological History: Anxiety Additional Psychological History / Comment(s): Pt resides with his spouse of 52 yrs. He is independent. Smoking Status: Former smoker Past Alcohol Use History: Rare Additional Past Alcohol Use History / Comment(s): STARTED SMOKING IN 1965 AND QUIT IN 1970 Past Drug Use History: None Reported - Past Family History Brother(s) Family Medical History: Cancer Additional Family Medical History / Comment(s): prostate Mother Family Medical History: No Reported History Additional Family Medical History / Comment(s): Mother was healthy and lived to be 89yrs old. Father Family Medical History: Myocardial Infarction (UT) Additional Family Medical History / Comment(s): Father had a UT at the age of 60yrs and lived to be 80yrs old. Medications and Allergies Home Medications Medication Instructions Recorded Confirmed Type Atorvastatin [Lipitor] 40 mg PO HS 10/18/14 05/28/19 History Aspirin [Adult Low Dose Aspirin EC] 162 mg PO HS 08/31/16 05/28/19 History Lisinopril [Prinivil] 20 mg PO HS 04/21/18 05/28/19 History Allergies Allergy/AdvReac Type Severity Reaction Status Date / Time influenza virus vaccine, AdvReac "very ill Verified 05/28/19 19:25 specific after injection" sulfamethoxazole AdvReac Rash/Hives Verified 05/28/19 19:25 [From Bactrim] trimethoprim [From Bactrim] AdvReac Rash/Hives Verified 05/28/19 19:25 Physical Exam Vitals: Vital Signs Temp Pulse Pulse Pulse Resp BP BP 05/29/19 07:11 97.8 F 69 18 102/55 05/29/19 04:00 61 15 05/29/19 03:54 98.1 F 61 15 102/60 05/29/19 00:00 77 15 05/28/19 23:23 98.0 F 77 15 98/56 05/28/19 22:00 61 05/28/19 21:27 98.0 F 61 15 124/66 05/28/19 21:00 98.0 F 64 18 110/75 05/28/19 19:55 79 18 136/78 05/28/19 18:51 98 F 94 22 150/84 Pulse Ox 05/29/19 07:11 98 05/29/19 04:00 05/29/19 03:54 97 05/29/19 00:00 05/28/19 23:23 98 05/28/19 22:00 05/28/19 21:27 96 05/28/19 21:00 98 05/28/19 19:55 94 L 05/28/19 18:51 96 Intake and Output 05/28/19 05/29/19 05/29/19 22:59 06:59 14:59 Other: # Voids 1 Weight 77.111 kg VITAL SIGNS: As above GENERAL: Sitting up, no acute distress. HEENT: Conjunctivae normal. eyes normal. Oral mucosa dry. NECK: No JVD. No thyroid enlargement. No LNs.Trachea midline. CARDIOVASCULAR: S1, S2 regular. No murmur, rubs or gallops RESPIRATION: Breath sounds diminished in the bases. No rhonchi or crackles. No bronchial breathing. ABDOMEN: Soft, nontender . No guarding. no masses palpable. No ascites, No hepatosplenomegaly.Bowel sounds heard. LEGS: No edema. no swelling, no clubbing, no cyanosis PSYCHIATRY: Alert and oriented X3, mood and affect normal. NERVOUS SYSTEM: Cranial N 2-12 grossly normal. Moves all 4 limbs. No focal deficits. Strength and sensation grossly intact. Skin: No rash, normal skin turgor Lymphatic system. No LN neck axilla. Results CBC & Chem 7: 05/28/19 19:45 05/28/19 19:45 Labs: Abnormal Lab Results - Last 24 Hours (Table) 05/28/19 05/28/19 Range/Units 19:45 19:45 Lymphocytes # 0.9 L (1.0-4.8) k/uL Glucose 110 H (74-99) mg/dL Total Bilirubin 1.9 H (0.2-1.3) mg/dL Thrombosis Risk Factor Assmnt - Choose All That Apply Any of the Below Risk Factors Present?: Yes Each Factor Represents 1 point: Acute [place] Other Risk Factors: Yes Each Risk Factor Represents 2 Points: Age 61-74 years Other congenital or acquired thrombophilia - If yes, enter type in comment: No Thrombosis Risk Factor Assessment Total Risk Factor Score: 3 Thrombosis Risk Factor Assessment Level: Moderate Risk Assessment and Plan Assessment: -Chest pain, atypical, acute coronary syndrome ruled out, status post Cardiolite stress test reporting no scintigraphic evidence for reversible ischemia, possibly secondary to anxiety; patient was scheduled to travel and pr efers not to travel. -COPD, stable -History of CVA, TIA with no residual -Hyperlipidemia -Hypertension -Osteoarthritis -Anxiety Plan: Continue on current medication regime, monitoring and symptomatically treatment. Evaluated by cardiology. Echo reporting normal LV function, EF greater than 55%. Underwent stress/Cardiolite stress test reporting no scintigraphic evidence for reversible ischemia. Significant clinical improvement. Patient will be discharged home in a stable condition with fair prognosis pending cardiology clearance. The impression and plan of care has been dictated as directed. : I performed a history and examination of this patient, discussed the same with the dictator. I agree with the dictator's note ,documented as a scribe. Any additional findings or plans will be noted.
[2019-05-29] MEDS ORDERED: ATORVASTATIN 40 MG TAB PO SCH (21:00)
[2019-05-29] MEDS ORDERED: LISINOPRIL 20 MG TAB PO SCH (21:00)
== END 2019-05-29 16:40 | disposition home or self-care (01) ==
LOC: EC 18:50 → 1SOBS 20:47
PROVIDERS: ADMIT Family Medicine; ATTEND Family Medicine
DX: R07.89 Other chest pain (principal); I10 Essential (primary) hypertension; J44.9 Chronic obstructive pulmonary disease, unspecified; E78.00 Pure hypercholesterolemia, unspecified; I08.3 Combined rheumatic disorders of mitral, aortic and tricuspid valves; E78.5 Hyperlipidemia, unspecified; F41.9 Anxiety disorder, unspecified; M19.042 Primary osteoarthritis, left hand; M19.041 Primary osteoarthritis, right hand; K21.9 Gastro-esophageal reflux disease without esophagitis; M10.9 Gout, unspecified; N40.0 Benign prostatic hyperplasia without lower urinary tract symptoms; H93.13 Tinnitus, bilateral; Z79.82 Long term (current) use of aspirin; Z79.899 Other long term (current) drug therapy; Z88.1 Allergy status to other antibiotic agents; Z88.2 Allergy status to sulfonamides; Z88.7 Allergy status to serum and vaccine; Z86.73 Personal history of transient ischemic attack (TIA), and cerebral infarction without residual deficits; Z87.01 Personal history of pneumonia (recurrent); Z87.442 Personal history of urinary calculi; Z90.49 Acquired absence of other specified parts of digestive tract; Z87.891 Personal history of nicotine dependence; Z86.010 Personal history of colon polyps; Z82.49 Family history of ischemic heart disease and other diseases of the circulatory system; Z80.42 Family history of malignant neoplasm of prostate
CPT/HCPCS: 36415; 71046; 78452; 80053; 80061; 83735; 84484; 85025; 85379; 85610; 85730; 93005; 93017; 93306; 96374; 99285

== ENCOUNTER → 2019-08-05 | Outpatient (CLI) | payer MEDICARE, BC ==
[2019-08-05 13:43] LABS: Appearance,BF Cloudy; Color,BF Yellow; Nucleated Cells, Body Fluid 17450 /uL; RBC, Body Fluid 4550 /uL
[2019-08-05 13:48] LABS: Mononuclear WBC,Body Fluid 43 %; Polynuclear WBC,Body Fluid 55 %; Total Cells Counted,Body Fluid 100
== END | disposition home or self-care (01) ==
LOC: LABWHC1 11:16 → EDSTATUS 13:06
PROVIDERS: ATTEND Orthopaedic Surgery
DX: M25.571 Pain in right ankle and joints of right foot (principal); M19.071 Primary osteoarthritis, right ankle and foot; M25.771 Osteophyte, right ankle; M10.9 Gout, unspecified
CPT/HCPCS: 36415; 84550; 87070; 87075; 87205; 89050; 89060

== ENCOUNTER → 2020-03-14 | Outpatient (CLI) | payer MEDICARE, BC ==
[2020-03-14 13:05] LABS: African American GFR (CKD) >90 (>60 ml/min/1.73 sqM); Blood Urea Nitrogen 13 mg/dL (9-20); Non-African American GFR(CKD) 85 (>60 ml/min/1.73 sqM)
--- NOTE | 2020-03-14 13:47 | CT ---
EXAMINATION TYPE: CT abdomen w con DATE OF EXAM: 03/14/2020 COMPARISON: 01/13/2019 HISTORY: renal cyst CT DLP: 488.2 mGycm CONTRAST: CT scan of the abdomen is performed without Oral Contrast and with IV Contrast, patient injected with 100 mL of Isovue 300. FINDINGS: LUNG BASES-: No visible nodule. No infiltrate. LIVER/GB: No calcified gallstones. No space occupying hepatic lesion. Biliary tree is of normal ca liber. PANCREAS: No inflammation. No distinct mass. SPLEEN: No splenic enlargement. No lesion seen. ADRENALS: No nodule. No thickening. KIDNEYS/BLADDER: Exophytic hypoattenuating mass lower pole right kidney 3.5 x 2.5 cm versus prior nestor surement of 2.5 x 2.0 cm. Current Hounsfield unit measurement is average of 65 Hounsfield units. I ca nnot exclude cystic neoplasm. Consider MRI correlation. No additional renal lesions are seen. Nonobst ructing 7.7 mm calculus upper pole left kidney. BOWEL: Normal appendix. Normal bowel caliber. No inflammation. LYMPH NODES: No greater than 1cm abdominal or pelvic lymph nodes are appreciated. AORTA: No significant abnormality. OSSEOUS STRUCTURES: No significant abnormality is seen. OTHER: No significant additional abnormality is seen. IMPRESSION: 1. Exophytic hypoattenuating mass lower pole right kidney 3.5 x 2.5 cm versus prior measurement of 2. 5 x 2.0 cm. Current Hounsfield unit measurement is average of 65 Hounsfield units. I cannot exclude c ystic neoplasm. Consider MRI correlation.
== END | disposition home or self-care (01) ==
LOC: RADCTMAIN 12:25
PROVIDERS: ATTEND Urology
DX: N28.1 Cyst of kidney, acquired (principal); Z88.1 Allergy status to other antibiotic agents
CPT/HCPCS: 82565; 84520; 74160; 36415; Q9967

== ENCOUNTER → 2020-04-29 | Outpatient (CLI) | payer MEDICARE, BC ==
--- NOTE | 2020-04-29 13:43 | MR ---
EXAMINATION TYPE: MR kidney wo/w con DATE OF EXAM: 04/29/2020 COMPARISON: CT 03/14/[address] 01/13/2019 HISTORY: Complex right renal lesion CONTRAST: Standard multiplanar, multisequence MRI departmental protocol utilizing 7.5 mL intravenous Gadavist g adolinium contrast. FINDINGS: Exophytic mass arising from the lower pole of the right kidney measuring 3.6 x 2.5 cm versus 2.5 x 2. [address] from 01/13/2019. The mass is of the decreased signal on the T2-weighted data set and of dec reased signal on T1-weighted imaging. Mild enhancement is noted following the administration of contr ast. At its superior component there is a small mural nodule seen as well as mild septal enhancement. No additional renal lesions are seen. No evidence for Hydronephrosis. Nonobstructing calculus upper pole left kidney. No adrenal masses are seen. The liver is homogeneous lesion. The gallbladder is surgically absent. Pancreas and spleen are within normal limits. IMPRESSION: 1. Enlarging indeterminate right renal mass possible Bosniak 3 category. Tissue diagnosis recommended .
== END | disposition home or self-care (01) ==
LOC: RADMRIMAIN 08:48
PROVIDERS: ATTEND Urology
DX: D41.01 Neoplasm of uncertain behavior of right kidney (principal); R93.41 Abnormal radiologic findings on diagnostic imaging of renal pelvis, ureter, or bladder; N28.89 Other specified disorders of kidney and ureter
CPT/HCPCS: 74183; A9585

== ENCOUNTER → 2020-05-20 | Outpatient (CLI) | payer MEDICARE, BC ==
[2020-05-20 12:23] LABS: Basophils # (A) 0.1 k/uL (0-0.2); Basophils % (A) 1 %; Eosinophils # (A) 0.1 k/uL (0-0.7); Eosinophils % (A) 1 %; HCT 45.1 % (39.0-53.0); HGB 14.9 gm/dL (13.0-17.5); Lymphocytes % (A) 10 %; MCH 31.1 pg (25.0-35.0); MCHC 33.1 g/dL (31.0-37.0); Mean Platelet Volume 6.8; Monocytes # (A) 0.7 k/uL (0-1.0); Monocytes % (A) 6 %; Neutrophils # (A) 8.3 k/uL (1.3-7.7); Neutrophils % (A) 81 %; Platelet Count 248 k/uL (150-450); RDW 12.5 % (11.5-15.5); WBC 10.3 k/uL (3.8-10.6)
[2020-05-20 12:30] LABS: Calcium 9.8 mg/dL (8.4-10.2); Potassium 4.7 mmol/L (3.5-5.1)
--- NOTE | 2020-05-20 13:45 | XR ---
EXAMINATION TYPE: XR chest 2V DATE OF EXAM: 05/20/2020 COMPARISON: Prior chest x-ray 05/28/2019 HISTORY: R05 TECHNIQUE: Frontal and lateral views of the chest are obtained. FINDINGS: There is no focal air space opacity, pleural effusion, or pneumothorax seen. The cardiac silhouette size is within normal limits. The osseous structures are intact. Surgical clips present in the right upper quadrant. Aorta is dense. IMPRESSION: No acute cardiopulmonary process.
== END | disposition home or self-care (01) ==
LOC: LABPAT 11:20
PROVIDERS: ATTEND Urology
DX: Z01.818 Encounter for other preprocedural examination (principal); D41.01 Neoplasm of uncertain behavior of right kidney; R58 Hemorrhage, not elsewhere classified; I10 Essential (primary) hypertension; R05 Cough
CPT/HCPCS: 36415; 71046; 80048; 85025; 86850; 86900; 86901; 93005

== ENCOUNTER 2020-05-26 09:17 | Day surgery (SDC) | payer MEDICARE, BC ==
[2020-05-20 13:56] VITALS: BMI 22.4
--- NOTE | 2020-05-25 18:09 | P.HPIHPCON ---
History of Present Illness H&P Date: 05/26/20 Chief Complaint: right renal mass This is a 74 yo male with hx 3.6 cm renal mass. He underwent renal MRI which showed an enlarging renal mass . We discussed with him the option of radical nephrectomy, partial nephrectomy, cryoablation and observations. Discussed with him the risk and benefit of each approach. He agreed to proceed with robtoic assisted partial nephrectomy. Discussed with him the potential of open conversion and potential of radical nephrectomy. Discussed risk of bleeding, injury to nearby organs. Discussed risk from anesthesia. Discussed with him he is at an increased risk of complication given his previous abdominal surgeries. He understood all risks and agreed to proceed. Consent for Procedure: I have explained the operation/procedure to the patient, including the risks, benefits, side effects, alternative therapies (including not receiving the proposed treatment or service), the likelihood of the patient achieving his/her goals, and potential recuperation problems for the procedure/sedation/analgesia, as well as any blood products, if indicated. I also explained to the patient the risks, benefits and side effects of the alternatives, as well as the risks related to not receiving the proposed procedure, care, treatment, or services. 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 History of Any Multi-Drug Resistant Organisms: None Reported Past Surgical History: Appendectomy, Cholecystectomy, Heart Catheterization, Hernia Repair, Orthopedic Surgery Additional Past Surgical History / Comment(s): Laparoscopic migue fundoplasty with extensive lysis of adhesions, bilateral inguinal hernia repairs, right carotid endarterectomy, left knee arthroscopy, sinus surgery, clint shoulder rotator cuff repairs, heel spur rt foot, EGD, colonoscopies/polypectomy, cystoscopy. Past Anesthesia/Blood Transfusion Reactions: No Reported Reaction, Motion Sickness Additional Past Anesthesia/Blood Transfusion Reaction / Comment(s): . Past Psychological History: No Psychological Hx Reported Additional Psychological History / Comment(s): . Smoking Status: Former smoker Past Alcohol Use History: None Reported Additional Past Alcohol Use History / Comment(s): STARTED SMOKING IN 1965 AND QUIT IN 1970, SMOKED <1/2PPD Past Drug Use History: None Reported - Past Family History Brother(s) Family Medical History: Cancer Additional Family Medical History / Comment(s): prostate Mother Family Medical History: No Reported History Additional Family Medical History / Comment(s): Mother was healthy and lived to be 89yrs old. Father Family Medical History: Myocardial Infarction ([place]) Additional Family Medical History / Comment(s): Father had a [place] at the age of 60yrs and lived to be 80yrs old. Medications and Allergies Home Medications Medication Instructions Recorded Confirmed Type Atorvastatin [Lipitor] 40 mg PO HS 10/18/14 05/20/20 History Aspirin [Adult Low Dose Aspirin EC] 162 mg PO HS 08/31/16 05/20/20 History lisinopriL [Prinivil] 20 mg PO HS 04/21/18 05/20/20 History Allopurinol [Zyloprim] 100 mg PO HS 05/20/20 05/20/20 History Allergies Allergy/AdvReac Type Severity Reaction Status Date / Time influenza virus vaccine, AdvReac "very ill Verified 05/20/20 13:31 specific after injection" sulfamethoxazole AdvReac Rash/Hives Verified 05/20/20 13:31 [From Bactrim] trimethoprim [From Bactrim] AdvReac Rash/Hives Verified 05/20/20 13:31 Surgical - Exam - General well developed, well nourished, no distress, no pain - Respiratory normal expansion, normal respiratory effort - Abdomen Abdomen: soft, non tender - Psychiatric oriented to time, oriented to person, oriented to place
[2020-05-26] MEDS ORDERED: ONDANSETRON 4 MG/2 ML VIAL ONE (10:23)
[2020-05-26] MEDS ORDERED: LACTATED RINGERS 1,000 ML IV ONE ×3 (10:26→13:42)
[2020-05-26] MEDS ORDERED: DEXAMETHASONE SOD PHOSPHATE 10 MG/ML 1 ML VIAL IV ONE (10:28)
[2020-05-26] MEDS ORDERED: LIDOCAINE 1% (10MG/ML) FOR IV START INTRADERMA ONE (10:28)
[2020-05-26] MEDS ORDERED: ONDANSETRON 4 MG/2 ML VIAL IVP ONE (10:29)
[2020-05-26] MEDS ORDERED: MIDAZOLAM 2 MG/2 ML VIAL IV ONE (10:31)
[2020-05-26] MEDS ORDERED: PHENYLEPHRINE-0.9% NACL SYG 1 MG/10 ML SYRINGE ONE (11:11)
[2020-05-26] MEDS ORDERED: ROCURONIUM 10 MG/ML (10 ML VIAL) IV ONE (11:11)
[2020-05-26] MEDS ORDERED: PROPOFOL 10 MG/ML 20 ML VIAL IV ONE (11:11)
[2020-05-26] MEDS ORDERED: MIDAZOLAM 2 MG/2 ML VIAL ONE (11:11)
[2020-05-26] MEDS ORDERED: NEOSTIGMINE 1 MG/ML 10 ML VIAL ONE (11:11)
[2020-05-26] MEDS ORDERED: HYDROmorphone (PF) 1 MG/ML ONE (11:11)
[2020-05-26] MEDS ORDERED: fentaNYL (PF) 50 MCG/ML 2 ML AMP ONE (11:11)
[2020-05-26] MEDS ORDERED: GLYCOPYRROLATE 0.2 MG/ML 2 ML VIAL ONE (11:11)
[2020-05-26] MEDS ORDERED: MANNITOL 25% 12.5 GM/50 ML VIAL ONE (11:11)
[2020-05-26] MEDS ORDERED: ePHEDrine SULFATE/0.9% NACL/PF 50 MG/5 ML SYRINGE IV ONE (11:11)
[2020-05-26] MEDS ORDERED: SUCCINYLCHOLINE CHLORIDE 100 MG/5 ML SYR IV ONE (11:11)
[2020-05-26] MEDS ORDERED: LIDOCAINE 1% INJ 10MG/ML (20 ML MDV) ONE (11:11)
[2020-05-26] MEDS ORDERED: BUPIVACAINE (PF) 0.5% 30 ML VIAL SQ ONE ×2 (11:59)
--- NOTE | 2020-05-26 14:17 | P.OP ---
Date of Procedure: 05/26/20 Preoperative Diagnosis: right renal mass Postoperative Diagnosis: same Procedure(s) Performed: Robotic assisted laproscopic partial nephrectomy (Right) Implants: none Anesthesia: JERICHO Surgeon: Alvin Cantrell Customer Consulting Manager #1: Priscila Dean Estimated Blood Loss (ml): 50 Pathology: other (right renal mass) Condition: stable Disposition: PACU Indications for Procedure: This is a 74 yo male with hx 3.6 cm renal mass. He underwent renal MRI which showed an enlarging renal mass . We discussed with him the option of radical nephrectomy, partial nephrectomy, cryoablation and observations. Discussed with him the risk and benefit of each approach. He agreed to proceed with robtoic assisted partial nephrectomy. Discussed with him the potential of open conversion and potential of radical nephrectomy. Discussed risk of bleeding, injury to nearby organs. Discussed risk from anesthesia. Discussed with him he is at an increased risk of complication given his previous abdominal surgeries. He understood all risks and agreed to proceed. Operative Findings: right cystic renal mass Description of Procedure: The Patient was brought to the operating room, general anesthesia was induced. ivan catheter was placed. Patient was then placed in modified flank position and all pressure points were padded. He was prepped and draped in sterile fashion. Insuflation was obtained using veress needle. After adequate insuflation was obtained a 8 mm robotic trocor was placed. Robotic trocars and certified medical technician assistant ports were placed under direct vision. 5 mm port for liver retractor was placed. The robot was docked into place. Lysis of adhesion was performed. The colon was mobilized medially by incising along the white line of Toldt. the duodenum was kocherized, the vena cava was exposed at that time. At this time the gonadal vein and the ureter was identified. The Psoas plane was developed. Further dissection was carried to the hilum and the renal vein and artery were dissected and prepared for clamping. At this time the lower pole of the kidney was defatted. Further defatting exposed the tumor. The tumor edges were scored using cautery. 2 bulldogs were placed on the renal artery. Attention was carried to the tumor, and the tumor was excised with adequate margins. the defect was closed in two layer using 3-0 V lock for the inner layer and 2-0 V lock for outer layer using the sliding clip technique. The bulldogs were removed and there was no evidence of bleeding from the tumor bed. The total clamp time was 18 minutes. Tisseal and surgicell was applied to the tumor bed. The tumor was placed in the endocatch bag. a 10 Fr flat BRIANNA was placed through the 4th arm. The robot was de-docked. Fascia was closed with alessia kwanspon using #1 PDS. Skin was closed with subcuticular sutures and dermabond. The patient was awoken from general anesthesia in stable condition. Please refer to the final pathology report for final diagnosis.
[2020-05-26] MEDS: KETOROLAC 15 MG/ML 1 ML VIAL IVP SCH ×3 (14:25→23:33)
[2020-05-26] MEDS ORDERED: HYDROmorphone 1 MG/ML 1 ML SYRINGE IVP ONE ×2 (15:05→15:10)
[2020-05-26] MEDS: HYDROcodone/APAP 5-325MG 1 EACH TAB PO PRN ×2 (16:32→21:43)
[2020-05-26] MEDS: HEPARIN SODIUM,PORCINE 5,000 UNIT/ML 1 ML VIAL SQ SCH ×2 (16:32→23:33)
[2020-05-26] MEDS: HYDROmorphone 1 MG/ML 1 ML SYRINGE IVP PRN (19:50)
[2020-05-26] MEDS: allopurinoL 100 MG TAB PO SCH (21:16)
[2020-05-26] MEDS: ATORVASTATIN 40 MG TAB PO SCH (21:16)
[2020-05-26 21:56] LABS: Basophils % (A) 0 %; Eosinophils % (A) 0 %; HCT 42.4 % (39.0-53.0); HGB 13.8 gm/dL (13.0-17.5); Lymphocytes # (A) 0.4 k/uL (1.0-4.8); Lymphocytes % (A) 3 %; MCH 30.6 pg (25.0-35.0); MCHC 32.5 g/dL (31.0-37.0); MCV 94.3 fL (80.0-100.0); Mean Platelet Volume 7.3; Monocytes # (A) 0.5 k/uL (0-1.0); Monocytes % (A) 4 %; Neutrophils # (A) 10.8 k/uL (1.3-7.7); Neutrophils % (A) 91 %; Platelet Count 219 k/uL (150-450); RDW 12.6 % (11.5-15.5); WBC 11.8 k/uL (3.8-10.6)
[2020-05-26 22:04] LABS: Potassium 4.7 mmol/L (3.5-5.1)
[2020-05-26] MEDS: D5-0.45% NACL WITH KCL 20MEQ/L 1,000 ML IV SCH (23:33)
[2020-05-27] MEDS: HYDROcodone/APAP 5-325MG 1 EACH TAB PO PRN ×2 (03:05→14:53)
[2020-05-27] MEDS: D5-0.45% NACL WITH KCL 20MEQ/L 1,000 ML IV SCH ×3 (03:05→17:05)
[2020-05-27] MEDS: KETOROLAC 15 MG/ML 1 ML VIAL IVP SCH ×4 (05:07→23:42)
[2020-05-27] MEDS: HEPARIN SODIUM,PORCINE 5,000 UNIT/ML 1 ML VIAL SQ SCH ×3 (07:38→23:42)
--- NOTE | 2020-05-27 09:30 | P.PN ---
Subjective Progress Note Date: 05/27/20 Principal diagnosis: POD #1, s/p robotic-assisted laparoscopic right partial nephrectomy The patient's condition is stable. He reports right-sided incisional discomfort. He was able to tolerate breakfast. He has not yet ambulated. Objective - Vital Signs Vital signs: Vital Signs Temp 97.9 F 05/27/20 07:31 Pulse 61 05/27/20 07:31 Resp 16 05/27/20 07:31 BP 112/68 05/27/20 07:31 Pulse Ox 99 05/27/20 07:31 Intake & Output 05/26/20 05/27/20 05/27/20 18:59 06:59 18:59 Intake Total 2350 Output Total 370 1660 Balance 1979 -1659 Weight 77.111 kg Intake: IV 2350 Output: Drainage 60 Right Lower Abdomen 60 Urine 350 1600 Estimated Blood Loss 20 Other: Voiding Method Indwelling Catheter Indwelling Catheter Indwelling Catheter - Constitutional General appearance: Present: average body habitus, cooperative, no acute distress - Gastrointestinal Gastrointestinal Comment(s): Soft, nondistended. Incisions clean, dry, and intact. - Genitourinary Genitourinary Comment(s): Normal external genitalia. The Kathleen catheter is draining clear yellow urine. - Psychiatric Psychiatric: Present: A&O x's 3, appropriate affect - Labs CBC & Chem 7: 05/26/20 21:00 05/26/20 21:00 Labs: Abnormal Lab Results - Last 24 Hours (Table) 05/26/20 05/26/20 Range/Units 21:00 21:00 WBC 11.8 H (3.8-10.6) k/uL Neutrophils # 10.8 H (1.3-7.7) k/uL Lymphocytes # 0.4 L (1.0-4.8) k/uL Sodium 136 L (137-145) mmol/L Glucose 143 H (74-99) mg/dL Assessment and Plan (1) Neoplasm of uncertain behavior of right kidney Current Visit: Yes Status: Acute Code(s): D41.01 - NEOPLASM OF UNCERTAIN BEHAVIOR OF RIGHT KIDNEY SNOMED Code(s): [id number] Plan: D/C Kathleen catheter. Increase ambulation. Discharge home traumas anticipated.
[2020-05-27] MEDS: allopurinoL 100 MG TAB PO SCH (21:31)
[2020-05-27] MEDS: ATORVASTATIN 40 MG TAB PO SCH (21:31)
[2020-05-28] MEDS: D5-0.45% NACL WITH KCL 20MEQ/L 1,000 ML IV SCH ×2 (01:55→08:10)
[2020-05-28 03:24] VITALS: TEMP 97.8
[2020-05-28] MEDS ORDERED: ONDANSETRON 4 MG/2 ML VIAL IVP PRN (04:08)
[2020-05-28] MEDS: HYDROmorphone 1 MG/ML 1 ML SYRINGE IVP PRN (04:34)
[2020-05-28] MEDS: KETOROLAC 15 MG/ML 1 ML VIAL IVP SCH (06:17)
[2020-05-28] MEDS: HEPARIN SODIUM,PORCINE 5,000 UNIT/ML 1 ML VIAL SQ SCH (08:10)
[2020-05-28] MEDS: HYDROcodone/APAP 5-325MG 1 EACH TAB PO PRN ×2 (08:14→13:50)
[2020-05-28 08:15] VITALS: BP 132/65; PULSE 77; RESP 17
--- NOTE | 2020-05-28 12:21 | P.DS ---
Providers Date of admission: 05/27/20 12:24 Expected date of discharge: 05/28/20 Attending physician: Alvin Cantrell MD Primary care physician: Ron Zamarripa - Discharge Diagnosis(es) (1) Neoplasm of uncertain behavior of right kidney Current Visit: Yes Status: Acute Hospital Course: On the day of admission, the patient underwent an uncomplicated robotic-assisted laparoscopic right partial nephrectomy. The postoperative course was uncomplicated. The patient remained afebrile with stable vital signs. BRIANNA drainage was minimal. On the first postoperative day, the patient was experienced incisional discomfort along with some nausea. He was feeling better on the second postoperative day. He was tolerating diet and ambulating without difficulty. The incisions were clean and dry. Procedures: Robotic-assisted laparoscopic right partial nephrectomy on 05/26/2020. Patient Condition at Discharge: Good Plan - Discharge Summary Discharge Rx Participant: Yes New Discharge Prescriptions: New Ketorolac [Toradol] 10 mg PO Q6HR #12 tab No Action Atorvastatin [Lipitor] 40 mg PO HS Aspirin [Adult Low Dose Aspirin EC] 162 mg PO HS lisinopriL [Prinivil] 20 mg PO HS Allopurinol [Zyloprim] 100 mg PO HS Discharge Medication List Atorvastatin [Lipitor] 40 mg PO HS 10/18/14 [History] Aspirin [Adult Low Dose Aspirin EC] 162 mg PO HS 08/31/16 [History] lisinopriL [Prinivil] 20 mg PO HS 04/21/18 [History] Allopurinol [Zyloprim] 100 mg PO HS 05/20/20 [History] Ketorolac [Toradol] 10 mg PO Q6HR #12 tab 05/28/20 [Rx] Follow up Appointment(s)/Referral(s): Alvin Cantrell MD [STAFF PHYSICIAN] - 1 Week Activity/Diet/Wound Care/Special Instructions: Diet as tolerated. Drink plenty of fluids. No lifting, driving, or strenuous activity. Okay to shower 05/29/2020. Discharge Disposition: HOME SELF-CARE
== END 2020-05-28 14:40 | disposition home or self-care (01) ==
LOC: OR 09:17 → 4SSUR 14:08 → OR 05-27 12:24 → 4SSUR 05-27 12:24
PROVIDERS: ADMIT Urology; ATTEND Urology
DX: C64.1 Malignant neoplasm of right kidney, except renal pelvis (principal); I10 Essential (primary) hypertension; E78.5 Hyperlipidemia, unspecified; N40.0 Benign prostatic hyperplasia without lower urinary tract symptoms; K21.9 Gastro-esophageal reflux disease without esophagitis; J44.9 Chronic obstructive pulmonary disease, unspecified; Z86.73 Personal history of transient ischemic attack (TIA), and cerebral infarction without residual deficits; Z88.2 Allergy status to sulfonamides; Z88.7 Allergy status to serum and vaccine; Z79.82 Long term (current) use of aspirin; Z79.899 Other long term (current) drug therapy; Z98.890 Other specified postprocedural states
CPT/HCPCS: 80048; 85025; 50543; G0378 ×2; C1762; J2250; J1644 ×2; J1100; J2710; J0690; J2405 ×2; J2001; J2150; J3010; J1170 ×2; J1885 ×3; J2370; J0330; J2704; 86850; 86900; 86901; 88307; 88313

== ENCOUNTER 2020-05-31 22:37 | Inpatient (IN) | payer MEDICARE, BC ==
[2020-05-31] MEDS ORDERED: CEFEPIME 1 GM in SODIUM CHLORIDE 0.9% 50 ML IVPB STA (23:16)
[2020-05-31] MEDS ORDERED: LEVOFLOXACIN 750MG-D5W PMX 750 MG in DEXTROSE/WATER 1 150ML.BAG IVPB STA (23:16)
[2020-05-31] MEDS ORDERED: VANCOMYCIN IV PER PHARMACY 1 EACH MISC MISCELLANE PRN (23:16)
[2020-05-31] MEDS ORDERED: VANCOMYCIN 1,500 MG in SODIUM CHLORIDE 0.9% 250 ML IVPB STA (23:19)
--- NOTE | 2020-05-31 23:35 | XR ---
EXAMINATION TYPE: XR chest 2V DATE OF EXAM: 05/31/2020 COMPARISON: 05/20/2020 HISTORY: Upper respiratory infection. Chest pain TECHNIQUE: FINDINGS: There is slight elevated right diaphragm. There is mild atelectasis at both lung bases. The re is no heart failure. Heart size is normal. There are no hilar masses. IMPRESSION: There is new atelectasis at the lung bases compared to old exam. Mild basilar pneumonia i s probably present.
[2020-05-31 23:45] LABS: INR 0.9 (<1.2); Partial Thromboplastin Time 22.3 sec (22.0-30.0); Prothrombin Time 9.9 sec (9.0-12.0)
[2020-06-01 00:07] LABS: Basophils % (A) 0 %; Eosinophils % (A) 0 %; HCT 45.9 % (39.0-53.0); HGB 14.8 gm/dL (13.0-17.5); Lymphocytes # (A) 0.6 k/uL (1.0-4.8); Lymphocytes % (A) 4 %; MCH 30.5 pg (25.0-35.0); MCHC 32.1 g/dL (31.0-37.0); MCV 94.9 fL (80.0-100.0); Mean Platelet Volume 7.4; Monocytes # (A) 0.6 k/uL (0-1.0); Monocytes % (A) 4 %; Neutrophils # (A) 12.6 k/uL (1.3-7.7); Neutrophils % (A) 89 %; Platelet Count 314 k/uL (150-450); RBC 4.84 m/uL (4.30-5.90); RDW 13.3 % (11.5-15.5)
[2020-06-01 00:09] LABS: ALT 48 U/L (4-49); AST 38 U/L (17-59); African American GFR (CKD) >90 (>60 ml/min/1.73 sqM); Albumin 4.3 g/dL (3.5-5.0); Alkaline Phosphatase 87 U/L (38-126); Anion Gap 10 mmol/L; Blood Urea Nitrogen 21 mg/dL (9-20); C Reactive Protein 21.8 mg/L (<10.0); Carbon Dioxide 25 mmol/L (22-30); Chloride 102 mmol/L (98-107); Glucose 147 mg/dL (74-99); LDH 646 U/L (313-618); Magnesium 1.7 mg/dL (1.6-2.3); Non-African American GFR(CKD) 80 (>60 ml/min/1.73 sqM); Potassium 4.3 mmol/L (3.5-5.1); Sodium 137 mmol/L (137-145); Total Bilirubin 1.2 mg/dL (0.2-1.3); Total Protein 7.1 g/dL (6.3-8.2)
[2020-06-01] MEDS: SODIUM CHLORIDE 0.9% 1,000 ML IV SCH ×3 (00:29→15:26)
--- NOTE | 2020-06-01 01:03 | ED ---
URI HPI - General Source: patient Mode of arrival: ambulatory Limitations: no limitations <Shruthi Douglas - Last Filed: 06/01/20 02:27> <Buzz Griffin - Last Filed: 06/03/20 00:03> - General Chief Complaint: Upper Respiratory Infection Stated Complaint: SOB Time Seen by Provider: 05/31/20 22:50 - History of Present Illness Initial Comments: 74-year-old male postop day 6 after partial nephrectomy for renal mass right sided presents to the ER today for chief complaint of cough congestion fever. Patient states that he has had a persistent cough since Saturday as well as chills fever and general malaise. Patient states that he has had a pneumonia in the past and had to be hospitalized and was concerned that this was developing. He states he has slight shortness of breath especially during coughing fits he denies hemoptysis leg swelling. Patient denies any chest pain. Denies headaches, neck stiffness, admits to slight sore throat which he feels is most likely secondary to intubation. Patient appears well on arrival he is actively coughing. (Shruthi Douglas) - Related Data Home Medications Medication Instructions Recorded Confirmed Atorvastatin [Lipitor] 40 mg PO HS 10/18/14 05/31/20 Aspirin [Adult Low Dose Aspirin EC] 81 mg PO HS 08/31/16 05/31/20 lisinopriL [Prinivil] 20 mg PO HS 04/21/18 05/31/20 Allopurinol [Zyloprim] 100 mg PO HS 05/20/20 05/31/20 Azithromycin [Zithromax Z-pack (6 See Taper PO DIRECTED 05/31/20 05/31/20 tabs)] Ketorolac [Toradol] 10 mg PO Q6HR PRN 05/31/20 05/31/20 methylPREDNISolone [Medrol Dose See Taper PO DIRECTED 05/31/20 05/31/20 Pack] Allergies Allergy/AdvReac Type Severity Reaction Status Date / Time vancomycin Allergy Rash/Hives Verified 06/01/20 16:59 influenza virus vaccine, AdvReac "very ill Verified 05/31/20 23:21 specific after injection" sulfamethoxazole AdvReac Rash/Hives Verified 05/31/20 23:21 [From Bactrim] trimethoprim [From Bactrim] AdvReac Rash/Hives Verified 05/31/20 23:21 Review of Systems ROS Other: All systems not noted in ROS Statement are negative. <Shruthi Douglas - Last Filed: 06/01/20 02:27> ROS Other: All systems not noted in ROS Statement are negative. <Buzz Griffin - Last Filed: 06/03/20 00:03> ROS Statement: Those systems with pertinent positive or pertinent negative responses have been documented in the HPI. 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 History of Any Multi-Drug Resistant Organisms: None Reported Past Surgical History: Appendectomy, Cholecystectomy, Heart Catheterization, Hernia Repair, Orthopedic Surgery Additional Past Surgical History / Comment(s): Laparoscopic migue fundoplasty with extensive lysis of adhesions, bilateral inguinal hernia repairs, right carotid endarterectomy, left knee arthroscopy, sinus surgery, clint shoulder rotator cuff repairs, heel spur rt foot, EGD, colonoscopies/polypectomy, cystoscopy. Past Anesthesia/Blood Transfusion Reactions: No Reported Reaction, Motion Sickness Additional Past Anesthesia/Blood Transfusion Reaction / Comment(s): . Past Psychological History: No Psychological Hx Reported Smoking Status: Former smoker Past Alcohol Use History: None Reported Past Drug Use History: None Reported - Past Family History Brother(s) Family Medical History: Cancer Additional Family Medical History / Comment(s): prostate Mother Family Medical History: No Reported History Additional Family Medical History / Comment(s): Mother was healthy and lived to be 89yrs old. Father Family Medical History: Myocardial Infarction (IN) Additional Family Medical History / Comment(s): Father had a IN at the age of 60yrs and lived to be 80yrs old. <HarshilrushShruthi L - Last Filed: 06/01/20 02:27> General Exam Limitations: no limitations <Shruthi Douglas - Last Filed: 06/01/20 02:27> - General Exam Comments Initial Comments: General: The patient is awake and alert, in no distress Eye: +3 mm pupils are equal, round and reactive to light, extra-ocular movements are intact. No nystagmus. There is normal conjunctiva bilaterally. No signs of icterus. Ears, nose, mouth and throat: There are moist mucous membranes and no oral lesions. Nasal congestion Neck: The neck is supple, there is no tenderness or JVD. Cardiovascular: There is a regular rate and rhythm. No murmur, rub or gallop is appreciated. Respiratory: Lungs are clear to auscultation, respirations are non-labored, senia ath sounds are equal. No wheezes, stridor, rales, or rhonchi. Dry cough Gastrointestinal: Soft, non-distended, non-tender abdomen without masses or organomegaly noted. There is no rebound or guarding present. Musculoskeletal: Normal ROM, no tenderness. Strength 5/5. Sensation intact. Radial pulses equal bilaterally 2+. Neurological: A&O x 3. CN II-XII intact grossly, There are no obvious motor or sensory deficits. Coordination appears grossly intact. Speech is normal. Skin: Skin is warm and dry and no rashes or lesions are noted. Psychiatric: Cooperative, appropriate mood & affect, normal judgment. (Shruthi Douglas) Course Vital Signs 05/31/20 05/31/20 06/01/20 22:39 23:04 00:29 Temperature 98.9 F Pulse Rate 98 83 Pulse Rate [ Pulse Oximetery ] Respiratory 18 22 20 Rate Blood Pressure 152/82 133/73 Blood Pressure [Right Arm] O2 Sat by Pulse 96 96 Oximetry 06/01/20 06/01/20 06/01/20 05:41 07:00 09:30 Temperature 98 F Pulse Rate 69 Pulse Rate [ 72 Pulse Oximetery ] Respiratory 18 18 22 Rate Blood Pressure 134/80 Blood Pressure 134/84 [Right Arm] O2 Sat by Pulse 96 97 Oximetry 06/01/20 06/01/20 13:42 16:12 Temperature 98.2 F 99 F Pulse Rate 77 Pulse Rate [ 77 Pulse Oximetery ] Respiratory 20 20 Rate Blood Pressure 168/99 Blood Pressure 146/77 [Right Arm] O2 Sat by Pulse 98 99 Oximetry Medical Decision Making - Lab Data Result diagrams: 06/01/20 00:00 05/31/20 23:09 <Shruthi Douglas - Last Filed: 06/01/20 02:27> - Lab Data Result diagrams: 06/01/20 00:00 05/31/20 23:09 <Buzz Griffin - Last Filed: 06/03/20 00:03> - Medical Decision Making Mild leukocytosis. Patient recently hospitalized for partial nephrectomy. CTA no pulmonary embolism-obtained after consulting Dr. Griffin discussing patient recent surgery. Patient CXR concerning for developing pneumonia suspected hospital acquired. Pt will be admitted on HCAP abx for monitoring. patient and Dr. griffin agreeable and spoke with accepting admitting provider. (Shruthi Douglas) I saw this patient in conjunction with the physician medical assistant float. I performed independent history and physical exam. Agree with case management. (Buzz Griffin) - Lab Data Lab Results 05/31/20 05/31/20 05/31/20 Range/Units 23:09 23:19 23:19 WBC (3.8-10.6) k/uL RBC (4.30-5.90) m/uL Hgb (13.0-17.5) gm/dL Hct (39.0-53.0) % MCV (80.0-100.0) fL MCH (25.0-35.0) pg MCHC (31.0-37.0) g/dL RDW (11.5-15.5) % Plt Count (150-450) k/uL Neutrophils % % Lymphocytes % % Monocytes % % Eosinophils % % Basophils % % Neutrophils # (1.3-7.7) k/uL Lymphocytes # (1.0-4.8) k/uL Monocytes # (0-1.0) k/uL Eosinophils # (0-0.7) k/uL Basophils # (0-0.2) k/uL PT 9.9 (9.0-12.0) sec INR 0.9 (<1.2) APTT 22.3 (22.0-30.0) sec Sodium 137 (137-145) mmol/L Potassium 4.3 (3.5-5.1) mmol/L Chloride 102 (98-107) mmol/L Carbon Dioxide 25 (22-30) mmol/L Anion Gap 10 mmol/L BUN 21 H (9-20) mg/dL Creatinine 0.95 (0.66-1.25) mg/dL Est GFR (CKD-EPI)AfAm >90 (>60 ml/min/1.73 sqM) Est GFR (CKD-EPI)NonAf 80 (>60 ml/min/1.73 sqM) Glucose 147 H (74-99) mg/dL Plasma Lactic Acid Hans 1.5 (0.7-2.0) mmol/L Calcium 10.0 (8.4-10.2) mg/dL Magnesium 1.7 (1.6-2.3) mg/dL Ferritin 82.9 (22.0-322.0) ng/mL Total Bilirubin 1.2 (0.2-1.3) mg/dL AST 38 (17-59) U/L ALT 48 (4-49) U/L Alkaline Phosphatase 87 (38-126) U/L Lactate Dehydrogenase 646 H (313-618) U/L C-Reactive Protein 21.8 H (<10.0) mg/L Total Protein 7.1 (6.3-8.2) g/dL Albumin 4.3 (3.5-5.0) g/dL Procalcitonin (0.02-0.09) ng/mL 05/31/20 06/01/20 Range/Units 23:19 00:00 WBC 14.0 H (3.8-10.6) k/uL RBC 4.84 (4.30-5.90) m/uL Hgb 14.8 (13.0-17.5) gm/dL Hct 45.9 (39.0-53.0) % MCV 94.9 (80.0-100.0) fL MCH 30.5 (25.0-35.0) pg MCHC 32.1 (31.0-37.0) g/dL RDW 13.3 (11.5-15.5) % Plt Count 314 (150-450) k/uL Neutrophils % 89 % Lymphocytes % 4 % Monocytes % 4 % Eosinophils % 0 % Basophils % 0 % Neutrophils # 12.6 H (1.3-7.7) k/uL Lymphocytes # 0.6 L (1.0-4.8) k/uL Monocytes # 0.6 (0-1.0) k/uL Eosinophils # 0.0 (0-0.7) k/uL Basophils # 0.0 (0-0.2) k/uL PT (9.0-12.0) sec INR (<1.2) APTT (22.0-30.0) sec Sodium (137-145) mmol/L Potassium (3.5-5.1) mmol/L Chloride (98-107) mmol/L Carbon Dioxide (22-30) mmol/L Anion Gap mmol/L BUN (9-20) mg/dL Creatinine (0.66-1.25) mg/dL Est GFR (CKD-EPI)AfAm (>60 ml/min/1.73 sqM) Est GFR (CKD-EPI)NonAf (>60 ml/min/1.73 sqM) Glucose (74-99) mg/dL Plasma Lactic Acid Hans (0.7-2.0) mmol/L Calcium (8.4-10.2) mg/dL Magnesium (1.6-2.3) mg/dL Ferritin (22.0-322.0) ng/mL Total Bilirubin (0.2-1.3) mg/dL AST (17-59) U/L ALT (4-49) U/L Alkaline Phosphatase (38-126) U/L Lactate Dehydrogenase (313-618) U/L C-Reactive Protein (<10.0) mg/L Total Protein (6.3-8.2) g/dL Albumin (3.5-5.0) g/dL Procalcitonin 0.09 (0.02-0.09) ng/mL Disposition Is patient prescribed a controlled substance at d/c from ED?: No Time of Disposition: 01:36 Decision to Admit Reason: Admit from EC Decision Date: 06/01/20 Decision Time: 01:37 <Shruthi Douglas - Last Filed: 06/01/20 02:27> <Buzz Griffin - Last Filed: 06/03/20 00:03> Clinical Impression: Pneumonia, Hospital-acquired pneumonia Disposition: ADMITTED IP TO THIS HOSP Condition: Stable
--- NOTE | 2020-06-01 01:15 | CT ---
EXAM: CT Angiography Chest With Intravenous Contrast CLINICAL HISTORY: ITS.REASON CT Reason: post operative SOB TECHNIQUE: Axial computed tomographic angiography images of the chest with intravenous contrast. CTDI is 15.17 mGy and DLP is 305.8 mGy-cm. This CT exam was performed using one or more of the following dose reduction techniques: automated exposure control, adjustment of the mA and/or kV according to patient size, and/or use of iterative reconstruction technique. MIP reconstructed images were created and reviewed. COMPARISON: No relevant prior studies available. FINDINGS: Pulmonary arteries: The pulmonary arterial tree is well opacified with contrast. No pulmonary emboli are identified. Aorta: The thoracic aorta is mildly calcified but nondilated. There is no aneurysm or dissection. Lungs: Trace amounts of bibasilar subsegmental atelectasis. No infiltrate or consolidation. Pleural space: Unremarkable. No significant effusion. No pneumothorax. Heart: The heart is upper normal in size. Mild coronary cascades is present. No pericardial effusion. No evidence of RV dysfunction. Bones/joints: No acute fracture. No dislocation. Soft tissues: Unremarkable. Lymph nodes: Unremarkable. No enlarged lymph nodes. IMPRESSION: No evidence of pulmonary embolism or acute aortic abnormality. Trace amount of bibasilar subsegmental atelectasis. No focal consolidation, pneumothorax, or pleural effusion identified.
[2020-06-01] MEDS ORDERED: NALOXONE 0.4 MG/ML 1 ML VIAL IV PRN (01:46)
[2020-06-01] MEDS ORDERED: IPRATROPIUM-ALBUTEROL 3 ML NEB INHALATION PRN (02:36)
[2020-06-01 10:07] LABS: Ferritin 82.9 ng/mL (22.0-322.0)
[2020-06-01] MEDS ORDERED: VANCOMYCIN 1,250 MG in SODIUM CHLORIDE 0.9% 250 ML IVPB SCH (14:00)
--- NOTE | 2020-06-01 18:14 | P.CNPUL ---
History of Present Illness Consult date: 06/01/20 Requesting physician: Ron Zamarripa Reason for consult: dyspnea Chief complaint: Shortness of breath, cough, congestion History of present illness: This is a very pleasant 74 year old gentleman follows with Dr. Zamarripa as his primary care provider. He has a history of chronic obstructive pulmonary disease, CVA/take, GERD, hyperlipidemia, hypertension, osteoarthritis, gout. He was also recently diagnosed with a mass of the right kidney and had undergone a right-sided partial nephrectomy that was positive for renal cell carcinoma. He was discharge on 05/28/2020. He presented here to the emergency room late last night with complaints of increasing shortness of breath, cough congestion and f ever. He's had a persistent cough since 05/29/2020. He felt he was having symptoms of pneumonia that he had been hospitalized in the past with. Chest x- ray revealed new atelectasis of the lung bases compared to previous on 05/20/2020. Mild basilar pneumonia present. CT angiogram ruled out pulmonary embolism. There is a trace amount of bibasilar subsegmental atelectasis. He is seen today in consultation in the emergency room. He is currently sitting up on the stretcher. Awake and alert in no acute distress. He is maintaining O2 saturations up to 99% on room air. He's been afebrile. He does have complaints of continued shortness of breath and occasional cough. White count 14.0. H emoglobin 14.8. Sodium 137. Potassium 4.3. Creatinine 0.95. LDH 646. C- reactive protein 21.8. Pro-calcitonin 0.09. He's been initiated on IV Solu- Medrol, bronchodilators, Levaquin, cefepime and vancomycin. Review of Systems REVIEW OF SYSTEMS: CONSTITUTIONAL: Denies any recent significant weight loss or weight gain. EYES: Denies change in vision. EARS, NOSE, MOUTH, THROAT: Denies headaches, denies sore throat. CARDIOVASCULAR: Denies chest pain, palpitations or syncopal episodes. RESPIRATORY: Positive for shortness of breath, cough, congestion no hemoptysis. GASTROINTESTINAL: Denies change in appetite, denies abdominal pain GENITOURINARY: Denies hematuria, denies infections. MUSKULOSKELETAL: Denies pain, denies swelling. INTEGUMENTARY: Denies rash, denies eczema. NEUROLOGICAL: Denies recent memory loss, no recent seizure activity. PSYCHIATRIC: Denies anxiety, denies depression. HEMATOLOGIC/LYMPHATIC: Denies anemia, denies enlarged lymph nodes. 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, gout, BPH, nephrolithiasis, bilateral tinnitis, colon benign polyp History of Any Multi-Drug Resistant Organisms: None Reported Past Surgical History: Appendectomy, Cholecystectomy, Heart Catheterization, Hernia Repair, Orthopedic Surgery, Tonsillectomy Additional Past Surgical History / Comment(s): 05/26/20 robot assisted laparoscopic R partial nephrectomy, laparoscopic migue fundoplasty with extensive lysis of adhesions, bilateral inguinal hernia repairs, right carotid endarterectomy, left knee arthroscopy, sinus surgery, clint shoulder rotator cuff repairs, heel spur rt foot, R hand surgery to remove splinter, EGD, colonoscopies/polypectomy, cystoscopy. Past Anesthesia/Blood Transfusion Reactions: No Reported Reaction, Motion Sickness Additional Past Anesthesia/Blood Transfusion Reaction / Comment(s): . Smoking Status: Former smoker - Past Family History Brother(s) Family Medical History: Cancer Additional Family Medical History / Comment(s): prostate Mother Family Medical History: No Reported History Additional Family Medical History / Comment(s): Mother was healthy and lived to be 89yrs old. Father Family Medical History: Myocardial Infarction (AL) Additional Family Medical History / Comment(s): Father had a AL at the age of 60yrs and lived to be 80yrs old. Medications and Allergies Home Medications Medication Instructions Recorded Confirmed Type Atorvastatin [Lipitor] 40 mg PO HS 10/18/14 05/31/20 History Aspirin [Adult Low Dose Aspirin EC] 81 mg PO HS 08/31/16 05/31/20 History lisinopriL [Prinivil] 20 mg PO HS 04/21/18 05/31/20 History Allopurinol [Zyloprim] 100 mg PO HS 05/20/20 05/31/20 History Azithromycin [Zithromax Z-pack (6 See Taper PO DIRECTED 05/31/20 05/31/20 History tabs)] Ketorolac [Toradol] 10 mg PO Q6HR PRN 05/31/20 05/31/20 History methylPREDNISolone [Medrol Dose See Taper PO DIRECTED 05/31/20 05/31/20 History Pack] Allergies Allergy/AdvReac Type Severity Reaction Status Date / Time vancomycin Allergy Rash/Hives Verified 06/01/20 16:59 influenza virus vaccine, AdvReac "very ill Verified 05/31/20 23:21 specific after injection" sulfamethoxazole AdvReac Rash/Hives Verified 05/31/20 23:21 [From Bactrim] trimethoprim [From Bactrim] AdvReac Rash/Hives Verified 05/31/20 23:21 Physical Exam Vitals: Vital Signs Temp Pulse Pulse Resp BP BP Pulse Ox 06/01/20 16:12 99 F 77 20 168/99 99 06/01/20 13:42 98.2 F 77 20 146/77 98 06/01/20 09:30 22 06/01/20 07:00 98 F 72 18 134/84 97 06/01/20 05:41 69 18 134/80 96 06/01/20 00:29 83 20 133/73 96 05/31/20 23:04 22 05/31/20 22:39 98.9 F 98 18 152/82 96 Intake and Output 06/01/20 06/01/20 06/01/20 06:59 14:59 22:59 Intake Total 1100 Balance 1100 Intake: Intake, IV Titration 1100 Amount Cefepime 1 gm In Sodium 100 Chloride 0.9% 50 ml @ 100 mls/hr IVPB ONCE [facility] Rx# :[id number] Sodium Chloride 0.9% 1, 1000 000 ml @ 125 mls/hr IV . Q8H [facility] Rx#:[id number] Other: # Voids 3 Weight 74.843 kg GENERAL EXAM: Alert, pleasant 74-year-old gentleman, on room air, comfortable in no apparent distress. HEAD: Normocephalic. EYES: Normal reaction of pupils, equal size. NOSE: Clear with pink turbinates. THROAT: No erythema or exudates. NECK: No masses, no JVD. CHEST: No chest wall deformity. LUNGS: Equal air entry with few scattered rhonchi, end expiratory wheeze bilaterally. CVS: S1 and S2 normal with no audible murmur, regular rhythm. ABDOMEN: Previous surgical sites clean dry well approximated. No hepatosplenomegaly, normal bowel sounds, no guarding or rigidity. SPINE: No scoliosis or deformity SKIN: No rashes CENTRAL NERVOUS SYSTEM: No focal deficits, tone is normal in all 4 extremities. EXTREMITIES: There is no peripheral edema. No clubbing, no cyanosis. Peripheral pulses are intact. Results - Laboratory Findings CBC and BMP: 06/01/20 00:00 05/31/20 23:09 PT/INR, D-dimer PT 9.9 sec (9.0-12.0) 05/31/20 23:19 INR 0.9 (<1.2) 05/31/20 23:19 Abnormal lab findings: Abnormal Labs 05/31/20 06/01/20 23:09 00:00 WBC 14.0 H Neutrophils # 12.6 H Lymphocytes # 0.6 L BUN 21 H Glucose 147 H Lactate Dehydrogenase 646 H C-Reactive Protein 21.8 H - Diagnostic Findings Chest x-ray: image reviewed CT scan - chest: image reviewed Assessment and Plan Assessment: 1 Acute exacerbation of chronic obstructive pulmonary disease, complicated by p urulent tracheobronchitis versus hospital-acquired pneumonia. Calcitonin 0.09. 2 Recent hospitalization for right kidney mass status post partial nephrectomy positive for renal cell carcinoma 3 Former smoker 4 Hyperlipidemia 5 Hypertension. 6 Osteoarthritis 7 History of CVA/TIA 2005 8 History of multiple orthopedic surgeries Plan: The patient was seen and evaluated by Dr. Rock Chest x-ray, CAT scan and labs reviewed Discontinue vancomycin and cefepime Continue Levaquin Continue bronchodilators and IV Solu-Medrol Continue isolation precautions, perez virus by PCR pending We will continue to follow and make further recommendations based on his clinical status I, the cosigning physician, performed a history & physical examination of the patient. Lungs sounds with few scattered rhonchi, end expiratory wheeze, diminished. Maintaining good O2 saturations in the 90s on room air. I discussed the assessment and plan of care with my nurse practitioner, Brandi parker. I attest to the above consultation as dictated by her.
[2020-06-01] MEDS: methylPREDNISolone SOD SUCCI 125 MG/2 ML VIAL IV SCH (19:41)
--- NOTE | 2020-06-01 20:32 | P.HPIM ---
History of Present Illness H&P Date: 06/01/20 74-year-old male postop day 6 after partial nephrectomy for renal mass right sided was admitted from the ER today for chief complaint of cough congestion and fever. Patient states that he has had a persistent cough since Saturday as well as chills fever and general malaise. He did come in the office and was treated with a gram of Rocephin and Zithromax pack and a Medrol dosepak which she is currently. Patient states that he has had a pneumonia in the past and had to be hospitalized and was concerned that this was developing. He states he has slight shortness of breath especially during coughing fits he denies hemoptysis leg swelling. Patient denies any chest pain. Denies headaches, neck stiffness, admits to slight sore throat which he feels is most likely secondary to intubation. Patient appears well on arrival he is actively coughing. Review of Systems GENERAL: Patient admits to fever. Denies chills. EYES: Denies blurred vision. Denies vision changes. Denies eye pain. EARS, NOSE, MOUTH, & THROAT: Denies headache. Denies sore throat. Denies ear pain. RESPIRATORY: Denies cough. Denies shortness of breath. Denies sputum production. Denies hemoptysis. CARDIOVASCULAR: Denies chest pain or pressure. Denies palpitations. Denies arrhythmias. GASTROINTESTINAL: Denies abdominal pain. Denies diarrhea. Denies constipation. Denies nausea. Denies vomiting. Denies heartburn. Denies blood in the stool. GENITOURINARY: Denies urinary frequency. Denies burning. Denies dysuria. Denies cloudy urine. Denies blood in the urine. MUSCULOSKELETAL: myalgias. Denies joint swelling. Denies decreased range of motion beyond patients baseline. INTEGUMENTARY: Denies pruitis. Denies rash. PSYCHIATRIC: Denies suicidal or homicial ideations. ENDOCRINE: Denies weight change. Denies polydipsia. Denies polyuria. HEMATOLOGIC: Denies bleeding disorders. 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, gout, BPH, nephrolithiasis, bilateral tinnitis, colon benign polyp History of Any Multi-Drug Resistant Organisms: None Reported Past Surgical History: Appendectomy, Cholecystectomy, Heart Catheterization, Hernia Repair, Orthopedic Surgery, Tonsillectomy Additional Past Surgical History / Comment(s): 05/26/20 robot assisted laparoscopic R partial nephrectomy, laparoscopic migue fundoplasty with extensive lysis of adhesions, bilateral inguinal hernia repairs, right carotid endarterectomy, left knee arthroscopy, sinus surgery, clint shoulder rotator cuff repairs, heel spur rt foot, R hand surgery to remove splinter, EGD, colonoscopies/polypectomy, cystoscopy. Past Anesthesia/Blood Transfusion Reactions: No Reported Reaction, Motion Sickness Additional Past Anesthesia/Blood Transfusion Reaction / Comment(s): . Smoking Status: Former smoker - Past Family History Brother(s) Family Medical History: Cancer Additional Family Medical History / Comment(s): prostate Mother Family Medical History: No Reported History Additional Family Medical History / Comment(s): Mother was healthy and lived to be 89yrs old. Father Family Medical History: Myocardial Infarction (MT) Additional Family Medical History / Comment(s): Father had a MT at the age of 60yrs and lived to be 80yrs old. Medications and Allergies Home Medications Medication Instructions Recorded Confirmed Type Atorvastatin [Lipitor] 40 mg PO HS 10/18/14 05/31/20 History Aspirin [Adult Low Dose Aspirin EC] 81 mg PO HS 08/31/16 05/31/20 History lisinopriL [Prinivil] 20 mg PO HS 04/21/18 05/31/20 History Allopurinol [Zyloprim] 100 mg PO HS 05/20/20 05/31/20 History Azithromycin [Zithromax Z-pack (6 See Taper PO DIRECTED 05/31/20 05/31/20 History tabs)] Ketorolac [Toradol] 10 mg PO Q6HR PRN 05/31/20 05/31/20 History methylPREDNISolone [Medrol Dose See Taper PO DIRECTED 05/31/20 05/31/20 History Pack] Allergies Allergy/AdvReac Type Severity Reaction Status Date / Time vancomycin Allergy Rash/Hives Verified 06/01/20 16:59 influenza virus vaccine, AdvReac "very ill Verified 05/31/20 23:21 specific after injection" sulfamethoxazole AdvReac Rash/Hives Verified 05/31/20 23:21 [From Bactrim] trimethoprim [From Bactrim] AdvReac Rash/Hives Verified 05/31/20 23:21 Physical Exam Osteopathic Statement: *. No significant issues noted on an osteopathic structural exam other than those noted in the History and Physical/Consult. Vitals: Vital Signs Temp Pulse Pulse Resp BP BP Pulse Ox 06/01/20 09:30 22 06/01/20 07:00 98 F 72 18 134/84 97 06/01/20 05:41 69 18 134/80 96 06/01/20 00:29 83 20 133/73 96 05/31/20 23:04 22 05/31/20 22:39 98.9 F 98 18 152/82 96 Intake and Output 05/31/20 06/01/20 06/01/20 22:59 06:59 14:59 Other: Weight 74.843 kg 74.843 kg GENERAL: This is a -74 year-old in no apparent distress at the time of examination. Pleasant and cooperative. HEENT: Head is atraumatic, normocephalic. Pupils are equal, round, and reactive to light. Sclerae anicteric. Conjunctivae are clear. Mucus membranes of the mouth are moist. Neck is supple. RESPIRATORY: Bilateral wheezing and scattered rhonchi. No use of accessory muscles. No chest wall tenderness is noted on palpation or with deep breathing. CARDIOVASCULAR: Regular rate and rhythm. S1 and S2 noted. No systolic or diastolic murmur auscultated. No JVD noted. No S3 or S4 noted. GASTROINTESTINAL: No distention noted. Abdomen soft and round. Normal active bowel sounds auscultated x 4 quadrants. No pain or tenderness noted upon palpation. INTEGUMENTARY: No cyanosis. No jaundice. No rashes noted. No cellulitis noted. EXTREMITIES: 2+ peripheral pulses. No evidence of peripheral edema. No calf tenderness noted. NEUROLOGIC: Cranial nerves II-XII intact. PSYCHIATRIC: Awake, alert, and oriented X 3. Appropriate affect. Intact judgement and insight. Results CBC & Chem 7: 06/01/20 00:00 05/31/20 23:09 Labs: Abnormal Lab Results - Last 24 Hours (Table) 05/31/20 06/01/20 Range/Units 23:09 00:00 WBC 14.0 H (3.8-10.6) k/uL Neutrophils # 12.6 H (1.3-7.7) k/uL Lymphocytes # 0.6 L (1.0-4.8) k/uL BUN 21 H (9-20) mg/dL Glucose 147 H (74-99) mg/dL Lactate Dehydrogenase 646 H (313-618) U/L C-Reactive Protein 21.8 H (<10.0) mg/L Thrombosis Risk Factor Assmnt - Choose All That Apply Any of the Below Risk Factors Present?: Yes Each Factor Represents 1 point: Abnormal pulmonary function (COPD), Serious lung disease incl. pneumonia (< 1month) Other Risk Factors: Yes Each Risk Factor Represents 2 Points: Age 61-74 years Other congenital or acquired thrombophilia - If yes, enter type in comment: No Thrombosis Risk Factor Assessment Total Risk Factor Score: 4 Thrombosis Risk Factor Assessment Level: Moderate Risk Assessment and Plan (1) COPD (chronic obstructive pulmonary disease) Current Visit: Yes Status: Acute Code(s): J44.9 - CHRONIC OBSTRUCTIVE PULMONARY DISEASE, UNSPECIFIED SNOMED Code(s): 92568165 (2) Status post nephrectomy Current Visit: Yes Status: Acute Code(s): Z90.5 - ACQUIRED ABSENCE OF KIDNEY SNOMED Code(s): 986689167 (3) Hospital-acquired pneumonia Current Visit: Yes Status: Acute Code(s): J18.9 - PNEUMONIA, UNSPECIFIED ORGANISM; Y95 - NOSOCOMIAL CONDITION SNOMED Code(s): 757672455 (4) GERD (gastroesophageal reflux disease) Current Visit: No Status: Acute Code(s): K21.9 - GASTRO-ESOPHAGEAL REFLUX DISEASE WITHOUT ESOPHAGITIS SNOMED Code(s): 453512696 (5) SIRS (systemic inflammatory response syndrome) Current Visit: No Status: Acute Code(s): R65.10 - SIRS OF NON-INFECTIOUS ORIGIN W/O ACUTE ORGAN DYSFUNCTION SNOMED Code(s): 373696406 Plan: Plan patient to be admitted to the hospital with IV hydration and IV antibiotics pulmonary consultation for hospital-acquired pneumonia post nephrectomy which was partial on the right. Patient is stable condition currently
[2020-06-01] MEDS: LEVOFLOXACIN 750 MG TAB PO SCH (20:38)
[2020-06-01] MEDS: allopurinoL 100 MG TAB PO SCH (20:38)
[2020-06-01] MEDS: ATORVASTATIN 40 MG TAB PO SCH (20:38)
[2020-06-01] MEDS: lisinopriL 20 MG TAB PO SCH (20:38)
[2020-06-01] MEDS: ASPIRIN 81 MG PO SCH (20:38)
[2020-06-02] MEDS: methylPREDNISolone SOD SUCCI 125 MG/2 ML VIAL IV SCH ×5 (01:18→23:59)
[2020-06-02] MEDS: SODIUM CHLORIDE 0.9% 1,000 ML IV SCH ×3 (01:22→17:30)
[2020-06-02 12:50] VITALS: BMI 21.7
[2020-06-02] MEDS: ALBUTEROL HFA INHALER INHALATION PRN ×3 (13:00→20:32)
[2020-06-02] MEDS: TIOTROPIUM 18 MCG/PUFF INHALER INHALATION SCH (13:24)
--- NOTE | 2020-06-02 17:05 | P.PN ---
Subjective Progress Note Date: 06/02/20 Principal diagnosis: Acute exacerbation of COPD and purulent tracheobronchitis This is a very pleasant 74 year old gentleman follows with Dr. Zamarripa as his primary care provider. He has a history of chronic obstructive pulmonary disease, CVA/take, GERD, hyperlipidemia, hypertension, osteoarthritis, gout. He was also recently diagnosed with a mass of the right kidney and had undergone a right-sided partial nephrectomy that was positive for renal cell carcinoma. He was discharge on 05/28/2020. He presented here to the emergency room late last night with complaints of increasing shortness of breath, cough congestion and fever. He's had a persistent cough since 05/29/2020. He felt he was having symptoms of pneumonia that he had been hospitalized in the past with. Chest x- ray revealed new atelectasis of the lung bases compared to previous on 05/20/2020. Mild basilar pneumonia present. CT angiogram ruled out pulmonary embolism. There is a trace amount of bibasilar subsegmental atelectasis. He is seen today in consultation in the emergency room. He is currently sitting up on the stretcher. Awake and alert in no acute distress. He is maintaining O2 saturations up to 99% on room air. He's been afebrile. He does have complaints of continued shortness of breath and occasional cough. White count 14.0. Hemoglobin 14.8. Sodium 137. Potassium 4.3. Creatinine 0.95. LDH 646. C- reactive protein 21.8. Pro-calcitonin 0.09. He's been initiated on IV Solu- Medrol, bronchodilators, Levaquin, cefepime and vancomycin. Patient was evaluated today on 06/02/20, patient is feeling slightly better, but she continues to have cough and wheezing, no fever no chills no hemoptysis. His pro-calcitonin level is 0.09. And his chest x-ray showed no evidence of pne umonia. His WBC count yesterday was 14.0, hemoglobin is 14.8. CBC is relatively normal. Lites are normal. Lactic acid is normal. Pro-calcitonin level is normal Objective - Vital Signs Vital signs: Vital Signs Temp 97.8 F 06/02/20 15:00 Pulse 87 06/02/20 15:00 Resp 18 06/02/20 00:00 BP 130/72 06/02/20 15:00 Pulse Ox 96 06/02/20 15:00 Intake & Output 06/01/20 06/02/20 06/02/20 18:59 06:59 18:59 Intake Total 1100 Balance 1100 Weight 74.843 kg 74.843 kg Intake: Intake, IV Titration 1100 Amount Cefepime 1 gm In Sodium 100 Chloride 0.9% 50 ml @ 100 mls/hr IVPB ONCE STA Rx# :[id number] Sodium Chloride 0.9% 1, 1000 000 ml @ 125 mls/hr IV . Q8H [facility] Rx#:[id number] Other: # Voids 3 3 3 - Exam GENERAL EXAM: Alert, pleasant 74-year-old gentleman, on room air, comfortable in no apparent distress. HEAD: Normocephalic. EENT: PERRLA, EOMI, no icterus, no neck masses, no JVD, no stridor. CHEST: No chest wall deformity. LUNGS: Equal air entry with few scattered rhonchi, end expiratory wheeze bilaterally. CVS: S1 and S2 normal with no audible murmur, regular rhythm. ABDOMEN: Previous surgical sites clean dry well approximated. No hepatosplenomegaly, normal bowel sounds, no guarding or rigidity. SPINE: No scoliosis or deformity SKIN: No rashes CENTRAL NERVOUS SYSTEM: Alert and oriented 3, no gross focal deficits. Psychiatric: Normal mood, affect and normal mental status examination. EXTREMITIES: There is no peripheral edema. No clubbing, no cyanosis. Peripheral pulses are intact. - Labs CBC & Chem 7: 06/01/20 00:00 05/31/20 23:09 Labs: Microbiology - Last 24 Hours (Table) 05/31/20 23:19 Blood Culture - Preliminary Blood No Growth after 24 hours Assessment and Plan Assessment: Impression: Acute exacerbation of COPD. Acute purulent tracheobronchitis. Recent hospitalization for renal cell carcinoma and partial nephrectomy. Former smoker. Benign essential hypertension. Dyslipidemia. History of multiple orthopedic surgeries. Recommendation: Continue bronchodilators. Continue Levaquin. Continue IV Solu-Medrol. PCR for covidd 19 is pending. However clinically this seems to be mostly COPD and tracheobronchitis related symptoms. We'll continue to follow. Possible discharge planning in the next 24 hours. Time with Patient: Less than 30
[2020-06-02] MEDS: lisinopriL 20 MG TAB PO SCH (21:28)
[2020-06-02] MEDS: ATORVASTATIN 40 MG TAB PO SCH (21:28)
[2020-06-02] MEDS: LEVOFLOXACIN 750 MG TAB PO SCH (21:28)
[2020-06-02] MEDS: allopurinoL 100 MG TAB PO SCH (21:28)
[2020-06-02] MEDS: ASPIRIN 81 MG PO SCH (21:28)
[2020-06-02] MEDS: polyethylene glycoL 3350 17 GM POWD.PACK PO SCH (21:29)
--- NOTE | 2020-06-02 22:00 | P.PN ---
Subjective Progress Note Date: 06/02/20 The pleasant 74-year-old white male with exacerbation of COPD. Tracheobronchitis. He is doing somewhat better today with antibiotics pulmonary treatment and hydration. Denies any fever chills. His covid 19 test is pending Objective - Vital Signs Vital signs: Vital Signs Temp 98.6 F 06/02/20 19:38 Pulse 77 06/02/20 19:38 Resp 18 06/02/20 19:38 BP 126/64 06/02/20 19:38 Pulse Ox 94 L 06/02/20 19:38 Intake & Output 06/02/20 06/02/20 06/03/20 06:59 18:59 06:59 Output Total 600 Balance -600 Weight 74.843 kg Output: Urine 600 Other: # Voids 3 3 - Exam GENERAL: Patient admits to fever. Denies chills. EYES: Denies blurred vision. Denies vision changes. Denies eye pain. EARS, NOSE, MOUTH, & THROAT: Denies headache. Denies sore throat. Denies ear pain. RESPIRATORY: Denies cough. Denies shortness of breath. Denies sputum production. Denies hemoptysis. CARDIOVASCULAR: Denies chest pain or pressure. Denies palpitations. Denies arrhythmias. GASTROINTESTINAL: Denies abdominal pain. Denies diarrhea. Denies constipation. Denies nausea. Denies vomiting. Denies heartburn. Denies blood in the stool. GENITOURINARY: Denies urinary frequency. Denies burning. Denies dysuria. Denies cloudy urine. Denies blood in the urine. MUSCULOSKELETAL: myalgias. Denies joint swelling. Denies decreased range of motion beyond patients baseline. INTEGUMENTARY: Denies pruitis. Denies rash. PSYCHIATRIC: Denies suicidal or homicial ideations. ENDOCRINE: Denies weight change. Denies polydipsia. Denies polyuria. HEMATOLOGIC: Denies bleeding disorder - Labs CBC & Chem 7: 06/01/20 00:00 05/31/20 23:09 Labs: Microbiology - Last 24 Hours (Table) 05/31/20 23:19 Blood Culture - Preliminary Blood No Growth after 24 hours Assessment and Plan (1) COPD (chronic obstructive pulmonary disease) Current Visit: Yes Status: Acute Code(s): J44.9 - CHRONIC OBSTRUCTIVE PULMONARY DISEASE, UNSPECIFIED SNOMED Code(s): 86630012 (2) Status post nephrectomy Current Visit: Yes Status: Acute Code(s): Z90.5 - ACQUIRED ABSENCE OF KIDNEY SNOMED Code(s): 509950831 (3) Hospital-acquired pneumonia Current Visit: Yes Status: Acute Code(s): J18.9 - PNEUMONIA, UNSPECIFIED ORGANISM; Y95 - NOSOCOMIAL CONDITION SNOMED Code(s): 469380419 (4) GERD (gastroesophageal reflux disease) Current Visit: No Status: Acute Code(s): K21.9 - GASTRO-ESOPHAGEAL REFLUX DISEASE WITHOUT ESOPHAGITIS SNOMED Code(s): 795036102 (5) SIRS (systemic inflammatory response syndrome) Current Visit: No Status: Acute Code(s): R65.10 - SIRS OF NON-INFECTIOUS ORIGIN W/O ACUTE ORGAN DYSFUNCTION SNOMED Code(s): 130946485 (6) Renal cell carcinoma Current Visit: Yes Status: Acute Code(s): C64.9 - MALIGNANT NEOPLASM OF UNSP KIDNEY, EXCEPT RENAL PELVIS SNOMED Code(s): 921775397 Plan: Continue IV antibiotics hydration pulmonary support patient is clear discharge anticipated 24
[2020-06-03] MEDS: methylPREDNISolone SOD SUCCI 125 MG/2 ML VIAL IV SCH ×3 (06:03→17:07)
[2020-06-03] MEDS: SODIUM CHLORIDE 0.9% 1,000 ML IV SCH ×3 (07:49→16:18)
[2020-06-03] MEDS: polyethylene glycoL 3350 17 GM POWD.PACK PO SCH ×2 (07:50→20:15)
[2020-06-03] MEDS: ALBUTEROL HFA INHALER INHALATION PRN ×4 (08:43→18:49)
[2020-06-03] MEDS: TIOTROPIUM 18 MCG/PUFF INHALER INHALATION SCH ×2 (12:19→16:15)
[2020-06-03] MEDS ORDERED: VANCOMYCIN TROUGH DUE 1 EACH MISC MISCELLANE ONE (13:00)
--- NOTE | 2020-06-03 14:17 | P.PN ---
Subjective Progress Note Date: 06/03/20 This 54-year-old gentleman admitted with acute extubation COPD, tracheobronchitis, status post right partial nephrectomy last week reporting positive for renal carcinoma. Maintained on nebulized bronchodilators, Levaquin, IV steroids. Breathing improving, maintaining O2 sats in the 90s on room air. Afebrile. Denies chest pain, palpitations or shortness of breath. Objective - Vital Signs Vital signs: Vital Signs Temp 97.7 F 06/03/20 07:00 Pulse 80 06/03/20 07:00 Resp 20 06/03/20 07:00 BP 113/62 06/03/20 07:00 Pulse Ox 94 L 06/03/20 07:00 Intake & Output 06/02/20 06/03/20 06/03/20 18:59 06:59 18:59 Intake Total 1250 200 Output Total 600 Balance 650 200 Weight 74.843 kg Intake: Intake, IV Titration 350 Amount Sodium Chloride 0.9% 1, 350 000 ml @ 125 mls/hr IV . Q8H [facility] Rx#:[id number] Oral 900 200 Output: Urine 600 Other: # Voids 3 2 - Exam GENERAL: Sitting up in bed, no acute distress HEENT: Head is atraumatic, normocephalic. Pupils are equal, round, and reactive to light. Sclerae anicteric. Conjunctivae are clear. Mucus membranes of the mouth are moist. Neck is supple. RESPIRATORY: Bilateral wheezing and scattered rhonchi. No use of accessory muscles. No chest wall tenderness is noted on palpation or with deep breathing. CARDIOVASCULAR: Regular rate and rhythm. S1 and S2 noted. No systolic or diastolic murmur auscultated. No JVD noted. No S3 or S4 noted. GASTROINTESTINAL: No distention noted. Abdomen soft and round. Normal active bowel sounds auscultated x 4 quadrants. No pain or tenderness noted upon palpation. INTEGUMENTARY: No cyanosis. No jaundice. No rashes noted. No cellulitis noted. EXTREMITIES: 2+ peripheral pulses. No evidence of peripheral edema. No calf tenderness noted. NEUROLOGIC: Cranial nerves II-XII intact. PSYCHIATRIC: Awake, alert, and oriented X 3. Appropriate affect. Intact judgement and insight. - Labs CBC & Chem 7: 06/01/20 00:00 05/31/20 23:09 Labs: Microbiology - Last 24 Hours (Table) 05/31/20 23:19 Blood Culture - Preliminary Blood No Growth after 48 hours Assessment and Plan Assessment: (1) COPD (chronic obstructive pulmonary disease) Current Visit: Yes Status: Acute Code(s): J44.9 - CHRONIC OBSTRUCTIVE P ULMONARY DISEASE, UNSPECIFIED SNOMED Code(s): 15048499 (2) Status post nephrectomy Current Visit: Yes Status: Acute Code(s): Z90.5 - ACQUIRED ABSENCE OF KIDNEY SNOMED Code(s): 166944220 (3) Hospital-acquired pneumonia Current Visit: Yes Status: Acute Code(s): J18.9 - PNEUMONIA, UNSPECIFIED ORGANISM; Y95 - NOSOCOMIAL CONDITION SNOMED Code(s): 042557221 (4) GERD (gastroesophageal reflux disease) Current Visit: No Status: Acute Code(s): K21.9 - GASTRO-ESOPHAGEAL REFLUX DISEASE WITHOUT ESOPHAGITIS SNOMED Code(s): 889500033 (5) SIRS (systemic inflammatory response syndrome) Current Visit: No Status: Acute Code(s): R65.10 - SIRS OF NON-INFECTIOUS ORIGIN W/O ACUTE ORGAN DYSFUNCTION SNOMED Code(s): 669632386 Plan: Continue on current medication regime ,monitoring and symptomatic treatment. Aggressive pulmonary toileting. Maintain nebulized bronchodilators, antibiotics and steroids. Retained gentle IV fluid hydration.COVID testing pending. Discharge planning in progress pending pulmonary clearance. The impression and plan of care has been dictated as directed. : I performed a history and examination of this patient, discussed the same with the dictator. I agree with the dictator's note ,documented as a scribe. Any additional findings or plans will be noted.
--- NOTE | 2020-06-03 17:03 | P.PN ---
Subjective Progress Note Date: 06/03/20 Principal diagnosis: Acute exacerbation of chronic obstructive pulmonary disease This is a very pleasant 74 year old gentleman follows with Dr. Zamarripa as his primary care provider. He has a history of chronic obstructive pulmonary disease, CVA/take, GERD, hyperlipidemia, hypertension, osteoarthritis, gout. He was also recently diagnosed with a mass of the right kidney and had undergone a right-sided partial nephrectomy that was positive for renal cell carcinoma. He was discharge on 05/28/2020. He presented here to the emergency room late last night with complaints of increasing shortness of breath, cough congestion and fever. He's had a persistent cough since 05/29/2020. He felt he was having symptoms of pneumonia that he had been hospitalized in the past with. Chest x- ray revealed new atelectasis of the lung bases compared to previous on 05/20/2020. Mild basilar pneumonia present. CT angiogram ruled out pulmonary embolism. There is a trace amount of bibasilar subsegmental atelectasis. He is seen today in consultation in the emergency room. He is currently sitting up on the stretcher. Awake and alert in no acute distress. He is maintaining O2 saturations up to 99% on room air. He's been afebrile. He does have complaints of continued shortness of breath and occasional cough. White count 14.0. Hemoglobin 14.8. Sodium 137. Potassium 4.3. Creatinine 0.95. LDH 646. C- reactive protein 21.8. Pro-calcitonin 0.09. He's been initiated on IV Solu- Medrol, bronchodilators, Levaquin, cefepime and vancomycin. Patient was evaluated today on 06/02/20, patient is feeling slightly better, but she continues to have cough and wheezing, no fever no chills no hemoptysis. His pro-calcitonin level is 0.09. And his chest x-ray showed no evidence of pneumonia. His WBC count yesterday was 14.0, hemoglobin is 14.8. CBC is relatively normal. Lites are normal. Lactic acid is normal. Pro-calcitonin level is normal The patient is seen today 06/03/2020 in follow-up on the regular medical floor. He is awake and alert in no acute distress. Currently sitting up in a chair at the bedside. He is maintaining O2 saturation in the mid 90s on room air. He's been afebrile. Hemodynamically stable. He is currently on Levaquin, IV Cipro Medrol, bronchodilators. Objective - Vital Signs Vital signs: Vital Signs Temp 98.1 F 06/03/20 15:00 Pulse 77 06/03/20 15:00 Resp 20 06/03/20 15:00 BP 107/57 06/03/20 15:00 Pulse Ox 95 06/03/20 15:00 Intake & Output 06/02/20 06/03/20 06/03/20 18:59 06:59 18:59 Intake Total 1250 600 Output Total 600 Balance 650 600 Weight 74.843 kg Intake: IV 400 Sodium Chloride 0.9% 1, 400 000 ml @ 125 mls/hr IV . Q8H [facility] Rx#:[id number] Intake, IV Titration 350 Amount Sodium Chloride 0.9% 1, 350 000 ml @ 125 mls/hr IV . Q8H [facility] Rx#:[id number] Oral 900 200 Output: Urine 600 Other: # Voids 3 2 - Exam GENERAL EXAM: Alert, pleasant 74-year-old gentleman, on room air, comfortable in no apparent distress. HEAD: Normocephalic. EENT: PERRLA, EOMI, no icterus, no neck masses, no JVD, no stridor. CHEST: No chest wall deformity. LUNGS: Equal air entry with few scattered rhonchi, end expiratory wheeze bilaterally. CVS: S1 and S2 normal with no audible murmur, regular rhythm. ABDOMEN: Previous surgical sites clean dry well approximated. No hepatosplenomegaly, normal bowel sounds, no guarding or rigidity. SPINE: No scoliosis or deformity SKIN: No rashes CENTRAL NERVOUS SYSTEM: Alert and oriented 3, no gross focal deficits. Psychiatric: Normal mood, affect and normal mental status examination. EXTREMITIES: There is no peripheral edema. No clubbing, no cyanosis. Peripheral pulses are intact. - Labs CBC & Chem 7: 06/01/20 00:00 05/31/20 23:09 Labs: Microbiology - Last 24 Hours (Table) 05/31/20 23:19 Blood Culture - Preliminary Blood No Growth after 48 hours Assessment and Plan Assessment: 1 Acute exacerbation of chronic obstructive pulmonary disease, complicated by purulent tracheobronchitis versus hospital-acquired pneumonia. ProCalcitonin 0.09. 2 Recent hospitalization for right kidney mass status post partial nephrectomy positive for renal cell carcinoma 3 Former smoker 4 Hyperlipidemia 5 Hypertension. 6 Osteoarthritis 7 History of CVA/TIA 2005 8 History of multiple orthopedic surgeries Plan: The patient was seen and evaluated by Dr. Rock Continue Levaquin Continue bronchodilators and IV Solu-Medrol Continue isolation precautions, perez virus by PCR pending Probable discharge in the a.m. We will continue to follow and make further recommendations based on his clinical status I, the cosigning physician, performed a history & physical examination of the patient. Lungs sounds with few scattered rhonchi, end expiratory wheeze, diminished. Maintaining good O2 saturations in the 90s on room air. I d iscussed the assessment and plan of care with my nurse practitioner, Brandi Mirza. I attest to the above note as dictated by her.
[2020-06-03] MEDS: INSULIN ASPART (NovoLOG) 100 UNIT/ML VIAL SQ SCH ×2 (17:07→21:16)
[2020-06-03 17:08] LABS: Glucose,Whole Blood 133 mg/dL (75-99)
[2020-06-03] MEDS: allopurinoL 100 MG TAB PO SCH (20:15)
[2020-06-03] MEDS: ATORVASTATIN 40 MG TAB PO SCH (20:15)
[2020-06-03] MEDS: ASPIRIN 81 MG PO SCH (20:15)
[2020-06-03] MEDS: LEVOFLOXACIN 750 MG TAB PO SCH (20:16)
[2020-06-03 20:38] LABS: Glucose,Whole Blood 185 mg/dL (75-99)
[2020-06-04] MEDS: methylPREDNISolone SOD SUCCI 125 MG/2 ML VIAL IV SCH ×4 (00:38→17:08)
[2020-06-04] MEDS: SODIUM CHLORIDE 0.9% 1,000 ML IV SCH ×2 (00:54→07:54)
[2020-06-04 06:59] LABS: Glucose,Whole Blood 147 mg/dL (75-99)
[2020-06-04] MEDS: INSULIN ASPART (NovoLOG) 100 UNIT/ML VIAL SQ SCH ×3 (07:47→16:42)
[2020-06-04] MEDS: polyethylene glycoL 3350 17 GM POWD.PACK PO SCH (07:55)
[2020-06-04] MEDS: TIOTROPIUM 18 MCG/PUFF INHALER INHALATION SCH (08:27)
[2020-06-04] MEDS: ALBUTEROL HFA INHALER INHALATION PRN (08:27)
[2020-06-04] MEDS ORDERED: LOSARTAN 50 MG TAB PO SCH (09:00)
[2020-06-04 11:51] LABS: Glucose,Whole Blood 140 mg/dL (75-99)
--- NOTE | 2020-06-04 14:39 | P.PN ---
Subjective Progress Note Date: 06/04/20 Principal diagnosis: Acute exacerbation of chronic obstructive pulmonary disease This is a very pleasant 74 year old gentleman follows with Dr. Zamarripa as his primary care provider. He has a history of chronic obstructive pulmonary disease, CVA/take, GERD, hyperlipidemia, hypertension, osteoarthritis, gout. He was also recently diagnosed with a mass of the right kidney and had undergone a right-sided partial nephrectomy that was positive for renal cell carcinoma. He was discharge on 05/28/2020. He presented here to the emergency room late last night with complaints of increasing shortness of breath, cough congestion and fever. He's had a persistent cough since 05/29/2020. He felt he was having symptoms of pneumonia that he had been hospitalized in the past with. Chest x- ray revealed new atelectasis of the lung bases compared to previous on 05/20/2020. Mild basilar pneumonia present. CT angiogram ruled out pulmonary embolism. There is a trace amount of bibasilar subsegmental atelectasis. He is seen today in consultation in the emergency room. He is currently sitting up on the stretcher. Awake and alert in no acute distress. He is maintaining O2 saturations up to 99% on room air. He's been afebrile. He does have complaints of continued shortness of breath and occasional cough. White count 14.0. Hemoglobin 14.8. Sodium 137. Potassium 4.3. Creatinine 0.95. LDH 646. C- reactive protein 21.8. Pro-calcitonin 0.09. He's been initiated on IV Solu- Medrol, bronchodilators, Levaquin, cefepime and vancomycin. Patient was evaluated today on 06/02/20, patient is feeling slightly better, but she continues to have cough and wheezing, no fever no chills no hemoptysis. His pro-calcitonin level is 0.09. And his chest x-ray showed no evidence of pneumonia. His WBC count yesterday was 14.0, hemoglobin is 14.8. CBC is relatively normal. Lites are normal. Lactic acid is normal. Pro-calcitonin level is normal The patient is seen today 06/03/2020 in follow-up on the regular medical floor. He is awake and alert in no acute distress. Currently sitting up in a chair at the bedside. He is maintaining O2 saturation in the mid 90s on room air. He's been afebrile. Hemodynamically stable. He is currently on Levaquin, IV Cipro Medrol, bronchodilators. The patient is seen today 06/04/2020 in follow-up on the regular medical floor. He is up ambulating in the room. Awake and alert in no acute distress. He denies any worsening shortness of breath, cough or congestion. Maintaining O2 saturations in the 90s on room air. He's been afebrile. Hemodynamically stable. Luna virus by PCR not detected. He's been maintained on broncho dilators, IV Solu-Medrol, antibiotics in the form of Levaquin. Objective - Vital Signs Vital signs: Vital Signs Temp 97.6 F 06/04/20 07:00 Pulse 72 06/04/20 07:00 Resp 16 06/04/20 07:00 BP 128/73 06/04/20 07:00 Pulse Ox 90 L 06/04/20 07:00 Intake & Output 06/03/20 06/04/20 06/04/20 18:59 06:59 18:59 Intake Total 600 200 Balance 600 200 Intake: IV 400 Sodium Chloride 0.9% 1, 400 000 ml @ 125 mls/hr IV . Q8H [facility] Rx#:[id number] Oral 200 200 Other: Voiding Method Toilet Urinal # Voids 1 2 - Exam GENERAL EXAM: Alert, pleasant 74-year-old gentleman, on room air, comfortable in no apparent distress. HEAD: Normocephalic. EENT: PERRLA, EOMI, no icterus, no neck masses, no JVD, no stridor. CHEST: No chest wall deformity. LUNGS: Equal air entry with few scattered rhonchi, end expiratory wheeze bilaterally. CVS: S1 and S2 normal with no audible murmur, regular rhythm. ABDOMEN: Previous surgical sites clean dry well approximated. No hepatosplenomegaly, normal bowel sounds, no guarding or rigidity. SPINE: No scoliosis or deformity SKIN: No rashes CENTRAL NERVOUS SYSTEM: Alert and oriented 3, no gross focal deficits. Psychiatric: Normal mood, affect and normal mental status examination. EXTREMITIES: There is no peripheral edema. No clubbing, no cyanosis. Peripheral pulses are intact. - Labs CBC & Chem 7: 06/01/20 00:00 05/31/20 23:09 Labs: Abnormal Lab Results - Last 24 Hours (Table) 06/03/20 06/03/20 06/04/20 Range/Units 16:58 20:32 06:55 POC Glucose (mg/dL) 133 H 185 H 147 H (75-99) mg/dL 06/04/20 Range/Units 11:49 POC Glucose (mg/dL) 140 H (75-99) mg/dL Microbiology - Last 24 Hours (Table) 05/31/20 23:19 Blood Culture - Preliminary Blood No Growth after 72 hours Assessment and Plan Assessment: 1 Acute exacerbation of chronic obstructive pulmonary disease, complicated by purulent tracheobronchitis versus hospital-acquired pneumonia. ProCalcitonin 0.09. Luna virus by PCR not detected 2 Recent hospitalization for right kidney mass status post partial nephrectomy positive for renal cell carcinoma 3 Former smoker 4 Hyperlipidemia 5 Hypertension. 6 Osteoarthritis 7 History of CVA/TIA 2005 8 History of multiple orthopedic surgeries Plan: The patient was seen and evaluated by Dr. Rock Cleared for discharge from the pulmonary standpoint Complete a course of antibiotics Complete a prednisone taper Follow-up in the office in 1-2 weeks' time I, the cosigning physician, performed a history & physical examination of the patient. Lungs sounds with few scattered rhonchi, end expiratory wheeze, diminished. Maintaining good O2 saturations in the 90s on room air. I discussed the assessment and plan of care with my nurse practitioner, Brandi Mirza. I attest to the above note as dictated by her.
[2020-06-04 14:52] VITALS: BP 126/69; PULSE 66; RESP 15; TEMP 97.8
--- NOTE | 2020-06-04 17:01 | P.DS ---
Providers Date of admission: 06/01/20 02:39 Expected date of discharge: 06/04/20 Attending physician: Ron Zamarripa Consults: 06/01/20 08:17 Consult Physician Routine Consulting Provider: Jose Rock Consult Reason/Comments: copd exaserbation Do you want consulting provider notified?: Yes Primary care physician: Ron Zamarripa [facility] Course: Mr. Guo is a 74-year-old male, who follows with Dr. Zamarripa as his primary care doctor, history of COPD, CVA/TIA, GERD, hypertension, hyperlipidemia, osteoarthritis, gout recently diagnosed with mass of the right kidney and underwent right sided partial nephrectomy that was positive for renal cell carcinoma coming in with a chief complaint of shortness of breath. He was also having congestion and fevers. So he is admitted with symptoms of pneumonia. Chest x-ray showed new atelectasis in the lung bases and basilar pneumonia. CT angios done to rule out PE and is negative. Patient was tested negative for COVID 19. Patient was started on breathing treatments, IV Solu-Medrol, Levaquin, cefepime and vancomycin. Later on discontinued cefepime and vancomycin have been discontinued and he was continued on Levaquin. Today the patient is sitting up in the bed appears to be comfortable no acute complaints. Patient states that he wants to go home. He still complains of mild difficulty in breathing but states that much better than when he came in and states that he is almost back to his baseline. On reviewing his vitals patient's temperature 97.8, heart rate is 66 his, respiratory rate 15, blood pressure 08/23/2068, saturating at 97% on room air. Patient has been evaluated by pulmonary and cleared for discharge to complete the antibiotic course and a prednisone taper. PHYSICAL EXAM GEN. APPEARANCE: alert, in no apparent distress HE ENT: No pallor. No icterus mucous membranes are moist. RESPIRATORY EXAM: equal air entry with few scattered rhonchi, end expiratory wheeze bilaterally. CVS: S1 and S2 normal with no audible murmur, regular rhythm. ABDOMEN: Previous surgical sites clean dry well approximated. No hepatosplenomegaly, normal bowel sounds, no guarding or rigidity. Extremities: No pedal edema. Discharge DIAGNOSIS 1 Acute exacerbation of chronic obstructive pulmonary disease, complicated by purulent tracheobronchitis versus hospital-acquired pneumonia. 2 Recent hospitalization for right kidney mass status post partial nephrectomy positive for renal cell carcinoma 3 Former smoker 4 Hyperlipidemia 5 Hypertension. 6 Osteoarthritis 6 History of CVA/TIA 2005 7 History of multiple orthopedic surgeries FOLLOW-up: Patient is being discharged home in a stable condition and advised to complete his antibiotic course of levofloxacin for 3 more days and a prednisone taper. Advised to follow-up with his primary care physician in 2-3 days . More than 35 minutes spent towards the discharge of the patient. Patient Condition at Discharge: Stable Plan - Discharge Summary Discharge Rx Participant: No New Discharge Prescriptions: New Losartan [Cozaar] 50 mg PO DAILY 30 Days #30 tab Levofloxacin [Levaquin] 750 mg PO HS@2200 3 Days #3 tab predniSONE See Taper PO DIRECTED 12 Days #30 tab Continue Atorvastatin [Lipitor] 40 mg PO HS Aspirin [Adult Low Dose Aspirin EC] 81 mg PO HS Allopurinol [Zyloprim] 100 mg PO HS Ketorolac [Toradol] 10 mg PO Q6HR PRN PRN Reason: Pain Discontinued lisinopriL [Prinivil] 20 mg PO HS Azithromycin [Zithromax Z-pack (6 tabs)] See Taper PO DIRECTED methylPREDNISolone [Medrol Dose Pack] See Taper PO DIRECTED Discharge Medication List Atorvastatin [Lipitor] 40 mg PO HS 10/18/14 [History] Aspirin [Adult Low Dose Aspirin EC] 81 mg PO HS 08/31/16 [History] Allopurinol [Zyloprim] 100 mg PO HS 05/20/20 [History] Ketorolac [Toradol] 10 mg PO Q6HR PRN 05/31/20 [History] Levofloxacin [Levaquin] 750 mg PO HS@2200 3 Days #3 tab 06/04/20 [Rx] Losartan [Cozaar] 50 mg PO DAILY 30 Days #30 tab 06/04/20 [Rx] predniSONE See Taper PO DIRECTED 12 Days #30 tab 06/04/20 [Rx] Follow up Appointment(s)/Referral(s): Ron Zamarripa DO [Primary Care Provider] - 1-2 days Discharge Disposition: HOME SELF-CARE
== END 2020-06-04 18:09 | disposition home or self-care (01) | DRG 190 ==
LOC: EC 22:37 → 4SSUR 06-01 02:39
PROVIDERS: ADMIT Family Medicine; ATTEND Family Medicine
DX: J44.1 Chronic obstructive pulmonary disease with (acute) exacerbation (principal); J18.9 Pneumonia, unspecified organism; R65.10 Systemic inflammatory response syndrome (SIRS) of non-infectious origin without acute organ dysfunction; J44.0 Chronic obstructive pulmonary disease with (acute) lower respiratory infection; Z20.828 Contact with and (suspected) exposure to other viral communicable diseases; E78.5 Hyperlipidemia, unspecified; I10 Essential (primary) hypertension; K21.9 Gastro-esophageal reflux disease without esophagitis; M19.90 Unspecified osteoarthritis, unspecified site; N40.0 Benign prostatic hyperplasia without lower urinary tract symptoms; M10.9 Gout, unspecified; J20.9 Acute bronchitis, unspecified; Y95 Nosocomial condition; Z71.3 Dietary counseling and surveillance; Z79.899 Other long term (current) drug therapy; Z79.82 Long term (current) use of aspirin; Z86.73 Personal history of transient ischemic attack (TIA), and cerebral infarction without residual deficits; Z85.528 Personal history of other malignant neoplasm of kidney; Z90.5 Acquired absence of kidney; Z90.49 Acquired absence of other specified parts of digestive tract; Z98.890 Other specified postprocedural states; Z87.891 Personal history of nicotine dependence; Z87.01 Personal history of pneumonia (recurrent); Z86.010 Personal history of colon polyps; Z88.1 Allergy status to other antibiotic agents; Z88.2 Allergy status to sulfonamides; Z88.7 Allergy status to serum and vaccine; Z80.9 Family history of malignant neoplasm, unspecified; Z82.49 Family history of ischemic heart disease and other diseases of the circulatory system
CPT/HCPCS: 36415; 71046; 71275; 80053; 80202; 82728; 83605; 83615; 83735; 84145; 85025; 85610; 85730; 86140; 87040; 93005; 94640; 96361; 96365; 96366; 96367; 96376; 99285

== ENCOUNTER → 2020-11-30 | Outpatient (CLI) | payer MEDICARE, BC ==
--- NOTE | 2020-11-30 10:13 | XR ---
EXAMINATION TYPE: XR chest 2V DATE OF EXAM: 11/30/2020 COMPARISON: Chest x-ray May 31, 2020 HISTORY: Kidney cancer TECHNIQUE: Frontal and lateral views of the chest are obtained. FINDINGS: There is mild chronic parenchymal changes left lung base without suspicious new focal air space opacity, pleural effusion, or pneumothorax seen. The cardiac silhouette size remains within no rmal limits. The osseous structures are intact. Colonic interposition again seen. IMPRESSION: No acute cardiopulmonary process. No significant change from prior.
[2020-11-30 10:32] LABS: African American GFR (CKD) >90 (>60 ml/min/1.73 sqM); Blood Urea Nitrogen 14 mg/dL (9-20); Non-African American GFR(CKD) 81 (>60 ml/min/1.73 sqM)
--- NOTE | 2020-11-30 11:29 | CT ---
EXAMINATION TYPE: CT abdomen w con DATE OF EXAM: 11/30/2020 COMPARISON: 03/14/2020 HISTORY: H/O malignant neoplasm of unspecified kidney CT DLP: 650.80 mGycm CONTRAST: CT scan of the abdomen is performed with Oral Contrast and with IV Contrast, patient injected with 10 0ml mL of Isovue 300. FINDINGS: LUNG BASES-: No visible nodule. No infiltrate. LIVER/GB: No calcified gallstones. No space occupying hepatic lesion. Biliary tree is of normal ca liber. PANCREAS: No inflammation. No distinct mass. SPLEEN: No splenic enlargement. No lesion seen. ADRENALS: No nodule. No thickening. KIDNEYS/BLADDER: There is a persistent small area of decreased attenuation lower pole right kidney me asuring 1.3 cm versus 3.5 x 2 5 cm previously. While this could reflect postsurgical change if there has been such a history of recurrent or residual lesion is difficult to exclude. Nonobstructing nephr olithiasis left kidney measuring 7 mm. BOWEL: Normal appendix. Normal bowel caliber. No inflammation. LYMPH NODES: No greater than 1cm abdominal or pelvic lymph nodes are appreciated. AORTA: No significant abnormality. OSSEOUS STRUCTURES: No significant abnormality is seen. OTHER: No significant additional abnormality is seen. IMPRESSION: 1. There is a persistent small area of decreased attenuation lower pole right kidney measuring 1.3 cm versus 3.5 x 2 5 cm previously. While this could reflect postsurgical change if there has been such a history of recurrent or residual lesion is difficult to exclude.
== END | disposition home or self-care (01) ==
LOC: RADCTMAIN 09:47
PROVIDERS: ATTEND Urology
DX: C64.9 Malignant neoplasm of unspecified kidney, except renal pelvis (principal)
CPT/HCPCS: 82565; 84520; 71046; 74160; 36415; Q9967

== ENCOUNTER 2021-05-12 12:42 | Emergency (ER) | payer MEDICARE, BC ==
[2021-05-12 12:52] VITALS: TEMP 101
--- NOTE | 2021-05-12 13:59 | ED ---
SOB HPI - General Chief Complaint: Shortness of Breath Stated Complaint: Sent by pcp,Headache Time Seen by Provider: 05/12/21 13:29 Source: patient, family, RN notes reviewed Mode of arrival: wheelchair Limitations: no limitations - History of Present Illness Initial Comments: 75-year-old male with a history of COPD history kidney cancer sent from his candie [facility] office today with complaints of 10 days of shortness of breath intermittent chest tightness headache cough congestion chills and fever started about 10 days ago and got worse 5 days ago. No other complaints no other modifying factors he does admit to decreased oral intake. MD Complaint: shortness of breath, cough, chest pain - Related Data Home Medications Medication Instructions Recorded Confirmed Atorvastatin [Lipitor] 40 mg PO HS 10/18/14 05/12/21 Aspirin [Adult Low Dose Aspirin EC] 81 mg PO DAILY 08/31/16 05/12/21 Allopurinol [Zyloprim] 100 mg PO DAILY 05/20/20 05/12/21 Azithromycin [Zithromax Z-pack (6 See Taper PO DAILY 05/12/21 05/12/21 tabs)] Ofloxacin 0.3% Otic Soln [Floxin 5 drops LEFT EAR BID 05/12/21 05/12/21 0.3% Otic Soln] lisinopriL 20 mg PO DAILY 05/12/21 05/12/21 methylPREDNISolone [Medrol Dose See Taper PO DAILY 05/12/21 05/12/21 Pack] Allergies Allergy/AdvReac Type Severity Reaction Status Date / Time vancomycin Allergy Rash/Hives Verified 05/12/21 14:46 influenza virus vaccine, AdvReac "very ill Verified 05/12/21 14:46 specific after injection" sulfamethoxazole AdvReac Rash/Hives Verified 05/12/21 14:46 [From Bactrim] trimethoprim [From Bactrim] AdvReac Rash/Hives Verified 05/12/21 14:46 Review of Systems ROS Statement: Those systems with pertinent positive or pertinent negative responses have been documented in the HPI. ROS Other: All systems not noted in ROS Statement are negative. 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, gout, BPH, nephrolithiasis, bilateral tinnitis, colon benign polyp History of Any Multi-Drug Resistant Organisms: None Reported Past Surgical History: Appendectomy, Cholecystectomy, Heart Catheterization, Hernia Repair, Orthopedic Surgery, Tonsillectomy Additional Past Surgical History / Comment(s): 05/26/20 robot assisted laparosco pic R partial nephrectomy, laparoscopic migue fundoplasty with extensive lysis of adhesions, bilateral inguinal hernia repairs, right carotid endarterectomy, left knee arthroscopy, sinus surgery, clint shoulder rotator cuff repairs, heel spur rt foot, R hand surgery to remove splinter, EGD, colonoscopies/polypectomy, cystoscopy. Past Anesthesia/Blood Transfusion Reactions: No Reported Reaction, Motion Sickness Additional Past Anesthesia/Blood Transfusion Reaction / Comment(s): . Past Psychological History: No Psychological Hx Reported Smoking Status: Former smoker Past Alcohol Use History: None Reported Past Drug Use History: None Reported - Past Family History Brother(s) Family Medical History: Cancer Additional Family Medical History / Comment(s): prostate Mother Family Medical History: No Reported History Additional Family Medical History / Comment(s): Mother was healthy and lived to be 89yrs old. Father Family Medical History: Myocardial Infarction ([place]) Additional Family Medical History / Comment(s): Father had a [place] at the age of 60yrs and lived to be 80yrs old. General Exam - General Exam Comments Initial Comments: This is a well-developed well-nourished awake alert oriented 3 male Limitations: no limitations General appearance: alert, anxious Head exam: Present: atraumatic, normocephalic, normal inspection Eye exam: Present: normal appearance, PERRL, EOMI. Absent: scleral icterus, conjunctival injection, periorbital swelling ENT exam: Present: mucous membranes dry Neck exam: Present: normal inspection. Absent: tenderness, meningismus, lymphadenopathy Respiratory exam: Present: decreased breath sounds. Absent: respiratory distress, wheezes, rales, rhonchi, stridor Cardiovascular Exam: Present: normal rhythm, tachycardia, normal heart sounds. Absent: systolic murmur, diastolic murmur, rubs, gallop, clicks GI/Abdominal exam: Present: soft, normal bowel sounds. Absent: distended, tenderness, guarding, rebound, rigid Extremities exam: Present: normal inspection, full ROM, normal capillary refill. Absent: tenderness, pedal edema, joint swelling, calf tenderness Back exam: Present: normal inspection Neurological exam: Present: alert, oriented X3, CN II-XII intact Psychiatric exam: Present: normal affect, normal mood Skin exam: Present: warm, dry, intact, normal color. Absent: rash Course Vital Signs 05/12/21 12:49 Temperature 101 F H Pulse Rate 104 H Respiratory 20 Rate Blood Pressure 144/85 O2 Sat by Pulse 93 L Oximetry Medical Decision Making - Medical Decision Making I did reevaluate patient several occasions he is able ambulate with pulse ox is remained and 9495% range. He did receive IV antibiotics as well as IV antibiotics. I did discuss the case and findings with Dr. Zamarripa patient will be discharged with follow-up in the office. He is on Zithromax which she will continue to use. - Lab Data Result diagrams: 05/12/21 13:59 05/12/21 13:59 Lab Results 05/12/21 05/12/21 05/12/21 Range/Units 12:54 13:59 13:59 WBC 15.6 H (3.8-10.6) k/uL RBC 4.82 (4.30-5.90) m/uL Hgb 15.1 (13.0-17.5) gm/dL Hct 44.1 (39.0-53.0) % MCV 91.6 (80.0-100.0) fL MCH 31.2 (25.0-35.0) pg MCHC 34.1 (31.0-37.0) g/dL RDW 12.4 (11.5-15.5) % Plt Count 293 (150-450) k/uL MPV 7.3 Neutrophils % 87 % Lymphocytes % 3 % Monocytes % 7 % Eosinophils % 1 % Basophils % 1 % Neutrophils # 13.5 H (1.3-7.7) k/uL Lymphocytes # 0.4 L (1.0-4.8) k/uL Monocytes # 1.1 H (0-1.0) k/uL Eosinophils # 0.1 (0-0.7) k/uL Basophils # 0.1 (0-0.2) k/uL Sodium 134 L (137-145) mmol/L Potassium 4.2 (3.5-5.1) mmol/L Chloride 100 (98-107) mmol/L Carbon Dioxide 25 (22-30) mmol/L Anion Gap 9 mmol/L BUN 17 (9-20) mg/dL Creatinine 0.87 (0.66-1.25) mg/dL Est GFR (CKD-EPI)AfAm >90 (>60 ml/min/1.73 sqM) Est GFR (CKD-EPI)NonAf 85 (>60 ml/min/1.73 sqM) Glucose 129 H (74-99) mg/dL Calcium 9.8 (8.4-10.2) mg/dL Magnesium 1.6 (1.6-2.3) mg/dL Total Bilirubin 1.5 H (0.2-1.3) mg/dL AST 26 (17-59) U/L ALT 25 (4-49) U/L Alkaline Phosphatase 85 (38-126) U/L Creatine Kinase 102 (55-170) U/L Troponin I (0.000-0.034) ng/mL Total Protein 6.8 (6.3-8.2) g/dL Albumin 4.2 (3.5-5.0) g/dL Coronavirus (PCR) Detected A (Not Detectd) 05/12/21 Range/Units 13:59 WBC (3.8-10.6) k/uL RBC (4.30-5.90) m/uL Hgb (13.0-17.5) gm/dL Hct (39.0-53.0) % MCV (80.0-100.0) fL MCH (25.0-35.0) pg MCHC (31.0-37.0) g/dL RDW (11.5-15.5) % Plt Count (150-450) k/uL MPV Neutrophils % % Lymphocytes % % Monocytes % % Eosinophils % % Basophils % % Neutrophils # (1.3-7.7) k/uL Lymphocytes # (1.0-4.8) k/uL Monocytes # (0-1.0) k/uL Eosinophils # (0-0.7) k/uL Basophils # (0-0.2) k/uL Sodium (137-145) mmol/L Potassium (3.5-5.1) mmol/L Chloride (98-107) mmol/L Carbon Dioxide (22-30) mmol/L Anion Gap mmol/L BUN (9-20) mg/dL Creatinine (0.66-1.25) mg/dL Est GFR (CKD-EPI)AfAm (>60 ml/min/1.73 sqM) Est GFR (CKD-EPI)NonAf (>60 ml/min/1.73 sqM) Glucose (74-99) mg/dL Calcium (8.4-10.2) mg/dL Magnesium (1.6-2.3) mg/dL Total Bilirubin (0.2-1.3) mg/dL AST (17-59) U/L ALT (4-49) U/L Alkaline Phosphatase (38-126) U/L Creatine Kinase (55-170) U/L Troponin I <0.012 (0.000-0.034) ng/mL Total Protein (6.3-8.2) g/dL Albumin (3.5-5.0) g/dL Coronavirus (PCR) (Not Detectd) - EKG Data -: EKG Interpreted by Me EKG shows normal: sinus rhythm, axis, intervals, QRS complexes, ST-T waves Rate: normal EKG Comments: #7 100. We'll 134 QRS duration 80 daily since QTC 332/[address]-T wave changes - Radiology Data Radiology results: report reviewed (July review the evidence of infiltrate syncope report), image reviewed Disposition Clinical Impression: Pneumonia due to COVID-19 virus, COPD with exacerbation Disposition: HOME SELF-CARE Condition: Good Instructions (If sedation given, give patient instructions): COPD (Chronic Obstructive Pulmonary Disease) (ED), Coronavirus Disease 2019 (COVID-19) Additional Instructions: Current medications are to be continued Is patient prescribed a controlled substance at d/c from ED?: No Referrals: Ron Zamarripa DO [Primary Care Provider] - 1-2 days
--- NOTE | 2021-05-12 14:12 | XR ---
EXAMINATION TYPE: XR chest 2V DATE OF EXAM: 05/12/2021 COMPARISON: 11/30/2020 INDICATION: Short of breath chest tightness fever TECHNIQUE: Frontal and lateral views of the chest are obtained. FINDINGS: The heart size is normal. The pulmonary vasculature is normal. Mild right lower lobe infiltrate is present. Correlate for developing pneumonia. IMPRESSION: 1. Developing right lower lobe infiltrate. Correlate for pneumonia. Follow-up is recommended
[2021-05-12 14:13] LABS: Basophils # (A) 0.1 k/uL (0-0.2); Basophils % (A) 1 %; Eosinophils # (A) 0.1 k/uL (0-0.7); Eosinophils % (A) 1 %; HCT 44.1 % (39.0-53.0); HGB 15.1 gm/dL (13.0-17.5); Lymphocytes # (A) 0.4 k/uL (1.0-4.8); Lymphocytes % (A) 3 %; MCH 31.2 pg (25.0-35.0); MCHC 34.1 g/dL (31.0-37.0); MCV 91.6 fL (80.0-100.0); Mean Platelet Volume 7.3; Monocytes # (A) 1.1 k/uL (0-1.0); Monocytes % (A) 7 %; Neutrophils # (A) 13.5 k/uL (1.3-7.7); Neutrophils % (A) 87 %; Platelet Count 293 k/uL (150-450); RBC 4.82 m/uL (4.30-5.90); RDW 12.4 % (11.5-15.5); WBC 15.6 k/uL (3.8-10.6)
[2021-05-12 14:36] LABS: ALT 25 U/L (4-49); AST 26 U/L (17-59); African American GFR (CKD) >90 (>60 ml/min/1.73 sqM); Albumin 4.2 g/dL (3.5-5.0); Alkaline Phosphatase 85 U/L (38-126); Anion Gap 9 mmol/L; Blood Urea Nitrogen 17 mg/dL (9-20); Calcium 9.8 mg/dL (8.4-10.2); Carbon Dioxide 25 mmol/L (22-30); Chloride 100 mmol/L (98-107); Creatine Kinase 102 U/L (55-170); Glucose 129 mg/dL (74-99); Magnesium 1.6 mg/dL (1.6-2.3); Non-African American GFR(CKD) 85 (>60 ml/min/1.73 sqM); Potassium 4.2 mmol/L (3.5-5.1); Sodium 134 mmol/L (137-145); Total Bilirubin 1.5 mg/dL (0.2-1.3); Total Protein 6.8 g/dL (6.3-8.2)
[2021-05-12] MEDS ORDERED: cefTRIAXone IN SWFI 1,000 MG/10 ML SYRINGE IVP STA (15:19)
[2021-05-12] MEDS ORDERED: SODIUM CHLORIDE 0.9% 50 ML IVPB ONE (15:45)
[2021-05-12] MEDS ORDERED: CASIRIVIMAB (REGN10933) (EUA) 600 MG, IMDEVIMAB (REGN10987) (EUA) 600 MG in SODIUM CHLO... IVPB ONE (16:15)
[2021-05-12 18:02] VITALS: BP 134/74; PULSE 79; RESP 18
== END 2021-05-12 18:02 | disposition home or self-care (01) ==
LOC: EC 12:42
DX: U07.1 COVID-19 (principal); J12.82 Pneumonia due to coronavirus disease 2019; I10 Essential (primary) hypertension; J44.9 Chronic obstructive pulmonary disease, unspecified; K21.9 Gastro-esophageal reflux disease without esophagitis; E78.5 Hyperlipidemia, unspecified; M19.90 Unspecified osteoarthritis, unspecified site; Z79.82 Long term (current) use of aspirin; Z88.1 Allergy status to other antibiotic agents; Z88.2 Allergy status to sulfonamides; Z88.7 Allergy status to serum and vaccine; Z86.73 Personal history of transient ischemic attack (TIA), and cerebral infarction without residual deficits; Z90.49 Acquired absence of other specified parts of digestive tract; Z90.89 Acquired absence of other organs; Z87.891 Personal history of nicotine dependence; Z79.899 Other long term (current) drug therapy; Z85.528 Personal history of other malignant neoplasm of kidney
CPT/HCPCS: 99285; 96365; 96375; 36415; 93005; 80053; 82550; 83735; 84484; 85025; 87635; 71046; J0696

== ENCOUNTER → 2021-06-19 | Outpatient (CLI) | payer MEDICARE, BC ==
--- NOTE | 2021-06-19 14:17 | XR ---
EXAMINATION TYPE: XR chest 2V DATE OF EXAM: 06/19/2021 COMPARISON: Chest x-ray May 12, 2021 HISTORY: Shortness of breath with chest tightness and cough. TECHNIQUE: Frontal and lateral views of the chest are obtained. FINDINGS: There is mild chronic parenchymal change without suspicious focal air space opacity, pleur al effusion, or pneumothorax seen. The cardiac silhouette size is stable and within normal limits. The osseous structures are intact. Cholecystectomy clips noted on lateral view IMPRESSION: No acute cardiopulmonary process.
--- NOTE | 2021-06-19 15:19 | CT ---
EXAMINATION TYPE: CT abdomen wo/w con DATE OF EXAM: 06/19/2021 COMPARISON: CT abdomen November 30, 2020 and older studies HISTORY: Renal cancer follow up CT DLP: 870.6 mGycm, Automated Exposure Control for Dose Reduction was Utilized. CONTRAST: CT scan of the abdomen is performed with oral and without and with IV Contrast, patient injected with 100 mL of Isovue 300. FINDINGS: LUNG BASES: Dependent atelectasis right greater than left lung bases. LIVER/GB: Cholecystectomy clips are redemonstrated. PANCREAS: No significant abnormality is seen. SPLEEN: No significant abnormality is seen. ADRENALS: No significant abnormality is seen. KIDNEYS: Noncontrast images show 7 mm calculus upper to mid pole level left kidney coronal image 65 s eries 11 stable from most recent prior. Posttreatment change to the lower pole right kidney with line ar hyperdensity. Some volume loss at this level remains present. Postcontrast images show symmetric cortical medullary uptake and excretion without hydronephrosis clint aterally. Stable irregular area of nonenhancement axial image 42 series 6 and [address] No new suspicious mass noted. BOWEL: Oral contrast does not reach colonic level. Wandering cecum into the right upper to mid abdome n. No suspicious small or large bowel dilatation. Mild to moderate diffuse colonic fecal prominence g reatest in the right colon. Surgical changes from Pastor fundoplication surgery at diaphragmatic hiat us. LYMPH NODES: No greater than 1cm abdominal lymph nodes are appreciated. OSSEOUS STRUCTURES: No significant abnormality is seen. OTHER: Infrarenal AAA up to 3.4 cm transversely series 6 image 50 is slightly more prominent from las t few CTs. IMPRESSION: Stable posttreatment change lower pole right kidney. No enlarging or new suspicious mass seen to suggest active neoplastic recurrence.
== END | disposition home or self-care (01) ==
LOC: RADCTMAIN 13:29
PROVIDERS: ATTEND Urology
DX: C64.9 Malignant neoplasm of unspecified kidney, except renal pelvis (principal)
CPT/HCPCS: 82565; 84520; 71046; 74170; 36415; Q9967

== ENCOUNTER → 2021-11-20 | Outpatient (CLI) | payer MEDICARE, BC ==
--- NOTE | 2021-11-20 19:34 | US ---
EXAMINATION TYPE: US abdomen complete DATE OF EXAM: 11/20/2021 COMPARISON: CT abdomen pelvis 06/19/2020 CLINICAL HISTORY: R10.30. LLQ pain, cholecystectomy, IBS, diverticulitis, h/o rt renal ca EXAM MEASUREMENTS: Liver Length: 14.0 cm Gallbladder Wall: Surgically absent CBD: not seen Spleen: 12.3 cm Right Kidney: 9.6 x 3.8 x 5.0 cm Left Kidney: 11.2 x 3.9 x 5.9 cm Pancreas: wnl Liver: intercostal imaging due to bowel gas Gallbladder: Surgically absent Evidence for sonographic Holden's sign: no CBD: unable to visualize due to bowel gas Spleen: wnl Right Kidney: wnl Left Kidney: wnl Upper IVC: wnl Abd Aorta: Abdominal aorta measuring up to 2.4 cm with some mural atherosclerosis. This was previous ly bigger on prior CT and could be underestimated on today's exam due to technique. The liver is homogenous. The intrahepatic portion of the IVC and proximal abdominal aorta are within normal limits. There is no evidence of cholelithiasis. Common bile duct is unremarkable. The visu alized portions of the pancreas are homogenous. The spleen is unremarkable. Kidneys are symmetric a nd free of hydronephrosis. No renal lesions are seen. IMPRESSION: No evidence for acute intra-abdominal process. Distal abdominal aortic aneurysm measuring up to 2.4 cm in today's exam which may be underestimated g iven findings of larger aneurysm on prior CT 06/17/2021. This could be further evaluated with CTA abd omen if clinically warranted.
--- NOTE | 2021-11-20 19:36 | US ---
EXAMINATION TYPE: US pelvic limited DATE OF EXAM: 11/20/2021 COMPARISON: NONE CLINICAL HISTORY: R10.30. male pelvic limited for LLQ pain, h/o IBS, diverticulitis FINDINGS: Scan of LLQ produces peristalsing bowel and no focal anomaly seen. No evidence of organizing fluid co llection or mass. IMPRESSION: No evidence of left lower quadrant mass, organizing fluid collection or sonographic evidence for acut e process.
== END | disposition home or self-care (01) ==
LOC: RADUSWWP 12:02
PROVIDERS: ATTEND Internal Medicine Gastroenterology
DX: R10.32 Left lower quadrant pain (principal)
CPT/HCPCS: 76700; 76857

== ENCOUNTER 2021-12-23 16:36 | Emergency (ER) | payer MEDICARE, BC ==
--- NOTE | 2021-12-23 17:04 | XR ---
EXAMINATION TYPE: XR chest 2V DATE OF EXAM: 12/23/2021 COMPARISON: 06/19/2021 HISTORY: Pneumonia TECHNIQUE: 2 views FINDINGS: Heart is normal. Lungs are clear of infiltrate. No heart failure. There are no hilar masses . The bony thorax is intact. IMPRESSION: Normal chest. No change.
[2021-12-23 17:39] VITALS: RESP 16
--- NOTE | 2021-12-23 17:39 | ED ---
General Adult HPI - General Chief complaint: Fever Stated complaint: COVID+/Fever Time Seen by Provider: 12/23/21 17:00 Source: patient, RN notes reviewed, old records reviewed Mode of arrival: ambulatory Limitations: no limitations - History of Present Illness Initial comments: Patient is a 76-year-old male with past medical history remarkable for COPD, hypertension, prior Covid infection back in June who presents emergency Department with upper esterase symptoms. To go home Covid test today which was positive. Presents over concern for pneumonia on requesting monoclonal antibodies. States he has had symptoms since . Is currently Saturday. This Symptoms as a nonproductive cough, as well as rhinorrhea. Denies joint pain. Subjective fevers. Denies any chest pain, exertional dyspnea, abdominal pain, nausea, vomiting, diarrhea. Patient was vaccinated for COVID-19. Did not receive the booster. Is requesting further evaluation at this time. - Related Data Home Medications Medication Instructions Recorded Confirmed Atorvastatin [Lipitor] 40 mg PO HS 10/18/14 05/12/21 Aspirin [Adult Low Dose Aspirin EC] 81 mg PO DAILY 08/31/16 05/12/21 Allopurinol [Zyloprim] 100 mg PO DAILY 05/20/20 05/12/21 Azithromycin [Zithromax Z-pack (6 See Taper PO DAILY 05/12/21 05/12/21 tabs)] Ofloxacin 0.3% Otic Soln [Floxin 5 drops LEFT EAR BID 05/12/21 05/12/21 0.3% Otic Soln] lisinopriL [Prinivil] 20 mg PO DAILY 05/12/21 05/12/21 methylPREDNISolone [Medrol Dose See Taper PO DAILY 05/12/21 05/12/21 Pack] Previous Rx's Medication Instructions Recorded predniSONE [Deltasone] 40 mg PO DAILY 5 Days #10 tab 12/23/21 Allergies Allergy/AdvReac Type Severity Reaction Status Date / Time vancomycin Allergy Rash/Hives Verified 05/12/21 14:46 influenza virus vaccine, AdvReac "very ill Verified 05/12/21 14:46 specific after injection" sulfamethoxazole AdvReac Rash/Hives Verified 05/12/21 14:46 [From Bactrim] trimethoprim [From Bactrim] AdvReac Rash/Hives Verified 05/12/21 14:46 Review of Systems ROS Statement: Those systems with pertinent positive or pertinent negative responses have been documented in the HPI. Review of Systems: CONST: Denies fever EYES: Denies blurry vision ENT: Endorses nasal congestion. C/V: Denies Chest pain RESP: Denies shortness of breath GI: Denies abdominal pain : Denies dysuria SKIN: Denies rash. MSK: Denies joint pain. NEURO: Denies headache ROS Other: All systems not noted in ROS Statement are negative. 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, gout, BPH, nephrolithiasis, bilateral tinnitis, colon benign polyp History of Any Multi-Drug Resistant Organisms: None Reported Past Surgical History: Appendectomy, Cholecystectomy, Heart Catheterization, Hernia Repair, Orthopedic Surgery, Tonsillectomy Additional Past Surgical History / Comment(s): 05/26/20 robot assisted laparoscopic R partial nephrectomy, laparoscopic migue fundoplasty with extensive lysis of adhesions, bilateral inguinal hernia repairs, right carotid endarterectomy, left knee arthroscopy, sinus surgery, clint shoulder rotator cuff repairs, heel spur rt foot, R hand surgery to remove splinter, EGD, colonoscopie s/polypectomy, cystoscopy. Past Anesthesia/Blood Transfusion Reactions: No Reported Reaction, Motion Sickness Additional Past Anesthesia/Blood Transfusion Reaction / Comment(s): . Past Psychological History: No Psychological Hx Reported Smoking Status: Former smoker Past Alcohol Use History: None Reported Past Drug Use History: None Reported - Past Family History Brother(s) Family Medical History: Cancer Additional Family Medical History / Comment(s): prostate Mother Family Medical History: No Reported History Additional Family Medical History / Comment(s): Mother was healthy and lived to be 89yrs old. Father Family Medical History: Myocardial Infarction (IA) Additional Family Medical History / Comment(s): Father had a IA at the age of 60yrs and lived to be 80yrs old. General Exam - General Exam Comments Initial Comments: General: Appears in no acute distress. HEAD: Normal with no signs of head trauma. EYES: PERRLA, EOMI, conjunctiva normal, no discharge. ENT: Hearing grossly intact, normal oropharynx. Mild rhinorrhea. RESPIRATORY: Clear breath sounds bilaterally. No wheezes, rales, or rhonchi. No hypoxia. No increased work of breathing. C/V: Regular rate and rhythm. S1 and S2 auscultated, no edema, peripheral pulses 2+ and intact throughout ABD: Abd is soft, nontender, nondistended EXT: Normal range of motion, no obvious deformity SKIN: No rashes or lesions observed on exposed skin. NEURO: Alert and oriented 4. Limitations: no limitations Course Vital Signs 12/23/21 12/23/21 12/23/21 16:41 16:43 18:21 Temperature 98.9 F Pulse Rate 105 H 83 Respiratory 18 16 16 Rate Blood Pressure 138/86 133/76 O2 Sat by Pulse 96 95 Oximetry 12/23/21 19:37 Temperature 98.1 F Pulse Rate 78 Respiratory 16 Rate Blood Pressure 125/74 O2 Sat by Pulse 98 Oximetry Medical Decision Making - Medical Decision Making Based on patient's presentation and physical exam, I believe that he may have a Covid 19 infection. Exam is relatively unremarkable. He is in no respiratory distress. No hypoxia. We will repeat vital swab sent obtain a chest x-ray at this time. Patient was in agreement this plan. Do not believe that further laboratory studies or imaging are required.Vital signs are within normal limits and stable. Patient's Covid swab returned positive. Flu is negative. Chest x-ray shows no acute cardio pulmonary process. On reevaluation, patient's vital signs are within normal limits and stable. I discussed with him alcohol antibody treatment as well as his results. He accessed understanding. Would like the monoclonal antibodies. We discussed quarantine until 2 days symptom-free. We discussed monitoring with pulse oximetry. He was in agreement this plan. Patient tolerated therapy well. He will be given a dose of Decadron with this history COPD. Also receive a prescription for steroids. He was in agreement this plan. He will be discharged home at this time. I will provide the patient with a prescription for prednisone, as his insurance does not cover decadron. I instructed the patient to follow up with their PCP in the next 3 days. I explained that the patient should return to the emergency department if they experience any worsening symptoms. Strict return precautions were discussed with the patient. The patient expressed understanding of these instructions. I answered all questions that the patient had. The patient was discharged home in good condition with their prescriptions and follow up information. - Lab Data Lab Results 12/23/21 12/23/21 Range/Units 17:22 17:22 Coronavirus (PCR) Detected A (Not Detectd) Influenza Type A RNA Not Detected (Not Detectd) Influenza Type B (PCR) Not Detected (Not Detectd) Disposition Clinical Impression: COVID-19 virus infection Disposition: HOME SELF-CARE Condition: Good Prescriptions: predniSONE [Deltasone] 40 mg PO DAILY 5 Days #10 tab Is patient prescribed a controlled substance at d/c from ED?: No Referrals: Ron Zamarripa DO [Primary Care Provider] - 1-2 days Time of Disposition: 17:55
[2021-12-23] MEDS ORDERED: dexAMETHasone 2 MG TAB PO STA (17:50)
[2021-12-23] MEDS ORDERED: BEBTELOVIMAB (EUA) 175 MG/2 ML VIAL IV ONE (18:15)
[2021-12-23 19:38] VITALS: BP 125/74; PULSE 78; TEMP 98.1
== END 2021-12-23 19:37 | disposition home or self-care (01) ==
LOC: EC 16:36
DX: U07.1 COVID-19 (principal); J44.9 Chronic obstructive pulmonary disease, unspecified; I10 Essential (primary) hypertension; E78.5 Hyperlipidemia, unspecified; Z86.73 Personal history of transient ischemic attack (TIA), and cerebral infarction without residual deficits; Z87.891 Personal history of nicotine dependence; Z82.49 Family history of ischemic heart disease and other diseases of the circulatory system; Z88.1 Allergy status to other antibiotic agents; Z88.7 Allergy status to serum and vaccine; Z88.2 Allergy status to sulfonamides
CPT/HCPCS: 87502; 87635; 71046; 99284; J8540; Q0222

== ENCOUNTER → 2022-06-11 | Outpatient (CLI) | payer MEDICARE, BC ==
--- NOTE | 2022-06-11 22:21 | CT ---
EXAMINATION TYPE: CT abdomen wo/w con DATE OF EXAM: 06/11/2022 COMPARISON: Prior CT June 19, 2021 and older studies. HISTORY: MALIGNANT NEOPLASM OF RIGHT KIDNEY CT DLP: 900.4 mGycm Automated exposure control for dose reduction was used. TECHNIQUE: Helical acquisition of images was performed from the lung bases through the top of iliac crest to include entire abdomen. CONTRAST: Performed with Oral Contrast and without and with IV Contrast, patient injected with 100ML mL of Isov ue 300. FINDINGS: LUNG BASES: Dependent atelectasis right greater than left lung bases it is redemonstrated but less pr ominent than prior. There is 4 mm subpleural nodule or nodular consolidation posteriorly left lung ba se axial image 13 which should be followed. Mild coronary artery calcification is identified. LIVER/GB: Cholecystectomy clips are redemonstrated. PANCREAS: No significant abnormality is seen. SPLEEN: No significant abnormality is seen. ADRENALS: No significant abnormality is seen. KIDNEYS: Noncontrast images redemonstrate 7 mm calculus upper to mid pole level left kidney coronal i mage 66 series 10 stable from most recent prior CT. Posttreatment change to the lower pole right kidn ey with linear hyperdensity is redemonstrated with some volume loss at this level redemonstrated. The re are suspected 2-3 scattered punctate nonobstructing right renal calculi measuring 2 mm or smaller in size. Some lobulated contour to the right kidney is again seen. Postcontrast images redemonstrate symmetric cortical medullary uptake and excretion without hydroneph rosis bilaterally. Stable irregular area of nonenhancement axial image 41 series 7 and 19 from most r ecent CT. No new suspicious mass is identified bilaterally. BOWEL: Oral contrast does not reach colonic level. Wandering cecum into the right upper quadrant is n ow identified. No suspicious small or large bowel dilatation. Surgical changes from Pastor fundoplic ation surgery at diaphragmatic hiatus redemonstrated. LYMPH NODES: No greater than 1cm abdominal lymph nodes are appreciated. OSSEOUS STRUCTURES: No significant abnormality is seen. OTHER: Infrarenal AAA up to 3.6 cm transversely series 7 image 51 is slightly more prominent from las t few CTs. IMPRESSION: Stable posttreatment change lower pole right kidney. No enlarging or new suspicious mass seen to suggest active neoplastic recurrence.
== END | disposition home or self-care (01) ==
LOC: RADCTMAIN 15:08
PROVIDERS: ATTEND Urology
DX: C64.1 Malignant neoplasm of right kidney, except renal pelvis (principal)
CPT/HCPCS: 74170; 36415; Q9967 ×2

== ENCOUNTER → 2022-06-11 | Outpatient (CLI) | payer MEDICARE, BC ==
--- NOTE | 2022-06-11 22:00 | XR ---
EXAMINATION TYPE: XR chest 2V DATE OF EXAM: 06/11/2022 COMPARISON: [facility] chest x-ray December 23, 2021. HISTORY: Right kidney cancer. TECHNIQUE: Frontal and lateral views of the chest are obtained. FINDINGS: There is no suspicious new focal air space opacity, pleural effusion, or pneumothorax seen . The cardiac silhouette size is stable and within normal limits. 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 The osseous structures are intact. IMPRESSION: No acute cardiopulmonary process. No significant change from prior.
== END | disposition home or self-care (01) ==
LOC: RADXRMAIN 15:13
PROVIDERS: ATTEND Urology
DX: C64.1 Malignant neoplasm of right kidney, except renal pelvis (principal)
CPT/HCPCS: 71046; 82565; 84520

== ENCOUNTER → 2022-10-12 | Outpatient (CLI) | payer MEDICARE, BC ==
--- NOTE | 2022-10-12 15:29 | XR ---
EXAMINATION TYPE: XR chest 2V DATE OF EXAM: 10/12/2022 2:52 PM COMPARISON: Chest radiographs from 06/11/2022 TECHNIQUE: XR chest 2V Frontal and lateral views of the chest. CLINICAL INDICATION:Male, 76 years old with history of R06.00 SOB R07.9 Chest Pressure; FINDINGS: Lungs/Pleura: There is no evidence of pleural effusion, focal consolidation, or pneumothorax. Simila r elevation of the right hemidiaphragm. Pulmonary vascularity: Unremarkable. Heart/mediastinum: Cardiomediastinal silhouette is unremarkable. Atherosclerotic calcifications are seen in the aorta. Musculoskeletal: No acute osseous pathology Other: Similar colonic interposition or Chilaiditi syndrome. IMPRESSION: No acute cardiopulmonary disease/process. No significant change from prior examination.
== END | disposition home or self-care (01) ==
LOC: RADXRMAIN 14:41
PROVIDERS: ATTEND Nurse Practitioner Family
DX: R06.00 Dyspnea, unspecified (principal); R07.9 Chest pain, unspecified
CPT/HCPCS: 71046

== ENCOUNTER 2023-02-04 03:49 | Inpatient (IN) | payer MEDICARE, BC ==
[2023-02-04] MEDS ORDERED: SODIUM CHLORIDE 0.9% 1,000 ML IV STA (04:55)
[2023-02-04] MEDS ORDERED: MORPHINE SULFATE 4 MG/ML SYRINGE IVP STA (05:00)
[2023-02-04 06:23] LABS: Basophils % (A) 0 %; Eosinophils # (A) 0.1 k/uL (0-0.7); Eosinophils % (A) 1 %; HCT 43.4 % (39.0-53.0); HGB 14.2 gm/dL (13.0-17.5); Lymphocytes # (A) 0.5 k/uL (1.0-4.8); Lymphocytes % (A) 6 %; MCH 30.4 pg (25.0-35.0); MCHC 32.8 g/dL (31.0-37.0); MCV 92.8 fL (80.0-100.0); Mean Platelet Volume 7.3; Monocytes # (A) 0.9 k/uL (0-1.0); Monocytes % (A) 9 %; Neutrophils # (A) 8.2 k/uL (1.3-7.7); Neutrophils % (A) 83 %; Platelet Count 194 k/uL (150-450); RBC 4.67 m/uL (4.30-5.90); RDW 12.8 % (11.5-15.5); WBC 9.9 k/uL (3.8-10.6)
--- NOTE | 2023-02-04 06:25 | ED ---
General Adult HPI - General Source: patient, RN notes reviewed, old records reviewed Mode of arrival: ambulatory Limitations: no limitations <Ashwin Galicia - Last Filed: 02/04/23 07:39> <Dex Villegas - Last Filed: 02/04/23 09:38> - General Chief complaint: Extremity Injury, Upper Stated complaint: Left arm pain traveling to leg Time Seen by Provider: 02/04/23 04:32 - History of Present Illness Initial comments: Patient is a 77 female presents emergency Department with nonspecific extremity complaints. Complaining of intermittent pain and discomfort in all extremities that he describes as a muscle spasm type sensation. Primarily in his left arm as well as his left lower extremity with states it does seem to involve his right arm and right leg intermittently as well. States this began sometime ye sterday and has continued to occur. No history of this. Denies any chest pain or shortness of breath. Endorses some mild abdominal discomfort in the left lower quadrant. Denies any nausea or vomiting. Denies any diarrhea. Denies any fevers or cough. Denies shortness of breath. His no other acute complaints at this time. Has a history of renal cell carcinoma. Presents for further evaluation at this time.Patient also endorses paresthesias, primarily in the hands and feet.Patient states he has a history of an abdominal aneurysm. (Ashwin Galicia) - Related Data Home Medications Medication Instructions Recorded Confirmed Atorvastatin [Lipitor] 40 mg PO HS 10/18/14 05/12/21 Aspirin [Adult Low Dose Aspirin EC] 81 mg PO DAILY 08/31/16 05/12/21 allopurinoL [Zyloprim] 100 mg PO DAILY 05/20/20 05/12/21 Azithromycin [Zithromax Z-pack (6 See Taper PO DAILY 05/12/21 05/12/21 tabs)] Ofloxacin 0.3% Otic Soln [Floxin 5 drops LEFT EAR BID 05/12/21 05/12/21 0.3% Otic Soln] lisinopriL [Prinivil] 20 mg PO DAILY 05/12/21 05/12/21 methylPREDNISolone [Medrol Dose See Taper PO DAILY 05/12/21 05/12/21 Pack] Previous Rx's Medication Instructions Recorded predniSONE [Deltasone] 40 mg PO DAILY 5 Days #10 tab 12/23/21 Allergies Allergy/AdvReac Type Severity Reaction Status Date / Time vancomycin Allergy Rash/Hives Verified 05/12/21 14:46 influenza virus vaccine, AdvReac "very ill Verified 05/12/21 14:46 specific after injection" sulfamethoxazole AdvReac Rash/Hives Verified 05/12/21 14:46 [From Bactrim] trimethoprim [From Bactrim] AdvReac Rash/Hives Verified 05/12/21 14:46 Review of Systems ROS Other: All systems not noted in ROS Statement are negative. <Ashwin Galicia - Last Filed: 02/04/23 07:39> ROS Other: All systems not noted in ROS Statement are negative. <Dex Villegas - Last Filed: 02/04/23 09:38> ROS Statement: Those systems with pertinent positive or pertinent negative responses have been documented in the HPI. Review of Systems: CONST: Denies fever EYES: Denies blurry vision ENT: Denies nasal congestion C/V: Denies Chest pain RESP: Denies shortness of breath GI: Denies abdominal pain : Denies dysuria SKIN: Denies rash. MSK: Endorses extremity pain. 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, gout, BPH, nephrolithiasis, bilateral tinnitis, colon benign polyp History of Any Multi-Drug Resistant Organisms: None Reported Past Surgical History: Appendectomy, Cholecystectomy, Heart Catheterization, Hernia Repair, Orthopedic Surgery, Tonsillectomy Additional Past Surgical History / Comment(s): 05/26/20 robot assisted laparoscopic R partial nephrectomy, laparoscopic migue fundoplasty with extensive lysis of adhesions, bilateral inguinal hernia repairs, right carotid endarterectomy, left knee arthroscopy, sinus surgery, clint shoulder rotator cuff repairs, heel spur rt foot, R hand surgery to remove splinter, EGD, colonoscopies/polypectomy, cystoscopy. Past Anesthesia/Blood Transfusion Reactions: No Reported Reaction, Motion Sickness Additional Past Anesthesia/Blood Transfusion Reaction / Comment(s): . Past Psychological History: No Psychological Hx Reported Smoking Status: Former smoker Past Alcohol Use History: None Reported Past Drug Use History: None Reported - Past Family History Brother(s) Family Medical History: Cancer Additional Family Medical History / Comment(s): prostate Mother Family Medical History: No Reported History Additional Family Medical History / Comment(s): Mother was healthy and lived to be 89yrs old. Father Family Medical History: Myocardial Infarction (OR) Additional Family Medical History / Comment(s): Father had a OR at the age of 60yrs and lived to be 80yrs old. <Ashwin Galicia - Last Filed: 02/04/23 07:39> General Exam Limitations: no limitations <Ashwin Galicia - Last Filed: 02/04/23 07:39> - General Exam Comments Initial Comments: General: Appears in mild distress secondary to extremity pain. HEAD: Normal with no signs of head trauma. EYES: PERRLA, EOMI, conjunctiva normal, no discharge. ENT: Hearing grossly intact, normal oropharynx. RESPIRATORY: Clear breath sounds bilaterally. No wheezes, rales, or rhonchi. C/V: Regular rate and rhythm. S1 and S2 auscultated, no edema, peripheral pulses 2+ and intact throughout ABD: Abd is soft, nontender, nondistended EXT: Normal range of motion, no obvious deformity. No obvious focal tenderness to palpation. SKIN: No rashes or lesions observed on exposed skin. NEURO: Alert and oriented x 4. Cranial nerves II-XII intact. No focal sensory or strength deficits. Patient is able to move his left upper extremity as well as left lower extremity but there is nonfocal pain. (Ashwin Galicia) Course Vital Signs 02/04/23 02/04/23 03:55 07:29 Temperature 97.8 F 97.9 F Pulse Rate 98 85 Respiratory 18 16 Rate Blood Pressure 122/83 128/83 O2 Sat by Pulse 98 95 Oximetry Medical Decision Making - Lab Data Result diagrams: 02/04/23 06:07 02/04/23 06:07 - EKG Data -: EKG Interpreted by Me <Ashwin Galicia - Last Filed: 02/04/23 07:39> - Lab Data Result diagrams: 02/04/23 06:07 02/04/23 06:07 <Dex Villegas - Last Filed: 02/04/23 09:38> - Medical Decision Making Was pt. sent in by a medical professional or institution (, [facility], SCHOOL PSYCHOLOGY PROFESSOR, urgent care, hospital, or group home...) When possible be specific @ -No Did you speak to anyone other than the patient for history (EMS, parent, family, police, friend...)? What history was obtained from this source @ -No Did you review nursing and triage notes (agree or disagree)? Why? @ -I reviewed and agree with nursing and triage notes Were old charts reviewed (outside hosp., previous admission, EMS record, old EKG, old radiological studies, urgent care reports/EKG's, group home records)? Report findings @ -No old charts were reviewed Differential Diagnosis (chest pain, altered mental status, abdominal pain women, abdominal pain men, vaginal bleeding, weakness, fever, dyspnea, syncope, headache, dizziness, GI bleed, back pain, seizure, CVA, palpatations, mental health, musculoskeletal)? @ -Aortic injury, aortic dissection, muscle spasm, electrolyte abnormality, this list is not all-inclusive. EKG interpreted by me (3pts min.). @ -As above X-rays interpreted by me (1pt min.). @ -None done CT interpreted by me (1pt min.). @ -CT brain showed no evidence of acute intracranial process. CT angiogram is pending. U/S interpreted by me (1pt. min.). @ -None done What testing was considered but not performed or refused? (CT, X-rays, U/S, labs)? Why? @ -None What meds were considered but not given or refused? Why? @ -None Did you discuss the management of the patient with other professionals (professionals i.e. , [facility], SCHOOL PSYCHOLOGY PROFESSOR, lab, RT, psych nurse, social professionals, elementary school science teacher, teacher, crime prevention police officer, piano case and bench assembler)? Give summary @ -No Was smoking cessation discussed for >3mins.? @ -No Was critical care preformed (if so, how long)? @ -No Were there social determinants of health that impacted care today? How? (Homelessness, low income, unemployed, alcoholism, drug addiction, transportation, low edu. Level, literacy, decrease access to med. care, skilled nursing, re hab)? @ -No Was there de-escalation of care discussed even if they declined (Discuss DNR or withdrawal of care, Hospice)? DNR status @ -No What co-morbidities impacted this encounter? (DM, HTN, Smoking, COPD, CAD, Cancer, CVA, ARF, Chemo, Hep., AIDS, mental health diagnosis, sleep apnea, morbid obesity)? @ -Aneurysm of the abdominal aorta Was patient admitted / discharged? Hospital course, mention meds given and route, prescriptions, significant lab abnormalities, going to OR and other pertinent info. @ -Based on the patient's presentation and physical exam, presents with extremity pain. Unknown etiology for the patient's symptoms, but cannot rule out dissection for some concerning involvement of all the extremities and intermittent symptoms. We will obtain CT brain as well as CT angiogram of the aorta and basic labs. Patient was in agreement this plan. Symptomatically treated with IV fluids as well as IV morphine. EKG showed no evidence of acute ischemia. Labs are remarkable for mildly elevated bilirubin of 2.5. Case signed out to Dr. Villegas pending imaging results. Undiagnosed new problem with uncertain prognosis? @ -No Drug Therapy requiring intensive monitoring for toxicity (Heparin, Nitro, Insulin, Cardizem)? @ -No Were any procedures done? @ -No (Ashwin Galicia) Was patient admitted / discharged? Hospital course, mention meds given and route, prescriptions, significant lab abnormalities, going to OR and other pertinent info. @ -Patient was signed out to me from Dr. Galicia. Patient's CT of the brain showed no acute abnormality. Patient's CT of the aorta showed no acute abnormality. I went back in the room to reexamine the patient he was having pain in all his muscles of all 4 extremities. Patient denied any abdominal pain chest pain or back pain. The patient was having difficulty moving any of his extremities and touching any of his muscles seemed hurting quite a bit. Patient difficulty getting up and ambulating to the bathroom. I spoke with Dr. Zamarripa she agreed to admit the patient admitted the patient and consult neurology. Undiagnosed new problem with uncertain prognosis? @ -No Drug Therapy requiring intensive monitoring for toxicity (Heparin, Nitro, Insulin, Cardizem)? @ -No Were any procedures done? @ -No Diagnosis/symptom? @ -Diffuse myalgias Acute, or Chronic, or Acute on Chronic? @ -Acute Uncomplicated (without systemic symptoms) or Complicated (systemic symptoms)? @ -Complicated Side effects of treatment? @ -No Exacerbation, Progression, or Severe Exacerbation? @ -No Poses a threat to life or bodily function? How? (Chest pain, USA, OR, pneumonia, PE, COPD, DKA, ARF, appy, cholecystitis, CVA, Diverticulitis, Homicidal, Suicidal, threat to staff... and all critical care pts) @ -No (Dex Villegas) - Lab Data Lab Results 02/04/23 02/04/23 02/04/23 Range/Units 06:07 06:07 06:07 WBC 9.9 (3.8-10.6) k/uL RBC 4.67 (4.30-5.90) m/uL Hgb 14.2 (13.0-17.5) gm/dL Hct 43.4 (39.0-53.0) % MCV 92.8 (80.0-100.0) fL MCH 30.4 (25.0-35.0) pg MCHC 32.8 (31.0-37.0) g/dL RDW 12.8 (11.5-15.5) % Plt Count 194 (150-450) k/uL MPV 7.3 Neutrophils % 83 % Lymphocytes % 6 % Monocytes % 9 % Eosinophils % 1 % Basophils % 0 % Neutrophils # 8.2 H (1.3-7.7) k/uL Lymphocytes # 0.5 L (1.0-4.8) k/uL Monocytes # 0.9 (0-1.0) k/uL Eosinophils # 0.1 (0-0.7) k/uL Basophils # 0.0 (0-0.2) k/uL PT 10.1 (9.0-12.0) sec INR 0.9 (<1.2) APTT 20.1 L (22.0-30.0) sec Sodium 136 L (137-145) mmol/L Potassium 4.2 (3.5-5.1) mmol/L Chloride 103 (98-107) mmol/L Carbon Dioxide 25 (22-30) mmol/L Anion Gap 8 mmol/L BUN 14 (9-20) mg/dL Creatinine 0.88 (0.66-1.25) mg/dL Est GFR (CKD-EPI)AfAm >90 (>60 ml/min/1.73 sqM) Est GFR (CKD-EPI)NonAf 84 (>60 ml/min/1.73 sqM) Glucose 132 H (74-99) mg/dL Calcium 9.2 (8.4-10.2) mg/dL Magnesium 1.7 (1.6-2.3) mg/dL Total Bilirubin 2.5 H (0.2-1.3) mg/dL AST 32 (17-59) U/L ALT 31 (4-49) U/L Alkaline Phosphatase 74 (38-126) U/L Total Protein 6.6 (6.3-8.2) g/dL Albumin 4.2 (3.5-5.0) g/dL Lipase 115 (23-300) U/L Urine Color Urine Appearance (Clear) Urine pH (5.0-8.0) Ur Specific [place] (1.001-1.035) Urine Protein (Negative) Urine Glucose (UA) (Negative) Urine Ketones (Negative) Urine Blood (Negative) Urine Nitrite (Negative) Urine Bilirubin (Negative) Urine Urobilinogen (<2.0) mg/dL Ur Leukocyte Esterase (Negative) Urine RBC (0-5) /hpf Urine WBC (0-5) /hpf 02/04/23 Range/Units 08:05 WBC (3.8-10.6) k/uL RBC (4.30-5.90) m/uL Hgb (13.0-17.5) gm/dL Hct (39.0-53.0) % MCV (80.0-100.0) fL MCH (25.0-35.0) pg MCHC (31.0-37.0) g/dL RDW (11.5-15.5) % Plt Count (150-450) k/uL MPV Neutrophils % % Lymphocytes % % Monocytes % % Eosinophils % % Basophils % % Neutrophils # (1.3-7.7) k/uL Lymphocytes # (1.0-4.8) k/uL Monocytes # (0-1.0) k/uL Eosinophils # (0-0.7) k/uL Basophils # (0-0.2) k/uL PT (9.0-12.0) sec INR (<1.2) APTT (22.0-30.0) sec Sodium (137-145) mmol/L Potassium (3.5-5.1) mmol/L Chloride (98-107) mmol/L Carbon Dioxide (22-30) mmol/L Anion Gap mmol/L BUN (9-20) mg/dL Creatinine (0.66-1.25) mg/dL Est GFR (CKD-EPI)AfAm (>60 ml/min/1.73 sqM) Est GFR (CKD-EPI)NonAf (>60 ml/min/1.73 sqM) Glucose (74-99) mg/dL Calcium (8.4-10.2) mg/dL Magnesium (1.6-2.3) mg/dL Total Bilirubin (0.2-1.3) mg/dL AST (17-59) U/L ALT (4-49) U/L Alkaline Phosphatase (38-126) U/L Total Protein (6.3-8.2) g/dL Albumin (3.5-5.0) g/dL Lipase (23-300) U/L Urine Color Light Yellow Urine Appearance Clear (Clear) Urine pH 6.5 (5.0-8.0) Ur Specific [place] 1.034 (1.001-1.035) Urine Protein Negative (Negative) Urine Glucose (UA) Negative (Negative) Urine Ketones 1+ H (Negative) Urine Blood Small H (Negative) Urine Nitrite Negative (Negative) Urine Bilirubin Negative (Negative) Urine Urobilinogen <2.0 (<2.0) mg/dL Ur Leukocyte Esterase Negative (Negative) Urine RBC 10 H (0-5) /hpf Urine WBC <1 (0-5) /hpf - EKG Data EKG Comments: 12-lead Electrocardiogram Interpretation Note EKG was reviewed and interpreted by myself. 12-lead ECG performed at 0524 is interpreted by me as revealing normal sinus rhythm at a rate of 80 beats per minute. [place] is normal. NE interval is 140 ms, QRS duration is 100 ms, QTc is 408 ms.. There were no ST or T wave abnormalities to suggest myocardial ischemia or injury. R wave progression across the precordium was satisfactory. By my interpretation this EKG is non-diagnostic for acute ischemia. (Ashwin Galicia) Disposition <Ashwin Galicia - Last Filed: 02/04/23 07:39> Time of Disposition: 09:38 <Dex Villegas - Last Filed: 02/04/23 09:38> Clinical Impression: Myalgia Disposition: ADMITTED IP TO THIS [facility] Referrals: Ron Zamarripa DO [Primary Care Provider] - 1-2 days
[2023-02-04 06:42] LABS: ALT 31 U/L (4-49); AST 32 U/L (17-59); African American GFR (CKD) >90 (>60 ml/min/1.73 sqM); Albumin 4.2 g/dL (3.5-5.0); Alkaline Phosphatase 74 U/L (38-126); Anion Gap 8 mmol/L; Blood Urea Nitrogen 14 mg/dL (9-20); Calcium 9.2 mg/dL (8.4-10.2); Carbon Dioxide 25 mmol/L (22-30); Chloride 103 mmol/L (98-107); Glucose 132 mg/dL (74-99); Lipase 115 U/L (23-300); Magnesium 1.7 mg/dL (1.6-2.3); Non-African American GFR(CKD) 84 (>60 ml/min/1.73 sqM); Potassium 4.2 mmol/L (3.5-5.1); Sodium 136 mmol/L (137-145); Total Bilirubin 2.5 mg/dL (0.2-1.3); Total Protein 6.6 g/dL (6.3-8.2)
[2023-02-04 06:49] LABS: INR 0.9 (<1.2); Prothrombin Time 10.1 sec (9.0-12.0)
[2023-02-04 06:52] LABS: Partial Thromboplastin Time 20.1 sec (22.0-30.0)
--- NOTE | 2023-02-04 07:28 | CT ---
EXAMINATION TYPE: CT brain wo con DATE OF EXAM: 02/04/2023 COMPARISON: 04/01/2018 HISTORY: Lt arm pain traveling down leg CT DLP: 1099.[address] of the brain was performed. The ventricles, basal cisterns and sulci overlying the cerebral convexities demonstrate mild enlargem ent. There is no evidence for intracranial hemorrhage or sulcal effacement. There is decreased attenuation about the periventricular white matter and deep white matter of both c erebral hemispheres, compatible with chronic small vessel ischemia. Differential diagnosis does inclu de demyelination. No mass effects are seen.No midline shift. Osseous calvarium is intact. If symptoms persist consider MRI. IMPRESSION: 1. Age related atrophic and chronic small vessel ischemic change without acute intracranial process s een at this time.
--- NOTE | 2023-02-04 07:52 | CT ---
EXAMINATION TYPE: CT angio thor/abd pel aorta DATE OF EXAM: 02/04/2023 COMPARISON: None HISTORY: evaluate for aortic injury, Lt arm pain and weakness down leg CT DLP: 1834.7 mGycm CONTRAST: CTA thoracic and abdominal aorta with 3-D reconstruction is performed without Oral Contrast and with IV Contrast, patient injected with 100 mL of Isovue 370. Contrast CTA of the thoracic and abdominal aorta was performed from the lung apex through the base of the pelvis. 3-D reconstruction imaging obtained at a separate workstation. CT Chest: THORACIC AORTA: There is no evidence for aneurysm. No dissection or mediastinal hematoma. Mild ath eromatous changes are seen. LUNGS: Basilar groundglass infiltrates may reflect atelectasis however acute inflammatory process is not excluded. No pulmonary nodule or mass is detected. No pleural effusion or CT evidence of interst itial lung disease. MEDIASTINUM: The heart is not enlarged. No evidence for mediastinal mass or adenopathy. Small slidin g-type hiatal hernia. HILAR STRUCTURES: No evidence for mass. No hilar adenopathy is appreciated. OTHER: No significant abnormality. CONTRAST CT ABDOMEN AND PELVIS ABDOMINAL AORTA: Distal abdominal aortic aneurysm noted measuring 3.5 x 3.0 cm. Diffuse atheromatous change seen. Small chronic dissection is unchanged from prior study seen best on image 216 series 501 . Iliac vessels are symmetric and patent. LIVER/GB- No significant abnormality is seen. PANCREAS- No significant abnormality is seen. SPLEEN- No significant abnormality is seen. ADRENALS- No significant abnormality is seen. KIDNEYS/BLADDER-posttreatment changes lower pole right kidney. Nonobstructing nephrolithiasis left ki dney. BOWEL- No Significant abnormality GENITAL ORGANS: No gross abnormality seen. LYMPH NODES- No greater than 1cm abdominal or pelvic lymph nodes are appreciated. OSSEOUS STRUCTURES- No significant abnormality is seen. [id number] left inguinal hernia. IMPRESSION- 1. No evidence for traumatic aortic injury. 2. Infrarenal abdominal aortic aneurysm unchanged from prior study as is a stable short segment chron ic dissection. 3.Basilar groundglass infiltrates may reflect atelectasis however acute inflammatory process is not e xcluded.
[2023-02-04 08:33] LABS: Appearance,Urine Clear (Clear); Bilirubin,Urine Negative (Negative); Blood,Urine Small (Negative); Color,Urine Light Yellow; Glucose,Urine (UA) Negative (Negative); Ketones,Urine 1+ (Negative); Leukocyte Esterase,Urine Negative (Negative); Nitrite,Urine Negative (Negative); PH, Urine 6.5 (5.0-8.0); Protein,Urine Negative (Negative); RBC,Urine 10 /hpf (0-5); Specific Gravity,Urine 1.034 (1.001-1.035); Urobilinogen,Urine <2.0 mg/dL (<2.0); WBC,Urine <1 /hpf (0-5)
[2023-02-04] MEDS ORDERED: KETOROLAC 15 MG/ML 1 ML VIAL IVP STA (08:51)
[2023-02-04] MEDS ORDERED: HYDROmorphone 0.5 MG/0.5 ML SYRINGE IVP STA (08:51)
[2023-02-04] MEDS ORDERED: ONDANSETRON 4 MG/2 ML VIAL IVP STA ×2 (08:51→14:39)
[2023-02-04] MEDS ORDERED: SODIUM CHLORIDE 0.9% 1,000 ML IV ONE (09:39)
[2023-02-04 11:35] LABS: C Reactive Protein 1.4 mg/dL (<1.0)
--- NOTE | 2023-02-04 13:28 | P.CNNES ---
History of Present Illness Consult date: 02/04/23 Requesting physician: Dex Villegas Reason for Consult: Diffuse myalgias History of Present Illness: Patient is a 77-year-old right-handed male, with history of gout, otherwise healthy came to the hospital today at 3:49 AM for diffuse myalgias. Patient states that yesterday he woke up at 6 AM and was perfectly fine. He went outside, trimmed the hedge for a short while and was doing well. About 2 hours later, he came inside and laid down on the couch, and took a short nap. When he woke up, his left arm was hurting, and then started extending to the right arm. Shortly after he started having pains/myalgias involving both legs. It was very intense, rating 10/10. He was getting shakes, chills, which kept on getting worse. No fever with it. Vital signs on arrival blood pressure 122/83, pulse rate 98 temperature 97.8. Blood test shows normal CBC, PT/PTT, sodium 136, electrolytes are normal. Renal functions, hepatic panel is normal. UA shows small amount of blood. Influenza screen, RSV and coronal virus PCR negative. EKG shows sinus rhythm. CT head showed age-related atrophic and chronic small vessel ischemic change without acute intracranial process seen at this time. CT angios of thoracic/abdominal aorta shows no evidence for traumatic aortic injury. Infrarenal abdominal aortic aneurysm unchanged from prior study as is a stable short segment chronic dissection. Basilar groundglass infiltrates may reflect atelectasis however acute inflammatory process is not excluded. Patient denies any history of tobacco use or diabetes. He does have gout. He never has suffered from these myalgias before. Patient has been profusely vomiting, retching, yellow biliary staff. Patient denies any tobacco, no alcohol use. Patient denies diabetes. He has never suffered from pain slight this before. Patient says that he has gout, which affects mainly his ankles and toes. He is otherwise very active, does not use any assistive device. He does bike ride.. Discussed with patient's in detail. Review of Systems Constitutional: Reports chills, Denies fever Eyes: denies blurred vision, denies diplopia, denies pain (States eyes were twitching few days ago.) Ears: bilateral: decreased hearing, deny: ear discharge Ears, nose, mouth and throat: Reports headache (Has a headache right now, not bad. Had a headache yesterday as well. Otherwise don't get headache.), Denies sore throat Cardiovascular: Denies chest pain, Denies shortness of breath Respiratory: Reports cough, Reports excessive sputum Gastrointestinal: Reports nausea, Reports vomiting, Denies abdominal pain (Last night was hurting, but not now), Denies constipation, Denies diarrhea Musculoskeletal: Reports muscle weakness, Reports myalgias, Reports neck pain, Denies low back pain Integumentary: Denies pruritus, Denies rash Neurological: Reports as per HPI, Denies numbness, Denies seizures Psychiatric: Reports anxiety, Denies depression Endocrine: Denies fatigue, Denies weight change Hematologic/Lymphatic: Denies easy bruising 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, gout, BPH, nephrolithiasis, bilateral tinnitis, colon benign polyp History of Any Multi-Drug Resistant Organisms: None Reported Past Surgical History: Appendectomy, Cholecystectomy, Heart Catheterization, Hernia Repair, Orthopedic Surgery, Tonsillectomy Additional Past Surgical History / Comment(s): 05/26/20 robot assisted laparoscopic R partial nephrectomy, laparoscopic migue fundoplasty with extensive lysis of adhesions, bilateral inguinal hernia repairs, right carotid endarterectomy, left knee arthroscopy, sinus surgery, clint shoulder rotator cuff repairs, heel spur rt foot, R hand surgery to remove splinter, EGD, colonoscopies/polypectomy, cystoscopy. Past Anesthesia/Blood Transfusion Reactions: No Reported Reaction, Motion Sickness Additional Past Anesthesia/Blood Transfusion Reaction / Comment(s): . Past Psychological History: No Psychological Hx Reported Smoking Status: Former smoker Past Alcohol Use History: None Reported Past Drug Use History: None Reported - Past Family History Brother(s) Family Medical History: Cancer Additional Family Medical History / Comment(s): prostate Mother Family Medical History: No Reported History Additional Family Medical History / Comment(s): Mother was healthy and lived to be 89yrs old. Father Family Medical History: Myocardial Infarction ([place]) Additional Family Medical History / Comment(s): Father had a [place] at the age of 60yrs and lived to be 80yrs old. Medications and Allergies Home Medications Medication Instructions Recorded Confirmed Type Atorvastatin [Lipitor] 40 mg PO HS 10/18/14 02/04/23 History Aspirin [Adult Low Dose Aspirin EC] 162 mg PO HS 08/31/16 02/04/23 History allopurinoL [Zyloprim] 100 mg PO HS 05/20/20 02/04/23 History lisinopriL [Prinivil] 20 mg PO HS 05/12/21 02/04/23 History Allergies Allergy/AdvReac Type Severity Reaction Status Date / Time sulfamethoxazole Allergy Rash/Hives Verified 02/04/23 10:56 [From Bactrim] trimethoprim [From Bactrim] Allergy Rash/Hives Verified 02/04/23 10:56 vancomycin Allergy Rash/Hives Verified 02/04/23 10:56 influenza virus vaccine, AdvReac "very ill Verified 02/04/23 10:56 specific after injection" Physical Examination - Vital Signs Vital Signs: Vital Signs Temp Pulse Resp BP Pulse Ox 02/04/23 07:29 97.9 F 85 16 128/83 95 02/04/23 03:55 97.8 F 98 18 122/83 98 Intake and Output 02/03/23 02/04/23 02/04/23 22:59 06:59 14:59 Other: Weight 79.379 kg Patient is an elderly male, who is laying in the bed. He is frequently vomiting. Retching, biliary yellow stuff. Patient is alert awake oriented to time place and person. He knows that his January 2023 and that he is in [facility]. Speech and language functions are normal. Patient can name and repeat very well. No aphasia or dysarthria. Attention, concentration and fund of knowledge is adequate. On cranial nerve examination, pupils are equal, round and reacting to light, visual ríos are full on confrontation, with no neglect on double simultaneous stimulation. Extraocular muscles are intact with no nystagmus. Face is symmetric, tongue protrudes to the midline. Palatal elevation and sensation normal, hearing and shoulder shrug normal, facial sensation normal. On muscle strength testing, there is no pronator drift and the strength is difficult to assess because of myalgias and pain. With upper extremity testing, the pain was in the wrist and the shoulder, left more than right. His muscle strength testing otherwise is 4+5-, with decreased endurance due to pain. In the lower limbs, it was hurting above and medial to the knee. Ankles and toes are normal. Deep tendon reflexes are symmetric and trace at the biceps, 0 brachioradialis, 0 at the knees, trace ankles bilaterally. Sensory to touch is equal with no neglect on double simultaneous stimulation. Cerebellar function showed no ataxia for [id number] testing. No ataxia for [id number]-[id number] testing on either side. Tone and bulk of muscles normal. Gait : Patient walked to the bathroom. He was walking wide base with stifflegged because of myalgias and pain. He has difficulty raising up from the bed, or getting up from the wheelchair. He appeared somewhat unsteady. On general examination, there is no carotid bruit or murmur, S1-S2 audible. Chest is clear on consultation. Abdomen is soft nontender. No organomegaly, bowel sounds present. Peripheral pulses are present. No edema. Results - Laboratory Findings CBC and BMP: 02/04/23 06:07 02/04/23 06:07 Abnormal Lab Findings: Abnormal Labs 02/04/23 02/04/23 02/04/23 06:07 06:07 06:07 Neutrophils # 8.2 H Lymphocytes # 0.5 L APTT 20.1 L Sodium 136 L Glucose 132 H Total Bilirubin 2.5 H Urine Ketones Urine Blood Urine RBC 02/04/23 08:05 Neutrophils # Lymphocytes # APTT Sodium Glucose Total Bilirubin Urine Ketones 1+ H Urine Blood Small H Urine RBC 10 H Assessment and Plan Assessment: * Polymyalgias, unclear cause. Rule out gout activation. * Mild rhabdomyolysis * Nausea vomiting, unclear cause. * Hypertension * Hyperlipidemia * History of amaurosis fugax left eye in 1992 Plan: * Check ESR, CRP is mildly elevated, 1.4/<1.0, * CPK 199/170. May need to repeat. * Hemoglobin A1c 6.0 normal and TFTs also normal on 07/31/2022. * Evaluation of causes of nausea vomiting as per IM. May need further evaluation. * Consider rheumatology consultation to rule out reactivation of gout. * Continue aspirin 81 mg daily. * Check B12, folate. * Neurology will follow. Thank you for the consult.
[2023-02-04] MEDS: PANTOPRAZOLE 40 MG/10 ML VIAL IVP SCH (13:34)
[2023-02-04] MEDS ORDERED: ATORVASTATIN 40 MG TAB PO SCH (21:00)
[2023-02-04] MEDS: HYDROmorphone 1 MG/ML 1 ML SYRINGE IVP PRN (21:45)
[2023-02-04] MEDS: ONDANSETRON 4 MG/2 ML VIAL IVP PRN (21:45)
[2023-02-04] MEDS: ASPIRIN 81 MG PO SCH (22:04)
[2023-02-04] MEDS: allopurinoL 100 MG TAB PO SCH (22:04)
[2023-02-04] MEDS: lisinopriL 20 MG TAB PO SCH (22:04)
[2023-02-05] MEDS: ONDANSETRON 4 MG/2 ML VIAL IVP PRN ×3 (02:38→17:49)
[2023-02-05] MEDS: HYDROmorphone 1 MG/ML 1 ML SYRINGE IVP PRN ×3 (03:33→20:51)
[2023-02-05] MEDS: PANTOPRAZOLE 40 MG/10 ML VIAL IVP SCH (08:29)
[2023-02-05] MEDS: guaiFENesin 600 MG TABLET.ER PO SCH ×2 (11:47→20:40)
--- NOTE | 2023-02-05 14:02 | P.HPIM ---
History of Present Illness H&P Date: 02/05/23 Chief Complaint: Myalgias This is a pleasant 77-year-old gentleman with past medical history significant for COPD, CVA/TIA, gastroesophageal reflux disease, hypertension, hyper lipidemia, osteoarthritis, gout, renal cell carcinoma with right sided partial nephrectomy presented to the ER with complaints of intense ,diffuse muscle tenderness/weakness in his arms and legs. Reports yesterday morning after awakening and following a nap, developed left arm tenderness, extended to the right arm and progressed into the bilateral lower legs. Pain intensified accompanied by positive chills, shakes. Denies fevers. Denies trauma/falls. Denies prior occurrence. Brain CT reported age-related atrophic and chronic small vessel ischemic change without acute intracranial process. CTA of thoracic/abdominal aorta reported no evidence for traumatic aortic injury. Infrarenal abdominal aortic aneurysm unchanged from prior study as is a stable short segment chronic dissection. Basilar groundglass infiltrates may reflect atelectasis however acute inflammatory process is not excluded. Afebrile, T-max 99.8, Influenza screen, RSV and coronal virus PCR negative. EKG reported sinus rhythm. Hematology, coagulation, chemistry panels unremarkable with the exception of total bili 2.5, creatinine kinase 199, CRP 1.4. B12 466, folate 13.5. UA reported 10. RBCs, small amount blood 1+ ketones. Hemoglobin A1c 6 This morning currently nauseated, retching. Review of Systems ROS Statement: Those systems with pertinent positive or pertinent negative responses have been documented in the HPI. ROS Other: All systems not noted in ROS Statement are negative. 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, gout, BPH, nephrolithiasis, bilateral tinnitis, colon benign polyp History of Any Multi-Drug Resistant Organisms: None Reported Past Surgical History: Appendectomy, Cholecystectomy, Heart Catheterization, Hernia Repair, Orthopedic Surgery, Tonsillectomy Additional Past Surgical History / Comment(s): 05/26/20 robot assisted laparoscopic R partial nephrectomy, laparoscopic migue fundoplasty with extensive lysis of adhesions, bilateral inguinal hernia repairs, right carotid endarterectomy, left knee arthroscopy, sinus surgery, clint shoulder rotator cuff repairs, heel spur rt foot, R hand surgery to remove splinter, EGD, colonoscopies/polypectomy, cystoscopy. Past Anesthesia/Blood Transfusion Reactions: No Reported Reaction, Motion Sickness Additional Past Anesthesia/Blood Transfusion Reaction / Comment(s): . Past Psychological History: Anxiety, Panic Disorder, PTSD Additional Psychological History / Comment(s): Pt resides with his spouse. He is independent. Smoking Status: Former smoker Past Alcohol Use History: None Reported Additional Past Alcohol Use History / Comment(s): STARTED SMOKING IN 1965 AND QUIT IN 1970, SMOKED <1/2PPD Past Drug Use History: None Reported - Past Family History Brother(s) Family Medical History: Cancer Additional Family Medical History / Comment(s): prostate Mother Family Medical History: No Reported History Additional Family Medical History / Comment(s): Mother was healthy and lived to be 89yrs old. Father Family Medical History: Myocardial Infarction ([place]) Additional Family Medical History / Comment(s): Father had a [place] at the age of 60yrs and lived to be 80yrs old. Medications and Allergies Home Medications Medication Instructions Recorded Confirmed Type Atorvastatin [Lipitor] 40 mg PO HS 10/18/14 02/04/23 History Aspirin [Adult Low Dose Aspirin EC] 162 mg PO HS 08/31/16 02/04/23 History allopurinoL [Zyloprim] 100 mg PO HS 05/20/20 02/04/23 History lisinopriL [Prinivil] 20 mg PO HS 05/12/21 02/04/23 History Allergies Allergy/AdvReac Type Severity Reaction Status Date / Time sulfamethoxazole Allergy Rash/Hives Verified 02/04/23 10:56 [From Bactrim] trimethoprim [From Bactrim] Allergy Rash/Hives Verified 02/04/23 10:56 vancomycin Allergy Rash/Hives Verified 02/04/23 10:56 influenza virus vaccine, AdvReac "very ill Verified 02/04/23 10:56 specific after injection" Physical Exam Vitals: Vital Signs Temp Pulse Pulse Resp BP BP Pulse Ox 02/05/23 07:51 99.0 F 94 19 117/64 91 L 02/05/23 01:38 99.8 F H 87 16 126/75 96 02/04/23 21:20 98.9 F 89 16 118/69 93 L 02/04/23 18:06 99 F 85 18 116/84 94 L 02/04/23 15:58 99.2 F 91 18 118/75 94 L 02/04/23 14:00 98.2 F 98 18 163/75 95 Intake and Output 02/04/23 02/05/23 02/05/23 22:59 06:59 14:59 Output Total 250 Balance -250 Output: Urine 250 Other: Weight 79.379 kg GENERAL EXAM: Alert, sitting up in bed, nauseated, retching HEENT: Normocephalic. Pupils equal ,Conjunctiva normal, no icterus, supple, no JVD. LUNGS: Equal air entry with few scattered rhonchi, end expiratory wheeze bilaterally. CVS: S1 and S2 normal with no audible murmur, regular rhythm. ABDOMEN: Soft, nondistended, nontender ,No hepatosplenomegaly, normal bowel sounds, no guarding or rigidity. SKIN: Warm and dry, no rashes noted NERVOUS SYSTEM: Alert and oriented 3, no gross focal deficits. Psychiatric: Alert and oriented 3, mood and affect normal. EXTREMITIES: There is no peripheral edema. No clubbing, no cyanosis. Peripheral pulses are intact. Results CBC & Chem 7: 02/04/23 06:07 02/04/23 06:07 Thrombosis Risk Factor Assmnt - Choose All That Apply Any of the Below Risk Factors Present?: Yes Each Factor Represents 1 point: Abnormal pulmonary function (COPD) Other Risk Factors: Yes Each Risk Factor Represents 2 Points: Patient confined to bed Each Risk Factor Represents 3 Points: Age 75 years or older Thrombosis Risk Factor Assessment Total Risk Factor Score: 6 Thrombosis Risk Factor Assessment Level: High Risk Assessment and Plan Assessment: Polymyalgias, etiology unclear, accompanied by nausea and vomiting History of gout Basilar groundglass infiltrates reported per CTA, possibly atlectasis COPD, History of nephrectomy Gastroesophageal reflux disease History of renal cell carcinoma with partial nephrectomy of right kidney Former nicotine dependence Osteoarthritis Hypertension Hyperlipidemia History of CVA,TIA History of multiple orthopedic surgeries Plan: Continue on current medication regime, monitoring and symptomatically treatment. Antiemetics ordered. Gentle IV fluid hydration. Pain management. Complaining of some congestion, sinus drainage. Mucinex, Claritin, Sputum culture ordered. Incentive spirometer ordered. Evaluated by neurology with workup in progress. PT/OT consulted. The impression and plan of care has been dictated as directed. : I performed a history and examination of this patient, discussed the same with the dictator. I agree with the dictator's note ,documented as a scribe. Any additional findings or plans will be noted.
[2023-02-05] MEDS: LORATADINE 10 MG TAB PO SCH (14:36)
[2023-02-05] MEDS: SODIUM CHLORIDE 0.9% 1,000 ML IV SCH (14:37)
[2023-02-05 15:35] VITALS: BMI 23.7
--- NOTE | 2023-02-05 19:24 | P.PN ---
Subjective Progress Note Date: 02/05/23 Patient was seen for a follow-up. Patient is laying in the bed. He appears sick. He is still having retching, trying to vomit and only phlegm coming out. He is complaining of fever. States feeling awful. Complaining of sick to stomach. Denies any abdominal pain. Admits to having headache, not bad, rates 5/10. No slurred speech, he moving all 4 extremities. Objective - Vital Signs Vital signs: Vital Signs Temp 99.1 F 02/05/23 14:21 Pulse 94 02/05/23 14:21 Resp 18 02/05/23 14:21 BP 127/65 02/05/23 14:21 Pulse Ox 91 L 02/05/23 14:21 FiO2 Intake & Output 02/05/23 02/05/23 02/06/23 06:59 18:59 06:59 Output Total 250 Balance -250 Weight 79.379 kg Output: Urine 250 Other: # Voids 3 # Bowel Movements 1 - Exam Patient appears somewhat encephalopathic. He is groggy. He is constantly ratcheting, trying to vomit. Only phlegm coming out. He appears somewhat pale. Speech is slightly hoarse, but no obvious aphasia or dysarthria. He is moaning. Pupils are equal, round and reacting, face is symmetric and tongue protrudes the midline. Extraocular muscles are intact, with no nystagmus. Neck is supple. On muscle strength testing, there is no pronator drift. His strength is generalized weak, but equal. He appears somewhat dystaxic for [id number] testing bilaterally. This could be from generalized weakness. Reflexes are diminished. Tone is normal. Abdomen is soft, nontender. - Labs CBC & Chem 7: 02/04/23 06:07 02/04/23 06:07 Assessment and Plan Assessment: * Polymyalgias, unclear cause. Rule out gout activation. * Mild rhabdomyolysis * Nausea vomiting, unclear cause. * Hypertension * Hyperlipidemia * History of amaurosis fugax left eye in 1992 Plan: * ESR 9, CRP is mildly elevated, 1.4/<1.0, * CPK 199/170. May need to repeat. * Hemoglobin A1c 6.0 normal and TFTs also normal on 07/31/2022. * Evaluation of causes of nausea vomiting as per IM. May need further evaluation. * Consider rheumatology consultation to rule out reactivation of gout. * Continue aspirin 81 mg daily. * B12 466, folate 13.5. * Repeat CT head. Rule out cerebellar stroke. * May consider lumbar puncture if no obvious answers. * Discussed with patient's in detail.
[2023-02-05] MEDS: ASPIRIN 81 MG PO SCH (20:40)
[2023-02-05] MEDS: lisinopriL 20 MG TAB PO SCH (20:40)
[2023-02-05] MEDS: allopurinoL 100 MG TAB PO SCH (20:40)
[2023-02-06] MEDS: ONDANSETRON 4 MG/2 ML VIAL IVP PRN (02:39)
[2023-02-06] MEDS: ACETAMINOPHEN TAB 325 MG TAB PO PRN ×3 (05:57→20:37)
--- NOTE | 2023-02-06 07:08 | CT ---
EXAMINATION TYPE: CT brain wo con CT DLP: 1107.0 mGycm, Automated exposure control for dose reduction was used. DATE OF EXAM: 02/05/2023 10:22 PM COMPARISON: 02/04/2023. CLINICAL INDICATION:Male, 77 years old with history of Persistent vomiting, ams, rule out cerebellar CVA, Persistent vomiting, AMS TECHNIQUE: Brain: Axial CT images of the brain were obtained with coronal and sagittal reformats created and rev iewed. Contrast used: None. Oral contrast used: None. FINDINGS: Brain: Extra-axial spaces: No abnormal extra-axial fluid collections. Ventricular system: Dilatation in proportion to cerebral atrophy. Cerebral parenchyma: Cerebral atrophy. No acute intraparenchymal hemorrhage or mass effect. The cuello -white junction is well differentiated. Scattered hypoattenuating areas are seen within the white mat ter. Cerebellum: Unremarkable. Mass effect: No evidence of midline shift. Intracranial vasculature: Atherosclerotic calcifications of the intracranial vessels. Soft tissues: Normal. Calvarium/osseous structures: No depressed skull fracture. Paranasal sinuses and mastoid air cells: Mild scattered paranasal sinus disease. Visualized orbits: Orbital contents are intact. IMPRESSION: 1. No acute intracranial process. 2. Nonspecific white matter changes, likely secondary to chronic small vessel ischemic disease.
[2023-02-06] MEDS ORDERED: IPRATROPIUM-ALBUTEROL 3 ML NEB INHALATION PRN (08:02)
--- NOTE | 2023-02-06 08:46 | XR ---
EXAMINATION TYPE: XR chest 1V portable DATE OF EXAM: 02/06/2023 8:26 AM COMPARISON: Chest radiographs from 10/12/2022, CT 02/04/2023. TECHNIQUE: XR chest 1V portable Frontal view of the chest. CLINICAL INDICATION:Male, 77 years old with history of hypoxic; FINDINGS: Lungs/Pleura: Low lung volumes are present with generalized haziness to the lungs compared to prior o n 10/12/2022. There is no evidence of pleural effusion, focal consolidation, or pneumothorax. Pulmonary vascularity: Unremarkable. Heart/mediastinum: Cardiomediastinal silhouette is unremarkable. Musculoskeletal: No acute osseous pathology. IMPRESSION: Low lung volumes with a generalized hazy appearance which could represent atelectasis versus pulmonar y edema correlate with serum BNP.
[2023-02-06] MEDS: SYMBICORT 80-4.5 MCG INHALER INHALATION SCH ×2 (09:45→20:12)
[2023-02-06] MEDS ORDERED: Magnesium Replacement Protocol 1 EACH MISC MISCELLANE PRN (10:48)
[2023-02-06] MEDS: guaiFENesin 600 MG TABLET.ER PO SCH ×2 (10:55→20:37)
[2023-02-06] MEDS: LORATADINE 10 MG TAB PO SCH (10:55)
[2023-02-06] MEDS: PANTOPRAZOLE 40 MG/10 ML VIAL IVP SCH (10:55)
[2023-02-06] MEDS: SODIUM CHLORIDE 0.9% 1,000 ML IV SCH ×2 (10:56→12:45)
--- NOTE | 2023-02-06 10:58 | P.PN ---
Subjective Progress Note Date: 02/06/23 H&P Date: 02/05/23 Chief Complaint: Myalgias This is a pleasant 77-year-old gentleman with past medical history significant for COPD, CVA/TIA, gastroesophageal reflux disease, hypertension, hyperlipidemia, osteoarthritis, gout, renal cell carcinoma with right sided partial nephrectomy presented to the ER with complaints of intense ,diffuse muscle tenderness/weakness in his arms and legs. Reports yesterday morning after awakening and following a nap, developed left arm tenderness, extended to the right arm and progressed into the bilateral lower legs. Pain intensified accompanied by positive chills, shakes. Denies fevers. Denies trauma/falls. De nies prior occurrence. Brain CT reported age-related atrophic and chronic small vessel ischemic change without acute intracranial process. CTA of thoracic/abdominal aorta reported no evidence for traumatic aortic injury. Infrarenal abdominal aortic aneurysm unchanged from prior study as is a stable short segment chronic dissection. Basilar groundglass infiltrates may reflect atelectasis however acute inflammatory process is not excluded. Afebrile, T-max 99.8, Influenza screen, RSV and coronal virus PCR negative. EKG reported sinus rhythm. Hematology, coagulation, chemistry panels unremarkable with the exception of total bili 2.5, creatinine kinase 199, CRP 1.4. B12 466, folate 13.5. UA reported 10. RBCs, small amount blood 1+ ketones. Hemoglobin A1c 6 This morning currently nauseated, retching. 02/06/2023 this morning with intermittent productive cough , thick green sputum reported, sputum culture not yet collected. Hypoxic, requiring 3 L nasal cannula to maintain O2 sats in the 90s , mild tachycardia, heart rates in the low 100s, chest x-ray ordered. Medicated a few hours ago for nausea, currently denies. ,Evaluated by neurology with workup in progress. Generalized weakness persist. Repeat brain CT reported no acute intracranial process. Objective - Vital Signs Vital signs: Vital Signs Temp 98.8 F 02/06/23 07:32 Pulse 103 H 02/06/23 07:32 Resp 20 02/06/23 07:32 BP 101/57 02/06/23 07:32 Pulse Ox 92 L 02/06/23 09:19 FiO2 Intake & Output 02/05/23 02/06/23 02/06/23 18:59 06:59 18:59 Weight 79.379 kg Other: # Voids 3 1 # Bowel Movements 1 - Exam GENERAL EXAM: Alert, sitting up in bed, pale, tired appearing HEENT: Normocephalic. Pupils equal ,Conjunctiva normal, no icterus, supple, no JVD. LUNGS: Respiratory effort mildly increased, equal air entry with occasional few scattered rhonchi CVS: S1 and S2 normal, minimal tachycardia with no audible murmur, regular rhythm. ABDOMEN: Soft, nondistended, nontender ,No guarding or rigidity, positive bowel sounds. SKIN: Warm and dry, no rashes noted NERVOUS SYSTEM: Alert and oriented 3, generalized weakness with no gross focal deficits. EXTREMITIES: There is no peripheral edema. No clubbing, no cyanosis. Peripheral pulses are intact. - Labs CBC & Chem 7: 02/04/23 06:07 02/04/23 06:07 Assessment and Plan Assessment: Polymyalgias, etiology unclear, accompanied by nausea and vomiting. History of gout Acute hypoxic respiratory failure, possibly community-acquired pneumonia, chest x-ray pending Basilar groundglass infiltrates reported per CTA, possibly atlectasis COPD, History of nephrectomy Gastroesophageal reflux disease History of renal cell carcinoma with partial nephrectomy of right kidney Former nicotine dependence Osteoarthritis Hypertension Hyperlipidemia History of CVA,TIA History of multiple orthopedic surgeries Plan: Continue on current medication regime, monitoring and symptomatically treatment.labs pending.Sputum culture as ordered yesterday-not yet collected. Chest x-ray ordered. Empiric antibiotics initiated. Nebulized bronchodilators scheduled and prn. Aggressive pulmonary toileting with Incentive spirometer reinforced. PT consulted, recommendations pending. Neurology workup in progress. The impression and plan of care has been dictated as directed. : I performed a history and examination of this patient, discussed the same with the dictator. I agree with the dictator's note ,documented as a scribe. Any additional findings or plans will be noted.
[2023-02-06] MEDS ORDERED: DEXTROSE 50% SYRINGE 50 ML IVP PRN ×2 (11:00)
[2023-02-06 11:05] LABS: HCT 35.2 % (39.6-50.0); HGB 11.7 d/dL (12.0-15.0); MCH 30.2 pg (27.0-32.0); MCHC 33.2 d/dL (32.0-37.0); MCV 90.7 FL (80.0-97.0); Mean Platelet Volume 10.4 FL (9.5-12.2); NRBC Per 100 WBC 0 X 10*3/uL (0.00-0.01); Platelet Count 133 X 10*3/uL (140-440); RBC 3.88 X 10*6/uL (4.40-5.60); RDW 12.9 % (11.5-14.5)
[2023-02-06 11:17] LABS: BUN/Creat Ratio 18.08 Ratio (12.00-20.00); Blood Urea Nitrogen 23.5 mg/dL (9.0-27.0); Calcium 7.9 mg/dL (8.7-10.3); Chloride 100 mmol/L (96-109); Glucose 136 mg/dL (70-110); Potassium 3.9 mmol/L (3.5-5.5); Sodium 133 mmol/L (135-145)
[2023-02-06 11:41] LABS: Basophils # (A) 0.02 X 10*3/uL (0.00-0.10); Basophils % (A) 0.2 %; Eosinophils # (A) 0 X 10*3/uL (0.04-0.35); Eosinophils % (A) 0 %; Lymphocytes # (A) 0.08 X 10*3/uL (0.90-5.00); Lymphocytes % (A) 0.7 %; Monocytes # (A) 0.11 X 10*3/uL (0.20-1.00); Neutrophils # (A) 10.84 X 10*3/uL (1.80-7.70); Neutrophils % (A) 97.6 %; RBC Morphology Normal (Normal)
[2023-02-06 12:22] LABS: Glucose,Whole Blood 119 mg/dL (70-110)
[2023-02-06] MEDS: AZITHROMYCIN 500 MG in SODIUM CHLORIDE 0.9% 250 ML IVPB SCH (12:26)
--- NOTE | 2023-02-06 12:33 | P.NPCON ---
History of Present Illness - Reason for Consult acute renal failure - History of Present Illness Reason for consultation: Acute kidney injury History of present illness: Patient is a 77-year-old male seen in renal consultation for acute kidney injury. Patient's creatinine on admission was 0.88 and is up to 1.3 today. Patient came to the hospital on 02/04/2023 due to weakness in his extremities. He is also complaining of muscle spasm. Patient is also quite short of breath. He is having a productive cough with green phlegm. He underwent CT angiogram on 02/04/2023 which showed basilar groundglass infiltrates. No hydronephrosis was noted. Patient does have a history of partial right nephrectomy. Patient states it was about 3 years ago due to renal cancer. He admits to occasional use of nonsteroidals. No history of diabetes. Denies family history of renal disease. No hematuria or dysuria. Has been voiding but is now incontinent. Patient was on IV fluids but have now been discontinued. Oral intake is poor. Hemodynamically stable. He tested negative for influenza, RSV and coronavirus. Vital signs are stable. General: No acute distress. HEENT: Head exam is unremarkable. On nasal cannula. LUNGS: Scattered rhonchi. HEART: Rate and Rhythm are regular. ABDOMEN: Nontender. EXTREMITITES: No edema. 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, gout, BPH, nephrolithiasis, bilateral tinnitis, colon benign polyp History of Any Multi-Drug Resistant Organisms: None Reported Past Surgical History: Appendectomy, Cholecystectomy, Heart Catheterization, Hernia Repair, Orthopedic Surgery, Tonsillectomy Additional Past Surgical History / Comment(s): 05/26/20 robot assisted laparoscopic R partial nephrectomy, laparoscopic migue fundoplasty with extensive lysis of adhesions, bilateral inguinal hernia repairs, right carotid endarterectomy, left knee arthroscopy, sinus surgery, clint shoulder rotator cuff repairs, heel spur rt foot, R hand surgery to remove splinter, EGD, colonoscopies/polypectomy, cystoscopy. Past Anesthesia/Blood Transfusion Reactions: No Reported Reaction, Motion Sickness Additional Past Anesthesia/Blood Transfusion Reaction / Comment(s): . Past Psychological History: No Psychological Hx Reported Smoking Status: Former smoker Past Alcohol Use History: None Reported Past Drug Use History: None Reported - Past Family History Brother(s) Family Medical History: Cancer Additional Family Medical History / Comment(s): prostate Mother Family Medical History: No Reported History Additional Family Medical History / Comment(s): Mother was healthy and lived to be 89yrs old. Father Family Medical History: Myocardial Infarction ([place]) Additional Family Medical History / Comment(s): Father had a [place] at the age of 60yrs and lived to be 80yrs old. Medications and Allergies Home Medications Medication Instructions Recorded Confirmed Type Atorvastatin [Lipitor] 40 mg PO HS 10/18/14 02/04/23 History Aspirin [Adult Low Dose Aspirin EC] 162 mg PO HS 08/31/16 02/04/23 History allopurinoL [Zyloprim] 100 mg PO HS 05/20/20 02/04/23 History lisinopriL [Prinivil] 20 mg PO HS 05/12/21 02/04/23 History Allergies Allergy/AdvReac Type Severity Reaction Status Date / Time sulfamethoxazole Allergy Rash/Hives Verified 02/04/23 10:56 [From Bactrim] trimethoprim [From Bactrim] Allergy Rash/Hives Verified 02/04/23 10:56 vancomycin Allergy Rash/Hives Verified 02/04/23 10:56 influenza virus vaccine, AdvReac "very ill Verified 02/04/23 10:56 specific after injection" Physical Exam Vitals: Vital Signs Temp Pulse Resp BP Pulse Ox 02/06/23 09:19 92 L 02/06/23 07:32 98.8 F 103 H 20 101/57 94 L 02/06/23 06:08 98.7 F 101 H 36 H 135/78 91 L 02/06/23 06:05 98.7 F 101 H 36 H 135/78 91 L 02/06/23 02:35 97.9 F 92 16 116/67 94 L 02/05/23 22:20 98.9 F 02/05/23 19:41 97.5 F L 94 18 106/62 94 L 02/05/23 14:21 99.1 F 94 18 127/65 91 L Intake and Output 02/05/23 02/06/23 02/06/23 22:59 06:59 14:59 Other: # Voids 3 1 # Bowel Movements 1 Weight 79.379 kg Results - Lab Results Most recent lab results Calcium 7.9 mg/dL (8.7-10.3) L 02/06/23 06:52 Magnesium 1.7 mg/dL (1.6-2.3) 02/04/23 06:07 02/06/23 06:52 02/06/23 06:52 Assessment and Plan Plan: Assessment: 1. Acute kidney injury secondary to septic ATN. Also received IV contrast on 0 02/04/2023 for CTA. Creatinine 0.88 on admission and is 1.3 today. No hydronephrosis noted on CAT scan. No proteinuria on UA. 2. History of partial right nephrectomy due to renal cancer. 3. Acute hypoxic respiratory failure secondary to pneumonia. 4. Benign hypertension. Currently stable. Plan: Resume normal saline at 50 mL an hour. Avoid nephrotoxins. Check bladder scan to rule out urinary retention. Continue to monitor renal function and urine output. Thank you for the consultation. I will continue to follow the patient with you during his hospital stay.
[2023-02-06] MEDS: IPRATROPIUM-ALBUTEROL 3 ML NEB INHALATION SCH ×3 (12:42→20:12)
[2023-02-06] MEDS: INSULIN ASPART (NovoLOG) 100 UNIT/ML VIAL SQ SCH ×3 (13:10→21:00)
[2023-02-06 17:22] LABS: Glucose,Whole Blood 181 mg/dL (70-110)
[2023-02-06] MEDS ORDERED: LIDOCAINE 1% INJ 10MG/ML (30 ML VIAL-PF) SQ ONE (18:57)
--- NOTE | 2023-02-06 19:14 | P.PCN ---
Date of Procedure: 02/06/23 Preoperative Diagnosis: Vomiting, headache, rule out meningitis/encephalitis Postoperative Diagnosis: Rule out meningitis encephalitis Procedure(s) Performed: Lumbar puncture Anesthesia: local Surgeon: Romulo Dale Pathology: none sent Condition: stable Disposition: no change Indications for Procedure: Headache, fever, vomiting, photophobia, rule out meningitis encephalitis Description of Procedure: Informed consent was obtained from patient as well as his . Possible risks and benefits were discussed including risks of post spinal headache, numbness, and infection, bleeding, back pain. Patient was placed in sitting position. Low back region was sterilized with Ch loraseptic and Betadine, and anesthetized with 1% lidocaine. A 3 inch 21-gauge spinal needle inserted at L4 lumbar space. I was able to enter the subarachnoid space in 1 pass. Spinal fluid was colorless, clear, atraumatic. About 9 mL of spinal fluid was collected in 4 different tubes. Stylet was reinserted, spinal needle withdrawn. Band-Aid was applied. Patient tolerated the procedure very well. Patient was recommended to lay flat for half an hour. Spinal fluid will be sent for analysis.
--- NOTE | 2023-02-06 19:24 | P.PN ---
Subjective Progress Note Date: 02/06/23 Patient was seen for a follow-up. Patient is laying in the bed. He appears sick. Patient states that he has some nausea, vomiting "little bit". He denies headache at this time. He does appear slightly photophobic. He is still having retching, trying to vomit and only phlegm coming out. No slurred speech, he moving all 4 extremities. I had nurse recheck his oral temperature last night and was 98.9. He had no complaint of headache. Patient's was also present, who mentioned that patient has history of meningitis in childhood. Objective - Vital Signs Vital signs: Vital Signs Temp 98.3 F 02/06/23 18: Pulse 93 02/06/23 18: Resp 20 02/06/23 18: BP 100/63 02/06/23 18: Pulse Ox 92 L 02/06/23 18:23 FiO2 Intake & Output 02/06/23 02/06/23 02/07/23 06:59 18:59 06:59 Intake Total 800 Balance 800 Intake: Intake, IV Titration 800 Amount Azithromycin 500 mg In 250 Sodium Chloride 0.9% 250 ml @ 250 mls/hr IVPB DAILY MARKY Rx#:[id number] Sodium Chloride 0.9% 1, 500 000 ml @ 50 mls/hr IV . Q20H MARKY Rx#:[id number] cefTRIAXone 1 gm In 50 Sodium Chloride 0.9% 50 ml @ 100 mls/hr IVPB Q24HR MARKY Rx#:[id number] Other: # Voids 1 - Exam Patient appears somewhat sick, slightly sweaty. Patient's neck is supple. He is constantly ratcheting, trying to vomit. Only phlegm coming out. He appears somewhat pale. Speech is slightly hoarse, but no obvious aphasia or dysarthria. He is moaning. Pupils are equal, round and reacting, face is symmetric and tongue protrudes the midline. Extraocular muscles are intact, with no nystagmu s. Neck is supple. On muscle strength testing, there is no pronator drift. His strength is genera lized weak, but equal. He appears somewhat dystaxic for [id number] testing bilaterally. This could be from generalized weakness. Reflexes are diminished. Tone is normal. Abdomen is soft, nontender. - Labs CBC & Chem 7: 02/06/23 06:52 02/06/23 06:52 Labs: Abnormal Lab Results - Last 24 Hours (Table) 02/06/23 02/06/23 02/06/23 Range/Units 06:52 06:52 11:00 WBC 11.10 H (4.50-10.00) X 10*3/uL RBC 3.88 L (4.40-5.60) X 10*6/uL Hgb 11.7 L (12.0-15.0) d/dL Hct 35.2 L (39.6-50.0) % Plt Count 133 L (140-440) X 10*3/uL Neutrophils # 10.84 H (1.80-7.70) X 10*3/uL Lymphocytes # 0.08 L (0.90-5.00) X 10*3/uL Monocytes # 0.11 L (0.20-1.00) X 10*3/uL Eosinophils # 0 L (0.04-0.35) X 10*3/uL Sodium 133 L (135-145) mmol/L Est GFR (CKD-EPI) 57 L (>=60) Glucose 136 H (70-110) mg/dL POC Glucose (mg/dL) (70-110) mg/dL Calcium 7.9 L (8.7-10.3) mg/dL C-Reactive Protein 29.1 H (<1.0) mg/dL 02/06/23 02/06/23 Range/Units 12:21 17:20 WBC (4.50-10.00) X 10*3/uL RBC (4.40-5.60) X 10*6/uL Hgb (12.0-15.0) d/dL Hct (39.6-50.0) % Plt Count (140-440) X 10*3/uL Neutrophils # (1.80-7.70) X 10*3/uL Lymphocytes # (0.90-5.00) X 10*3/uL Monocytes # (0.20-1.00) X 10*3/uL Eosinophils # (0.04-0.35) X 10*3/uL Sodium (135-145) mmol/L Est GFR (CKD-EPI) (>=60) Glucose (70-110) mg/dL POC Glucose (mg/dL) 119 H 181 H (70-110) mg/dL Calcium (8.7-10.3) mg/dL C-Reactive Protein (<1.0) mg/dL Assessment and Plan Assessment: * Intractable nausea, vomiting, intermittent headache, with new onset fever and leukocytosis. Rule out meningitis encephalitis * Polymyalgias, unclear cause. Rule out gout activation. * Mild rhabdomyolysis * Nausea vomiting, unclear cause. * Hypertension * Hyperlipidemia * History of amaurosis fugax left eye in 1992 Plan: * Patient had a repeat computed tomography scan of head performed late last night at 10:22 PM, which revealed no acute intracranial process. No signs of cerebellar stroke. I personally reviewed CT head. * Patient apparently had spiked a temperature 102.7F today at 1:55 PM. Patient's white cells has gone up 11.10. At this time needs to rule out meningitis encephalitis. * Informed consent obtained from patient and his . They agreed for lumbar puncture. * Patient on ceftriaxone 1 g every 24 hours, and azithromycin 500 mg daily. * Infectious disease has been consulted. * ESR 9, repeat CRP has gone up 29.1. * CPK 199/170. * Hemoglobin A1c 6.0 normal and TFTs also normal on 07/31/2022. * Consider rheumatology consultation to rule out reactivation of gout. * Continue aspirin 81 mg daily. * B12 466, folate 13.5. * Discussed with patient's in detail.
[2023-02-06 19:31] LABS: Appearance,CSF Clear
[2023-02-06 19:32] LABS: CSF Tube Number 4
[2023-02-06 19:42] LABS: Glucose,CSF 83 mg/dL (40-70); Total Protein,CSF 55 mg/dL (12-60)
[2023-02-06] MEDS: ASPIRIN 81 MG PO SCH (20:36)
[2023-02-06] MEDS: allopurinoL 100 MG TAB PO SCH (20:36)
[2023-02-06 20:37] LABS: Glucose,Whole Blood 159 mg/dL (70-110)
[2023-02-06 20:58] LABS: Nucleated Cells, CSF 3 u/L (0-5); Red Blood Cell,CSF 3 u/L (0-10)
[2023-02-06 21:12] LABS: Appearance,Urine Cloudy (Clear); Bilirubin,Urine Negative (Negative); Blood,Urine Large (Negative); Color,Urine Yellow; Glucose,Urine (UA) Negative (Negative); Ketones,Urine Negative (Negative); Leukocyte Esterase,Urine Moderate (Negative); Mucus,Urine Rare /hpf; Nitrite,Urine Negative (Negative); Protein,Urine 2+ (Negative); RBC,Urine 2 /hpf (0-5); Specific Gravity,Urine 1.024 (1.001-1.035); Squamous Epithelial Cell,Urine <1 /hpf (0-4); WBC,Urine 19 /hpf (0-5)
--- NOTE | 2023-02-06 22:24 | P.CONS ---
History of Present Illness - Reason for Consult Consult date: 02/06/23 - History of Present Illness patient is a 77-year-old male presenting to the hospital 2 days ago on 02/04/2023 for evaluation of intermittent pain and discomfort in all his extremities followed by muscle spasm symptoms was going on for about a day before presentation to the hospital patient also have some respiratory symptoms of cough which has been moderate intensity with occasional yellowish sputum no hemoptysis no pleuritic chest pain some nausea and vomiting no abdominal pain or diarrhea patient "the hospital was afebrile he did have a low-grade fever since then however he did spike a fever of 102.7 F this afternoon that has prompted this infectious disease consultation patient was tachycardic has been hypoxic and currently on 4 L nasal cannula oxygen patient did have white blood count 0.10 with a left shift kidney function has been normal liver enzymes are normal urine was mildly positive patient did have a negative COVID RSV and influenza PCR patient did have a chest x-ray generalized hazy appearance which could represent atelectasis versus pulmonary edema infectious disease consulted for f urther management of antibiotic therapy currently on Rocephin and Zithromax 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, gout, BPH, nephrolithiasis, bilateral tinnitis, colon benign polyp History of Any Multi-Drug Resistant Organisms: None Reported Past Surgical History: Appendectomy, Cholecystectomy, Heart Catheterization, Hernia Repair, Orthopedic Surgery, Tonsillectomy Additional Past Surgical History / Comment(s): 05/26/20 robot assisted laparoscopic R partial nephrectomy, laparoscopic migue fundoplasty with extensive lysis of adhesions, bilateral inguinal hernia repairs, right carotid endarterectomy, left knee arthroscopy, sinus surgery, clint shoulder rotator cuff repairs, heel spur rt foot, R hand surgery to remove splinter, EGD, colonoscopies/polypectomy, cystoscopy. Past Anesthesia/Blood Transfusion Reactions: No Reported Reaction, Motion Sickness Additional Past Anesthesia/Blood Transfusion Reaction / Comm: . Past Psychological History: No Psychological Hx Reported Smoking Status: Former smoker Past Alcohol Use History: None Reported Past Drug Use History: None Reported - Past Family History Brother(s) Family Medical History: Cancer Additional Family Medical History / Comment(s): prostate Mother Family Medical History: No Reported History Additional Family Medical History / Comment(s): Mother was healthy and lived to be 89yrs old. Father Family Medical History: Myocardial Infarction ([place]) Additional Family Medical History / Comment(s): Father had a [place] at the age of 60yrs and lived to be 80yrs old. Medications and Allergies Home Medications Medication Instructions Recorded Confirmed Type Atorvastatin [Lipitor] 40 mg PO HS 10/18/14 02/04/23 History Aspirin [Adult Low Dose Aspirin EC] 162 mg PO HS 08/31/16 02/04/23 History allopurinoL [Zyloprim] 100 mg PO HS 05/20/20 02/04/23 History lisinopriL [Prinivil] 20 mg PO HS 05/12/21 02/04/23 History Allergies Allergy/AdvReac Type Severity Reaction Status Date / Time sulfamethoxazole Allergy Rash/Hives Verified 02/04/23 10:56 [From Bactrim] trimethoprim [From Bactrim] Allergy Rash/Hives Verified 02/04/23 10:56 vancomycin Allergy Rash/Hives Verified 02/04/23 10:56 influenza virus vaccine, AdvReac "very ill Verified 02/04/23 10:56 specific after injection" Physical Exam Vitals: Vital Signs Temp Pulse Pulse Resp BP Pulse Ox 02/06/23 13:55 102.7 F H 119 H 24 131/71 95 02/06/23 12:54 104 H 02/06/23 12:45 106 H 02/06/23 09:19 92 L 02/06/23 07:32 98.8 F 103 H 20 101/57 94 L 02/06/23 06:08 98.7 F 101 H 36 H 135/78 91 L 02/06/23 06:05 98.7 F 101 H 36 H 135/78 91 L 02/06/23 02:35 97.9 F 92 16 116/67 94 L 02/05/23 22:20 98.9 F 02/05/23 19:41 97.5 F L 94 18 106/62 94 L Intake and Output 02/05/23 02/06/23 02/06/23 22:59 06:59 14:59 Other: # Voids 3 1 # Bowel Movements 1 Weight 79.379 kg Results CBC & Chem 7: 02/06/23 06:52 02/06/23 06:52 Labs: Abnormal Lab Results - Last 24 Hours (Table) 02/06/23 02/06/23 02/06/23 Range/Units 06:52 06:52 12:21 WBC 11.10 H (4.50-10.00) X 10*3/uL RBC 3.88 L (4.40-5.60) X 10*6/uL Hgb 11.7 L (12.0-15.0) d/dL Hct 35.2 L (39.6-50.0) % Plt Count 133 L (140-440) X 10*3/uL Neutrophils # 10.84 H (1.80-7.70) X 10*3/uL Lymphocytes # 0.08 L (0.90-5.00) X 10*3/uL Monocytes # 0.11 L (0.20-1.00) X 10*3/uL Eosinophils # 0 L (0.04-0.35) X 10*3/uL Sodium 133 L (135-145) mmol/L Est GFR (CKD-EPI) 57 L (>=60) Glucose 136 H (70-110) mg/dL POC Glucose (mg/dL) 119 H (70-110) mg/dL Calcium 7.9 L (8.7-10.3) mg/dL Assessment and Plan Plan: 1patient with sepsis in this patient who did have fever tachycardia elevated white count patient did have a cough yellow sputum with pulmonary infiltrate on chest x-ray highly suspicious for community-acquired pneumonia with electrophysiology of underlying sepsis 2-we will try to obtain sputum for Gram stain and culture check a CRP and a procalcitonin 3-continue Rocephin and Zithromax We will follow on clinical condition and cultures to further adjust medication if needed Thank you for this consultation we will follow the patient along with you Time with Patient: Greater than 30
[2023-02-07] MEDS ORDERED: FUROSEMIDE 10 MG/ML 2 ML VIAL IV ONE (02:00)
--- NOTE | 2023-02-07 02:31 | P.CNPUL ---
History of Present Illness Consult date: 02/07/23 Requesting physician: Goldie Albright Reason for consult: pneumonia Chief complaint: Extremity pain and myalgias History of present illness: I am seeing this patient in new consultation today 02/07/2023 on the general medical floor. The patient came in to the hospital back on February 04 with the chief complaint of nonspecific extremity pain and myalgias. Patient is a 77-year-old white male with past medical history significant for mild intermittent asthma, hypertension, hyperlipidemia, TIA/CVA, diverticulosis, GERD, renal cell carcinoma status post partial right nephrectomy, osteoarthriti s, gout, and is a remote ex-smoker for brief period of time. Patient has followed with Dr. Rock in the past for his mild intermittent asthma. Asthma is normally well controlled with when necessary Ventolin. His primary care provider is Dr. Zamarripa. Patient presented to the emergency room on February 04 complaining of nonspecific bilateral upper and lower extremity myalgias and paresthesias that started back on Saturday. The patient has had a neurological workup including 2 [address]s that showed no acute intracranial processes, with likely chronic small vessel ischemic disease. Patient also had a lumbar puncture yesterday which was unremarkable. Chest and abdomen CTA showed an infrarenal abdomen abdominal aortic aneurysm measuring 3.5 x 3 cm unchanged from prior study with stable short segment chronic dissection. There was also bibasilar groundglass infiltrates which were thought to reflect atelectasis versus an inflammatory process. Patient is currently lying in bed, on 4 L/m nasal cannula, in no acute distress. He has developed a fever, with a T-max of 102.7F. He's had a persistent cough that started back on Saturday. He states the cough was originally productive with yellow sputum and is now nonproductive. He does admit to some mild shortness of breath even at rest. He is tachypneic, and appears fatigued. Denies any chest pain, hemoptysis. Denies sick contacts. Does report some nausea without emesis. There is some non-specific abdominal pain with palpation. He is incontinent to stool. Stool is soft and not liquid. A follow-up chest x-ray from yesterday shows a generalized hazy appearance which could represent atelectasis versus pulmonary edema versus atypical pneumonia. NT proBNP was elevated at 3080. Most recent CBC from yesterday shows a WBC count of 11, hemoglobin 11.7, hematocrit 35.2, platelets 133. BMP has a sodium 133, potassium 3.9, chloride 100, serum bicarbonate 22, BUN 23.5, creatinine up to 1.3, glucose 136. Normal saline is infusing at 50 ML's per hour. Repeat urinalysis was positive for moderate leukocyte esterase. Patient was negative for influenza, RSV, COVID-19. He has been started on a combination of azithromycin and Rocephin for possible community-acquired pneumonia. Appears hemodynamically stable at this time, and will be monitored on the general medical floor. Review of Systems REVIEW OF SYSTEMS: CONSTITUTIONAL: Denies any recent significant weight loss or weight gain. EYES: Denies change in vision. EARS, NOSE, MOUTH, THROAT: Admits to mild intermittent headache. denies sore throat. CARDIOVASCULAR: Denies chest pain, palpitations or syncopal episodes. RESPIRATORY: See HPI GASTROINTESTINAL: Admits mild nonfocal abdominal pain with palpation, nausea without emesis, reduce appetite, and is currently incontinent to stool. GENITOURINARY: Denies hematuria, frequency, urgency, dysuria MUSKULOSKELETAL: Admits generalized extremity myalgias and paresthesias. denies swelling. INTEGUMENTARY: Denies rash, denies eczema. NEUROLOGICAL: Denies recent memory loss, no recent seizure activity. PSYCHIATRIC: Denies anxiety, denies depression. HEMATOLOGIC/LYMPHATIC: Denies anemia, denies enlarged lymph node 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, gout, BPH, nephrolithiasis, bilateral tinnitis, colon benign polyp History of Any Multi-Drug Resistant Organisms: None Reported Past Surgical History: Appendectomy, Cholecystectomy, Heart Catheterization, Hernia Repair, Orthopedic Surgery, Tonsillectomy Additional Past Surgical History / Comment(s): 05/26/20 robot assisted laparoscopic R partial nephrectomy, laparoscopic migue fundoplasty with extensive lysis of adhesions, bilateral inguinal hernia repairs, right carotid endarterectomy, left knee arthroscopy, sinus surgery, clint shoulder rotator cuff repairs, heel spur rt foot, R hand surgery to remove splinter, EGD, colonoscopies/polypectomy, cystoscopy. Past Anesthesia/Blood Transfusion Reactions: No Reported Reaction, Motion Sickness Additional Past Anesthesia/Blood Transfusion Reaction / Comment(s): . Past Psychological History: No Psychological Hx Reported Smoking Status: Former smoker Past Alcohol Use History: None Reported Past Drug Use History: None Reported - Past Family History Brother(s) Family Medical History: Cancer Additional Family Medical History / Comment(s): prostate Mother Family Medical History: No Reported History Additional Family Medical History / Comment(s): Mother was healthy and lived to be 89yrs old. Father Family Medical History: Myocardial Infarction (VT) Additional Family Medical History / Comment(s): Father had a VT at the age of 60yrs and lived to be 80yrs old. Medications and Allergies Home Medications Medication Instructions Recorded Confirmed Type Atorvastatin [Lipitor] 40 mg PO HS 10/18/14 02/04/23 History Aspirin [Adult Low Dose Aspirin EC] 162 mg PO HS 08/31/16 02/04/23 History allopurinoL [Zyloprim] 100 mg PO HS 05/20/20 02/04/23 History lisinopriL [Prinivil] 20 mg PO HS 05/12/21 02/04/23 History Allergies Allergy/AdvReac Type Severity Reaction Status Date / Time sulfamethoxazole Allergy Rash/Hives Verified 02/04/23 10:56 [From Bactrim] trimethoprim [From Bactrim] Allergy Rash/Hives Verified 02/04/23 10:56 vancomycin Allergy Rash/Hives Verified 02/04/23 10:56 influenza virus vaccine, AdvReac "very ill Verified 02/04/23 10:56 specific after injection" Physical Exam Vitals: Vital Signs Temp Pulse Pulse Resp BP Pulse Ox 02/06/23 20:22 92 02/06/23 20:12 93 02/06/23 18:23 98.3 F 93 20 100/63 92 L 02/06/23 16:19 104 H 02/06/23 16:08 106 H 02/06/23 16:00 99.2 F 02/06/23 13:55 102.7 F H 119 H 24 131/71 95 02/06/23 12:54 104 H 02/06/23 12:45 106 H 02/06/23 09:19 92 L 02/06/23 07:32 98.8 F 103 H 20 101/57 94 L 02/06/23 06:08 98.7 F 101 H 36 H 135/78 91 L 02/06/23 06:05 98.7 F 101 H 36 H 135/78 91 L 02/06/23 02:35 97.9 F 92 16 116/67 94 L Intake and Output 02/06/23 02/06/23 02/07/23 14:59 22:59 06:59 Intake Total 800 Balance 800 Intake: Intake, IV Titration 800 Amount Azithromycin 500 mg In 250 Sodium Chloride 0.9% 250 ml @ 250 mls/hr IVPB DAILY MARKY Rx#:[id number] Sodium Chloride 0.9% 1, 500 000 ml @ 50 mls/hr IV . Q20H MARKY Rx#:[id number] cefTRIAXone 1 gm In 50 Sodium Chloride 0.9% 50 ml @ 100 mls/hr IVPB Q24HR MARKY Rx#:[id number] Other: # Voids 1 # Bowel Movements 1 GENERAL EXAM: Drowsy, 77-year-old male appearing stated age , fatigued but in no apparent distress. HEAD: Normocephalic and atraumatic EYES: Normal reaction of pupils, equal size. NOSE: Clear with pink turbinates. THROAT: No erythema or exudates. NECK: No masses, no JVD. CHEST: No chest wall deformity. LUNGS: Equal air entry with inspiratory rales heard especially at the right posterior base. No wheeze, rhonchi or dullness. On 4 L/m nasal cannula. No conversational dyspnea or accessory muscle use.. CVS: S1 and S2 normal with no audible murmur, regular rhythm. No extra heart sounds ABDOMEN: No hepatosplenomegaly, active bowel sounds, no guarding or rigidity. SPINE: No scoliosis or deformity SKIN: No rashes CENTRAL NERVOUS SYSTEM: No focal deficits, tone is normal in all 4 extremities. EXTREMITIES: There is no peripheral edema, clubbing, or cyanosis. Peripheral pulses are intact. Results - Laboratory Findings CBC and BMP: 02/07/23 05:56 02/07/23 05:56 PT/INR, D-dimer PT 10.1 sec (9.0-12.0) 02/04/23 06:07 INR 0.9 (<1.2) 02/04/23 06:07 Abnormal lab findings: Abnormal Labs 02/04/23 02/04/23 02/04/23 06:07 06:07 06:07 WBC RBC Hgb Hct Plt Count Neutrophils # 8.2 H Lymphocytes # 0.5 L Monocytes # Eosinophils # APTT 20.1 L Sodium 136 L Est GFR (CKD-EPI) Glucose 132 H POC Glucose (mg/dL) Calcium Total Bilirubin 2.5 H Creatine Kinase C-Reactive Protein Urine Protein Urine Ketones Urine Blood Ur Leukocyte Esterase Urine RBC Urine WBC Urine Mucus CSF Glucose 02/04/23 02/04/23 02/06/23 06:07 08:05 06:52 WBC 11.10 H RBC 3.88 L Hgb 11.7 L Hct 35.2 L Plt Count 133 L Neutrophils # 10.84 H Lymphocytes # 0.08 L Monocytes # 0.11 L Eosinophils # 0 L APTT Sodium Est GFR (CKD-EPI) Glucose POC Glucose (mg/dL) Calcium Total Bilirubin Creatine Kinase 199 H C-Reactive Protein 1.4 H Urine Protein Urine Ketones 1+ H Urine Blood Small H Ur Leukocyte Esterase Urine RBC 10 H Urine WBC Urine Mucus CSF Glucose 02/06/23 02/06/23 02/06/23 06:52 11:00 12:21 WBC RBC Hgb Hct Plt Count Neutrophils # Lymphocytes # Monocytes # Eosinophils # APTT Sodium 133 L Est GFR (CKD-EPI) 57 L Glucose 136 H POC Glucose (mg/dL) 119 H Calcium 7.9 L Total Bilirubin Creatine Kinase C-Reactive Protein 29.1 H Urine Protein Urine Ketones Urine Blood Ur Leukocyte Esterase Urine RBC Urine WBC Urine Mucus CSF Glucose 02/06/23 02/06/23 02/06/23 17:20 19:00 20:35 WBC RBC Hgb Hct Plt Count Neutrophils # Lymphocytes # Monocytes # Eosinophils # APTT Sodium Est GFR (CKD-EPI) Glucose POC Glucose (mg/dL) 181 H 159 H Calcium Total Bilirubin Creatine Kinase C-Reactive Protein Urine Protein Urine Ketones Urine Blood Ur Leukocyte Esterase Urine RBC Urine WBC Urine Mucus CSF Glucose 83 H 02/06/23 20:52 WBC RBC Hgb Hct Plt Count Neutrophils # Lymphocytes # Monocytes # Eosinophils # APTT Sodium Est GFR (CKD-EPI) Glucose POC Glucose (mg/dL) Calcium Total Bilirubin Creatine Kinase C-Reactive Protein Urine Protein 2+ H Urine Ketones Urine Blood Large H Ur Leukocyte Esterase Moderate H Urine RBC Urine WBC 19 H Urine Mucus Rare H CSF Glucose - Diagnostic Findings Chest x-ray: image reviewed CT scan - chest: image reviewed Assessment and Plan Assessment: Acute hypoxemic respiratory failure, currently on 4 L/m nasal cannula, secondary to presumptive community-acquired pneumonia. CT angiogram of the chest and abdomen showed bibasilar groundglass infiltrates which could reflect atelectasis versus acute inflammatory process. A follow-up chest x-ray from yesterday shows generalized hazy appearance also reflect atelectasis versus pulmonary edema. NT proBNP was elevated at 3080, however, patient's presentation appears infectious. Procalcitonin level was elevated at 16.3. Negative for influenza, RSV, COVID- 19. Polymyalgias, being worked up by neurology. Brain CT failed to reveal any acute intracranial process. Lumbar puncture appears unremarkable. Patient is planned MRI scheduled for tomorrow Possible mild UTI, urinalysis was positive for moderate leukocyte esterase Acute kidney injury, with a creatinine increase from 0.88-1.3 Intractable nausea and vomiting Mild intermittent asthma, stable Benign essential hypertension Hyperlipidemia History of CVA/TIA Infrarenal abdomen abdominal aortic aneurysm measuring 3.5 x 3 cm, unchanged from prior study with stable short segment chronic dissection GERD without esophagitis History of renal cell carcinoma status post partial right nephrectomy Gout Osteoarthritis Remote ex-smoker Plan: Patient's medications, labs, imaging were reviewed Continue supplemental oxygen Continue empiric Zosyn and azithromycin Pancultures are pending Procalcitonin level elevated at 16.3 Lasix 20 mg IV push once now Repeat chest x-ray Continue bronchodilators around the clock and Symbicort inhaler On Protonix for GI prophylaxis Receiving Zofran for nausea We will continue to follow I have personally seen and examined the patient, performed the documentation and the assessment and plan as written. Number of minutes spent on the visit:20 Joint evaluation that was done along with a nurse practitioner. This elevation was done in more than 30 minutes The patient is extremely weak, lethargic, yet awake and conscious. He is having some dry cough. No clear indication for pneumonia although this cannot be completely ruled out. No significant leukocytosis. He does have an acute kidney injury and the creatinine is on the rise and is currently up to 2.0. The pro calcitonin was quite elevated and this indicates possibility of underlying infection/of a bacterial type. The viruses including Covid 19, RSV, influenza A and B were all negative. The patient is currently on accommodation of Zosyn and Zithromax. Suggest blood cultures. Suggest repeating pro-calcitonin level. Suggest checking a Legionella urine antigen. He is currently on 3 L of oxygen by nasal cannula. Slightly tachycardic. We'll continue to follow Time with Patient: Greater than 30
[2023-02-07] MEDS: BENZONATATE 100 MG CAP PO PRN (04:45)
[2023-02-07] MEDS: ONDANSETRON 4 MG/2 ML VIAL IVP PRN (04:58)
[2023-02-07 07:42] LABS: Glucose,Whole Blood 216 mg/dL (70-110)
[2023-02-07] MEDS: guaiFENesin 600 MG TABLET.ER PO SCH ×2 (08:19→21:28)
[2023-02-07] MEDS: INSULIN ASPART (NovoLOG) 100 UNIT/ML VIAL SQ SCH ×4 (08:19→21:28)
[2023-02-07] MEDS: AZITHROMYCIN 500 MG in SODIUM CHLORIDE 0.9% 250 ML IVPB SCH (08:19)
[2023-02-07] MEDS: LORATADINE 10 MG TAB PO SCH (08:19)
[2023-02-07] MEDS: SODIUM CHLORIDE 0.9% 1,000 ML IV SCH (08:22)
[2023-02-07] MEDS: IPRATROPIUM-ALBUTEROL 3 ML NEB INHALATION SCH ×4 (08:27→20:20)
[2023-02-07] MEDS: SYMBICORT 80-4.5 MCG INHALER INHALATION SCH ×2 (08:28→20:20)
[2023-02-07 08:59] LABS: Magnesium 1.7 mg/dL (1.5-2.4)
[2023-02-07] MEDS: PANTOPRAZOLE 40 MG/10 ML VIAL IVP SCH (09:09)
[2023-02-07 09:20] LABS: ALT 53 U/L (10-49); AST 95 U/L (14-35); Albumin 3.1 d/dL (3.8-4.9); Albumin/Globulin Ratio 1.55 Ratio (1.60-3.17); Alkaline Phosphatase 55 U/L (41-126); Blood Urea Nitrogen 32.6 mg/dL (9.0-27.0); Calcium 7.8 mg/dL (8.7-10.3); Carbon Dioxide 19.7 mmol/L (21.6-31.8); Chloride 94 mmol/L (96-109); Glucose 205 mg/dL (70-110); Potassium 3.3 mmol/L (3.5-5.5); Sodium 132 mmol/L (135-145); Total Bilirubin 1.1 mg/dL (0.3-1.2); Total Protein 5.1 d/dL (6.2-8.2)
[2023-02-07 09:32] LABS: Basophils # (A) 0.04 X 10*3/uL (0.00-0.10); Basophils % (A) 0.6 %; Eosinophils # (A) 0 X 10*3/uL (0.04-0.35); Eosinophils % (A) 0 %; HCT 42.9 % (39.6-50.0); HGB 14.6 d/dL (12.0-15.0); Lymphocytes # (A) 0.07 X 10*3/uL (0.90-5.00); MCH 30.7 pg (27.0-32.0); MCV 90.3 FL (80.0-97.0); Mean Platelet Volume 10.9 FL (9.5-12.2); Monocytes # (A) 0.05 X 10*3/uL (0.20-1.00); Monocytes % (A) 0.7 %; NRBC Per 100 WBC 0 X 10*3/uL (0.00-0.01); Neutrophils # (A) 6.86 X 10*3/uL (1.80-7.70); Neutrophils % (A) 97.1 %; Platelet Count 122 X 10*3/uL (140-440); RBC 4.75 X 10*6/uL (4.40-5.60); RDW 13.1 % (11.5-14.5); WBC 7.06 X 10*3/uL (4.50-10.00)
[2023-02-07] MEDS ORDERED: POTASSIUM CHLORIDE ER 20 MEQ TAB.ER PO STA (10:36)
[2023-02-07 12:07] LABS: Glucose,Whole Blood 154 mg/dL (70-110)
[2023-02-07] MEDS: ACETAMINOPHEN IV (For NPO) 1,000 MG in EMPTY BAG 1 BAG IVPB SCH (12:17)
[2023-02-07] MEDS: PIPERACILLIN-TAZOBACTAM 3.375 GM in SODIUM CHLORIDE 0.9% 100 ML IVPB SCH ×2 (12:35→21:27)
[2023-02-07] MEDS: methylPREDNISolone SOD SUCCI 125 MG/2 ML VIAL IV SCH ×2 (12:36→18:51)
--- NOTE | 2023-02-07 13:05 | P.PN ---
Subjective Patient is seen in follow-up for acute kidney injury. Renal function worsening. Creatinine 2.0. Patient incontinent. Oral intake is poor. Blood pressure stable. Fever of 103.3F this afternoon. Vital signs are stable. General: Resting in bed. HEENT: Head exam is unremarkable. LUNGS: Scattered rhonchi. HEART: Tachycardic. ABDOMEN: Nontender. EXTREMITITES: No edema. Objective - Vital Signs Vital signs: Vital Signs Temp 103.3 F H 02/07/23 12:10 Pulse 100 02/07/23 12:17 Resp 18 02/07/23 12:10 BP 109/68 02/07/23 12:10 Pulse Ox 97 02/07/23 12:10 FiO2 Intake & Output 02/06/23 02/07/23 02/07/23 18:59 06:59 18:59 Intake Total 800 Output Total 250 1 Balance 800 -250 -1 Intake: Intake, IV Titration 800 Amount Azithromycin 500 mg In 250 Sodium Chloride 0.9% 250 ml @ 250 mls/hr IVPB DAILY MRAKY Rx#:[id number] Sodium Chloride 0.9% 1, 500 000 ml @ 50 mls/hr IV . Q20H MARKY Rx#:[id number] cefTRIAXone 1 gm In 50 Sodium Chloride 0.9% 50 ml @ 100 mls/hr IVPB Q24HR MARKY Rx#:[id number] Output: Urine 250 Urine/Stool Mix 1 Other: Voiding Method External Catheter # Voids 1 1 # Bowel Movements 1 - Labs CBC & Chem 7: 02/07/23 05:56 02/07/23 05:56 Labs: Abnormal Lab Results - Last 24 Hours (Table) 02/06/23 02/06/23 02/06/23 Range/Units 11:00 11:00 17:20 Plt Count (140-440) X 10*3/uL Lymphocytes # (0.90-5.00) X 10*3/uL Monocytes # (0.20-1.00) X 10*3/uL Eosinophils # (0.04-0.35) X 10*3/uL Sodium (135-145) mmol/L Potassium (3.5-5.5) mmol/L Chloride (96-109) mmol/L Carbon Dioxide (21.6-31.8) mmol/L Anion Gap (4.00-12.00) mmol/L BUN (9.0-27.0) mg/dL Creatinine (0.6-1.5) mg/dL Est GFR (CKD-EPI) (>=60) Glucose (70-110) mg/dL POC Glucose (mg/dL) 181 H (70-110) mg/dL Calcium (8.7-10.3) mg/dL AST (14-35) U/L ALT (10-49) U/L C-Reactive Protein 29.1 H (<1.0) mg/dL Total Protein (6.2-8.2) d/dL Albumin (3.8-4.9) d/dL Albumin/Globulin Ratio (1.60-3.17) Ratio Procalcitonin 16.30 H (0.02-0.09) ng/mL Urine Protein (Negative) Urine Blood (Negative) Ur Leukocyte Esterase (Negative) Urine WBC (0-5) /hpf Urine Mucus (None) /hpf CSF Glucose (40-70) mg/dL 02/06/23 02/06/23 02/06/23 Range/Units 19:00 20:35 20:52 Plt Count (140-440) X 10*3/uL Lymphocytes # (0.90-5.00) X 10*3/uL Monocytes # (0.20-1.00) X 10*3/uL Eosinophils # (0.04-0.35) X 10*3/uL Sodium (135-145) mmol/L Potassium (3.5-5.5) mmol/L Chloride (96-109) mmol/L Carbon Dioxide (21.6-31.8) mmol/L Anion Gap (4.00-12.00) mmol/L BUN (9.0-27.0) mg/dL Creatinine (0.6-1.5) mg/dL Est GFR (CKD-EPI) (>=60) Glucose (70-110) mg/dL POC Glucose (mg/dL) 159 H (70-110) mg/dL Calcium (8.7-10.3) mg/dL AST (14-35) U/L ALT (10-49) U/L C-Reactive Protein (<1.0) mg/dL Total Protein (6.2-8.2) d/dL Albumin (3.8-4.9) d/dL Albumin/Globulin Ratio (1.60-3.17) Ratio Procalcitonin (0.02-0.09) ng/mL Urine Protein 2+ H (Negative) Urine Blood Large H (Negative) Ur Leukocyte Esterase Moderate H (Negative) Urine WBC 19 H (0-5) /hpf Urine Mucus Rare H (None) /hpf CSF Glucose 83 H (40-70) mg/dL 02/07/23 02/07/23 02/07/23 Range/Units 05:56 05:56 07:40 Plt Count 122 L (140-440) X 10*3/uL Lymphocytes # 0.07 L (0.90-5.00) X 10*3/uL Monocytes # 0.05 L (0.20-1.00) X 10*3/uL Eosinophils # 0 L (0.04-0.35) X 10*3/uL Sodium 132 L (135-145) mmol/L Potassium 3.3 L (3.5-5.5) mmol/L Chloride 94 L (96-109) mmol/L Carbon Dioxide 19.7 L (21.6-31.8) mmol/L Anion Gap 18.30 H (4.00-12.00) mmol/L BUN 32.6 H (9.0-27.0) mg/dL Creatinine 2.0 H (0.6-1.5) mg/dL Est GFR (CKD-EPI) 34 L (>=60) Glucose 205 H (70-110) mg/dL POC Glucose (mg/dL) 216 H (70-110) mg/dL Calcium 7.8 L (8.7-10.3) mg/dL AST 95 H (14-35) U/L ALT 53 H (10-49) U/L C-Reactive Protein (<1.0) mg/dL Total Protein 5.1 L (6.2-8.2) d/dL Albumin 3.1 L (3.8-4.9) d/dL Albumin/Globulin Ratio 1.55 L (1.60-3.17) Ratio Procalcitonin (0.02-0.09) ng/mL Urine Protein (Negative) Urine Blood (Negative) Ur Leukocyte Esterase (Negative) Urine WBC (0-5) /hpf Urine Mucus (None) /hpf CSF Glucose (40-70) mg/dL 02/07/23 Range/Units 12:05 Plt Count (140-440) X 10*3/uL Lymphocytes # (0.90-5.00) X 10*3/uL Monocytes # (0.20-1.00) X 10*3/uL Eosinophils # (0.04-0.35) X 10*3/uL Sodium (135-145) mmol/L Potassium (3.5-5.5) mmol/L Chloride (96-109) mmol/L Carbon Dioxide (21.6-31.8) mmol/L Anion Gap (4.00-12.00) mmol/L BUN (9.0-27.0) mg/dL Creatinine (0.6-1.5) mg/dL Est GFR (CKD-EPI) (>=60) Glucose (70-110) mg/dL POC Glucose (mg/dL) 154 H (70-110) mg/dL Calcium (8.7-10.3) mg/dL AST (14-35) U/L ALT (10-49) U/L C-Reactive Protein (<1.0) mg/dL Total Protein (6.2-8.2) d/dL Albumin (3.8-4.9) d/dL Albumin/Globulin Ratio (1.60-3.17) Ratio Procalcitonin (0.02-0.09) ng/mL Urine Protein (Negative) Urine Blood (Negative) Ur Leukocyte Esterase (Negative) Urine WBC (0-5) /hpf Urine Mucus (None) /hpf CSF Glucose (40-70) mg/dL Assessment and Plan Plan: Assessment: 1. Acute kidney injury secondary to septic ATN. Also received IV contrast on 02/04/2023 for CTA. Creatinine 0.88 on admission and is 2.0 today. No hydronephrosis noted on CAT scan. No proteinuria on UA. 2. History of partial right nephrectomy due to renal cancer. 3. Acute hypoxic respiratory failure secondary to pneumonia. 4. Benign hypertension. Currently stable. 5. Severe sepsis secondary to pneumonia. ID following. On antibiotics. 6. Hypokalemia from poor intake. Plan: Maintain normal saline. Replace potassium. Avoid nephrotoxins. Continue to monitor renal function and urine output. Hold off on diuretics. Follow-up chest x-ray and echocardiogram.
--- NOTE | 2023-02-07 13:30 | PN ---
PROGRESS NOTE DATE OF SERVICE: 02/07/2023 SUBJECTIVE: This 77-year-old gentleman was admitted with myalgia and bilateral pneumonia, had possible aspiration pneumonia. The patient is obtunded at this time. Multiple consultants following the patient. The patient is on broad-spectrum IV antibiotics. Cultures are negative so far. PAST MEDICAL HISTORY: Reviewed. REVIEW OF SYSTEMS: Could not be taken. CURRENT MEDICATIONS: Reviewed include Rocephin IV, doses and rest of the medications noted. PHYSICAL EXAMINATION: VITAL SIGNS: Pulse 125, blood pressure 111/70, respirations 19. HEENT: Conjunctivae normal. NECK: No jugular venous distention. CARDIOVASCULAR: S1, S2 muffled. RESPIRATIONS: Bilateral scattered rhonchi and crackles. ABDOMEN: Soft, nontender. NERVOUS SYSTEM: No focal deficit. LABORATORY DATA: Creatinine is 2, rest of labs are noted. Chest x-ray reviewed personally. ASSESSMENT: 1. Possible bilateral aspiration pneumonia, sepsis, and change in mental status, metabolic encephalopathy secondary to sepsis. 2. Acute on chronic renal failure. 3. Chronic obstructive pulmonary disease. 4. GERD. 5. Hypertension. 6. Hyperlipidemia. RECOMMENDATIONS AND DISCUSSION: This 77-year-old gentleman presented with multiple complex medical issues, we will monitor the patient closely, will initiate broad-spectrum IV antibiotics, intensive bronchodilator treatment. I would also recommend a short course of steroids also. Otherwise, closely follow with Pulmonary. Prognosis guarded because of multiple complex medical conditions, see orders for details. MMODL / IJN: [id number] /
--- NOTE | 2023-02-07 16:11 | MR ---
EXAMINATION TYPE: MR brain wo con DATE OF EXAM: 02/07/2023 2:50 PM COMPARISON: NONE HISTORY: Diffuse myalgias FINDINGS: The ventricles, basal cisterns and sulci overlying the cerebral convexities are mildly enlarged. There is evidence of moderate periventricular white matter ischemic demyelination. Remote deep white matter insults are also noted. No acute edema is seen on diffusion weighted imaging. There is no evidence for midline shift or mass effect. Acute intracranial hemorrhage or extra-axial collection is not evident. The paranasal sinuses and mastoid air cells are well-aerated. There is fluid seen within the right pe trous apex. Correlate for petrous apicitis. IMPRESSION: 1. Age-related atrophic and chronic small vessel ischemic change. No acute intracranial process at this time. 2.There is fluid seen within the right petrous apex. Correlate for petrous apicitis.
[2023-02-07 17:10] LABS: Glucose,Whole Blood 173 mg/dL (70-110)
[2023-02-07 20:02] LABS: Glucose,Whole Blood 213 mg/dL (70-110)
[2023-02-07] MEDS: allopurinoL 100 MG TAB PO SCH (21:28)
[2023-02-07] MEDS: ASPIRIN 81 MG PO SCH (21:28)
[2023-02-08] MEDS: methylPREDNISolone SOD SUCCI 125 MG/2 ML VIAL IV SCH ×4 (00:22→17:37)
[2023-02-08] MEDS: ACETAMINOPHEN TAB 325 MG TAB PO PRN (00:39)
[2023-02-08 03:43] LABS: C Reactive Protein 32.6 mg/dL (0.00-0.80); Uric Acid 5.9 mg/dL (3.7-8.7)
[2023-02-08] MEDS: PIPERACILLIN-TAZOBACTAM 3.375 GM in SODIUM CHLORIDE 0.9% 100 ML IVPB SCH ×2 (05:07→13:09)
[2023-02-08] MEDS: SODIUM CHLORIDE 0.9% 1,000 ML IV SCH ×2 (06:24→13:08)
[2023-02-08 07:08] LABS: Glucose,Whole Blood 160 mg/dL (70-110)
[2023-02-08] MEDS: ACETAMINOPHEN IV (For NPO) 1,000 MG in EMPTY BAG 1 BAG IVPB SCH ×2 (07:47→10:06)
--- NOTE | 2023-02-08 08:03 | P.PN ---
Subjective Progress Note Date: 02/07/23 Principal diagnosis: Fever patient is a 77-year-old male presenting to the hospital for evaluation of myalgias he also have a cough and some yellowish sputum production patient did have a fever chest x-ray generalized hazy appearance concerning for possible pneumonia. On today's evaluation that is 02/07/2023 the patient did spike a fever of 103 F around noon time the patient is slightly lethargic but denies any headache he can did have a cough not bringing up any sputum no vomiting no abdominal pain and no diarrhea Objective - Vital Signs Vital signs: Vital Signs Temp 98.6 F 02/07/23 13:14 Pulse 100 02/07/23 12:17 Resp 18 02/07/23 12:10 BP 109/68 02/07/23 12:10 Pulse Ox 97 02/07/23 12:10 FiO2 Intake & Output 02/06/23 02/07/23 02/07/23 18:59 06:59 18:59 Intake Total 800 Output Total 250 101 Balance 800 -250 -101 Intake: Intake, IV Titration 800 Amount Azithromycin 500 mg In 250 Sodium Chloride 0.9% 250 ml @ 250 mls/hr IVPB DAILY [facility] Rx#:[id number] Sodium Chloride 0.9% 1, 500 000 ml @ 50 mls/hr IV . Q20H [facility] Rx#:[id number] cefTRIAXone 1 gm In 50 Sodium Chloride 0.9% 50 ml @ 100 mls/hr IVPB Q24HR [facility] Rx#:[id number] Output: Urine 250 100 Urine/Stool Mix 1 Other: Voiding Method External Catheter External Catheter # Voids 1 1 # Bowel Movements 1 - Exam GENERAL DESCRIPTION: Elderly male lying in bed in no distress RESPIRATORY SYSTEM: Unlabored breathing , decreased breath sounds at bases HEART: S1 S2 regular rate and rhythm ,no loud murmurs ABDOMEN: Soft , no tenderness EXTREMITIES: No edema feet - Labs CBC & Chem 7: 02/07/23 05:56 02/07/23 05:56 Labs: Abnormal Lab Results - Last 24 Hours (Table) 02/06/23 02/06/23 02/06/23 Range/Units 11:00 11:00 17:20 Plt Count (140-440) X 10*3/uL Lymphocytes # (0.90-5.00) X 10*3/uL Monocytes # (0.20-1.00) X 10*3/uL Eosinophils # (0.04-0.35) X 10*3/uL Sodium (135-145) mmol/L Potassium (3.5-5.5) mmol/L Chloride (96-109) mmol/L Carbon Dioxide (21.6-31.8) mmol/L Anion Gap (4.00-12.00) mmol/L BUN (9.0-27.0) mg/dL Creatinine (0.6-1.5) mg/dL Est GFR (CKD-EPI) (>=60) Glucose (70-110) mg/dL POC Glucose (mg/dL) 181 H (70-110) mg/dL Calcium (8.7-10.3) mg/dL AST (14-35) U/L ALT (10-49) U/L C-Reactive Protein 29.1 H (<1.0) mg/dL Total Protein (6.2-8.2) d/dL Albumin (3.8-4.9) d/dL Albumin/Globulin Ratio (1.60-3.17) Ratio Procalcitonin 16.30 H (0.02-0.09) ng/mL Urine Protein (Negative) Urine Blood (Negative) Ur Leukocyte Esterase (Negative) Urine WBC (0-5) /hpf Urine Mucus (None) /hpf CSF Glucose (40-70) mg/dL 02/06/23 02/06/23 02/06/23 Range/Units 19:00 20:35 20:52 Plt Count (140-440) X 10*3/uL Lymphocytes # (0.90-5.00) X 10*3/uL Monocytes # (0.20-1.00) X 10*3/uL Eosinophils # (0.04-0.35) X 10*3/uL Sodium (135-145) mmol/L Potassium (3.5-5.5) mmol/L Chloride (96-109) mmol/L Carbon Dioxide (21.6-31.8) mmol/L Anion Gap (4.00-12.00) mmol/L BUN (9.0-27.0) mg/dL Creatinine (0.6-1.5) mg/dL Est GFR (CKD-EPI) (>=60) Glucose (70-110) mg/dL POC Glucose (mg/dL) 159 H (70-110) mg/dL Calcium (8.7-10.3) mg/dL AST (14-35) U/L ALT (10-49) U/L C-Reactive Protein (<1.0) mg/dL Total Protein (6.2-8.2) d/dL Albumin (3.8-4.9) d/dL Albumin/Globulin Ratio (1.60-3.17) Ratio Procalcitonin (0.02-0.09) ng/mL Urine Protein 2+ H (Negative) Urine Blood Large H (Negative) Ur Leukocyte Esterase Moderate H (Negative) Urine WBC 19 H (0-5) /hpf Urine Mucus Rare H (None) /hpf CSF Glucose 83 H (40-70) mg/dL 02/07/23 02/07/23 02/07/23 Range/Units 05:56 05:56 07:40 Plt Count 122 L (140-440) X 10*3/uL Lymphocytes # 0.07 L (0.90-5.00) X 10*3/uL Monocytes # 0.05 L (0.20-1.00) X 10*3/uL Eosinophils # 0 L (0.04-0.35) X 10*3/uL Sodium 132 L (135-145) mmol/L Potassium 3.3 L (3.5-5.5) mmol/L Chloride 94 L (96-109) mmol/L Carbon Dioxide 19.7 L (21.6-31.8) mmol/L Anion Gap 18.30 H (4.00-12.00) mmol/L BUN 32.6 H (9.0-27.0) mg/dL Creatinine 2.0 H (0.6-1.5) mg/dL Est GFR (CKD-EPI) 34 L (>=60) Glucose 205 H (70-110) mg/dL POC Glucose (mg/dL) 216 H (70-110) mg/dL Calcium 7.8 L (8.7-10.3) mg/dL AST 95 H (14-35) U/L ALT 53 H (10-49) U/L C-Reactive Protein (<1.0) mg/dL Total Protein 5.1 L (6.2-8.2) d/dL Albumin 3.1 L (3.8-4.9) d/dL Albumin/Globulin Ratio 1.55 L (1.60-3.17) Ratio Procalcitonin (0.02-0.09) ng/mL Urine Protein (Negative) Urine Blood (Negative) Ur Leukocyte Esterase (Negative) Urine WBC (0-5) /hpf Urine Mucus (None) /hpf CSF Glucose (40-70) mg/dL 02/07/23 Range/Units 12:05 Plt Count (140-440) X 10*3/uL Lymphocytes # (0.90-5.00) X 10*3/uL Monocytes # (0.20-1.00) X 10*3/uL Eosinophils # (0.04-0.35) X 10*3/uL Sodium (135-145) mmol/L Potassium (3.5-5.5) mmol/L Chloride (96-109) mmol/L Carbon Dioxide (21.6-31.8) mmol/L Anion Gap (4.00-12.00) mmol/L BUN (9.0-27.0) mg/dL Creatinine (0.6-1.5) mg/dL Est GFR (CKD-EPI) (>=60) Glucose (70-110) mg/dL POC Glucose (mg/dL) 154 H (70-110) mg/dL Calcium (8.7-10.3) mg/dL AST (14-35) U/L ALT (10-49) U/L C-Reactive Protein (<1.0) mg/dL Total Protein (6.2-8.2) d/dL Albumin (3.8-4.9) d/dL Albumin/Globulin Ratio (1.60-3.17) Ratio Procalcitonin (0.02-0.09) ng/mL Urine Protein (Negative) Urine Blood (Negative) Ur Leukocyte Esterase (Negative) Urine WBC (0-5) /hpf Urine Mucus (None) /hpf CSF Glucose (40-70) mg/dL Assessment and Plan (1) Fever Current Visit: Yes Status: Acute Code(s): R50.9 - FEVER, UNSPECIFIED SNOMED Code(s): 759207146 (2) Pneumonia Current Visit: No Status: Acute Code(s): J18.9 - PNEUMONIA, UNSPECIFIED ORGANISM SNOMED Code(s): 914632843 Plan: 1patient with sepsis in this patient who did have fever tachycardia elevated white count patient did have a cough yellow sputum with pulmonary infiltrate on chest x-ray highly suspicious for community-acquired pneumonia with electrophysiology of underlying sepsis 2-we will try to obtain sputum for Gram stain and culture , CRP 32.6 and a procalcitonin 16.30 , LP/CSF negative ,initial UA negative , repeat mildly positive 3-Pt to continue Rocephin and Zithromax , monitor clinical course closely Time with Patient: Less than 30
--- NOTE | 2023-02-08 08:19 | XR ---
EXAMINATION TYPE: XR chest 1V portable DATE OF EXAM: 02/08/2023 Comparison: 02/06/2023 Clinical History: 77-year-old male with cough, presumptive pneumonia Findings: Heart upper limits of normal in size. Ongoing patchy right mid and lower lung opacity and some corres ponding volume loss. Impression: Ongoing patchy right mid and lower lung opacity along with some volume loss.
[2023-02-08] MEDS: IPRATROPIUM-ALBUTEROL 3 ML NEB INHALATION SCH ×3 (08:31→15:34)
[2023-02-08] MEDS: SYMBICORT 80-4.5 MCG INHALER INHALATION SCH (08:31)
--- NOTE | 2023-02-08 08:36 | CONS ---
CONSULTATION REASON FOR CONSULTATION: Fluid in petrous apex on the right. HISTORY: This is a 77-year-old white male who presented to the ER with upper extremity pain, myalgias and weakness. He was admitted, had CT of the brain x2 which were unremarkable. He had a lumbar puncture which was negative. due to visible weakness, had MRI which showed some fluid in the right petrous apex. He has had pulmonary symptoms and is being treated with different IV antibiotics empirically. Some of his pulmonary cultures are still pending. He has also had fever. In specific questioning, he has had symptoms, although does states that a couple of months ago he had some new plugging symptoms on the right, which improved without medication. He presently has no pain or drainage. He has no headaches and denies any hearing loss or ear plugging symptoms. He mainly has complained of still some cough and shortness of breath. He feels that he was a little bit stronger when he was admitted. He has not had symptoms like this previously. REVIEW OF SYSTEMS: Does include above and otherwise negative. PAST MEDICAL HISTORY: Positive for COPD, TIA, GERD, hyperlipidemia, hypertension, osteoarthritis, pneumonia, prostate disorder. PAST SURGICAL HISTORY: History of partial nephrectomy on the right after having cholecystectomy, heart catheterization, hernia repair, orthopedic surgery, tonsillectomy, carotid endarterectomy, knee arthroscopy, sinus surgery, EGD. SOCIAL HISTORY: He has smoked in the past, not now. No alcohol use. FAMILY HISTORY: Noncontributory. MEDICATIONS AT HOME: 1. Lipitor. 2. Aspirin. 3. Allopurinol. 4. Lisinopril. ALLERGIES: To sulfa, vancomycin. MEDICATIONS IN HOSPITAL: Not initially on the chart already. PHYSICAL EXAMINATION: VITALS: Showed the patient is afebrile. GENERAL: A well-developed, elderly white male, in no acute distress, although does appear weak. He does have some intermittent productive cough. He is alert, awake, and oriented x3. HEENT: Head normocephalic, atraumatic. Ears bilaterally canals are clear. TMs unremarkable mobile. Nose shows no drainage or obstruction. Mouth and throat shows no abnormal mass or lesions status post tonsillectomy. NECK: Supple without adenopathy or tenderness. CT had not indicated any issues with the petrous apex, but there were some fluid in the right petrous apex. ASSESSMENT: Right petrous apex fluid. PLAN: The patient does have some fluid in the petrous apex on the right, which is not particularly symptomatic. He has no headaches or otologic symptoms otherwise. This may be an incidental finding. He does not have symptoms of acute petrous apicitis. He has been treated in this area. Certainly if you develop any symptoms of deep- seated headaches on the right symptoms, then this would need to be treated more aggressively. If there are question and concern that this could be viral in etiology, symptom complex then would need to have further workup and treatment, which would require neuro-otology consultation which would be further specialized available at this institution due to limited accessibility to this area surgically. It appears that most of his symptoms are pulmonary in nature, but if question possibility of some of these symptoms have developed from petrous apex area, then would need to work this up further and consult outside institution for further treatment for this area. If there are questions or concerns regarding this consultation, please feel to contact me. MMODL / IJN: [id number] /
[2023-02-08] MEDS: LORATADINE 10 MG TAB PO SCH (08:37)
[2023-02-08] MEDS: guaiFENesin 600 MG TABLET.ER PO SCH (08:37)
[2023-02-08] MEDS: INSULIN ASPART (NovoLOG) 100 UNIT/ML VIAL SQ SCH ×3 (08:37→17:36)
--- NOTE | 2023-02-08 09:48 | P.PN ---
Subjective Progress Note Date: 02/08/23 I am seeing this patient in new consultation today 02/07/2023 on the general medical floor. The patient came in to the hospital back on February 04 with the chief complaint of nonspecific extremity pain and myalgias. Patient is a 77-year-old white male with past medical history significant for mild inter mittent asthma, hypertension, hyperlipidemia, TIA/CVA, diverticulosis, GERD, renal cell carcinoma status post partial right nephrectomy, osteoarthritis, gout, and is a remote ex-smoker for brief period of time. Patient has followed with Dr. Rock in the past for his mild intermittent asthma. Asthma is normally well controlled with when necessary Ventolin. His primary care provider is Dr. Zamarripa. Patient presented to the emergency room on February 04 complaining of nonspecific bilateral upper and lower extremity myalgias and paresthesias that started back on Saturday. The patient has had a neurological workup including 2 [address]s that showed no acute intracranial processes, with likely chronic small vessel ischemic disease. Patient also had a lumbar puncture yesterday which was unremarkable. Chest and abdomen CTA showed an infrarenal abdomen abdominal aortic aneurysm measuring 3.5 x 3 cm unchanged from prior study with stable short segment chronic dissection. There was also bibasilar groundglass infiltrates which were thought to reflect atelectasis versus an inflammatory process. Patient is currently lying in bed, on 4 L/m nasal cannula, in no acute distress. He has developed a fever, with a T-max of 102.7F. He's had a persistent cough that started back on Saturday. He states the cough was originally productive with yellow sputum and is now nonproductive. He does admit to some mild shortness of breath even at rest. He is tachypneic, and appears fatigued. Denies any chest pain, hemoptysis. Denies sick contacts. Does report some nausea without emesis. There is some non-specific abdominal pain with palpation. He is incontinent to stool. Stool is soft and not liquid. A follow-up chest x-ray from yesterday shows a generalized hazy appearance which could represent atelectasis versus pulmonary edema versus atypical pneumonia. NT proBNP was elevated at 3080. Most recent CBC from yesterday shows a WBC count of 11, hemoglobin 11.7, hematocrit 35.2, platelets 133. BMP has a sodium 133, potassium 3.9, chloride 100, serum bicarbonate 22, BUN 23.5, creatinine up to 1.3, glucose 136. Normal saline is infusing at 50 ML's per hour. Repeat urinalysis was positive for moderate leukocyte esterase. Patient was negative for influenza, RSV, COVID-19. He has been started on a combination of azithromycin and Rocephin for possible community-acquired pneumonia. Appears hemodynamically stable at this time, and will be monitored on the general medical floor. On today's evaluation of 02/08/2023, the patient remains essentially unchanged. Very weak, debilitated, lethargic, sleepy, but having episodes of fever with a high temperature 103.3 on 02/07/2023. This morning his afebrile. As mentioned, the pro calcitonin level was elevated and there is a concern for underlying bacterial infection. Blood cultures of the negative. CSF cultures have been negative. He does have a component of rhabdomyolysis with a peak CPK level of 08/02/2006 and he has also developed an acute kidney injury with a creatinine of 2.0. The white cell count peaked at 11 currently is down to 7 awaiting labs from today. Antibiotic coverage includes a combination of Zosyn and Zithromax. The MRI of the brain was done yesterday and there is a mention of a petrous apex infection along with chronic small vessel ischemic changes. Based on that, in ENT consultation was obtained and the patient was seen today and they're thinking that this is an incidental finding and not consistent with acute petrous apicitis. No meningeal symptoms. No neck stiffness. CSF was negative for any acute infection. Repeat chest x-ray from today shows some atelectatic change in the right lung base with some volume loss. The patient remains on oxygen at 4 L with a pulse ox of 92%. IV fluids are 0.9 at the rate of 50 mL an hour ( Objective - Vital Signs Vital signs: Vital Signs Temp 97.8 F 02/08/23 07:08 Pulse 108 H 02/08/23 08:45 Resp 18 02/08/23 07:08 BP 105/70 02/08/23 07:08 Pulse Ox 92 L 02/08/23 08:33 FiO2 Intake & Output 02/07/23 02/08/23 02/08/23 18:59 06:59 18:59 Intake Total 600 Output Total 427 950 Balance -427 -350 Intake: Intake, IV Titration 100 Amount Piperacillin-Tazobactam 3 100 .375 gm In Sodium Chloride 0.9% 100 ml @ 25 mls/hr IVPB Q8H [facility] Rx#: [id number] Oral 500 Output: Urine 100 950 Post Void Residual 326 Urine/Stool Mix 1 Other: Voiding Method External Catheter External Catheter # Voids 1 1 # Bowel Movements 1 1 - Exam GENERAL EXAM: Drowsy, 77-year-old male appearing stated age , fatigued but in no apparent distress. HEAD: Normocephalic and atraumatic EYES: Normal reaction of pupils, equal size. NOSE: Clear with pink turbinates. THROAT: No erythema or exudates. NECK: No masses, no JVD. CHEST: No chest wall deformity. LUNGS: Equal air entry with inspiratory rales heard especially at the right posterior base. No wheeze, rhonchi or dullness. On 4 L/m nasal cannula. No conversational dyspnea or accessory muscle use.. CVS: S1 and S2 normal with no audible murmur, regular rhythm. No extra heart s ounds ABDOMEN: No hepatosplenomegaly, active bowel sounds, no guarding or rigidity. SPINE: No scoliosis or deformity SKIN: No rashes CENTRAL NERVOUS SYSTEM: No focal deficits, tone is normal in all 4 extremities. EXTREMITIES: There is no peripheral edema, clubbing, or cyanosis. Peripheral pulses are intact. - Labs CBC & Chem 7: 02/07/23 05:56 02/07/23 05:56 Labs: Abnormal Lab Results - Last 24 Hours (Table) 02/07/23 02/07/23 02/07/23 Range/Units 12:05 14:54 14:54 ESR 37 H (0-20) mm/Hr POC Glucose (mg/dL) 154 H (70-110) mg/dL Creatine Kinase 1507 H* (35-257) U/L C-Reactive Protein 32.60 H (0.00-0.80) mg/dL Rheumatoid Factor 18 H (0-15) IU/mL 02/07/23 02/07/23 02/08/23 Range/Units 17:09 20:01 07:06 ESR (0-20) mm/Hr POC Glucose (mg/dL) 173 H 213 H 160 H (70-110) mg/dL Creatine Kinase (35-257) U/L C-Reactive Protein (0.00-0.80) mg/dL Rheumatoid Factor (0-15) IU/mL Microbiology - Last 24 Hours (Table) 02/06/23 19:00 CSF Gram Stain - Preliminary Cerebral Spinal Fluid CSF Culture - Preliminary 02/06/23 14:36 Blood Culture - Preliminary Blood 02/06/23 14:44 Blood Culture - Preliminary Blood Assessment and Plan Assessment: Episodic fever, likely underlying bacterial infection with elevated pro- calcitonin level. Exact source is not clear. Acute hypoxemic respiratory failure, currently on 4 L/m nasal cannula, secondary to presumptive community-acquired pneumonia. CT angiogram of the chest and abdomen showed bibasilar groundglass infiltrates which could reflect atelectasis versus acute inflammatory process. A follow-up chest x-ray from yesterday shows generalized hazy appearance also reflect atelectasis versus pulmonary edema. NT proBNP was elevated at 3080, however, patient's presentation appears infectious. Procalcitonin level was elevated at 16.3. Negative for influenza, RSV, COVID- 19. Polymyalgias, being worked up by neurology. Brain CT failed to reveal any acute intracranial process. Lumbar puncture appears unremarkable. Abel apicitis, based on MRI findings Possible mild UTI, urinalysis was positive for moderate leukocyte esterase Acute kidney injury, with a creatinine increase from 0.88-1.3, creatinine was up to 2 Acute rhabdomyolysis Intractable nausea and vomiting Mild intermittent asthma, stable Benign essential hypertension Hyperlipidemia History of CVA/TIA Infrarenal abdomen abdominal aortic aneurysm measuring 3.5 x 3 cm, unchanged from prior study with stable short segment chronic dissection GERD without esophagitis History of renal cell carcinoma status post partial right nephrectomy Gout Osteoarthritis Remote ex-smoker Plan: Exact source of infection is not clear. Obtain a noncontrast CAT scan of the chest. Awaiting labs from today, including CBC, complete metabolic profile, CPK Awaiting Legionella urine antigen Continue the antibiotic coverage. The patient is currently on empiric antibiotic coverage. The patient is extremely weak, lethargic, yet awake and conscious. He is having some dry cough. No clear indication for pneumonia although this cannot be completely ruled out. No significant leukocytosis. He does have an acute kidney injury and the creatinine is on the rise and is currently up to 2.0. The pro calcitonin was quite elevated and this indicates possibility of underlying infection/of a bacterial type. The viruses including Covid 19, RSV, influenza A and B were all negative. The patient is currently on accommodation of Zosyn and Zithromax. Repeat pro-calcitonin level Consider transferring this patient to a tertiary care center if no clear expiration for his ongoing decompensation.
--- NOTE | 2023-02-08 09:53 | P.PN ---
Subjective Progress Note Date: 02/07/23 Patient was seen for a follow-up. Patient is laying in the bed. He appears sick. Patient's was also present. She states that patient has eaten some food today. He is still coughing, gagging at times. Patient at present states that he has no headache issues. He states that whole body is hurting, cannot walk. He has pain in the shoulder, knees, hips, feet. There is no tenderness of the MTP joints that typically occurs with gout. Joints appears normal, with no obvious swelling. Patient's has mentioned that patient has history of meningitis in childhood. Objective - Vital Signs Vital signs: Vital Signs Temp 97.6 F 02/07/23 17:52 Pulse 114 H 02/07/23 17:52 Resp 20 02/07/23 17:52 BP 97/64 02/07/23 17:52 Pulse Ox 95 02/07/23 17:52 FiO2 Intake & Output 02/07/23 02/07/23 02/08/23 06:59 18:59 06:59 Output Total 250 427 Balance -250 -427 Output: Urine 250 100 Post Void Residual 326 Urine/Stool Mix 1 Other: Voiding Method External Catheter External Catheter # Voids 1 1 # Bowel Movements 1 1 - Exam Patient appears somewhat sick, laying on the left side. Patient's neck neck is supple. He is not retching as of today. He appears somewhat pale. Speech is slightly hoarse, but no obvious aphasia or dysarthria. Pupils are equal, round and reacting, face is symmetric and tongue protrudes the midline. Visual ríos are full on confrontation. Extraocular muscles are intact, with no nyst agmus. On muscle strength testing, there is no pronator drift. His strength is (right/left) deltoid 4+/5-, triceps 4+/4-, biceps 5/5, erp developer 4/4, hip flexion 4-4/4-4, knee extension 5-/5-, ankle dorsiflexion 5/5, hip adduction 4+/4+, hip abduction 4+/4+. Patient is slightly dystaxic for [id number] testing bilaterally. This could be from generalized weakness. Reflexes are symmetric, trace at the biceps, 0 brachioradialis, 1 at the knees, absent ankles and plantars are flat. Tone is normal. Abdomen is soft, nontender. - Labs CBC & Chem 7: 02/07/23 05:56 02/07/23 05:56 Labs: Abnormal Lab Results - Last 24 Hours (Table) 02/06/23 02/06/23 02/06/23 Range/Units 11:00 19:00 20:35 Plt Count (140-440) X 10*3/uL Lymphocytes # (0.90-5.00) X 10*3/uL Monocytes # (0.20-1.00) X 10*3/uL Eosinophils # (0.04-0.35) X 10*3/uL Sodium (135-145) mmol/L Potassium (3.5-5.5) mmol/L Chloride (96-109) mmol/L Carbon Dioxide (21.6-31.8) mmol/L Anion Gap (4.00-12.00) mmol/L BUN (9.0-27.0) mg/dL Creatinine (0.6-1.5) mg/dL Est GFR (CKD-EPI) (>=60) Glucose (70-110) mg/dL POC Glucose (mg/dL) 159 H (70-110) mg/dL Calcium (8.7-10.3) mg/dL AST (14-35) U/L ALT (10-49) U/L Total Protein (6.2-8.2) d/dL Albumin (3.8-4.9) d/dL Albumin/Globulin Ratio (1.60-3.17) Ratio Procalcitonin 16.30 H (0.02-0.09) ng/mL Urine Protein (Negative) Urine Blood (Negative) Ur Leukocyte Esterase (Negative) Urine WBC (0-5) /hpf Urine Mucus (None) /hpf CSF Glucose 83 H (40-70) mg/dL 02/06/23 02/07/23 02/07/23 Range/Units 20:52 05:56 05:56 Plt Count 122 L (140-440) X 10*3/uL Lymphocytes # 0.07 L (0.90-5.00) X 10*3/uL Monocytes # 0.05 L (0.20-1.00) X 10*3/uL Eosinophils # 0 L (0.04-0.35) X 10*3/uL Sodium 132 L (135-145) mmol/L Potassium 3.3 L (3.5-5.5) mmol/L Chloride 94 L (96-109) mmol/L Carbon Dioxide 19.7 L (21.6-31.8) mmol/L Anion Gap 18.30 H (4.00-12.00) mmol/L BUN 32.6 H (9.0-27.0) mg/dL Creatinine 2.0 H (0.6-1.5) mg/dL Est GFR (CKD-EPI) 34 L (>=60) Glucose 205 H (70-110) mg/dL POC Glucose (mg/dL) (70-110) mg/dL Calcium 7.8 L (8.7-10.3) mg/dL AST 95 H (14-35) U/L ALT 53 H (10-49) U/L Total Protein 5.1 L (6.2-8.2) d/dL Albumin 3.1 L (3.8-4.9) d/dL Albumin/Globulin Ratio 1.55 L (1.60-3.17) Ratio Procalcitonin (0.02-0.09) ng/mL Urine Protein 2+ H (Negative) Urine Blood Large H (Negative) Ur Leukocyte Esterase Moderate H (Negative) Urine WBC 19 H (0-5) /hpf Urine Mucus Rare H (None) /hpf CSF Glucose (40-70) mg/dL 02/07/23 02/07/23 02/07/23 Range/Units 07:40 12:05 17:09 Plt Count (140-440) X 10*3/uL Lymphocytes # (0.90-5.00) X 10*3/uL Monocytes # (0.20-1.00) X 10*3/uL Eosinophils # (0.04-0.35) X 10*3/uL Sodium (135-145) mmol/L Potassium (3.5-5.5) mmol/L Chloride (96-109) mmol/L Carbon Dioxide (21.6-31.8) mmol/L Anion Gap (4.00-12.00) mmol/L BUN (9.0-27.0) mg/dL Creatinine (0.6-1.5) mg/dL Est GFR (CKD-EPI) (>=60) Glucose (70-110) mg/dL POC Glucose (mg/dL) 216 H 154 H 173 H (70-110) mg/dL Calcium (8.7-10.3) mg/dL AST (14-35) U/L ALT (10-49) U/L Total Protein (6.2-8.2) d/dL Albumin (3.8-4.9) d/dL Albumin/Globulin Ratio (1.60-3.17) Ratio Procalcitonin (0.02-0.09) ng/mL Urine Protein (Negative) Urine Blood (Negative) Ur Leukocyte Esterase (Negative) Urine WBC (0-5) /hpf Urine Mucus (None) /hpf CSF Glucose (40-70) mg/dL Assessment and Plan Assessment: * Intractable nausea, vomiting, intermittent headache, unclear etiology. No evidence of meningitis encephalitis. * Polyarthralgias/polymyalgia unclear cause. * Mild rhabdomyolysis * Nausea vomiting, unclear cause. * Hypertension * Hyperlipidemia * History of amaurosis fugax left eye in 1992 Plan: * Patient continues to have diffuse symptoms as mentioned above. He has polymyalgia, polyarthralgias, intermittent headache, nausea vomiting, coughing. * CSF shows WBC 3, RBC 3, total protein normal 55 (12-60), CSF glucose 83 all normal. Viral cultures pending. * MRI of the brain was performed, which revealed age-related atrophic and chronic small vessel ischemic change. No acute intracranial process at this time. There is fluid seen within the right petrous apex. Correlate for petrous apicitis. * We will consult ENT. * Infectious disease on board. Suspecting possible aspiration pneumonia. Patient on ceftriaxone and azithromycin. * GI not available. Patient will be seen by surgery for possible EGD. * We will repeat inflammatory workup, with repeat ESR, CRP, LUPILLO, CPK, rheumatoid factor, uric acid, Lyme titer. * Hemoglobin A1c 6.0 normal and TFTs also normal on 07/31/2022. * Recommend rheumatology consultation for polyarthralgias, polymyalgias. * Continue aspirin 162 mg daily. * B12 466, folate 13.5. * Discussed with patient's in detail. Discussed with primary team.
[2023-02-08] MEDS: PANTOPRAZOLE 40 MG/10 ML VIAL IVP SCH (10:07)
[2023-02-08] MEDS: AZITHROMYCIN 500 MG in SODIUM CHLORIDE 0.9% 250 ML IVPB SCH (10:07)
[2023-02-08 11:07] LABS: HCT 42.6 % (39.6-50.0); HGB 14.1 d/dL (12.0-15.0); MCH 29.6 pg (27.0-32.0); MCHC 33.1 d/dL (32.0-37.0); MCV 89.5 FL (80.0-97.0); Mean Platelet Volume 11.8 FL (9.5-12.2); NRBC Per 100 WBC 0 X 10*3/uL (0.00-0.01); Platelet Count 115 X 10*3/uL (140-440); RBC 4.76 X 10*6/uL (4.40-5.60); RDW 13.2 % (11.5-14.5); WBC 14.88 X 10*3/uL (4.50-10.00)
[2023-02-08 11:35] LABS: Basophils # (A) 0.06 X 10*3/uL (0.00-0.10); Basophils % (A) 0.4 %; Crenated RBC 2+; Eosinophils # (A) 0 X 10*3/uL (0.04-0.35); Eosinophils % (A) 0 %; Lymphocytes # (A) 0.13 X 10*3/uL (0.90-5.00); Lymphocytes % (A) 0.9 %; Monocytes # (A) 0.14 X 10*3/uL (0.20-1.00); Monocytes % (A) 0.9 %; Neutrophils # (A) 14.33 X 10*3/uL (1.80-7.70); Neutrophils % (A) 96.3 %
[2023-02-08 11:59] LABS: Glucose,Whole Blood 202 mg/dL (70-110)
--- NOTE | 2023-02-08 12:19 | CT ---
EXAMINATION TYPE: CT chest wo con DATE OF EXAM: 02/08/2023 COMPARISON: 08/14/2018 and 02/04/2023 HISTORY: 77-year-old male atelectasis, pneumonia TECHNIQUE: Contiguous axial scanning of the chest without IV contrast. Coronal and sagittal reconstru ctions performed. CT DLP: 851 mGycm Automated exposure control for dose reduction was used. FINDINGS: The heart is upper limits of normal in size with trace basilar pericardial fluid. Scattered three-ves clem coronary artery calcifications are present. Aorta normal caliber with mild atherosclerotic arch calcifications and conventional arch vessel branc mary anatomy. A few scattered right paratracheal nodes show slight enlargement of the 1.4 cm now versus 1 cm on rec ent prior. Right tracheobronchial angle nodes measure up to 1.4 cm, increased as well. There are new small bilateral pleural effusions. Septal lines and dependent groundglass opacities. Pe ribronchial vascular and posterior basilar areas of consolidation. More focal area of right midlung c onsolidation. Some postsurgical changes at the GE junction. However, there appears to be a recurrent small hiatal h ernia. Correlate for possible recurrent hernia after prior repair. Calcified granuloma right middle lobe. 8 mm nonobstructive left renal calculus. There is some irregularity and linear densities at the lower pole of the right kidney that could represent postsurgical change and can be correlated clinically. 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 Cholecystectomy clips. Bones: No osseous destructive process. IMPRESSION: 1. NEW SMALL PLEURAL EFFUSIONS ALONG WITH SEPTAL LINES AND MILD GROUNDGLASS CHANGE THROUGHOUT. CORREL ATE TO EXCLUDE A COMPONENT OF fluid overload and pulmonary vascular congestion. 2. However, there are more patchy and confluent areas of consolidation right mid and lower lung. Conc urrent pneumonia not excluded. 3. A few enlarging right paratracheal nodes measuring up to 1.4 cm now are likely reactive. 4. 8 mm nonobstructive left renal calculus.
--- NOTE | 2023-02-08 12:49 | P.PN ---
Subjective Patient is seen in follow-up for acute kidney injury. Renal function worsening. Creatinine 2.0 yesterday. Patient incontinent. Oral intake is poor. Blood pressure stable. Afebrile this morning. Resting in bed. Vital signs are stable. General: Resting in bed. HEENT: Head exam is unremarkable. LUNGS: Scattered rhonchi. HEART: Tachycardic. ABDOMEN: Nontender. EXTREMITITES: No edema. Objective - Vital Signs Vital signs: Vital Signs Temp 97.8 F 02/08/23 07:08 Pulse 110 H 02/08/23 12:13 Resp 18 02/08/23 07:08 BP 105/70 02/08/23 07:08 Pulse Ox 92 L 02/08/23 08:33 FiO2 Intake & Output 02/07/23 02/08/23 02/08/23 18:59 06:59 18:59 Intake Total 600 Output Total 427 950 Balance -427 -350 Intake: Intake, IV Titration 100 Amount Piperacillin-Tazobactam 3 100 .375 gm In Sodium Chloride 0.9% 100 ml @ 25 mls/hr IVPB Q8H [facility] Rx#: [id number] Oral 500 Output: Urine 100 950 Post Void Residual 326 Urine/Stool Mix 1 Other: Voiding Method External Catheter External Catheter Incontinent External Catheter # Voids 1 1 # Bowel Movements 1 1 - Labs CBC & Chem 7: 02/08/23 05:21 02/07/23 05:56 Labs: Abnormal Lab Results - Last 24 Hours (Table) 02/07/23 02/07/23 02/07/23 Range/Units 14:54 14:54 17:09 WBC (4.50-10.00) X 10*3/uL Plt Count (140-440) X 10*3/uL Neutrophils # (1.80-7.70) X 10*3/uL Lymphocytes # (0.90-5.00) X 10*3/uL Monocytes # (0.20-1.00) X 10*3/uL Eosinophils # (0.04-0.35) X 10*3/uL Crenated Cell ESR 37 H (0-20) mm/Hr POC Glucose (mg/dL) 173 H (70-110) mg/dL Creatine Kinase 1507 H* (35-257) U/L C-Reactive Protein 32.60 H (0.00-0.80) mg/dL Procalcitonin (0.02-0.09) ng/mL Rheumatoid Factor 18 H (0-15) IU/mL 02/07/23 02/08/23 02/08/23 Range/Units 20:01 05:21 05:21 WBC 14.88 H (4.50-10.00) X 10*3/uL Plt Count 115 L (140-440) X 10*3/uL Neutrophils # 14.33 H (1.80-7.70) X 10*3/uL Lymphocytes # 0.13 L (0.90-5.00) X 10*3/uL Monocytes # 0.14 L (0.20-1.00) X 10*3/uL Eosinophils # 0 L (0.04-0.35) X 10*3/uL Crenated Cell 2+ A ESR (0-20) mm/Hr POC Glucose (mg/dL) 213 H (70-110) mg/dL Creatine Kinase (35-257) U/L C-Reactive Protein (0.00-0.80) mg/dL Procalcitonin 35.10 H (0.02-0.09) ng/mL Rheumatoid Factor (0-15) IU/mL 02/08/23 02/08/23 Range/Units 07:06 11:57 WBC (4.50-10.00) X 10*3/uL Plt Count (140-440) X 10*3/uL Neutrophils # (1.80-7.70) X 10*3/uL Lymphocytes # (0.90-5.00) X 10*3/uL Monocytes # (0.20-1.00) X 10*3/uL Eosinophils # (0.04-0.35) X 10*3/uL Crenated Cell ESR (0-20) mm/Hr POC Glucose (mg/dL) 160 H 202 H (70-110) mg/dL Creatine Kinase (35-257) U/L C-Reactive Protein (0.00-0.80) mg/dL Procalcitonin (0.02-0.09) ng/mL Rheumatoid Factor (0-15) IU/mL Microbiology - Last 24 Hours (Table) 02/06/23 19:00 CSF Gram Stain - Preliminary Cerebral Spinal Fluid CSF Culture - Preliminary 02/06/23 14:36 Blood Culture - Preliminary Blood 02/06/23 14:44 Blood Culture - Preliminary Blood Assessment and Plan Plan: Assessment: 1. Acute kidney injury secondary to septic ATN. Also received IV contrast on 02/04/2023 for CTA. Creatinine 0.88 on admission and is 2.0 yesterday No hydronephrosis noted on CAT scan. No proteinuria on UA done on admission. 2. History of partial right nephrectomy due to renal cancer. 3. Acute hypoxic respiratory failure secondary to pneumonia. Status post LP. 4. Benign hypertension. Currently stable. 5. Severe sepsis secondary to pneumonia. ID following. On antibiotics. 6. Hypokalemia from poor intake. Replaced. Plan: Maintain normal saline - increase rate to 75 mL an hour. Avoid nephrotoxins. Continue to monitor renal function and urine output. Hold off on diuretics. Follow-up echocardiogram. Check serologies.
[2023-02-08] MEDS ORDERED: LINEZOLID 600 MG in DEXTROSE/WATER 1 300ML.BAG IVPB SCH (13:00)
[2023-02-08] MEDS: BENZONATATE 100 MG CAP PO PRN (13:16)
[2023-02-08] MEDS: ONDANSETRON 4 MG/2 ML VIAL IVP PRN (13:16)
[2023-02-08 13:37] LABS: Glucose,Whole Blood 177 mg/dL (70-110)
--- NOTE | 2023-02-08 13:57 | PN ---
PROGRESS NOTE DATE OF SERVICE: 02/08/2023 SUBJECTIVE: This 77-year-old gentleman was admitted with multiple complex medical issues, continues to be stuporous at this time. The patient is noted to have possible bilateral aspiration pneumonia. MRA showed petrositis. Multiple consultants are following the patient closely. Chest CAT scan is pending at this time. PAST MEDICAL HISTORY: Reviewed. REVIEW OF SYSTEMS: Could not be taken. CURRENT MEDICATIONS: Reviewed include Symbicort, doses and rest of medications reviewed. PHYSICAL EXAMINATION: VITAL SIGNS: Pulse is 104, blood pressure 130_/70, respirations 18. HEENT: Conjunctivae normal. NECK: No jugular venous distention. CARDIOVASCULAR: S1, S2 muffled. RESPIRATIONS: Diminished at the basis, bilateral scattered rhonchi and crackles. ABDOMEN: Soft, nontender. LEGS: No swelling, no edema. NERVOUS SYSTEM: No focal deficit. LABORATORY DATA: WBC 14.88, rest of the labs are reviewed. Procalcitonin is 35. ASSESSMENT: 1. Possible bilateral aspiration pneumonia with sepsis with change in mental status, metabolic encephalopathy secondary to sepsis present on admission. 2. Acute petrositis. 3. Acute on chronic renal failure. 4. Chronic obstructive pulmonary disease. 5. GERD. 6. Hypertension. 7. Hyperlipidemia. 8. Change in mental status, metabolic encephalopathy, multifactorial. RECOMMENDATIONS AND DISCUSSION: This 77-year-old gentleman presented with multiple complex medical issues, we will monitor the patient closely. Otherwise, continue the antibiotics. Closely follow with Infectious Disease, Pulmonary and Neurology. Lumbar puncture has been done. The patient has elevated inflammatory markers. I would also recommend a 2D echo with Doppler as well. See orders for further details. Prognosis extremely guarded. Further recommendations to follow. MMODL / IJN: [id number] / [facility]
--- NOTE | 2023-02-08 14:30 | P.GSCN ---
History of Present Illness Consult date: 02/08/23 History of present illness: CHIEF COMPLAINT: Muscle aches and weakness HISTORY OF PRESENT ILLNESS: This is a 77-year-old male. The hospital with complaints of myalgias and weakness. He was having fevers the exact source of infection is not clear. There were concerns of possible pneumonia he is on antibiotics. Meningitis has been ruled out. Patient reports he still feels very weak. Reports no appetite. Denies any abdominal pain. Surgical service consulted for EGD. Patient also has some nausea and vomiting. But he reports that he has a lot of drainage and congestion that comes back up. PAST MEDICAL HISTORY: See below PAST SURGICAL HISTORY: See below MEDICATIONS: See below ALLERGIES: See below SOCIAL HISTORY: No illicit drug use. REVIEW OF SYSTEMS: CONSTITUTIONAL: Denies fever or chills. HEENT: Denies blurred vision, vision changes, or eye pain. Denies hemoptysis CARDIOVASCULAR: Denies chest pain or pressure. RESPIRATORY: No shortness of breath. GASTROINTESTINAL: See HPI for pertinent findings HEMATOLOGIC: Denies bleeding disorders. GENITOURINARY: Denies any blood in urine or increased urinary frequency. SKIN: Denies pruitis. Denies rash. PHYSICAL EXAM: VITAL SIGNS: Reviewed GENERAL: no acute distress. ABDOMEN: Soft. Nondistended. Nontender NEUROLOGIC: Awake but lethargic LABORATORY DATA: WBC 14.88 Hgb 14.1 platelets 115 Signs 132 potassium 3.3 creatinine 2.0 Creatinine kinase 1507 Procalcitonin 35 IMAGING: Computed tomography scan chest knee small pleural effusions along with septal lines and mild groundglass changes throughout. Correlate to exclude component of fluid overload and pulmonary vascular congestion. However there were patchy ankle fluid areas of consolidation rate and lower lung. ASSESSMENT: 1. Nausea and vomiting 2. Fevers 3. Questionable pneumonia PLAN: -Patient tentatively scheduled for EGD on 02/11/[address] Mullen if medically stable -Continue supportive care Physician Alcoholism Worker note has been reviewed by physician. Signing provider agrees with the documented findings, assessment, and plan of care. 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, gout, BPH, nephrolithiasis, bilateral tinnitis, colon benign polyp History of Any Multi-Drug Resistant Organisms: None Reported Past Surgical History: Appendectomy, Cholecystectomy, Heart Catheterization, Hernia Repair, Orthopedic Surgery, Tonsillectomy Additional Past Surgical History / Comment(s): 05/26/20 robot assisted laparoscopic R partial nephrectomy, laparoscopic migue fundoplasty with extensive lysis of adhesions, bilateral inguinal hernia repairs, right carotid endarterectomy, left knee arthroscopy, sinus surgery, clint shoulder rotator cuff repairs, heel spur rt foot, R hand surgery to remove splinter, EGD, colonoscopies/polypectomy, cystoscopy. Past Anesthesia/Blood Transfusion Reactions: No Reported Reaction, Motion Sickness Additional Past Anesthesia/Blood Transfusion Reaction / Comm: . Past Psychological History: No Psychological Hx Reported Smoking Status: Former smoker Past Alcohol Use History: None Reported Past Drug Use History: None Reported - Past Family History Brother(s) Family Medical History: Cancer Additional Family Medical History / Comment(s): prostate Mother Family Medical History: No Reported History Additional Family Medical History / Comment(s): Mother was healthy and lived to be 89yrs old. Father Family Medical History: Myocardial Infarction ([place]) Additional Family Medical History / Comment(s): Father had a [place] at the age of 60yrs and lived to be 80yrs old. Medications and Allergies Home Medications Medication Instructions Recorded Confirmed Type Atorvastatin [Lipitor] 40 mg PO HS 10/18/14 02/04/23 History Aspirin [Adult Low Dose Aspirin EC] 162 mg PO HS 08/31/16 02/04/23 History allopurinoL [Zyloprim] 100 mg PO HS 05/20/20 02/04/23 History lisinopriL [Prinivil] 20 mg PO HS 05/12/21 02/04/23 History Allergies Allergy/AdvReac Type Severity Reaction Status Date / Time sulfamethoxazole Allergy Rash/Hives Verified 02/04/23 10:56 [From Bactrim] trimethoprim [From Bactrim] Allergy Rash/Hives Verified 02/04/23 10:56 vancomycin Allergy Rash/Hives Verified 02/04/23 10:56 influenza virus vaccine, AdvReac "very ill Verified 02/04/23 10:56 specific after injection" Surgical - Exam Vital Signs Temp Pulse Resp BP Pulse Ox 97.8 F 98 18 122/83 98 07/10/23 03:55 02/04/23 03:55 02/04/23 03:55 02/04/23 03:55 02/04/23 03:55 Results - Labs 02/08/23 05:21 02/07/23 05:56 Abnormal Lab Results - Last 24 Hours (Table) 02/07/23 02/07/23 02/07/23 Range/Units 12:05 14:54 14:54 ESR 37 H (0-20) mm/Hr POC Glucose (mg/dL) 154 H (70-110) mg/dL Creatine Kinase 1507 H* (35-257) U/L C-Reactive Protein 32.60 H (0.00-0.80) mg/dL Rheumatoid Factor 18 H (0-15) IU/mL 02/07/23 02/07/23 02/08/23 Range/Units 17:09 20:01 07:06 ESR (0-20) mm/Hr POC Glucose (mg/dL) 173 H 213 H 160 H (70-110) mg/dL Creatine Kinase (35-257) U/L C-Reactive Protein (0.00-0.80) mg/dL Rheumatoid Factor (0-15) IU/mL Microbiology - Last 24 Hours (Table) 02/06/23 19:00 CSF Gram Stain - Preliminary Cerebral Spinal Fluid CSF Culture - Preliminary 02/06/23 14:36 Blood Culture - Preliminary Blood 02/06/23 14:44 Blood Culture - Preliminary Blood
--- NOTE | 2023-02-08 14:40 | P.PN ---
Subjective Progress Note Date: 02/08/23 Principal diagnosis: Fever patient is a 77-year-old male presenting to the hospital for evaluation of myalgias he also have a cough and some yellowish sputum production patient did have a fever chest x-ray generalized hazy appearance concerning for possible pneumonia. On today's evaluation that is 02/08/2023 the patient did have resolution of his fever, patient still complaining of not feeling that good he seemed to be breathing comfortably on 4 L nasal cannula oxygen has been coming of some nausea but no vomiting no abdominal pain and no diarrhea has been reported he could have a dry cough but no sputum production Objective - Vital Signs Vital signs: Vital Signs Temp 97.8 F 02/08/23 07:08 Pulse 108 H 02/08/23 08:45 Resp 18 02/08/23 07:08 BP 105/70 02/08/23 07:08 Pulse Ox 92 L 02/08/23 08:33 FiO2 Intake & Output 02/07/23 02/08/23 02/08/23 18:59 06:59 18:59 Intake Total 600 Output Total 427 950 Balance -427 -350 Intake: Intake, IV Titration 100 Amount Piperacillin-Tazobactam 3 100 .375 gm In Sodium Chloride 0.9% 100 ml @ 25 mls/hr IVPB Q8H [facility] Rx#: [id number] Oral 500 Output: Urine 100 950 Post Void Residual 326 Urine/Stool Mix 1 Other: Voiding Method External Catheter External Catheter # Voids 1 1 # Bowel Movements 1 1 - Exam GENERAL DESCRIPTION: Elderly male lying in bed in no distress RESPIRATORY SYSTEM: Unlabored breathing , decreased breath sounds at bases HEART: S1 S2 regular rate and rhythm ,no loud murmurs ABDOMEN: Soft , no tenderness EXTREMITIES: No edema feet - Labs CBC & Chem 7: 02/08/23 05:21 02/07/23 05:56 Labs: Abnormal Lab Results - Last 24 Hours (Table) 02/07/23 02/07/23 02/07/23 Range/Units 12:05 14:54 14:54 WBC (4.50-10.00) X 10*3/uL Plt Count (140-440) X 10*3/uL ESR 37 H (0-20) mm/Hr POC Glucose (mg/dL) 154 H (70-110) mg/dL Creatine Kinase 1507 H* (35-257) U/L C-Reactive Protein 32.60 H (0.00-0.80) mg/dL Rheumatoid Factor 18 H (0-15) IU/mL 02/07/23 02/07/23 02/08/23 Range/Units 17:09 20:01 05:21 WBC 14.88 H (4.50-10.00) X 10*3/uL Plt Count 115 L (140-440) X 10*3/uL ESR (0-20) mm/Hr POC Glucose (mg/dL) 173 H 213 H (70-110) mg/dL Creatine Kinase (35-257) U/L C-Reactive Protein (0.00-0.80) mg/dL Rheumatoid Factor (0-15) IU/mL 02/08/23 Range/Units 07:06 WBC (4.50-10.00) X 10*3/uL Plt Count (140-440) X 10*3/uL ESR (0-20) mm/Hr POC Glucose (mg/dL) 160 H (70-110) mg/dL Creatine Kinase (35-257) U/L C-Reactive Protein (0.00-0.80) mg/dL Rheumatoid Factor (0-15) IU/mL Microbiology - Last 24 Hours (Table) 02/06/23 19:00 CSF Gram Stain - Preliminary Cerebral Spinal Fluid CSF Culture - Preliminary 02/06/23 14:36 Blood Culture - Preliminary Blood 02/06/23 14:44 Blood Culture - Preliminary Blood Assessment and Plan (1) Fever Current Visit: Yes Status: Acute Code(s): R50.9 - FEVER, UNSPECIFIED SNOMED Code(s): 994643536 (2) Pneumonia Current Visit: No Status: Acute Code(s): J18.9 - PNEUMONIA, UNSPECIFIED ORGANISM SNOMED Code(s): 872046894 Plan: 1patient with sepsis in this patient who did have fever tachycardia elevated white count patient did have a cough yellow sputum with pulmonary infiltrate on chest x-ray highly suspicious for community-acquired pneumonia, patient did have a CT of the chest completed 02/08/2023 concerning for right mid and lower lung infiltrate suspicious for pneumonia 2-we will try to obtain sputum for Gram stain and culture , CRP 32.6 and a procalcitonin 16.30 repeat level is up to 35, LP/CSF negative ,initial UA negative , repeat mildly positive, urine for Legionella antigen is negative 3-patient antibiotic was switched to Zosyn yesterday by admitting daily we will add Zyvox to cover for gram-positive and monitor clinical course closely at the bedside questions were answered Time with Patient: Greater than 30
[2023-02-08 15:18] LABS: BUN/Creat Ratio 18.86 Ratio (12.00-20.00); Blood Urea Nitrogen 39.6 mg/dL (9.0-27.0); Calcium 7.7 mg/dL (8.7-10.3); Carbon Dioxide 15.6 mmol/L (21.6-31.8); Chloride 96 mmol/L (96-109); Glucose 172 mg/dL (70-110); Potassium 3.9 mmol/L (3.5-5.5); Sodium 134 mmol/L (135-145)
[2023-02-08 15:48] VITALS: TEMP 100.3
[2023-02-08] MEDS ORDERED: ACETAMINOPHEN IV (For NPO) 1,000 MG in EMPTY BAG 1 BAG IVPB SCH (16:11)
--- NOTE | 2023-02-08 16:19 | XR ---
EXAMINATION TYPE: XR chest 1V portable DATE OF EXAM: 02/08/2023 Comparison: 02/08/2023 Clinical History: 77-year-old male CHF, shortness of breath Findings: Heart mildly enlarged. Diffuse interstitial density. Possible trace effusions. Patchy left greater th an right lower lung opacity. Impression: Mild cardiomegaly, interstitial changes, possible trace effusions, and patchy bibasilar opacities, le ft greater than right. Findings may reflect sequela of mild to moderate CHF.
[2023-02-08] MEDS ORDERED: DEXTROSE 5% IN WATER 1,000 ML with SODIUM BICARB (1 MEQ/ML) 150 ML IV SCH (16:30)
[2023-02-08 16:34] LABS: Amorphous Sediment,Urine Rare /hpf; Appearance,Urine Cloudy (Clear); Bilirubin,Urine Negative (Negative); Blood,Urine Moderate (Negative); Color,Urine Yellow; Glucose,Urine (UA) Negative (Negative); Ketones,Urine Negative (Negative); Leukocyte Esterase,Urine Negative (Negative); Nitrite,Urine Negative (Negative); PH, Urine 5.5 (5.0-8.0); Protein,Urine 1+ (Negative); RBC,Urine 4 /hpf (0-5); Specific Gravity,Urine 1.021 (1.001-1.035); Urobilinogen,Urine <2.0 mg/dL (<2.0); WBC,Urine 3 /hpf (0-5)
[2023-02-08 17:16] LABS: Glucose,Whole Blood 229 mg/dL (70-110)
[2023-02-08 17:47] VITALS: BP 89/55; PULSE 89; RESP 28
--- NOTE | 2023-02-08 17:52 | CA ---
Transthoracic Echo Report Name: Marcos Guo Age: 77 Gender: M : 1945 Exam Date: 02/08/2023 11:51 Exam Location: [facility] Ht (in): 72 Wt (lb): 175 Ordering Physician: Kaylah Sandoval Attending/Referring Phys: Charge Accounts Audit Clerk David Berg Procedure CPT: Indications: sepsis Cardiac Hx: Technical Quality: Fair Contrast 1: Total Dose (mL): Contrast 2: Total Dose (mL): MEASUREMENTS (Male / Female) Normal Values 2D ECHO LV Diastolic Diameter PLAX 4.2 cm 4.2 - 5.9 / 3.9 - 5.3 cm LV Systolic Diameter PLAX 2.8 cm IVS Diastolic Thickness 1.1 cm 0.6 - 1.0 / 0.6 - 0.9 cm LVPW Diastolic Thickness 1.3 cm 0.6 - 1.0 / 0.6 - 0.9 cm LV Relative Wall Thickness 0.6 RV Internal Dim ED PLAX 3.0 cm LVOT Diameter 2.2 cm Aortic Root Diameter 3.7 cm LA Systolic Diameter LX 2.9 cm 3.0 - 4.0 / 2.7 - 3.8 cm LV Diastolic Volume MOD BP 38.5 cm??? 67 - 155 / 56 - 104 cm??? LV Systolic Volume MOD BP 14.3 cm??? 22 - 58 / 19 - 49 cm??? LV Ejection Fraction MOD BP 63.0 % >= 55 % LV Diastolic Volume MOD 4C 35.3 cm??? LV Systolic Volume MOD 4C 12.3 cm??? LV Ejection Fraction MOD 4C 65.1 % LV Diastolic Length 4C 6.2 cm LV Systolic Length 4C 5.4 cm LV Diastolic Volume MOD 2C 38.1 cm??? LV Systolic Volume MOD 2C 14.9 cm??? LV Ejection Fraction MOD 2C 60.9 % LV Diastolic Length 2C 6.9 cm LV Systolic Length 2C 6.1 cm LA Volume 39.2 cm??? 18 - 58 / 22 - 52 cm??? Ascending Aorta Diameter 3.1 cm DOPPLER AV Peak Velocity 177.8 cm/s AV Peak Gradient 12.6 mmHg LVOT Peak Velocity 103.4 cm/s LVOT Peak Gradient 4.3 mmHg AV Area Cont Eq pk 2.2 cm??? MR Peak Velocity 214.9 cm/s MR Peak Gradient 18.5 mmHg MV E' Velocity 3.9 cm/s TR Peak Velocity 220.9 cm/s TR Peak Gradient 19.5 mmHg Right Ventricular Systolic Press 24.7 mmHg PV Peak Velocity 118.6 cm/s PV Peak Gradient 5.6 mmHg FINDINGS Left Ventricle Normal LV size and wall thickness. Left ventricular ejection fraction is estimated at 55-60 %. Right Ventricle Normal right ventricular size. RVSP= 28mmhg. Right Atrium Normal right atrial size. Left Atrium Normal left atrial size. Mitral Valve Structurally normal mitral valve. Trace MR. Aortic Valve Trileaflet aortic valve. Mild AV calcification. No aortic regurgitation. No aortic stenosis. Tricuspid Valve Structurally normal tricuspid valve. Mild TR. Pulmonic Valve Pulmonic valve not well visualized. Pericardium Small posterior pericardial effusion. Aorta Ao root ashely= 3.7cm CONCLUSIONS Normal LV function Previewed by: Tu Retana MD Dr. Suresh Tumma MD (Electronically Signed) Final Date: 08 February 2023 17:51
--- NOTE | 2023-02-08 18:26 | P.DS ---
Providers Date of admission: 02/04/23 09:39 Expected date of discharge: 02/08/23 Attending physician: Ron Zamarripa Consults: 02/04/23 09:39 Consult Physician Urgent Consulting Provider: Romulo Dale Consult Reason/Comments: Diffuse myalgias Do you want consulting provider notified?: Yes 02/06/23 11:58 Consult Physician Routine Consulting Provider: Tyshawn Sanders Consult Reason/Comments: renal failure, hx partial nephrectomy Do you want consulting provider notified?: Yes 02/06/23 14:23 Consult Physician Urgent Consulting Provider: Helen Myers Consult Reason/Comments: sepsis, fevers Do you want consulting provider notified?: Yes 02/06/23 14:36 Consult Physician Urgent Consulting Provider: Elaine Ibarra Consult Reason/Comments: hypoxia Do you want consulting provider notified?: Yes 02/06/23 22:48 Consult Physician Routine Consulting Provider: Billy Mullen Consult Reason/Comments: EGD Do you want consulting provider notified?: Yes, Notify in am 02/07/23 17:54 Consult Physician Urgent Consulting Provider: Ronaldo Ryan Consult Reason/Comments: Fluid within the right petrous apex Do you want consulting provider notified?: Yes Primary care physician: Ron Zamarripa Hospital Course: Final diagnosis Possible bilateral aspiration pneumonia with sepsis, present on admission with change in mental status, metabolic encephalopathy secondary to sepsis, present on admission Acute petrositis Acute on chronic renal failure Chronic obstructive pulmonary disease, acute exacerbation GERD Hypertension Hyperlipidemia History of right partial nephrectomy in 2020 for a renal mass History of CVA/TIA GI prophylaxis DVT prophylaxis Full code Discharge disposition Patient is being transferred in a stable condition with guarded prognosis to [facility] in [place] for tertiary transferred treatment . Patient will follow-up with Dr. Zamarripa in the outpatient setting upon discharge. Total time taken is greater than 35 minutes. Hospital course This is a 77-year-old male who was recently admitted with diffuse generalized body myalgias and significant weakness with fever of unknown origin being closely monitored. Multiple medical consultations following including pulmonary administrative secretary, neurology, infectious disease, nephrology with continued ongoing febrile symptoms and generalized unwell. Patient was also seen and evaluated by ENT concerns of petrous apicitis although initially not behaving with symptoms as such but recommended as well tertiary treatment Center for neurosurgical evaluation if requiring intervention. Patient continues to be febrile having worsening respiratory status currently maintained on 8 L and does not normally wear oxygen outpatient. multiple viral testings have been negative including Covid 3, influenza, RSV, Legionella, Lyme disease has all been negative. Infectious disease is following maintained on Zyvox along with Zosyn and cultures thus far have been negative. Patient is also having worsening kidney functions with acute kidney injury and renal failure. Discussed transferring with [facility] list attending Dr. Aiden Cobos who has accepted the patient. was contacted and notified of the transfer and they are agreeable with transfer. Patient will receive a bed today and transfer team working on calling the unit to give nursing the nursing report. Images during hospitalization and all records are being copied for transport. Currently no reports of chest pain, or palpitations. Patient is febrile. Patient does report some shortness of breath requiring 8 L of oxygen. No reports of nausea or vomiting and patient is not tolerating much diet as he has no appetite. Patient will be transferred to [facility] in [place] with guarded prognosis today. Physical exam: Gen: This is a 77-year-old male who was lethargic although arouses easily, alert and oriented 3, thin built, ill-appearing HEENT: Head is atraumatic, normocephalic. Pupils equal, round. Sclerae is anicteric. NECK: Supple. No JVD. No lymphadenopathy. No thyromegaly. LUNGS: Diminished breath sounds bilaterally with some scattered rhonchi. No intercostal retractions. HEART: S1, S2 are muffled No murmur. ABDOMEN: Soft. Bowel sounds are present. No masses. No tenderness. EXTREMITIES: No pedal edema. No calf tenderness. NEUROLOGICAL: Patient is awake, alert and oriented x3. Cranial nerves 2 through 12 are grossly intact. Diffusely weak Please refer to medication reconciliation sheet for a list of medications. The impression and plan of care has been dictated by Kaylah Sandoval, Nurse Practitioner as directed. Dr. Srini MD I have performed a history and examination and MDM of this patient, discussed the same with the dictator, and agree with the dictator's assessment and plan as written ,documented as a scribe. Based on total visit time, I have performed more than 50% of the visit. Patient Condition at Discharge: Fair Plan - Discharge Summary Discharge Rx Participant: No New Discharge Prescriptions: No Action Atorvastatin [Lipitor] 40 mg PO HS Aspirin [Adult Low Dose Aspirin EC] 162 mg PO HS allopurinoL [Zyloprim] 100 mg PO HS lisinopriL [Prinivil] 20 mg PO HS Discharge Medication List Atorvastatin [Lipitor] 40 mg PO HS 10/18/14 [History] Aspirin [Adult Low Dose Aspirin EC] 162 mg PO HS 08/31/16 [History] allopurinoL [Zyloprim] 100 mg PO HS 05/20/20 [History] lisinopriL [Prinivil] 20 mg PO HS 05/12/21 [History] Follow up Appointment(s)/Referral(s): Ron Zamarripa DO [Primary Care Provider] - 1-2 days
[2023-02-09 00:04] LABS: Hepatitis A Antibody IgM Nonreactive; Hepatitis B Core IgM Nonreactive; Hepatitis B Surface Antigen Nonreactive; Hepatitis C IgG Antibody Nonreactive
--- NOTE | 2023-02-09 12:42 | P.PN ---
Subjective Progress Note Date: 02/08/23 Patient was seen for a follow-up. Patient is laying in the bed. He continues to look sick, is tachypneic. Patient's and patient's son were also present. Patient's has mentioned that patient has history of meningitis in childhood. Objective - Vital Signs Vital signs: Vital Signs Temp 100.3 F H 02/08/23 15:39 Pulse 89 02/08/23 17:46 Resp 28 H 02/08/23 17:46 BP 89/55 02/08/23 17:46 Pulse Ox 93 L 02/08/23 17:46 FiO2 Intake & Output 02/07/23 02/08/23 02/08/23 18:59 06:59 18:59 Intake Total 600 Output Total 427 950 500 Balance -427 -350 -500 Weight 79.379 kg Intake: Intake, IV Titration 100 Amount Piperacillin-Tazobactam 3 100 .375 gm In Sodium Chloride 0.9% 100 ml @ 25 mls/hr IVPB Q8H [facility] Rx#: [id number] Oral 500 Output: Urine 100 950 500 Post Void Residual 326 Urine/Stool Mix 1 Other: Voiding Method External Catheter External Catheter Incontinent Indwelling Catheter # Voids 1 1 2 # Bowel Movements 1 1 - Exam 02/08/2023: Patient is laying in the bed. Examination is unchanged as of yesterday. Detail testing deferred. Patient appears very tachypneic. 02/07/2023: Patient appears somewhat sick, laying on the left side. Patient's neck neck is supple. He is not retching as of today. He appears somewhat pale. Speech is slightly hoarse, but no obvious aphasia or dysarthria. Pupils are equal, round and reacting, face is symmetric and tongue protrudes the midline. Visual ríos are full on confrontation. Extraocular muscles are intact, with no nystagmus. On muscle strength testing, there is no pronator drift. His strength is (right/left) deltoid 4+/5-, triceps 4+/4-, biceps 5/5, marketing research coordinator 4/4, hip flexion 4-4/4-4, knee extension 5-/5-, ankle dorsiflexion 5/5, hip adduction 4+/4+, hip abduction 4+/4+. Patient is slightly dystaxic for [id number] testing bilaterally. This could be from generalized weakness. Reflexes are symmetric, trace at the biceps, 0 brachioradialis, 1 at the knees, absent ankles and plantars are flat. Tone is normal. Abdomen is soft, nontender. - Labs CBC & Chem 7: 02/08/23 05:21 02/08/23 05:21 Labs: Abnormal Lab Results - Last 24 Hours (Table) 02/07/23 02/07/23 02/07/23 Range/Units 14:54 14:54 20:01 WBC (4.50-10.00) X 10*3/uL Plt Count (140-440) X 10*3/uL Neutrophils # (1.80-7.70) X 10*3/uL Lymphocytes # (0.90-5.00) X 10*3/uL Monocytes # (0.20-1.00) X 10*3/uL Eosinophils # (0.04-0.35) X 10*3/uL Crenated Cell ESR 37 H (0-20) mm/Hr Sodium (135-145) mmol/L Carbon Dioxide (21.6-31.8) mmol/L Anion Gap (4.00-12.00) mmol/L BUN (9.0-27.0) mg/dL Creatinine (0.6-1.5) mg/dL Est GFR (CKD-EPI) (>=60) Glucose (70-110) mg/dL POC Glucose (mg/dL) 213 H (70-110) mg/dL Calcium (8.7-10.3) mg/dL Creatine Kinase 1507 H* (35-257) U/L C-Reactive Protein 32.60 H (0.00-0.80) mg/dL Procalcitonin (0.02-0.09) ng/mL Urine Protein (Negative) Urine Blood (Negative) Amorphous Sediment (None) /hpf Rheumatoid Factor 18 H (0-15) IU/mL 02/08/23 02/08/23 02/08/23 Range/Units 05:21 05:21 05:21 WBC 14.88 H (4.50-10.00) X 10*3/uL Plt Count 115 L (140-440) X 10*3/uL Neutrophils # 14.33 H (1.80-7.70) X 10*3/uL Lymphocytes # 0.13 L (0.90-5.00) X 10*3/uL Monocytes # 0.14 L (0.20-1.00) X 10*3/uL Eosinophils # 0 L (0.04-0.35) X 10*3/uL Crenated Cell 2+ A ESR (0-20) mm/Hr Sodium 134 L (135-145) mmol/L Carbon Dioxide 15.6 L (21.6-31.8) mmol/L Anion Gap 22.40 H (4.00-12.00) mmol/L BUN 39.6 H (9.0-27.0) mg/dL Creatinine 2.1 H (0.6-1.5) mg/dL Est GFR (CKD-EPI) 32 L (>=60) Glucose 172 H (70-110) mg/dL POC Glucose (mg/dL) (70-110) mg/dL Calcium 7.7 L (8.7-10.3) mg/dL Creatine Kinase (35-257) U/L C-Reactive Protein (0.00-0.80) mg/dL Procalcitonin 35.10 H (0.02-0.09) ng/mL Urine Protein (Negative) Urine Blood (Negative) Amorphous Sediment (None) /hpf Rheumatoid Factor (0-15) IU/mL 02/08/23 02/08/23 02/08/23 Range/Units 07:06 11:57 13:36 WBC (4.50-10.00) X 10*3/uL Plt Count (140-440) X 10*3/uL Neutrophils # (1.80-7.70) X 10*3/uL Lymphocytes # (0.90-5.00) X 10*3/uL Monocytes # (0.20-1.00) X 10*3/uL Eosinophils # (0.04-0.35) X 10*3/uL Crenated Cell ESR (0-20) mm/Hr Sodium (135-145) mmol/L Carbon Dioxide (21.6-31.8) mmol/L Anion Gap (4.00-12.00) mmol/L BUN (9.0-27.0) mg/dL Creatinine (0.6-1.5) mg/dL Est GFR (CKD-EPI) (>=60) Glucose (70-110) mg/dL POC Glucose (mg/dL) 160 H 202 H 177 H (70-110) mg/dL Calcium (8.7-10.3) mg/dL Creatine Kinase (35-257) U/L C-Reactive Protein (0.00-0.80) mg/dL Procalcitonin (0.02-0.09) ng/mL Urine Protein (Negative) Urine Blood (Negative) Amorphous Sediment (None) /hpf Rheumatoid Factor (0-15) IU/mL 02/08/23 02/08/23 Range/Units 15:49 17:14 WBC (4.50-10.00) X 10*3/uL Plt Count (140-440) X 10*3/uL Neutrophils # (1.80-7.70) X 10*3/uL Lymphocytes # (0.90-5.00) X 10*3/uL Monocytes # (0.20-1.00) X 10*3/uL Eosinophils # (0.04-0.35) X 10*3/uL Crenated Cell ESR (0-20) mm/Hr Sodium (135-145) mmol/L Carbon Dioxide (21.6-31.8) mmol/L Anion Gap (4.00-12.00) mmol/L BUN (9.0-27.0) mg/dL Creatinine (0.6-1.5) mg/dL Est GFR (CKD-EPI) (>=60) Glucose (70-110) mg/dL POC Glucose (mg/dL) 229 H (70-110) mg/dL Calcium (8.7-10.3) mg/dL Creatine Kinase (35-257) U/L C-Reactive Protein (0.00-0.80) mg/dL Procalcitonin (0.02-0.09) ng/mL Urine Protein 1+ H (Negative) Urine Blood Moderate H (Negative) Amorphous Sediment Rare H (None) /hpf Rheumatoid Factor (0-15) IU/mL Microbiology - Last 24 Hours (Table) 02/06/23 20:52 Urine Culture - Final Urine,Voided 02/06/23 19:00 CSF Gram Stain - Preliminary Cerebral Spinal Fluid CSF Culture - Preliminary 02/06/23 14:36 Blood Culture - Preliminary Blood 02/06/23 14:44 Blood Culture - Preliminary Blood Assessment and Plan Assessment: * Intractable nausea, vomiting, intermittent headache, unclear etiology. No evidence of meningitis encephalitis. * Polyarthralgias/polymyalgia unclear cause. * Mild rhabdomyolysis, slightly worse * Pneumonia, involving right mid and lower lung. Rule out fluid overload. * Nausea vomiting, unclear cause. * Hypertension * Hyperlipidemia * History of amaurosis fugax left eye in 1992 Plan: * Patient continues to have diffuse symptoms as mentioned above. He has polymyalgia, polyarthralgias, intermittent headache, nausea vomiting, coughing. * CSF shows WBC 3, RBC 3, total protein normal 55 (12-60), CSF glucose 83 all normal. Viral cultures negative. * MRI of the brain was performed, which revealed age-related atrophic and chronic small vessel ischemic change. No acute intracranial process at this time. There is fluid seen within the right petrous apex. Correlate for petrous apicitis. * ENT input appreciated. * Infectious disease on board. Suspecting possible aspiration pneumonia. Patient now on Zosyn and azithromycin. * CT chest reviewed. Possible fluid overload. Possible right mid and lower lobe pneumonia. Pulmonary on board. * GI not available. Patient will be seen by surgery for possible EGD. * 2-D echo revealed normal left-ventricular systolic function with EF 55-60%. Normal left atrial size. No aortic stenosis. * Repeat inflammatory workup revealed ESR 37, CRP 32.6, rheumatoid factor is mildly elevated 18/15, Lyme titer negative, CPK has increased 1507, uric acid normal 5.9 (3.7-8.7), LUPILLO pending. * Recommend rheumatology consultation for polyarthralgias, polymyalgias, elevated CK and abnormal rheumatoid factor. * Hemoglobin A1c 6.0 normal and TFTs also normal on 07/31/2022. * Continue aspirin 162 mg daily. * B12 466, folate 13.5. * Discussed with patient's in detail. * Patient has been accepted at [facility] for further evaluation. Patient to be transferred soon.
[2023-02-11 10:15] LABS: Albumin 2.7 d/dL (3.8-4.9); Protein, Total 4.8 d/dL (6.2-8.2)
[2023-02-11 12:26] LABS: Anti-Glomerular Basement Memb <1.5 U/mL (<7.0)
[2023-02-11 15:00] LABS: C-ANCA <1:20 Titer (<1:20)
[2023-02-11 18:42] LABS: Gamma Globulin 0.32 d/dL (0.70-1.50)
== END 2023-02-08 19:45 | disposition short-term general hospital (02) | DRG 871 ==
LOC: EC 03:49 → 5NMEDONC 09:39
PROVIDERS: ADMIT Family Medicine; ATTEND Family Medicine
PROC: 009U3ZX Drainage of Spinal Canal, Percutaneous Approach, Diagnostic (ICD-10-PCS; principal; 2023-02-06)
DX: A41.9 Sepsis, unspecified organism (principal); G93.41 Metabolic encephalopathy; J69.0 Pneumonitis due to inhalation of food and vomit; J96.01 Acute respiratory failure with hypoxia; N17.0 Acute kidney failure with tubular necrosis; M62.82 Rhabdomyolysis; J44.1 Chronic obstructive pulmonary disease with (acute) exacerbation; Z85.528 Personal history of other malignant neoplasm of kidney; E78.5 Hyperlipidemia, unspecified; E87.6 Hypokalemia; F41.0 Panic disorder [episodic paroxysmal anxiety]; F43.10 Post-traumatic stress disorder, unspecified; H70.209 Unspecified petrositis, unspecified ear; I12.9 Hypertensive chronic kidney disease with stage 1 through stage 4 chronic kidney disease, or unspecified chronic kidney disease; I25.10 Atherosclerotic heart disease of native coronary artery without angina pectoris; J45.20 Mild intermittent asthma, uncomplicated; K21.9 Gastro-esophageal reflux disease without esophagitis; M10.9 Gout, unspecified; H93.19 Tinnitus, unspecified ear; R65.20 Severe sepsis without septic shock; M19.90 Unspecified osteoarthritis, unspecified site; M35.3 Polymyalgia rheumatica; N18.9 Chronic kidney disease, unspecified; R15.9 Full incontinence of feces; Z79.82 Long term (current) use of aspirin; Z79.899 Other long term (current) drug therapy; Z82.49 Family history of ischemic heart disease and other diseases of the circulatory system; Z86.61 Personal history of infections of the central nervous system; Z86.73 Personal history of transient ischemic attack (TIA), and cerebral infarction without residual deficits; Z87.891 Personal history of nicotine dependence; Z90.5 Acquired absence of kidney; Z87.442 Personal history of urinary calculi; Z20.822 Contact with and (suspected) exposure to COVID-19; Z87.01 Personal history of pneumonia (recurrent); Z71.3 Dietary counseling and surveillance; Z88.1 Allergy status to other antibiotic agents; Z88.2 Allergy status to sulfonamides; Z88.7 Allergy status to serum and vaccine; Z86.010 Personal history of colon polyps
CPT/HCPCS: 36415; 70450; 70551; 71045; 71250; 71275; 74174; 80048; 80053; 80074; 81001; 82550; 82607; 82746; 82945; 83036; 83516; 83690; 83735; 83880; 84145; 84157; 84165; 84550; 85025; 85610; 85652; 85730; 86038; 86140; 86160; 86162; 86225; 86255; 86334; 86431; 86618; 87040; 87070; 87086; 87205; 87252; 87449; 87496; 87498; 87529; 87635; 87636; 87798; 89050; 93005; 93306; 94640; 94760; 96361; 96374; 96375; 96376; 99285

== ENCOUNTER → 2023-07-09 | Outpatient (CLI) | payer MEDICARE, BC ==
--- NOTE | 2023-07-09 15:58 | US ---
EXAMINATION TYPE: US kidneys/renal and bladder DATE OF EXAM: 07/09/2023 COMPARISON: CT 2022 CLINICAL INDICATION: Male, 77 years old with history of C64.1 Renal ca right; Hx right renal cancer, right renal mass removed in 2019. EXAM MEASUREMENTS: Right Kidney: 8.4 x 5.3 x 4.7 cm Left Kidney: 10.9 x 5.5 x 6.4 cm Limited due to gas. Right Kidney: Small in size. Hx of surgery to right kidney. Indistinct, hypoechoic area seen medially inferior pole: 2.0 x 1.9 x 1.9 cm. Left Kidney: *Anechoic appearance of minimal hydronephrosis. *Hyperechoic focus with posterior shadowing seen superior pole: 0.8 x 0.7 x 0.6 cm. Bladder: Posterior wall appears slightly irregular Bilateral Jets seen: Yes IMPRESSION: Ill-defined hypoechoic area medial right kidney. Consider additional workup with CT abdomen.
--- NOTE | 2023-07-09 20:22 | XR ---
EXAMINATION TYPE: XR chest 2V DATE OF EXAM: 07/09/2023 COMPARISON: 02/08/2023 HISTORY: 77-year-old male C64.1, right renal cancer TECHNIQUE: Frontal and lateral views FINDINGS: Heart is normal size. Mild atherosclerotic arch calcifications. Mild interstitial prominence of the c hronic appearance. Mild hyperinflation. No consolidation or pleural effusion. Colonic interposition b elow the right hemidiaphragm. IMPRESSION: Possible underlying COPD. Clinically correlate. Otherwise, no acute process seen.
== END | disposition home or self-care (01) ==
LOC: RADUSWWP 14:22
PROVIDERS: ATTEND Urology
DX: C64.1 Malignant neoplasm of right kidney, except renal pelvis (principal)
CPT/HCPCS: 71046; 76770

== ENCOUNTER → 2023-11-27 | Outpatient (CLI) | payer MEDICARE, BC ==
--- NOTE | 2023-11-27 21:24 | XR ---
EXAMINATION TYPE: XR abdomen 2V DATE OF EXAM: 11/27/2023 COMPARISON: 01/15/2019 INDICATION: constipation abdomen pain TECHNIQUE: Single view abdomen upright view supine view FINDINGS: Nonspecific bowel gas is present. Air is within small bowel loops as well as the colon. Some fecal de bris is present. Significant fecal retention is not evident. Psoas margins are normal. No organomegaly is present. There is a 0.7 cm calcification over the mid left kidney. Cholecystectomy clips are present. IMPRESSION: 1. Left renal stone. 2. Nonspecific bowel gas pattern
== END | disposition home or self-care (01) ==
LOC: RADXRMAIN 11:16
PROVIDERS: ATTEND Family Medicine
DX: N20.0 Calculus of kidney (principal); K59.00 Constipation, unspecified
CPT/HCPCS: 74019

== ENCOUNTER → 2024-01-06 | Outpatient (CLI) | payer MEDICARE, BC ==
[2024-01-06 11:41] LABS: African American GFR (CKD) 63 (>60 ml/min/1.73 sqM); Blood Urea Nitrogen 25 mg/dL (9-20); Non-African American GFR(CKD) 55 (>60 ml/min/1.73 sqM)
--- NOTE | 2024-01-06 11:43 | XR ---
EXAMINATION TYPE: XR chest 2V DATE OF EXAM: 01/06/2024 COMPARISON: 07/09/2023 HISTORY: 78-year-old male C64.1 MALIGNANT NEOPLASM OF RIGHT KIDNEY, EXCEPT R TECHNIQUE: Frontal and lateral views FINDINGS: Heart normal size. Atherosclerotic arch calcifications. Mild interstitial prominence. No consolidatio n or pleural effusion. IMPRESSION: Chronic changes. No acute cardiopulmonary process.
--- NOTE | 2024-01-06 12:39 | CT ---
EXAMINATION TYPE: CT abdomen wo/w con CT DLP: 1015.2 mGycm, Automated exposure control for dose reduction was used. DATE OF EXAM: 01/06/2024 12:20 PM COMPARISON: Renal ultrasound 07/09/2023, CTA thoracoabdominal pelvis aorta 02/04/2023, CT abdomen 05/29 CLINICAL INDICATION:Male, 78 years old with history of C64.1 MALIGNANT NEOPLASM OF RIGHT KIDNEY, EXCE PT R; renal CA. f/u TECHNIQUE: Multiphase CT of the abdomen before and after the uneventful administration of 100 cc of Isovue-300 intravenously. Oral contrast was administered. Coronal and sagittal reformats were perform ed. FINDINGS: LOWER CHEST: Posterior dependent subsegmental atelectasis is noted. Coronary artery calcifications. B ilateral gynecomastia. ABDOMEN LIVER: Unremarkable GALLBLADDER AND BILE DUCTS: Gallbladder is surgically absent. No biliary duct dilatation. PANCREAS: Unremarkable. SPLEEN: Unremarkable. ADRENAL GLANDS: Unremarkable. KIDNEYS AND URETERS: No evidence of hydronephrosis. Nonobstructive bilateral renal calculi with large st in the right kidney measuring 1 mm and largest in the left kidney measuring up to 7 mm. The kidney s enhance symmetrically. Contrast is demonstrated within both collecting systems on the delayed phase . Posttreatment change to the lower pole of the right kidney with linear hyperdensity redemonstrated and volume loss. No new suspicious mass identified. STOMACH AND BOWEL: Postsurgical changes of the GE junction from hernia repair. Wandering cecum into t he right upper quadrant again identified. No evidence of bowel obstruction. PERITONEUM: No evidence of pneumoperitoneum or free fluid. VASCULATURE: Mild atherosclerotic calcifications are present throughout the abdominal aorta and its b ranches. Infrarenal fusiform abdominal aortic aneurysm measuring up to 3.7 cm. Relatively stable from prior exam. MUSCULOSKELETAL: No acute osseous abnormalities. No aggressive osseous abnormality. LYMPH NODES: No gross evidence for lymphadenopathy. SOFT TISSUE/ABDOMINAL WALL: Unremarkable IMPRESSION: 1. Stable postoperative changes to the lower pole the right kidney. No new suspicious mass or lympha denopathy to suggest active neoplastic recurrence. 2. Nonobstructive bilateral renal calculi. 3. Relatively stable infrarenal abdominal aortic aneurysm measuring up to 3.7 cm.
== END | disposition home or self-care (01) ==
LOC: RADCTMAIN 10:53
PROVIDERS: ATTEND Urology
DX: C64.1 Malignant neoplasm of right kidney, except renal pelvis (principal); N20.0 Calculus of kidney; I71.43 Infrarenal abdominal aortic aneurysm, without rupture
CPT/HCPCS: 82565; 84520; 71046; 74170; 36415; Q9967

== ENCOUNTER → 2024-03-12 | Outpatient (CLI) | payer MEDICARE, BC | END | disposition home or self-care (01) | LOC: LABPRL 12:10 | PROVIDERS: ATTEND Family Medicine | DX: I10 Essential (primary) hypertension (principal); K85.90 Acute pancreatitis without necrosis or infection, unspecified | CPT/HCPCS: 82150; 83690 ==

== ENCOUNTER → 2024-12-07 | Outpatient (CLI) | payer MEDICARE, BC ==
[2024-12-07 15:59] LABS: African American GFR (CKD) 81 (>60 ml/min/1.73 sqM); Blood Urea Nitrogen 18 mg/dL (9-20); Non-African American GFR(CKD) 70 (>60 ml/min/1.73 sqM)
--- NOTE | 2024-12-07 20:13 | CT ---
EXAMINATION TYPE: CT abdomen pelvis w con CT DLP: 1013.1 mGycm, Automated exposure control for dose reduction was used. DATE OF EXAM: 12/07/2024 5:07 PM COMPARISON: CT abdomen 01/06/2024, 06/11/2022, 06/19/2021, renal ultrasound 07/09/2023, CTA thoracoabd ominal pelvis aorta 02/04/2023, MR kidney 04/29/2020 CLINICAL INDICATION:Male, 78 years old with history of K86.1 CHRONIC PANCREATITIS; f/u pancreatitis TECHNIQUE: Standard CT of the abdomen and pelvis following the administration of 100 cc of Isovue 3 00 IV contrast material and oral contrast. Coronal and sagittal reformats were performed. FINDINGS: LOWER CHEST: Posterior dependent subsegmental atelectasis is noted. Stable left lower lobe 5 mm pulmo nary nodule dating back to at least 2021 and considered benign. No follow up recommended. ABDOMEN LIVER: Unremarkable GALLBLADDER AND BILE DUCTS: The gallbladder is surgically absent. No biliary ductal dilatation. PANCREAS: Unremarkable. No duct dilatation, no parenchymal calcifications. No surrounding fat strandi ng or fluid collections. Mildly atrophic. SPLEEN: Unremarkable. ADRENAL GLANDS: Unremarkable. KIDNEYS AND URETERS: No evidence of hydronephrosis. The kidneys enhance symmetrically. Lobulated appe arance of the right kidney with regions of cortical thinning. No right renal calculi. Nonobstructing left superior pole 7 mm calculus. Similar appearance of postsurgical changes to the lower pole of the right kidney with linear hyperdensity redemonstrated volume loss and fat attenuation. No new suspici ous mass. Contrast is demonstrated within both collecting systems and proximal ureters on the delayed phase. PELVIS BLADDER: Unremarkable REPRODUCTIVE: Coarse calcifications of the prostate gland are identified. There is median lobe hypert rophy of the prostate gland which indents upon the urinary bladder base. ABDOMEN & PELVIS STOMACH AND BOWEL: Postsurgical change of the GE junction from hernia repair with small hiatal hernia demonstrated.Wandering cecum redemonstrated within the right upper quadrant. Enteric contrast reache s the mid to distal small bowel. Scattered sigmoid diverticula without evidence for acute diverticuli tis. Mild amount of stool is present within the bowel. Small bowel feces sign without dilated small b owel. No evidence of bowel obstruction. No focal bowel wall thickening or surrounding inflammatory ch anges. PERITONEUM: No evidence of pneumoperitoneum or free fluid. VASCULATURE: Mild atherosclerotic calcifications are present throughout the abdominal aorta and its b ranches. Stable distal abdominal aortic aneurysm measuring up to 3.6 cm. MUSCULOSKELETAL: No acute osseous abnormalities. No aggressive osseous lesion. LYMPH NODES: No evidence for lymphadenopathy. SOFT TISSUE/ABDOMINAL WALL: Moderate sized fat filled left inguinal hernia. IMPRESSION: 1. No CT evidence for acute abdominal/pelvic process. No CT evidence for pancreatitis. 2. Stable posttreatment changes to the lower pole of the right kidney. No enlarging or new suspicious mass to suggest active neoplastic recurrence. Additional nonobstructing left renal calculus. 3. Stable abdominal aortic aneurysm measuring up to 3.6 cm. 4. Moderate sized fat filled left inguinal hernia. 5. Small bowel feces without dilated small bowel. No evidence for bowel obstruction. Findings suggest slow small bowel transit. [facility], , 12/07/2024 8:11 PM
== END | disposition home or self-care (01) ==
LOC: RADCTMAIN 14:56
PROVIDERS: ATTEND Family Medicine
DX: K86.1 Other chronic pancreatitis (principal); I71.40 Abdominal aortic aneurysm, without rupture, unspecified; N20.0 Calculus of kidney; K40.90 Unilateral inguinal hernia, without obstruction or gangrene, not specified as recurrent
CPT/HCPCS: 82565; 84520; 74177; 36415; Q9967